=== PATIENT | female | born 1965 | race Caucasian/White ===

== ENCOUNTER 2022-03-31 09:43 | Inpatient (IN) | payer BC, SELFPAY ==
[2022-03-31] VITALS (13 sets, daily range): BP systolic 148–183; BP diastolic 81–108; PULSE 64–75; RESP 14–20; TEMP 36.6–37; O2SAT 91–100; BMI 36.5; BMI 38.5
--- NOTE | 2022-03-31 10:17 | CRLHL7_ITS ---
For Patients: As a result of the 21st Century Cures Act, medical imaging exams and procedure reports are released immediately into your electronic medical record. You may view this report before your referring provider. If you have questions, please contact your health care provider. Indication: Back pain Technique: Volumetric multidetector CT images of the chest, abdomen, and pelvis were obtained after the administration of intravenous contrast. 95 cc Isovue-300 low osmolar intravenous contrast Comparison: CT abdomen and pelvis with contrast September 28, 2018 FINDINGS: CHEST The thoracic inlet is unremarkable. The thyroid gland is within normal limits. The thoracic aorta is nonaneurysmal. There is no filling defect to suggest pulmonary embolus. There is no mediastinal, hilar, or axillary adenopathy. There is linear basilar atelectasis and parenchymal scarring within the bilateral lung bases. There is a trace right basilar effusion. There is no pneumothorax. Somewhat lytic and sclerotic changes of the anterior right 2nd rib are incidentally appreciated without evidence of additional lytic or blastic lesion. The thoracic vertebral body heights are grossly maintained with mild multi-level degenerative disc disease. Incidental note is made of mild paraspinous soft tissue swelling centered at the T7 and T8 levels. ABDOMEN AND PELVIS The liver is enlarged with mild up attic steatosis. There are extensive subcentimeter hypodensities too small to characterize which may represent cystic changes of the liver. The spleen is normal in attenuation and size. There are radiopaque calculi within the gallbladder lumen. There is no intrahepatic or common ductal dilatation. The stomach and duodenum are grossly unremarkable. The pancreas is normal in enhancement without significant atrophy. The adrenal glands are unremarkable without evidence of adenoma. The kidneys demonstrate cystic changes and mild prominence of the right renal pelvis with nonobstructive calculi in the collecting systems. There is no definite evidence of distal obstructive calculus. There is a moderate to severe proximal amount of intracolonic stool. There is minimal distal colonic diverticulosis. The appendix is unremarkable without significant inflammatory change. The abdominal aorta is nonaneurysmal with no significant atherosclerotic disease. The remaining solid pelvic viscera are otherwise grossly unremarkable. There is no pathologically enlarged epigastric, mesenteric, retroperitoneal, or pelvic sidewall lymph node. There is mild bulging of the ventral abdomen. There is no free air or free fluid. Degenerative changes of the sacroiliac joints and bilateral hips are appreciated. The lumbar vertebral body heights are grossly maintained with mild multi-level degenerative disc disease. There is moderate facet arthrosis. Impression: 1. Demonstration of mild paraspinous soft tissue thickening at the T7 and T8 levels without evidence of underlying endplate changes which could represent minimal paraspinous infectious or inflammatory phlegmon. Follow-up with contrast enhanced MRI of the thoracic spine for improved characterization of subtle marrow edema and enhancement. 2. Right greater than left basilar pleural effusions with adjacent compressive atelectasis and/or minimal developing infiltrates. 3. Somewhat mixed lytic and sclerotic changes of the anterior right rib without evidence of additional lytic or sclerotic changes of the thoracic osseous structures. This finding could represent a small partially calcified enchondroma. 4. Moderate hepatosplenomegaly. Subcentimeter cystic changes too small to characterize similar to previous exam. 5. Moderate stool within the colon. Otherwise, no definite acute intra-abdominal abnormalities are appreciated. Nephrolithiasis without evidence of definite distal obstructive uropathy. Please note that all CT scans at this facility use dose modulation, iterative reconstruction, and/or weight-based dosing when appropriate to reduce radiation dose to as low as reasonably achievable. Dictated by Adolfo Oneill MD @ 03/31/2022 12:53:00 PM (Electronically Signed)
[2022-03-31 10:30] LABS: Lactate* 0.7 mmol/L (0.5-1.9)
--- NOTE | 2022-03-31 10:30 | ED.GENADULT ---
HPI - General Adult General Time Seen by Provider: 10:30 Date Seen: 03/31/22 Chief complaint: Back Injury/Pain Stated complaint: severe backpain Time Seen by Provider: 03/31/22 09:43 Source: patient and family Mode of arrival: ambulatory Limitations: no limitations History of Present Illness HPI narrative: Patient is a very pleasant 56-year-old female who presents here with back discomfort. She describes her back discomfort for the last week to week and half. He has been battling a bladder infection is been placed on multiple courses of antibiotics for this. Most recently yesterday where was changed to ciprofloxacin. She is also taking some tramadol for the discomfort. She notices no pain that goes down into her buttocks. Air into her legs bilaterally. Coughing or taking a deep breath in and significantly exacerbates her discomfort. She has also been taking some ibuprofen with this. She has had some fevers and chills earlier in the week. But did not take her temperature, she notes no numbness tingling or weakness, there has been no diarrhea if anything she has been constipated she has had no dysuria frequency of urination noted. She has noted no change in her pain with eating, movement, and the pain is continuous. Related Data Home Medications Medication Instructions Recorded Confirmed albuterol sulfate 90 mcg/actuation INHALATION 03/19/22 03/30/22 aerosol inhaler anastrozole 1 mg tablet 1 mg PO tab 03/19/22 03/30/22 atorvastatin 40 mg tablet 40 mg PO QPM tab 03/19/22 03/30/22 benzonatate 100 mg capsule mg PO 03/19/22 03/30/22 bupropion HCl 150 mg 24 hr tablet, mg PO 03/19/22 03/30/22 extended release citalopram 40 mg tablet 40 mg PO tab 03/19/22 03/30/22 dextroamphetamine-amphetamine ER applicator PO 03/19/22 03/30/22 20 mg 24hr capsule,extend release dextroamphetamine-amphetamine ER PO 03/19/22 03/30/22 30 mg 24hr capsule,extend release levothyroxine 25 mcg tablet 25 mcg PO tab 03/19/22 03/30/22 losartan 50 mg tablet 50 mg PO QDAY tab 03/19/22 03/30/22 mirabegron 50 mg tablet,extended tab PO 03/19/22 03/30/22 release 24 hr (Myrbetriq) nitrofurantoin 100 mg PO ONCE cap 03/19/22 03/30/22 monohydrate/macrocrystals 100 mg capsule simvastatin 40 mg tablet 40 mg PO QPM tab 03/19/22 03/30/22 triamcinolone acetonide 0.5 % applic TOPICAL 03/19/22 03/30/22 topical cream Previous Rx's Medication Instructions Recorded ciprofloxacin HCl 250 mg tablet 250 mg PO BID #14 tab 03/30/22 tramadol 50 mg tablet 50 mg PO TID PRN #10 tab 03/30/22 Allergies Allergy/AdvReac Type Severity Reaction Status Date / Time No Known Drug Allergies Allergy Verified 03/30/22 12:11 Review of Systems Status of ROS: Reports: 10 or more systems reviewed and unremarkable except as noted in History and below PFSH PFS Social History Smoking Status: Never smoker Do you use any of these nicotine containing products: None Second hand tobacco smoke exposure: No Non-prescribed substance use: denies use service: No Exam Const: Vital Signs, click to edit/add: Vital Signs - 24 hr 03/31/22 09:55 03/31/22 11:37 03/31/22 12:00 Temperature 97.8 F Pulse Rate [Right Pulse Oximeter] 74 64 65 Respiratory Rate 18 14 Blood Pressure [Ri ght Upper Arm] 183/108 H 163/89 H 161/93 H Pulse Oximetry 97 100 99 03/31/22 12:30 03/31/22 13:00 03/31/22 14:30 Temperature Pulse Rate [Right Pulse Oximeter] 65 64 69 Respiratory Rate 17 Blood Pressure [Ri ght Upper Arm] 148/87 H 155/89 H 153/94 H Pulse Oximetry 96 99 99 03/31/22 15:00 03/31/22 16:00 Temperature Pulse Rate [Right Pulse Oximeter] 66 66 Respiratory Rate 14 15 Blood Pressure [Ri ght Upper Arm] 151/87 H 161/92 H Pulse Oximetry 99 100 Documenting provider has reviewed patient's vital signs: yes Common normals: oriented x3, no limitations, alert and well nourished General appearance: ill appearing Nutritional appearance: overweight Orientation/consciousness: Yes awake, Yes oriented to person, Yes oriented to place and Yes oriented to time HENMT: Common normals: normocephalic, head/scalp atraumatic, hearing grossly normal bilaterally, external ears normal, EAC's normal, TM's normal bilaterally, external nose normal, nasal mucous membranes and turbinates normal, moist oral mucous membranes, oropharynx normal, dentition normal and gingiva normal Head and scalp: normal to inspection, normocephalic and atraumatic Face and sinus: normal facial exam, sinuses nontender and face symmetric Nose: external nose normal and nasal mucous membranes and turbinates normal External ear: external ears normal External auditory canal: EAC's normal Tympanic membrane: TM's normal bilaterally Mouth: oral and palatal mucosa normal, lip normal, tongue normal and salivary glands and ducts normal Throat: posterior oropharynx normal, tonsils normal and uvula midline Eye: Common normals: PERRL, EOMs intact bilaterally, conjunctivae normal and no scleral icterus General eye: normal appearance of both eyes Visual acuity: acuity normal Alignment: alignment normal Periorbital: periorbital findings normal Eyelid: eyelids normal Conjunctiva: conjunctiva(e) normal Sclera: sclerae normal Cornea: corneas normal Pupil: PERRL EOM: EOM abnormal Neck & C-Spine: Common normals: full ROM, no lymphadenopathy, supple, no meningeal signs, no JVD, thyroid normal and no carotid bruits Thyroid: thyroid normal Lymph: Lymphatic: no lymphadenopathy noted and no lymphedema noted Chest: Common normals: inspection of chest normal and palpation of chest normal Chest: other Other: Scars bilaterally are notable or breast consistent with the previous lumpectomy and breast reduction Resp: Common normals: normal respiratory effort, no retractions, no use of accessory muscles, clear to auscultation bilaterally and percussion normal Effort & inspection: able to speak in complete sentences and symmetric chest movement Auscultation: clear to auscultation bilaterally Percussion: percussion normal Cardio: Common normals: no JVD, regular rate, regular rhythm, S1 normal heart sound, S2 normal heart sound, no gallops, no clicks, no murmurs, no rub and peripheral pulses 2+ throughout Rate: regular rate Rhythm: regular rhythm Heart sounds: S1 normal and S2 normal Peripheral pulses: pulses 2+ throughout GI: Common normals: Normal to inspection, nondistended, normoactive bowel sounds present Inspection: normal to inspection Other: Abdomen is distended, and obese, she is more right-sided than left-sided upper abdominal pain. On palpation noted in the deep on the right side. Bowel sounds are normal throughout all quadrants. There is no change in her skin. No hernias are appreciated. She has some percussion tenderness noted of her spine noted. And her lower thoracic region upper lumbar region. Point of care ultrasound was done showing mild hydronephrosis bilaterally of her kidneys. There is also shadowing gallstones within her gallbladder. : Bladder/kidney exam: CVA tenderness Back & Pelvis: Common normals: thoracic and lumbar spine normal to inspection General back: CVA tenderness Thoracic spine/upper back: ROM limited, pain with ROM and thoracic spinal tenderness Lumbar spine/lower back: paraspinal muscle tenderness Pelvis: buttocks normal Extremity: Common normals: normal to inspection, full ROM, normal capillary refill, no joint enlargement, no clubbing, cyanosis or edema, no calf tenderness and no pedal edema General: normal exam except as noted Neuro: Common normals: oriented x3, CN's II-XII intact bilaterally, moves all extremities, no focal motor deficits, no sensory deficits noted, deep tendon reflexes 2+ bilaterally and gait normal Sensorium/orientation: awake, alert, oriented to person, oriented to place and oriented to time Meningeal signs: no meningeal signs Skin: Common normals: no rashes or lesions noted, no wounds, skin turgor normal, no jaundice, no petechiae and no mottling General skin exam: no rashes or lesions noted and turgor normal Course Course Hospital Course: 3:35 p.m. Patient received numerous doses of Dilaudid for pain. This is helped her pain immensely. Use to have no fevers or chills. CT scan was suggestive of thoracic spine issue. With the soft tissue swelling around T7-T8. Recommendation was for a thoracic MRI. Thoracic MRI was done which showed some inflammation/infectious nature around T6 through T8. No specific fluid collection. I discussed with the patient and patient's family the findings. I would like to speak to Infectious Disease and/or neuro surgery at a tertiary care center. Vital Signs Vital signs: Initial Vital Signs Temperature 97.8 F 03/31/22 09:55 Temperature Source Temporal Artery Scan 03/31/22 09:55 Pulse Rate 74 03/31/22 09:55 Respiratory Rate 18 03/31/22 09:55 Blood Pressure 183/108 H 03/31/22 09:55 Blood Pressure Mean 133 03/31/22 09:55 Blood Pressure Position Sitting 03/31/22 09:55 Pulse Oximetry 97 03/31/22 09:55 Oxygen Delivery Method 03/31/22 09:55 Vital Signs Temperature 97.8 F 03/31/22 09:55 Pulse Rate 74 03/31/22 09:55 Respiratory Rate 18 03/31/22 09:55 Blood Pressure 183/108 H 03/31/22 09:55 Pulse Oximetry 97 03/31/22 09:55 Temperature 97.8 F 03/31/22 09:55 Pulse Rate 66 03/31/22 16:00 Respiratory Rate 15 03/31/22 16:00 Blood Pressure 161/92 H 03/31/22 16:00 Pulse Oximetry 100 03/31/22 16:00 Medical Decision Making MDM Narrative Medical decision making narrative: Patient is seen and assessed her vital signs show elevated systolic and diastolic blood pressure. This is more consistent with pain than anything. I am a little bit concerned as she appears ill looking here. That we need to do some laboratory work, blood cultures, IV, and a CT scan with IV contrast. To further delineate her abdominal and thoracic region. During the evaluation of this patient I considered multiple differential diagnosis including life-threatening differentials which are appendicitis, aortic aneurysm, mesenteric ischemia, bowel perforation, ectopic , volvulus and bowel obstruction, other differential diagnosis include but are not limited to inflammatory bowel disease, cholecystitis, pancreatitis, hepatitis, gastritis, GERD, diverticulitis, peptic ulcer disease, pyelonephritis/UTI, renal colic/stone, pelvic inflammatory disease, cervicitis, endometritis, intrauterine , dysfunctional uterine bleeding, ovarian cyst/torsion, spontaneous as well as other etiologies Discussed with them the findings and course with this. We will do CT of her chest abdomen and pelvis for further delineation. She does have a history of breast cancer in the back my mind also. IV fluids Zofran Dilaudid will be given also. 5:07 p.m. I discussed the case with from [facility] infectious disease. He agreed that in a perfect world a biopsy would be appropriate of this area before starting antibiotics but given the fact that every tertiary care system in [place] is unable to take med surge basins now, (I called [facility], [facility], [facility], [facility], [facility] and all were full.) He suggested ceftazidime 2 g every 12 hours along with some ice and 1 g every 12 hours. If worsening condition then consideration of transfer. But since were doing long-term antibiotics he does not think they need if she response to therapy for this. She will need to see infectious disease at [facility]. At some point. I will speak to the inpatient physician in [facility] and get her admitted for pain control and antibiotics for presumed thoracic osteomyelitis. Medical Records Medical records reviewed: Yes I reviewed the patient's medical records Lab Data Lab results reviewed: Yes I reviewed the patient's lab results Labs: Lab Results 03/31/22 03/31/22 03/31/22 Range/Units 10:20 10:20 10:20 WBC 8.67 (4.50-11.00) K/uL RBC 4.14 (4.00-5.20) m/uL Hgb 12.2 (12.0-16.0) gm/dL Hct 37.3 (33.0-51.0) % MCV 90 (80-100) fL MCH 30 (26-34) pg MCHC 33 (32-36) gm/dL RDW Coeff of Antonio 13.0 (11.5-15.5) % Plt Count 257 (140-440) K/uL Neut % (Auto) 84.0 H (42.0-72.0) % Lymph % (Auto) 7.8 L (20-44) % [place] % (Auto) 7.2 (0.0-11.0) % Eos % (Auto) 0.6 (0.0-7.0) % Baso % (Auto) 0.2 (0.0-3.0) % Neut # (Auto) 7.30 H (1.7-7.0) K/uL Lymph # (Auto) 0.70 L (0.90-2.90) K/uL [place] # (Auto) 0.60 (0.00-0.90) K/UL Eos # (Auto) 0.05 (0.00-0.50) K/uL Baso # (Auto) 0.02 (0.00-0.30) K/uL Abs Immat Gran (auto) 0.02 (0.00-0.30) K/uL Sodium 133 L Cancelled (135-149) mmol/L Potassium 3.6 Cancelled (3.6-5.1) mmol/L Chloride 100 Cancelled (96-114) mmol/L Carbon Dioxide 25 Cancelled (20-32) mmol/L BUN 12 Cancelled (7-30) mg/dL Creatinine 0.6 Cancelled (0.5-1.5) mg/dL Estimated Creat Clear 104.36 Cancelled Glucose 156 H Cancelled (60-115) mg/dL Lactate (0.5-1.9) mmol/L Calcium 8.9 Cancelled (8.4-10.6) mg/dL Total Bilirubin 0.9 (0.1-1.5) mg/dL Direct Bilirubin 0.4 (0.0-0.5) mg/dL AST 19 (12-35) U/L ALT 15 (4-35) U/L Alkaline Phosphatase 93 (40-150) U/L C-Reactive Protein 14.4 H (0.5-1.0) mg/dL Total Protein 6.5 (6.0-8.3) g/dL Albumin 3.8 (3.3-5.0) g/dL Lipase 25 (23-300) U/L Urine Color (Yellow) Urine Appearance (Clear) Urine pH (5.0-8.5) Ur Specific Valera (1.000-1.030) Urine Protein (Negative) Urine Glucose (UA) (Negative) Urine Ketones (Negative) Urine Blood (Negative) Urine Nitrite (Negative) Urine Bilirubin (Negative) Urine Urobilinogen (0.2-1.0) Ur Leukocyte Esterase (Negative) Urine RBC (0-2) Urine WBC (0-5) Ur Squamous Epith Cells (None-Few) Amorphous Sediment (None) Other Sediment (None) Urine Bacteria (None) Urine Mucus (None) 03/31/22 03/31/22 03/31/22 Range/Units 10:20 10:20 11:10 WBC (4.50-11.00) K/uL RBC (4.00-5.20) m/uL Hgb (12.0-16.0) gm/dL Hct (33.0-51.0) % MCV (80-100) fL MCH (26-34) pg MCHC (32-36) gm/dL RDW Coeff of Antonio (11.5-15.5) % Plt Count (140-440) K/uL Neut % (Auto) (42.0-72.0) % Lymph % (Auto) (20-44) % [place] % (Auto) (0.0-11.0) % Eos % (Auto) (0.0-7.0) % Baso % (Auto) (0.0-3.0) % Neut # (Auto) (1.7-7.0) K/uL Lymph # (Auto) (0.90-2.90) K/uL [place] # (Auto) (0.00-0.90) K/UL Eos # (Auto) (0.00-0.50) K/uL Baso # (Auto) (0.00-0.30) K/uL Abs Immat Gran (auto) (0.00-0.30) K/uL Sodium (135-149) mmol/L Potassium (3.6-5.1) mmol/L Chloride (96-114) mmol/L Carbon Dioxide (20-32) mmol/L BUN (7-30) mg/dL Creatinine (0.5-1.5) mg/dL Estimated Creat Clear Glucose (60-115) mg/dL Lactate 0.7 (0.5-1.9) mmol/L Calcium (8.4-10.6) mg/dL Total Bilirubin (0.1-1.5) mg/dL Direct Bilirubin (0.0-0.5) mg/dL AST (12-35) U/L ALT (4-35) U/L Alkaline Phosphatase (40-150) U/L C-Reactive Protein Cancelled (0.5-1.0) mg/dL Total Protein (6.0-8.3) g/dL Albumin (3.3-5.0) g/dL Lipase (23-300) U/L Urine Color Yellow (Yellow) Urine Appearance Clear (Clear) Urine pH 7.0 (5.0-8.5) Ur Specific Valera 1.015 (1.000-1.030) Urine Protein Negative (Negative) Urine Glucose (UA) Negative (Negative) Urine Ketones Negative (Negative) Urine Blood 1+ A (Negative) Urine Nitrite Negative (Negative) Urine Bilirubin Negative (Negative) Urine Urobilinogen 0.2 (0.2-1.0) Ur Leukocyte Esterase 1+ A (Negative) Urine RBC 0-2 (0-2) Urine WBC 2-5 (0-5) Ur Squamous Epith Cells Few (None-Few) Amorphous Sediment (None) Other Sediment (None) Urine Bacteria Few A (None) Urine Mucus (None) Imaging Data CT scan - abdomen: Attestation: I have reviewed the pertinent imaging results. Radiologist's impression: Patient: REMI WAHL Facility:?[facility] Patient ID:?[id number] Site Patient ID:?[id number]. Site :?[id number] Study:?MRI Spine Thoracic w/wo 15 ml Dotarem-03/31/2022 2:23:04 PM Ordering Physician:?Inez Marsh Final Report: Indication: 03/31/22 CT showed paraspinous thickening at T 7-8 HX BREAST CANCER Technique: Noncontrast sagittal T1, T2, STIR and axial GRE sequences are provided. Sagittal and axial T1 postcontrast images obtained after administration of 15 ml Dotarem IV contrast. Comparison: CT 03/31/22 Findings: Thoracic kyphotic curvature is maintained. Vertebral body heights are maintained. No fractures. No aggressive osseous lesion. There is a 6.6 centimeter abnormal region of right paraspinal thickening and enhancement along the T6-T8 vertebral bodies (series 8 image 6) and to a lesser extent along the left paraspinal soft tissues at the T7 and T8 level without osseous erosion. Mild enhancement of the left T6-7 and T7-8 neural foramen epidural fat. Multiple right hepatic cysts. No abnormal spinal cord signal. Multilevel mild discogenic degenerative changes. No significant spinal canal stenosis or neural foramen narrowing. Impression: 1. Soft tissue edema and enhancement along the right T6-T8 vertebral bodies and left T7-8 vertebral bodies. Mild enhancement of the left T6-7 and T7-8 neural foramen epidural fat. Differential considerations include infectious or inflammatory process. 2. Multilevel mild discogenic degenerative changes. No significant spinal canal stenosis or neural foramen narrowing. Dictated by Bret Al MD @ 03/31/2022 2:52:37 PM (Electronic Signature) Patient: REMI WAHL Facility:?[facility] Patient ID:?[id number] Site Patient ID:?[id number]. Site :?[id number] Study:?CT Chest/Abd/Pelvis 95CC ISOVUE 300-03/31/2022 11:53:35 AM Ordering Physician:Fatuma Marsh Final Report: Indication: Back pain Technique: Volumetric multidetector CT images of the chest, abdomen, and pelvis were obtained after the administration of intravenous contrast. 95 cc Isovue-300 low osmolar intravenous contrast Comparison: CT abdomen and pelvis with contrast September 28, 2018 FINDINGS: CHEST The thoracic inlet is unremarkable. The thyroid gland is within normal limits. The thoracic aorta is nonaneurysmal. There is no filling defect to suggest pulmonary embolus. There is no mediastinal, hilar, or axillary adenopathy. There is linear basilar atelectasis and parenchymal scarring within the bilateral lung bases. There is a trace right basilar effusion. There is no pneumothorax. Somewhat lytic and sclerotic changes of the anterior right 2nd rib are incidentally appreciated without evidence of additional lytic or blastic lesion. The thoracic vertebral body heights are grossly maintained with mild multi-level degenerative disc disease. Incidental note is made of mild paraspinous soft tissue swelling centered at the T7 and T8 levels. ABDOMEN AND PELVIS The liver is enlarged with mild up attic steatosis. There are extensive subcentimeter hypodensities too small to characterize which may represent cystic changes of the liver. The spleen is normal in attenuation and size. There are radiopaque calculi within the gallbladder lumen. There is no intrahepatic or common ductal dilatation. The stomach and duodenum are grossly unremarkable. The pancreas is normal in enhancement without significant atrophy. The adrenal glands are unremarkable without evidence of adenoma. The kidneys demonstrate cystic changes and mild prominence of the right renal pelvis with nonobstructive calculi in the collecting systems. There is no definite evidence of distal obstructive calculus. There is a moderate to severe proximal amount of intracolonic stool. There is minimal distal colonic diverticulosis. The appendix is unremarkable without significant inflammatory change. The abdominal aorta is nonaneurysmal with no significant atherosclerotic disease. The remaining solid pelvic viscera are otherwise grossly unremarkable. There is no pathologically enlarged epigastric, mesenteric, retroperitoneal, or pelvic sidewall lymph node. There is mild bulging of the ventral abdomen. There is no free air or free fluid. Degenerative changes of the sacroiliac joints and bilateral hips are appreciated. The lumbar vertebral body heights are grossly maintained with mild multi-level degenerative disc disease. There is moderate facet arthrosis. Impression: 1. Demonstration of mild paraspinous soft tissue thickening at the T7 and T8 levels without evidence of underlying endplate changes which could represent minimal paraspinous infectious or inflammatory phlegmon. Follow-up with contrast enhanced MRI of the thoracic spine for improved characterization of subtle marrow edema and enhancement. 2. Right greater than left basilar pleural effusions with adjacent compressive atelectasis and/or minimal developing infiltrates. 3. Somewhat mixed lytic and sclerotic changes of the anterior right rib without evidence of additional lytic or sclerotic changes of the thoracic osseous structures. This finding could represent a small partially calcified enchondroma. 4. Moderate hepatosplenomegaly. Subcentimeter cystic changes too small to characterize similar to previous exam. 5. Moderate stool within the colon. Otherwise, no definite acute intra-abdominal abnormalities are appreciated. Nephrolithiasis without evidence of definite distal obstructive uropathy. Please note that all CT scans at this facility use dose modulation, iterative reconstruction, and/or weight-based dosing when appropriate to reduce radiation dose to as low as reasonably achievable. Dictated by Adolfo Oneill MD @ 03/31/2022 12:53:00 PM (Electronic Signature) Discharge Plan Discharge Clinical Impression: Acute osteomyelitis of thoracic spine Patient Disposition: Admitted As Inpatient Activity Level: Activity as Tolerated, Light activity and Up with assist Discharge Diet: Regular
[2022-03-31 10:32] LABS: Basophils Absolute Auto 0.02 K/uL (0.00-0.30); Basophils Percent Auto 0.2 % (0.0-3.0); Eosinophils Absolute Auto 0.05 K/uL (0.00-0.50); Eosinophils Percent Auto 0.6 % (0.0-7.0); Hematocrit 37.3 % (33.0-51.0); Hemoglobin* 12.2 gm/dL (12.0-16.0); Immature Granulocytes Abs Auto 0.02 K/uL (0.00-0.30); Lymphocytes Percent Auto 7.8 % (20-44); Mean Corpuscular HGB Conc 33 gm/dL (32-36); Mean Corpuscular Hemoglobin 30 pg (26-34); Mean Corpuscular Volume 90 fL (80-100); Monocytes Percent Auto 7.2 % (0.0-11.0); Platelet Count* 257 K/uL (140-440); Red Blood Count 4.14 m/uL (4.00-5.20); White Blood Count* 8.67 K/uL (4.50-11.00)
[2022-03-31] MEDS: 0.9 % SODIUM CHLORIDE 1000 ml 1,000 ML IV (10:33)
[2022-03-31] MEDS: ONDANSETRON 2 MG/ML inj 4 MG IVP (10:36)
[2022-03-31] MEDS: HYDROmorphone 0.5 mg/0.5 ml inj IVP ×5 (10:38→17:21)
[2022-03-31 10:44] LABS: Slide Review Reflex No
[2022-03-31 10:51] LABS: Albumin* 3.8 g/dL (3.3-5.0)
[2022-03-31 10:54] LABS: Alkaline Phosphatase* 93 U/L (40-150); Aspartate Amino Transferase* 19 U/L (12-35); Bilirubin Direct* 0.4 mg/dL (0.0-0.5); Bilirubin Total* 0.9 mg/dL (0.1-1.5); Total Protein* 6.5 g/dL (6.0-8.3)
[2022-03-31 10:55] LABS: Alanine Aminotransferase* 15 U/L (4-35); Lipase* 25 U/L (23-300)
--- NOTE | 2022-03-31 10:57 | PC.NURSE ---
applied O2 at 2lpm for spo2 88-90% after dilaudid
[2022-03-31 11:18] LABS: Appearance Urine Clear (Clear); Bilirubin Urine Negative (Negative); Blood Urine 1+ (Negative); Color Urine Yellow (Yellow); Glucose Urine Negative (Negative); Ketones Urine Negative (Negative); Leukocyte Esterase Urine 1+ (Negative); Nitrite Urine Negative (Negative); Protein Urine Negative (Negative); Specific Gravity Urine 1.015 (1.000-1.030); Urobilinogen Urine 0.2 (0.2-1.0)
--- NOTE | 2022-03-31 11:26 | PC.NURSE ---
Pt in imaging
[2022-03-31 11:30] LABS: Bacteria Urine Few; RBC Urine 0-2 (0-2); Squamous Epithelial Cell Urine Few (None-Few)
[2022-03-31 11:33] LABS: C Reactive Protein* 14.4 mg/dL (0.5-1.0)
--- NOTE | 2022-03-31 11:36 | PC.NURSE ---
pt back from imaging, vss, bp improved
--- NOTE | 2022-03-31 12:59 | CRLHL7_ITS ---
For Patients: As a result of the Century Cures Act, medical imaging exams and procedure reports are released immediately into your electronic medical record. You may view this report before your referring provider. If you have questions, please contact your health care provider. Indication: 03/31/22 CT showed paraspinous thickening at T 7-8 HX BREAST CANCER Technique: Noncontrast sagittal T1, T2, STIR and axial GRE sequences are provided. Sagittal and axial T1 postcontrast images obtained after administration of 15 ml Dotarem IV contrast. Comparison: CT 03/31/22 Findings: Thoracic kyphotic curvature is maintained. Vertebral body heights are maintained. No fractures. No aggressive osseous lesion. There is a 6.6 centimeter abnormal region of right paraspinal thickening and enhancement along the T6-T8 vertebral bodies (series 8 image 6) and to a lesser extent along the left paraspinal soft tissues at the T7 and T8 level without osseous erosion. Mild enhancement of the left T6-7 and T7-8 neural foramen epidural fat. Multiple right hepatic cysts. No abnormal spinal cord signal. Multilevel mild discogenic degenerative changes. No significant spinal canal stenosis or neural foramen narrowing. Impression: 1. Soft tissue edema and enhancement along the right T6-T8 vertebral bodies and left T7-8 vertebral bodies. Mild enhancement of the left T6-7 and T7-8 neural foramen epidural fat. Differential considerations include infectious or inflammatory process. 2. Multilevel mild discogenic degenerative changes. No significant spinal canal stenosis or neural foramen narrowing. Dictated by Bret Al MD @ 03/31/2022 2:52:37 PM (Electronically Signed)
[2022-03-31] MEDS: HYDROmorphone 0.5 mg/0.5 ml inj 0.2 MG IVP ×3 (13:15→23:32)
--- NOTE | 2022-03-31 13:20 | ED.NURSE ---
Pt to MRI by wheelchair at 1320.
[2022-03-31 16:02] LABS: Chloride* 100 mmol/L (96-114)
[2022-03-31 16:03] LABS: Potassium* 3.6 mmol/L (3.6-5.1); Sodium* 133 mmol/L (135-149)
[2022-03-31 16:05] LABS: Creatinine* 0.6 mg/dL (0.5-1.5); Est. Creatinine Clearance* 104.36; Estimated Glomerular Filt Rate 104.63
[2022-03-31 16:06] LABS: Blood Urea Nitrogen* 12 mg/dL (7-30); Calcium* 8.9 mg/dL (8.4-10.6); Carbon Dioxide* 25 mmol/L (20-32); Glucose* 156 mg/dL (60-115)
--- NOTE | 2022-03-31 16:52 | PC.NURSE ---
ID doc speaking to Dr Wiley at this time
[2022-03-31] MEDS: CEFEPIME HCL 2 GM in 0.9 % SODIUM CHLORIDE Mini-bag 100 ML IVPB (17:23)
[2022-03-31 17:50] LABS: SARS PCR* Negative SARS-CoV-2 (Negative)
[2022-03-31] MEDS: KETOROLAC 30 MG/ML inj IVP (18:04)
--- NOTE | 2022-03-31 18:15 | PC.NURSE ---
report given to Nita on Med Surg, pt to room 255
--- NOTE | 2022-03-31 18:51 | P.IMHP_ITS ---
Hospitalist- H&P: HPI History of Present Illness Date Seen: 03/31/22 Chief complaint: severe backpain Narrative: Fran Campa is a 56 year old female who came in with worsening back pain. A few weeks ago on a Wednesday, she had bladder botox injections for over active bladder. Wednesday in the middle of the night, she woke up hot/cold shaking and had an emesis. She also had new back pain. By Wednesday, she was still having these symptoms, so she went to urgent care and was started on cephalexin for presumed UTI. She finished the 7 day course of that, but never felt better. She also developed urinary frequency and urgency. No dysuria. A few days ago she went to the urgent care again and was started on ciprofloxacin for a psudomonas UTI. She was also given Tramadol for pain, but that did not help. Today her pain is in the mid back and radiates to her LLQ. Review of Systems Const: Reports: change in weight (lost 10 lbs over the past 10 days), fatigue and night sweats Eyes: Denies: change in vision or blurry vision ENMT: Denies: throat pain, throat swelling, difficulty swallowing or swelling of lips/tongue Cardio: Reports: shortness of breath with exertion (with deep breaths it is painful in back); Denies: chest pain or palpitations Resp: Reports: shortness of breath (with deep breaths it is painful in back); Denies: cough or chest congestion GI: Reports: abdominal pain, nausea, vomiting (on day of onset) and bloating; Denies: difficulty swallowing, change in bowel habits or blood in stool : Reports: urinary frequency, urinary urgency and urinary incontinence (overactive bladder) Musculo: Reports: back pain Integ/Breast: Denies: rash Neuro: Denies: headache, numbness in extremities, weakness in extremities, lack of coordination or confusion Endo: Reports: fatigue Sawyer/Lymph: Reports: easy bruising (notes a history of easy bruising, nothing more than usual); Denies: enlarged lymph nodes Allergy/Immuno: Denies: throat swelling [facility] Medical History (Updated 03/31/22 @ 20:18 by Gudelia Gonzalez MD) Attention deficit disorder Atypical lobular hyperplasia (ALH) of right breast Depression Ductal carcinoma in situ (DCIS) of breast Hyperlipidemia Hypothyroidism Impaired fasting glucose Obesity KERRIE (obstructive sleep apnea) Pseudomonas urinary tract infection Surgical History (Updated 03/31/22 @ 19:17 by Gudelia Gonzalez MD) H/O bilateral breast reduction surgery H/O breast biopsy S/P breast lumpectomy Family History (Updated 03/31/22 @ 19:40 by Gudelia Gonzalez MD) Father Diabetes H/O heart surgery Social History (Updated 03/31/22 @ 19:42 by Gudelia Gonzalez MD) 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 [place] Smoking Status: Never smoker Do you use any of these nicotine containing products: None Second hand tobacco smoke exposure: No How often do you have a drink containing alcohol: 2-3 times a week Alcohol type: beer Alcohol type details: Wednesdays and Saturdays How many standard drinks containing alcohol do you have on a typical day: 5 or 6 How often do you have six or more drinks on one occasion: Monthly AUDIT-C Alcohol total score: 7 Non-prescribed substance use: denies use Caffeine: No Are you now , , , , never or living with a partner: Social isolation score (0-1 are the most socially isolated patients): 1 service: No Meds Home Medications and Allergies Home Medications Medication Instructions Recorded Confirmed Type anastrozole 1 mg tablet 1 mg PO HS tab 03/19/22 03/31/22 History atorvastatin 40 mg tablet 40 mg PO HS tab 03/19/22 03/31/22 History bupropion HCl 150 mg 24 hr tablet, 150 mg PO DAILY 03/19/22 03/31/22 History extended release citalopram 40 mg tablet 40 mg PO DAILY tab 03/19/22 03/31/22 History dextroamphetamine-amphetamine ER 20 mg PO DAILY 03/19/22 03/31/22 History 20 mg 24hr capsule,extend release levothyroxine 25 mcg tablet 25 mcg PO DAILY tab 03/19/22 03/31/22 History losartan 50 mg tablet 50 mg PO DAILY tab 03/19/22 03/31/22 History mirabegron 50 mg tablet,extended 50 mg PO HS 03/19/22 03/31/22 History release 24 hr (Myrbetriq) Allergies Allergy/AdvReac Type Severity Reaction Status Date / Time No Known Drug Allergies Allergy Verified 03/30/22 12:11 Exam Narrative: Exam Narrative: General: No acute distress. Awake alert oriented x3. HEENT: Normocephalic atraumatic, pupils equally round and reactive to light and accommodation. Oropharynx clear. Mucous membranes are moist. No cervical lymphadenopathy, thyromegaly or carotid bruits. No JVD. Cardiovascular: Regular rate and rhythm. No murmurs, gallops, or rubs. Chest: No increased work of breathing. Clear to auscultation bilaterally. No crackles or wheezes. Abdomen: Bowel sounds present. Soft, nondistended, tender in the left lower quadrant and left flank. No rebound tenderness or guarding. No hepatosplenomegaly or masses. Back: No deformity. Mildly tender in the low thoracic spine. Extremities: No edema, no cyanosis or clubbing. Skin: No jaundice, no pallor, no rashes. Neuro: There are no focal deficits. Gait is within normal limits. Cranial nerves 2-12 are intact. Extraocular movements are full. No nystagmus. No facial asymmetry. Tongue is midline. Peripheral vision and vision are grossly intact. Strength is 5/5 in all 4 extremities. Light touch sensation is intact in face body and extremities. Coordination is intact in upper and lower extremities. Const: Vital Signs, click to edit/add: Vital Signs - 24 hr 03/31/22 09:55 03/31/22 11:37 03/31/22 12:00 Temperature 97.8 F Pulse Rate [Right Pulse Oximeter] 74 64 65 Respiratory Rate 18 14 Blood Pressure [Ri ght Upper Arm] 183/108 H 163/89 H 161/93 H Pulse Oximetry 97 100 99 03/31/22 12:30 03/31/22 13:00 03/31/22 14:30 Temperature Pulse Rate [Right Pulse Oximeter] 65 64 69 Respiratory Rate 17 Blood Pressure [Ri ght Upper Arm] 148/87 H 155/89 H 153/94 H Pulse Oximetry 96 99 99 03/31/22 15:00 03/31/22 16:00 03/31/22 17:25 Temperature Pulse Rate [Right Pulse Oximeter] 66 66 70 Respiratory Rate 14 15 16 Blood Pressure [Ri ght Upper Arm] 151/87 H 161/92 H 176/96 H Pulse Oximetry 99 100 98 Hospitalist - H&P: Result Labs Labs: Short CBC 03/31/22 Range/Units 10:20 WBC 8.67 (4.50-11.00) K/uL Hgb 12.2 (12.0-16.0) gm/dL Hct 37.3 (33.0-51.0) % Plt Count 257 (140-440) K/uL BMP 03/31/22 03/31/22 10:20 10:20 Sodium 133 L Cancelled Potassium 3.6 Cancelled Chloride 100 Cancelled Carbon Dioxide 25 Cancelled BUN 12 Cancelled Creatinine 0.6 Cancelled Glucose 156 H Cancelled Calcium 8.9 Cancelled Liver Function 03/31/22 Range/Units 10:20 Total Bilirubin 0.9 (0.1-1.5) mg/dL Direct Bilirubin 0.4 (0.0-0.5) mg/dL AST 19 (12-35) U/L ALT 15 (4-35) U/L Alkaline Phosphatase 93 (40-150) U/L Albumin 3.8 (3.3-5.0) g/dL Urine 03/31/22 Range/Units 11:10 Urine Color Yellow (Yellow) Urine Appearance Clear (Clear) Urine pH 7.0 (5.0-8.5) Ur Specific Alba 1.015 (1.000-1.030) Urine Protein Negative (Negative) Urine Glucose (UA) Negative (Negative) Chest radiograph 2 views COMPARISON: 07/25/2018 FINDINGS: The sensitivity and specificity of the exam are moderately limited by the patient`s body habitus. Mediastinum: The mediastinum is normal in appearance. The heart silhouette is normal in size and morphology. Lung: Small lung volumes are present with moderate bibasilar discoid atelectasis seen. No sign of pleural effusion seen. No pneumothorax is identified. Bone and Soft tissue: Unremarkable for age. IMPRESSION: 1. Small lung volumes are present with moderate bibasilar discoid atelectasis seen. CT images of the chest, abdomen, and pelvis were obtained after the administration of intravenous contrast. 95 cc Isovue-300 low osmolar intravenous contrast Comparison: CT abdomen and pelvis with contrast September 28, 2018 FINDINGS: CHEST The thoracic inlet is unremarkable. The thyroid gland is within normal limits. The thoracic aorta is nonaneurysmal. There is no filling defect to suggest pulmonary embolus. There is no mediastinal, hilar, or axillary adenopathy. There is linear basilar atelectasis and parenchymal scarring within the bilateral lung bases. There is a trace right basilar effusion. There is no pneumothorax. Somewhat lytic and sclerotic changes of the anterior right 2nd rib are incidentally appreciated without evidence of additional lytic or blastic lesion. The thoracic vertebral body heights are grossly maintained with mild multi-level degenerative disc disease. Incidental note is made of mild paraspinous soft tissue swelling centered at the T7 and T8 levels. ABDOMEN AND PELVIS The liver is enlarged with mild up attic steatosis. There are extensive subcentimeter hypodensities too small to characterize which may represent cystic changes of the liver. The spleen is normal in attenuation and size. There are radiopaque calculi within the gallbladder lumen. There is no intrahepatic or common ductal dilatation. The stomach and duodenum are grossly unremarkable. The pancreas is normal in enhancement without significant atrophy. The adrenal glands are unremarkable without evidence of adenoma. The kidneys demonstrate cystic changes and mild prominence of the right renal pelvis with nonobstructive calculi in the collecting systems. There is no definite evidence of distal obstructive calculus. There is a moderate to severe proximal amount of intracolonic stool. There is minimal distal colonic diverticulosis. The appendix is unremarkable without significant inflammatory change. The abdominal aorta is nonaneurysmal with no significant atherosclerotic disease. The remaining solid pelvic viscera are otherwise grossly unremarkable. There is no pathologically enlarged epigastric, mesenteric, retroperitoneal, or pelvic sidewall lymph node. There is mild bulging of the ventral abdomen. There is no free air or free fluid. Degenerative changes of the sacroiliac joints and bilateral hips are appreciated. The lumbar vertebral body heights are grossly maintained with mild multi-level degenerative disc disease. There is moderate facet arthrosis. Impression: 1. Demonstration of mild paraspinous soft tissue thickening at the T7 and T8 levels without evidence of underlying endplate changes which could represent minimal paraspinous infectious or inflammatory phlegmon. Follow-up with contrast enhanced MRI of the thoracic spine for improved characterization of subtle marrow edema and enhancement. 2. Right greater than left basilar pleural effusions with adjacent compressive atelectasis and/or minimal developing infiltrates. 3. Somewhat mixed lytic and sclerotic changes of the anterior right rib without evidence of additional lytic or sclerotic changes of the thoracic osseous structures. This finding could represent a small partially calcified enchondroma. 4. Moderate hepatosplenomegaly. Subcentimeter cystic changes too small to characterize similar to previous exam. 5. Moderate stool within the colon. Otherwise, no definite acute intra-abdominal abnormalities are appreciated. Nephrolithiasis without evidence of definite distal obstructive uropathy. MRI Noncontrast sagittal T1, T2, STIR and axial GRE sequences are provided. Sagittal and axial T1 postcontrast images obtained after administration of 15 ml Dotarem IV contrast. Comparison: CT 03/31/22 Findings: Thoracic kyphotic curvature is maintained. Vertebral body heights are maintained. No fractures. No aggressive osseous lesion. There is a 6.6 centimeter abnormal region of right paraspinal thickening and enhancement along the T6-T8 vertebral bodies (series 8 image 6) and to a lesser extent along the left paraspinal soft tissues at the T7 and T8 level without osseous erosion. Mild enhancement of the left T6-7 and T7-8 neural foramen epidural fat. Multiple right hepatic cysts. No abnormal spinal cord signal. Multilevel mild discogenic degenerative changes. No significant spinal canal stenosis or neural foramen narrowing. Impression: 1. Soft tissue edema and enhancement along the right T6-T8 vertebral bodies and left T7-8 vertebral bodies. Mild enhancement of the left T6-7 and T7-8 neural foramen epidural fat. Differential considerations include infectious or inflammatory process. 2. Multilevel mild discogenic degenerative changes. No significant spinal canal stenosis or neural foramen narrowing. Assessment and Plan Assessment and plan (1) Acute osteomyelitis of thoracic spine: Status: Acute Assessment and Plan: I am not finding any concerning neurologic signs at this time. Will do q.4 hours neuro checks. Admit for IV antibiotics of cefepime and vancomycin. If any neurologic changes are found, consider repeating MRI and/or transfer to a facility with neuro surgery and Infectious Disease. Pain control with oral oxycodone. May need Dilaudid for breakthrough. (2) Pseudomonas urinary tract infection: Problem comment: Diagnosed as an outpatient Status: Acute Assessment and Plan: Continue treatment with antibiotics, this will be covered by cefepime. (3) Atelectasis of both lungs: Status: Acute Assessment and Plan: Up to chair for meals. Incentive spirometry.
[2022-03-31] MEDS: ATORVASTATIN CALCIUM 40 MG TABLET PO (22:07)
[2022-03-31] MEDS: OXYCODONE 5 MG TABLET PO (23:25)
[2022-04-01] MEDS: CEFEPIME HCL 2 GM in 0.9 % SODIUM CHLORIDE Mini-bag 100 ML IVPB ×3 (01:58→17:04)
[2022-04-01] MEDS: HYDROmorphone 0.5 mg/0.5 ml inj 0.2 MG IVP ×2 (02:50→06:45)
[2022-04-01] MEDS: SODIUM CHLORIDE 0.9 % (FLUSH) 10 ML SYRINGE IVF ×3 (02:52→06:49)
[2022-04-01 03:00] VITALS: BP 166/101; PULSE 75; RESP 22; TEMP 37.2; O2SAT 94
[2022-04-01] MEDS: OXYCODONE 5 MG TABLET PO ×6 (03:25→21:17)
[2022-04-01] MEDS: HYDROmorphone 0.5 mg/0.5 ml inj IVP (03:26)
[2022-04-01] MEDS: LEVOTHYROXINE 25 MCG TABLET PO (06:39)
--- NOTE | 2022-04-01 07:31 | PC.NURSE ---
[id number]: Patient pleasant and cooperative. Rates pain 5-9/10. Controlled with PRN Dilaudid and Oxycodone. Isael called and received one time 0.5mg Dilaudid order. SBA in room. Denies N/V.
[2022-04-01 08:22] VITALS: BP 162/87; PULSE 77; RESP 18; TEMP 36.4; O2SAT 94
[2022-04-01] MEDS: CITALOPRAM HYDROBROMIDE 20 MG TABLET 40 MG PO (09:28)
[2022-04-01] MEDS: LOSARTAN POTASSIUM 50 MG TABLET PO (09:28)
[2022-04-01] MEDS: buPROPion XL 150 MG TABLET PO (09:28)
[2022-04-01 11:15] VITALS: BP 164/95; PULSE 67; RESP 18; TEMP 36.8; O2SAT 94
--- NOTE | 2022-04-01 14:03 | PC.SOCIAL ---
Social work: Met with pt and in room regarding d/c plan. Pt plans to return home at discharge and is interested in director social service finding out if home IV antibiotics are covered by her insurance if needed. Called [facility] [phone] and spoke with Olivia. Olivia is aware there is not a firm plan for antibiotic and schedule. Olivia states if initial information and possible plan for antibiotics can be sent, they can look into coverage for home IV antibiotics. Faxed requested information with pt's permission to [facility] and awaiting call back with information on insurance coverage for medication, supplies and home care. 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
[2022-04-01] MEDS: MAGNESIUM HYDROXIDE 30 ML ORAL.SUSP PO (15:10)
[2022-04-01 15:34] VITALS: BP 171/85; PULSE 67; PULSE 70; RESP 18; TEMP 36.3; O2SAT 96
--- NOTE | 2022-04-01 15:53 | PM.IMPN1 ---
Progress Note: A&P Assessment and plan (1) Acute osteomyelitis of thoracic spine: Problem details: unfortunately unable to get cultures from the infection or to transfer for infectious disease consultation and management. Will attempt phone management and monitor for complications that may require emergency transfer. Continue vancomycin and cefepime. I explained to the patient and her that vertebral osteomyelitis is typically treated for at least 6 weeks. Will need up plan for IV antibiotics outpatient. When blood cultures are available consider PICC line. Status: Acute (2) Pseudomonas urinary tract infection: Problem details: Diagnosed as an outpatient. IV cefepime Status: Acute (3) Constipation: Problem details: constipation prior to onset of opioid therapy. Requiring fairly high doses of opioid therapy. Will need aggressive laxative treatment. Status: Acute (4) Back pain: Problem details: increased opioid therapy for what is still fairly severe mid back pain. With this patient has better pain control this afternoon Status: Acute Time Spent With Patient Total time spent: Total time spent today is 60 minutes, 40 minutes in coordination of care and discussing with patient and and other providers management of vertebral osteomyelitis and pain and outpatient plan Subjective Date Seen: 04/01/22 Interval history: 56-year-old female admitted to the hospital with fever and back pain. Patient 1st had symptoms of illness around March 19 when she was seen in clinic and diagnosed with a urinary tract infection. She was started on Keflex 500 t.i.d. for 7 days at that time. She did say after a few days she got a little better. She did have some back pain at that time and reports that that she did also have fever and also Vomiting. She was having urinary frequency but not dysuria. urine culture grew Pseudomonas aeruginosa. She was seen again in clinic on March 30 with worsening symptoms. Primarily she was having more back pain but she also said she was having fever. She was started on ciprofloxacin and urine was re-cultured showing again Pseudomonas with miller sensitive to tested antibiotics. She is taking the Cipro for 2 days now and reports feeling worse with more back pain. Pain is located in her mid back. He says it does somewhat wrap around to her left anterior chest and feels better if she applies pressure to her lower ribs under her breast. MRI Imaging yesterday in the emergency department showed that she had soft tissue edema and enhancement along the right T6-T8 vertebral bodies and left T7-T8 vertebral bodies. Mild enhancement of the left T6 and 7 and T7 and 8 neural foramen epidural fat. This appeared to be consistent with an infectious or inflammatory process. She was not felt to have any neurologic deficits associated with this. In the emergency department there were attempts to transfer her to a [facility] or [facility] for management of presumed vertebral osteomyelitis. There were no beds available and it was recommended that empiric treatment with begun. In this case vancomycin and cefepime. Overnight she has continued to have quite a bit of pain. The pain is located in her mid back. Imaging also showed constipation and patient does report that this has been a problem in the last couple days due to poor p.o. intake due to feeling ill. In addition to her urinary tract infection. Patient also had Botox injections into her bladder. These occurred a few days before the onset of her fever and back pain. This procedure was performed through her urethra I believe. Exam Narrative: Exam Narrative: Initially when I see her she is in moderate discomfort. She has increased pain when she moves from supine to sitting And rolling over. The pain is located in her mid back about the level of T7-T8 in the midline. If anything the pain is a little bit greater just to the left of the midline. Respirations are clear to auscultation. Cardiovascular: S1, S2, regular rate and rhythm. Abdomen: Bowel sounds active. Abdomen is soft with minimal left upper quadrant tenderness. No mass. Extremities notable for intact sensation and intact Full strength in hip flexion, knee flexion and extension, ankle dorsiflexion and plantar flexion and great toe dorsiflexion bilaterally. intact pedal pulses. Const: Vital Signs, click to edit/add: Vital Signs - 24 hr 03/31/22 16:00 03/31/22 17:25 03/31/22 18:30 Temperature 98.0 F Pulse Rate [Right Pulse Oximeter] 66 70 69 Respiratory Rate 15 16 18 Blood Pressure [Ri ght Arm] 173/94 H Blood Pressure [Ri ght Upper Arm] 161/92 H 176/96 H Pulse Oximetry 100 98 93 03/31/22 18:52 03/31/22 21:20 03/31/22 23:00 Temperature 98.0 F 98.6 F Pulse Rate [Right Pulse Oximeter] 69 75 Respiratory Rate 18 20 Blood Pressure [Ri ght Arm] 173/94 H 167/81 H Blood Pressure [Ri ght Upper Arm] Pulse Oximetry 91 91 95 04/01/22 03:00 04/01/22 08:22 04/01/22 11:15 Temperature 98.9 F 97.6 F 98.2 F Pulse Rate [Right Pulse Oximeter] 75 77 67 Respiratory Rate 22 18 18 Blood Pressure [Ri ght Arm] 166/101 H 162/87 H 164/95 H Blood Pressure [Ri ght Upper Arm] Pulse Oximetry 94 94 94 04/01/22 15:34 Temperature 97.3 F L Pulse Rate [Right Pulse Oximeter] 70 Respiratory Rate 18 Blood Pressure [Ri ght Arm] 171/85 H Blood Pressure [Ri ght Upper Arm] Pulse Oximetry 96 Documenting provider has reviewed patient's vital signs: yes Labs Labs: Laboratory Results - last 24 hr 03/31/22 03/31/22 10:20 16:23 Sodium 133 L Potassium 3.6 Chloride 100 Carbon Dioxide 25 BUN 12 Creatinine 0.6 Estimated Creat Clear 104.36 Glucose 156 H Calcium 8.9 SARS-CoV-2 (PCR) Negative SARS-CoV-2
--- NOTE | 2022-04-01 18:32 | PC.NURSE ---
End of shift. Pt pleasant and cooperative. SL is patent and she is getting Iv antibiotics. abd and back pain 4-06/29.? Controlled with PRN Oxycodone q 2-3 hours.? she is up ab tommie in the room she is eating drinking and voiding. she uses a CPAp at hs
[2022-04-01 19:00] VITALS: BP 145/96; PULSE 73; RESP 20; TEMP 37.1; O2SAT 94
[2022-04-01] MEDS: SENNOSIDES 1 TAB TABLET 2 TAB PO (21:17)
[2022-04-01] MEDS: ATORVASTATIN CALCIUM 40 MG TABLET PO (21:17)
[2022-04-01 23:00] VITALS: BP 151/87; PULSE 71; RESP 18; TEMP 36.7; O2SAT 93
[2022-04-02] VITALS (7 sets, daily range): BP systolic 151–176; BP diastolic 76–113; PULSE 60–98; RESP 16–18; TEMP 36.1–36.4; O2SAT 93–95
[2022-04-02] MEDS: OXYCODONE 5 MG TABLET PO ×7 (00:43→22:07)
[2022-04-02] MEDS: CEFEPIME HCL 2 GM in 0.9 % SODIUM CHLORIDE Mini-bag 100 ML IVPB ×3 (01:42→18:49)
[2022-04-02] MEDS: SODIUM CHLORIDE 0.9 % (FLUSH) 10 ML SYRINGE IVF ×2 (02:54→05:13)
--- NOTE | 2022-04-02 06:05 | PC.NURSE ---
[id number]: Patient pleasant and cooperative. Independent in room. IV in upper L. arm infiltrated and new IV started in upper R. arm by Donna from ED. Pain controlled with PRN Oxycodone. Appears to be more comfortable than yesterday. Intermittent ice applied to lower back. Patient verbalized concern for not having a BM for several days. Educated on effects of Oxycodone associated with constipation and encouraged to walk halls as tolerated and increase fluid intake. Patient did receive MOM earlier in the day and is passing gas. Patient currently on BID Senna. Bowel sounds hypoactive on LUQ and LLQ.
[2022-04-02] MEDS: LEVOTHYROXINE 25 MCG TABLET PO (06:42)
[2022-04-02 07:52] LABS: Chloride* 100 mmol/L (96-114); Sodium* 134 mmol/L (135-149)
[2022-04-02 07:53] LABS: Potassium* 3.9 mmol/L (3.6-5.1)
[2022-04-02 07:55] LABS: Creatinine* 0.6 mg/dL (0.5-1.5); Est. Creatinine Clearance* 104.36; Estimated Glomerular Filt Rate 104.63
[2022-04-02 07:56] LABS: Blood Urea Nitrogen* 12 mg/dL (7-30); Calcium* 8.5 mg/dL (8.4-10.6); Carbon Dioxide* 30 mmol/L (20-32); Glucose* 117 mg/dL (60-115)
[2022-04-02 07:59] LABS: C Reactive Protein* 8.2 mg/dL (0.5-1.0)
[2022-04-02] MEDS: buPROPion XL 150 MG TABLET PO (08:35)
[2022-04-02] MEDS: CITALOPRAM HYDROBROMIDE 20 MG TABLET 40 MG PO (08:35)
[2022-04-02] MEDS: polyethylene glycoL 3350 17 GM PACK PO (08:36)
[2022-04-02] MEDS: LOSARTAN POTASSIUM 50 MG TABLET PO (08:36)
[2022-04-02] MEDS: SENNOSIDES 1 TAB TABLET 2 TAB PO ×2 (08:37→22:06)
--- NOTE | 2022-04-02 10:27 | PM.IMPN1 ---
Progress Note: A&P Assessment and plan (1) Acute osteomyelitis of thoracic spine: Problem details: unfortunately unable to get cultures from the infection or to transfer for infectious disease consultation and management. Will attempt phone management and monitor for complications that may require emergency transfer. Continue vancomycin and cefepime. I explained to the patient and her that vertebral osteomyelitis is typically treated for at least 6 weeks. Will need up plan for IV antibiotics outpatient. When blood cultures are available consider PICC line. Status: Acute Assessment and Plan: Tomorrow will probably get PICC line and infectious disease consult. (2) Pseudomonas urinary tract infection: Problem details: Diagnosed as an outpatient. IV cefepime Status: Acute (3) Constipation: Problem details: constipation prior to onset of opioid therapy. Requiring fairly high doses of opioid therapy. Will need aggressive laxative treatment. Status: Acute (4) Back pain: Problem details: increased opioid therapy for what is still fairly severe mid back pain. Pain control improved Status: Acute (5) KERRIE (obstructive sleep apnea): Problem details: 07/04/2014 AHI-28, uses CPAP Status: Acute Assessment and Plan: No hypoxia overnight. Time Spent With Patient Total time spent: Total time spent is 40 minutes, 25 minutes in coordination of care and discussing with patient and other providers management of pain, osteomyelitis. Subjective Date Seen: 04/02/22 Interval history: 56-year-old female seen in followup of vertebral osteomyelitis. Patient reports that she has continued back pain but better managed now with increasing dose and frequency of pain medication. She is not aware of any fever. She is not aware of any lower extremity neurologic symptoms, numbness or weakness. No bowel or bladder problems except for her constipation. She has not yet had a bowel movement. Exam Narrative: Exam Narrative: She is alert and appears in no distress. She is moving from bed to standing with some pain but moving for much better than yesterday. Breathing is unlabored. Back is examined. Pain continues to be in her mid back. Inspection of the skin is unremarkable. Palpation shows tenderness in mid back. Strength testing today shows that she is able to do 2 leg squat, stand on each leg separately, rise up on her toes, stand on her heels. Bearing weight on the ball of her right foot alone is better than on her left foot alone. Otherwise no other asymmetry. She had a little bit more pain with testing her left lower extremity than her right Const: Vital Signs, click to edit/add: Vital Signs - 24 hr 04/01/22 11:15 04/01/22 15:34 04/01/22 19:00 Temperature 98.2 F 97.3 F L 98.7 F Pulse Rate [Right Pulse Oximeter] 67 70 73 Respiratory Rate 18 18 20 Blood Pressure [Ri ght Arm] 164/95 H 171/85 H 145/96 H Pulse Oximetry 94 96 94 04/01/22 23:00 04/02/22 03:00 Temperature 98.0 F 97.0 F L Pulse Rate [Right Pulse Oximeter] 71 66 Respiratory Rate 18 18 Blood Pressure [Ri ght Arm] 151/87 H 153/91 H Pulse Oximetry 93 93 Documenting provider has reviewed patient's vital signs: yes Labs Labs: Laboratory Results - last 24 hr 04/02/22 06:36 Sodium 134 L Potassium 3.9 Chloride 100 Carbon Dioxide 30 BUN 12 Creatinine 0.6 Estimated Creat Clear 104.36 Glucose 117 H Calcium 8.5 C-Reactive Protein 8.2 H
[2022-04-02] MEDS: MAGNESIUM CITRATE 300 ML SOLUTION PO (11:36)
[2022-04-02] MEDS: NAPROXEN 250 MG TABLET PO (18:22)
--- NOTE | 2022-04-02 19:34 | PC.NURSE ---
Shift note -: pt pleasant and cooperative. Indep in room and halls. c/o back pain, taking 10 oxy approximately q3h with relief. Pt stated she had a successful large BM. BP 170s/90s. HR 60s. Pt uses Cpap when she sleeps and applies it before she naps, O2 sats >88%. Pts , Joey, visited frequently throughout the day and is very supportive. ?
--- NOTE | 2022-04-02 19:54 | CRLHL7_ITS ---
For Patients: As a result of the Cures Act, medical imaging exams and procedure reports are released immediately into your electronic medical record. You may view this report before your referring provider. If you have questions, please contact your health care provider. INDICATION: PICC placement. COMPARISON: 03/30/2022 chest radiographs. FINDINGS/IMPRESSION: Semi upright portable AP chest radiograph. A left PICC has been added, positioned with its tip projected over the inferior aspect of the superior vena cava. Lungs show unchanged minimal bibasilar atelectasis or scarring. No pleural effusions. Stable mild elevation of the right diaphragm. Upper normal heart size, as before. Bilateral shoulder DJD changes. No acute osseous findings. Dictated by Mark Davidson MD @ 04/02/2022 10:27:09 PM Dictated by: Mark Davidson MD @ 04/02/2022 22:27:37 (Electronically Signed)
--- NOTE | 2022-04-02 19:54 | CRLHL7_ITS ---
For Patients: As a result of the Century Cures Act, medical imaging exams and procedure reports are released immediately into your electronic medical record. You may view this report before your referring provider. If you have questions, please contact your health care provider. Indication: Long-term antibiotic for bone infection. Evaluate PICC line. Technique: Ultrasound examination of the left upper extremity veins was performed to assist in left PICC line placement. A linear transducer is used. Comparison: CT of the chest, abdomen, and pelvis from 03/31/2022. Findings: Three images are submitted. The initial image is that of the left brachial vein showing it to be patent with a caliber of 7 millimeters. The next image shows placement of a PICC line within the left brachial vein. The final image is that of the left internal jugular vein which shows it to be widely patent with the PICC line located along the medial wall. Impression: Ultrasound guidance used to assist in left PICC line placement. Dictated by Henrik Sales MD @ 04/02/2022 10:42:28 PM (Electronically Signed)
[2022-04-02] MEDS: ATORVASTATIN CALCIUM 40 MG TABLET PO (22:08)
--- NOTE | 2022-04-02 23:09 | PC.NURSE ---
Pt pleasant and cooperative. Independant in ADLS. Pain controlled well with oxicodone and Naprosyn. Pt's IV infiltrated. Spoke with MD and PICC line placement was ordered. PICC was placed in L upper arm and is ready to use. Pt tolerated it well.
[2022-04-03] MEDS: CEFEPIME HCL 2 GM in 0.9 % SODIUM CHLORIDE Mini-bag 100 ML IVPB ×3 (01:04→17:49)
[2022-04-03] MEDS: OXYCODONE 5 MG TABLET PO ×6 (02:32→23:44)
[2022-04-03 03:00] VITALS: BP 163/81; PULSE 72; RESP 16; TEMP 36.1; O2SAT 95
--- NOTE | 2022-04-03 04:48 | PC.NURSE ---
Supervisor Grips: Pt rested well this night using home Cpap. Up IND walking halls. Pain controlled. No N/V. Afebrile.
[2022-04-03] MEDS: LEVOTHYROXINE 25 MCG TABLET PO (06:12)
[2022-04-03 07:09] LABS: Chloride* 102 mmol/L (96-114); Sodium* 136 mmol/L (135-149)
[2022-04-03 07:10] LABS: Potassium* 3.8 mmol/L (3.6-5.1)
[2022-04-03 07:12] LABS: Creatinine* 0.6 mg/dL (0.5-1.5); Est. Creatinine Clearance* 104.36; Estimated Glomerular Filt Rate 105 ml/min
[2022-04-03 07:13] LABS: Blood Urea Nitrogen* 11 mg/dL (7-30); Calcium* 8.6 mg/dL (8.4-10.6); Carbon Dioxide* 31 mmol/L (20-32); Glucose* 105 mg/dL (60-115)
[2022-04-03 07:16] LABS: C Reactive Protein* 6.3 mg/dL (0.5-1.0)
[2022-04-03] MEDS: NAPROXEN 250 MG TABLET PO ×2 (08:11→17:48)
[2022-04-03 08:27] VITALS: BP 163/82; PULSE 72; RESP 16; TEMP 36.6; O2SAT 95
[2022-04-03] MEDS: LOSARTAN POTASSIUM 50 MG TABLET PO (09:11)
[2022-04-03] MEDS: buPROPion XL 150 MG TABLET PO (09:11)
[2022-04-03] MEDS: CITALOPRAM HYDROBROMIDE 20 MG TABLET 40 MG PO (09:12)
[2022-04-03 09:16] LABS: Basophils Absolute Auto 0.03 K/uL (0.00-0.30); Basophils Percent Auto 0.6 % (0.0-3.0); Eosinophils Absolute Auto 0.12 K/uL (0.00-0.50); Eosinophils Percent Auto 2.4 % (0.0-7.0); Hematocrit 33.7 % (33.0-51.0); Hemoglobin* 10.7 gm/dL (12.0-16.0); Immature Granulocytes Abs Auto 0.01 K/uL (0.00-0.30); Lymphocytes Percent Auto 19.9 % (20-44); Mean Corpuscular HGB Conc 32 gm/dL (32-36); Mean Corpuscular Hemoglobin 29 pg (26-34); Mean Corpuscular Volume 92 fL (80-100); Monocytes Percent Auto 11.9 % (0.0-11.0); Neutrophils Absolute Auto 3.23 K/uL (1.7-7.0); Platelet Count* 261 K/uL (140-440); RDW Coefficient of Variation % 13.2 % (11.5-15.5); Red Blood Count 3.67 m/uL (4.00-5.20); White Blood Count* 4.97 K/uL (4.50-11.00)
[2022-04-03 11:02] VITALS: BP 148/90; PULSE 64; RESP 16; TEMP 36.5; O2SAT 95
--- NOTE | 2022-04-03 11:47 | PM.DS1 ---
DS: Providers Provider Date of admission: 03/31/22 18:20 Primary care physician: Ariadna Villafana PA-C Admitting Clinician: Gudelia Gonzalez MD Attending Physician on discharge: Gudelia Gonzalez MD DS: Diagnosis Discharge Diagnosis (1) Acute osteomyelitis of thoracic spine: Status: Acute Problem details: Patient admitted with back pain and fever. MRI showed inflammation around T6-8 vertebral bodies without apparent abscess. Unable to obtain biopsy or culture at the time of admission. Initiated empiric treatment with cefepime and vancomycin. Clinically improved today. Blood cultures after 3 days are negative. I spoke with orthopedic Infectious Disease specialist at [facility] who recommends the following treatment: 6 weeks of IV antibiotics with vancomycin or daptomycin and cefepime. Following the 6 weeks of IV antibiotics which will end on May 13 they recommend 6 weeks of oral antibiotics with doxycycline and Cipro if she can tolerate it. Our current plan is daptomycin plus cefepime as follows: Daptomycin at 6 milligrams/kg adjusted body weight/500 mg IV daily through May 13. Cefepime 2 g IV q.12 hours through May 13 Alternative plan for daptomycin would be vancomycin IV q.12 hours to obtain a trough level of 10-15 for 6 weeks. She will need weekly blood tests with CBC, creatinine, ALT, CRP and total CK. If she is on vancomycin she will need weekly vancomycin trough levels. She will need monitoring for toxicity from her antibiotics. Specific concern is dyspnea from daptomycin could be an eosinophilic pneumonitis. Vancomycin can cause renal toxicity. CBC and CRP may be helpful to to determine response to therapy. Outpatient clinic follow-up to assess her tolerance of antibiotics and her recovery from vertebral osteomyelitis. Currently no plan for outpatient Infectious Disease appointments. If she is having complications related to her vertebral osteomyelitis or complications related to her antibiotics they would be happy to consult. They recommend against reimaging unless her clinical course becomes complicated. The infectious disease specialist noted that there is a guideline for management of vertebral osteomyelitis authored by 1 of her colleagues at [facility] which may be helpful. (2) Pseudomonas urinary tract infection: Status: Acute Problem details: Diagnosed as an outpatient. IV cefepime for possibility that Pseudomonas is causing vertebral osteomyelitis DS: Summary Hospital Course Hospital Course: 56-year-old female admitted to the hospital with fever and back pain.? Patient 1st had symptoms of illness around March 19 when she was seen in clinic and diagnosed with a urinary tract infection.? She was started on Keflex 500 t.i.d. for 7 days at that time.? She did say after a few days she got a little better.? She did have some back pain at that time and reports that that she did also have fever and also ? Vomiting.? She was having urinary frequency but not dysuria.? urine culture grew Pseudomonas aeruginosa.? She was seen again in clinic on March 30 with worsening symptoms.? Primarily she was having more back pain but she also said she was having fever.? She was started on ciprofloxacin and urine was re-cultured showing again Pseudomonas with miller sensitive to tested antibiotics.? She is taking the Cipro for 2 days now and reports feeling worse with more back pain.? Pain is located in her mid back.? He says it does somewhat wrap around to her left anterior chest and feels better if she applies pressure to her lower ribs under her breast. ? MRI Imaging yesterday in the emergency department showed that she had? soft tissue edema and enhancement along the right T6-T8 vertebral bodies and left T7-T8 vertebral bodies.? Mild enhancement of the left T6 and 7 and T7 and 8 neural foramen epidural fat.? This appeared to be consistent with an infectious or inflammatory process.? She was not felt to have any neurologic deficits associated with this.? In the emergency department there were attempts to transfer her to a [facility] or [facility] for management of presumed vertebral osteomyelitis.? There were no beds available and it was recommended that empiric treatment with begun.? In this case vancomycin and cefepime. ? During her hospital stay her pain improved very much. Still using occasional oxycodone. Naproxen was added to her pain management. ? Imaging also showed constipation and patient does report that this has been a problem in the last couple days due to poor p.o. intake? due to feeling ill. She has had a bowel movement with aggressive laxative treatment ? In addition to her urinary tract infection.? Patient also had Botox injections into her bladder.? These occurred a few days before the onset of her fever and back pain.? This procedure was performed through her urethra I believe. Consultation with [facility] Orthopedic Infectious Disease specialist led to the plan outlined above under vertebral osteomyelitis diagnosis. Time Spent with Patient Time attestation: Total time spent providing and/or coordinating discharge services: Exam Const: Vital Signs, click to edit/add: Vital Signs - 24 hr 04/02/22 15:00 04/02/22 19:00 04/02/22 23:16 Temperature 97.4 F L 97.1 F L 97.5 F L Pulse Rate [Right Pulse Oximeter] 60 71 72 Respiratory Rate 18 18 16 Blood Pressure [Ri ght Arm] 175/97 H 151/85 H 151/76 H Pulse Oximetry 94 94 94 04/02/22 23:48 04/03/22 03:00 04/03/22 08:27 Temperature 97 F L 97.9 F Pulse Rate [Right Pulse Oximeter] 72 72 72 Respiratory Rate 16 16 16 Blood Pressure [Ri ght Arm] 163/81 H 163/82 H Pulse Oximetry 95 95 04/03/22 11:02 Temperature 97.7 F Pulse Rate [Right Pulse Oximeter] 64 Respiratory Rate 16 Blood Pressure [Ri ght Arm] 148/90 H Pulse Oximetry 95 DS: Data Data Completed and Pending Labs on day of discharge: Labs from last 24 hours 04/03/22 04/03/22 05:54 05:54 WBC 4.97 RBC 3.67 L Hgb 10.7 L Hct 33.7 MCV 92 MCH 29 MCHC 32 RDW Coeff of Antonio 13.2 Plt Count 261 Neut % (Auto) 65.0 Lymph % (Auto) 19.9 L [place] % (Auto) 11.9 H Eos % (Auto) 2.4 Baso % (Auto) 0.6 Neut # (Auto) 3.23 Lymph # (Auto) 1.00 [place] # (Auto) 0.60 Eos # (Auto) 0.12 Baso # (Auto) 0.03 Abs Immat Gran (auto) 0.01 Sodium 136 Potassium 3.8 Chloride 102 Carbon Dioxide 31 BUN 11 Creatinine 0.6 Estimated Creat Clear 104.36 Estimated GFR 105 Glucose 105 Calcium 8.6 C-Reactive Protein 6.3 H Preliminary micro results at discharge 03/31/22 10:36 Blood Culture - Preliminary Blood No growth. 03/31/22 10:20 Blood Culture - Preliminary Blood No growth. Discharge Plan Discharge Disposition: Home, Self-Care Date of Admission: 03/31/22 18:20 Attending Provider on Discharge: Deion Vazquez Consulting Providers: Gerber Foss ; Deion Vazquez Primary Care Provider: Ariadna Villafana Condition: Improved Anticipated Discharge Date/Time: 04/03/22 18:00 Discharge Medications: Continued Myrbetriq 50 mg tablet extended release 24 hr 50 mg PO HS losartan 50 mg tablet 50 mg PO DAILY Label Comments: take 1 tablet by mouth daily atorvastatin 40 mg tablet 40 mg PO HS Label Comments: TAKE 1 TABLET BY MOUTH AT BEDTIME bupropion HCl 150 mg tablet extended release 24 hr 150 mg PO DAILY Label Comments: TAKE ONE TABLET BY MOUTH DAILY citalopram 40 mg tablet 40 mg PO DAILY Label Comments: TAKE 1 TABLET BY MOUTH DAILY anastrozole 1 mg tablet 1 mg PO HS Label Comments: TAKE 1 TABLET BY MOUTH DAILY levothyroxine 25 mcg tablet 25 mcg PO DAILY Label Comments: TAKE ONE TABLET BY MOUTH DAILY No Action multivitamin Tablet 1 tab PO QDAY ibuprofen 200 mg tablet PO .Q6h Prn cholecalciferol (vitamin D3) 125 mcg (5,000 unit) tablet 10,000 unit PO DAILY Label Comments: takes during winter months dextroamphetamine-amphetamine 20 mg capsule,extended release 24hr 20 mg PO DAILY Qty: 30 0RF Discharge Orders: Discharge Order (Routine); Ordered 04/04/22 Ordered By: Gerber Foss Patient Education: Naproxen (By mouth), Oxycodone, Rapid Release (By mouth), Cefepime (By injection), Daptomycin (By injection), Senna (By mouth), Osteomyelitis (GEN), Back Pain (GEN) Activity Restrictions/Additional Instructions: You will be getting to IV antibiotics per day for 6 weeks: Cefepime 2 g IV every 12 hours through May 13 Daptomycin 500 mg IV daily through May 13. He will need weekly blood tests, CBC, creatinine, ALT, CRP, CK. You will need weekly clinic visits to monitor your progress, symptoms and side effects from your antibiotics. After 6 weeks of IV antibiotics it is recommended that you take oral antibiotics, Cipro and doxycycline for 6 more weeks. Activity Level: Activity as Tolerated, Light activity and Up with assist Discharge Diet: Regular Follow Up Appointments: Lab, CBC [Other] - 04/07/22 10:00 am Ariadna Villafana PA-C [Primary Care Provider] - 04/08/22 Gaviota Muse MD [Staff Physician] - 04/08/22 9:00 am (PCP out of office ) Forms: MyHealth Info Instructions
[2022-04-03 12:11] LABS: Creatine Kinase* 24 U/L (41-117)
[2022-04-03] MEDS: DAPTOmycin 50 MG/ML inj 500 MG IVP (12:17)
--- NOTE | 2022-04-03 14:02 | PM.IMPN1 ---
Progress Note: A&P Assessment and plan (1) Acute osteomyelitis of thoracic spine: Problem details: Patient admitted with back pain and fever. MRI showed inflammation around T6-8 vertebral bodies without apparent abscess. Unable to obtain biopsy or culture at the time of admission. Initiated empiric treatment with cefepime and vancomycin. Clinically improved today. Blood cultures after 3 days are negative. I spoke with orthopedic Infectious Disease specialist at [facility] who recommends the following treatment: 6 weeks of IV antibiotics with vancomycin or daptomycin and cefepime. Following the 6 weeks of IV antibiotics which will end on May 13 they recommend 6 weeks of oral antibiotics with doxycycline and Cipro if she can tolerate it. Our current plan is daptomycin plus cefepime as follows: Daptomycin at 6 milligrams/kg adjusted body weight/500 mg IV daily through May 13. Cefepime 2 g IV q.12 hours through May 13 Alternative plan for daptomycin would be vancomycin IV q.12 hours to obtain a trough level of 10-15 for 6 weeks. She will need weekly blood tests with CBC, creatinine, ALT, CRP and total CK. If she is on vancomycin she will need weekly vancomycin trough levels. She will need monitoring for toxicity from her antibiotics. Specific concern is dyspnea from daptomycin could be an eosinophilic pneumonitis. Vancomycin can cause renal toxicity. CBC and CRP may be helpful to to determine response to therapy. Outpatient clinic follow-up to assess her tolerance of antibiotics and her recovery from vertebral osteomyelitis. Currently no plan for outpatient Infectious Disease appointments. If she is having complications related to her vertebral osteomyelitis or complications related to her antibiotics they would be happy to consult. They recommend against reimaging unless her clinical course becomes complicated. The infectious disease specialist noted that there is a guideline for management of vertebral osteomyelitis authored by 1 of her colleagues at [facility] which may be helpful. Status: Acute (2) Pseudomonas urinary tract infection: Problem details: Diagnosed as an outpatient. IV cefepime Status: Acute Plan She will be discharged to home as soon as outpatient IV antibiotics can be arranged. Time Spent With Patient Total time spent: Total time spent today is 50 minutes, 30 minutes in coordination of care and discussing with patient and other providers ongoing management of vertebral osteomyelitis Subjective Date Seen: 04/03/22 Interval history: 56-year-old female seen in followup of vertebral osteomyelitis. Patient reports feeling much better today No bowel or bladder problems except for her constipation. She did have a bowel movement Exam Narrative: Exam Narrative: She is alert appears no distress she is ambulating in the hallway and appears much more comfortable. She is also much more alert today and needing less opioid pain medicines. Const: Vital Signs, click to edit/add: Vital Signs - 24 hr 04/02/22 15:00 04/02/22 19:00 04/02/22 23:16 Temperature 97.4 F L 97.1 F L 97.5 F L Pulse Rate [Right Pulse Oximeter] 60 71 72 Respiratory Rate 18 18 16 Blood Pressure [Ri ght Arm] 175/97 H 151/85 H 151/76 H Pulse Oximetry 94 94 94 04/02/22 23:48 04/03/22 03:00 04/03/22 08:27 Temperature 97 F L 97.9 F Pulse Rate [Right Pulse Oximeter] 72 72 72 Respiratory Rate 16 16 16 Blood Pressure [Ri ght Arm] 163/81 H 163/82 H Pulse Oximetry 95 95 04/03/22 11:02 Temperature 97.7 F Pulse Rate [Right Pulse Oximeter] 64 Respiratory Rate 16 Blood Pressure [Ri ght Arm] 148/90 H Pulse Oximetry 95 Documenting provider has reviewed patient's vital signs: yes Labs Labs: Laboratory Results - last 24 hr 04/03/22 04/03/22 05:54 05:54 WBC 4.97 RBC 3.67 L Hgb 10.7 L Hct 33.7 MCV 92 MCH 29 MCHC 32 RDW Coeff of [place] 13.2 Plt Count 261 Neut % (Auto) 65.0 Lymph % (Auto) 19.9 L [place] % (Auto) 11.9 H Eos % (Auto) 2.4 Baso % (Auto) 0.6 Neut # (Auto) 3.23 Lymph # (Auto) 1.00 [place] # (Auto) 0.60 Eos # (Auto) 0.12 Baso # (Auto) 0.03 Abs Immat Gran (auto) 0.01 Sodium 136 Potassium 3.8 Chloride 102 Carbon Dioxide 31 BUN 11 Creatinine 0.6 Estimated Creat Clear 104.36 Estimated GFR 105 Glucose 105 Calcium 8.6 Total Creatine Kinase 24 L C-Reactive Protein 6.3 H
--- NOTE | 2022-04-03 14:05 | P.DS_ITS ---
DS: Providers Provider Date Seen: 04/03/22 Date of admission: 03/31/22 18:20 Primary care physician: Ariadna Villafana PA-C Admitting Clinician: Gudelia Gonzalez MD Attending Physician on discharge: Gudelia Gonzalez MD Date of Discharge: 04/03/22 DS: Diagnosis Discharge Diagnosis (1) Acute osteomyelitis of thoracic spine: Status: Acute Problem details: Patient admitted with back pain and fever. MRI showed inflammation around T6-8 vertebral bodies without apparent abscess. Unable to obtain biopsy or culture at the time of admission. Initiated empiric treatment with cefepime and vancomycin. Clinically improved today. Blood cultures after 3 days are negative. I spoke with orthopedic Infectious Disease specialist at [facility] who recommends the following treatment: 6 weeks of IV antibiotics with vancomycin or daptomycin and cefepime. Following the 6 weeks of IV antibiotics which will end on May 13 they recommend 6 weeks of oral antibiotics with doxycycline and Cipro if she can tolerate it. Our current plan is daptomycin plus cefepime as follows: Daptomycin at 6 milligrams/kg adjusted body weight/500 mg IV daily through May 13. Cefepime 2 g IV q.12 hours through May 13 Alternative plan for daptomycin would be vancomycin IV q.12 hours to obtain a trough level of 10-15 for 6 weeks. She will need weekly blood tests with CBC, creatinine, ALT, CRP and total CK. If she is on vancomycin she will need weekly vancomycin trough levels. She will need monitoring for toxicity from her antibiotics. Specific concern is dyspnea from daptomycin could be an eosinophilic pneumonitis. Vancomycin can cause renal toxicity. CBC and CRP may be helpful to to determine response to therapy. Outpatient clinic follow-up to assess her tolerance of antibiotics and her recovery from vertebral osteomyelitis. Currently no plan for outpatient Infectious Disease appointments. If she is having complications related to her vertebral osteomyelitis or complications related to her antibiotics they would be happy to consult. They recommend against reimaging unless her clinical course becomes complicated. The infectious disease specialist noted that there is a guideline for management of vertebral osteomyelitis authored by 1 of her colleagues at [facility] which may be helpful. (2) Pseudomonas urinary tract infection: Status: Acute Problem details: Diagnosed as an outpatient. IV cefepime for possibility that Pseudomonas is causing vertebral osteomyelitis DS: Summary Hospital Course Hospital Course: 56-year-old female admitted to the hospital with fever and back pain.? Patient 1st had symptoms of illness around March 19 when she was seen in clinic and diagnosed with a urinary tract infection.? She was started on Keflex 500 t.i.d. for 7 days at that time.? She did say after a few days she got a little better.? She did have some back pain at that time and reports that that she did also have fever and also ? Vomiting.? She was having urinary frequency but not dysuria.? urine culture grew Pseudomonas aeruginosa.? She was seen again in clinic on March 30 with worsening symptoms.? Primarily she was having more back pain but she also said she was having fever.? She was started on ciprofloxacin and urine was re-cultured showing again Pseudomonas with miller sensitive to tested antibiotics.? She is taking the Cipro for 2 days now and reports feeling worse with more back pain.? Pain is located in her mid back.? He says it does somewhat wrap around to her left anterior chest and feels better if she applies pressure to her lower ribs under her breast. ? MRI Imaging yesterday in the emergency department showed that she had? soft tissue edema and enhancement along the right T6-T8 vertebral bodies and left T7- T8 vertebral bodies.? Mild enhancement of the left T6 and 7 and T7 and 8 neural foramen epidural fat.? This appeared to be consistent with an infectious or inflammatory process.? She was not felt to have any neurologic deficits associated with this.? In the emergency department there were attempts to transfer her to a [facility] or [facility] for management of presumed vertebral osteomyelitis.? There were no beds available and it was r ecommended that empiric treatment with begun.? In this case vancomycin and cefepime. ? During her hospital stay her pain improved very much. Still using occasional oxycodone. Naproxen was added to her pain management. ? Imaging also showed constipation and patient does report that this has been a problem in the last couple days due to poor p.o. intake? due to feeling ill. She has had a bowel movement with aggressive laxative treatment ? In addition to her urinary tract infection.? Patient also had Botox injections into her bladder.? These occurred a few days before the onset of her fever and back pain.? This procedure was performed through her urethra I believe. Consultation with [facility] Orthopedic Infectious Disease specialist led to the plan outlined above under vertebral osteomyelitis diagnosis. Status at Discharge Functional status at discharge: independent ambulation Overall status at discharge: patient is back to baseline Time Spent with Patient Time attestation: Total time spent providing and/or coordinating discharge services: 50 minutes Time spent: Greater than 30 minutes Exam Narrative: Exam Narrative: She is alert and appears in no distress. Ambulating in the hallway. Appears comfortable. Const: Vital Signs, click to edit/add: Vital Signs - 24 hr 04/02/22 15:00 04/02/22 19:00 04/02/22 23:16 Temperature 97.4 F L 97.1 F L 97.5 F L Pulse Rate [Right Pulse Oximeter] 60 71 72 Respiratory Rate 18 18 16 Blood Pressure [Ri ght Arm] 175/97 H 151/85 H 151/76 H Pulse Oximetry 94 94 94 04/02/22 23:48 04/03/22 03:00 04/03/22 08:27 Temperature 97 F L 97.9 F Pulse Rate [Right Pulse Oximeter] 72 72 72 Respiratory Rate 16 16 16 Blood Pressure [Ri ght Arm] 163/81 H 163/82 H Pulse Oximetry 95 95 04/03/22 11:02 Temperature 97.7 F Pulse Rate [Right Pulse Oximeter] 64 Respiratory Rate 16 Blood Pressure [Ri ght Arm] 148/90 H Pulse Oximetry 95 Documenting provider has reviewed patient's vital signs: yes DS: Data Data Completed and Pending Labs on day of discharge: Labs from last 24 hours 04/03/22 04/03/22 05:54 05:54 WBC 4.97 RBC 3.67 L Hgb 10.7 L Hct 33.7 MCV 92 MCH 29 MCHC 32 RDW Coeff of Antonio 13.2 Plt Count 261 Neut % (Auto) 65.0 Lymph % (Auto) 19.9 L [place] % (Auto) 11.9 H Eos % (Auto) 2.4 Baso % (Auto) 0.6 Neut # (Auto) 3.23 Lymph # (Auto) 1.00 [place] # (Auto) 0.60 Eos # (Auto) 0.12 Baso # (Auto) 0.03 Abs Immat Gran (auto) 0.01 Sodium 136 Potassium 3.8 Chloride 102 Carbon Dioxide 31 BUN 11 Creatinine 0.6 Estimated Creat Clear 104.36 Estimated GFR 105 Glucose 105 Calcium 8.6 Total Creatine Kinase 24 L C-Reactive Protein 6.3 H Preliminary micro results at discharge 03/31/22 10:36 Blood Culture - Preliminary Blood No growth. 03/31/22 10:20 Blood Culture - Preliminary Blood No growth. Discharge Plan Discharge Disposition: Home, Self-Care Date of Admission: 03/31/22 18:20 Attending Provider on Discharge: Deion Vazquez Consulting Providers: Gerber Foss ; Deion Vazquez Primary Care Provider: Aridana Villafana Condition: Improved Anticipated Discharge Date/Time: 04/03/22 18:00 Discharge Medications: Continued Myrbetriq 50 mg tablet extended release 24 hr 50 mg PO HS losartan 50 mg tablet 50 mg PO DAILY Label Comments: take 1 tablet by mouth daily atorvastatin 40 mg tablet 40 mg PO HS Label Comments: TAKE 1 TABLET BY MOUTH AT BEDTIME bupropion HCl 150 mg tablet extended release 24 hr 150 mg PO DAILY Label Comments: TAKE ONE TABLET BY MOUTH DAILY citalopram 40 mg tablet 40 mg PO DAILY Label Comments: TAKE 1 TABLET BY MOUTH DAILY anastrozole 1 mg tablet 1 mg PO HS Label Comments: TAKE 1 TABLET BY MOUTH DAILY levothyroxine 25 mcg tablet 25 mcg PO DAILY Label Comments: TAKE ONE TABLET BY MOUTH DAILY No Action multivitamin Tablet 1 tab PO QDAY ibuprofen 200 mg tablet PO .Q6h Prn cholecalciferol (vitamin D3) 125 mcg (5,000 unit) tablet 10,000 unit PO DAILY Label Comments: takes during winter months dextroamphetamine-amphetamine 20 mg capsule,extended release 24hr 20 mg PO DAILY Qty: 30 0RF Discharge Orders: Discharge Order (Routine); Ordered 04/04/22 Ordered By: Gerber Foss Patient Education: Naproxen (By mouth), Oxycodone, Rapid Release (By mouth), Cefepime (By injection), Daptomycin (By injection), Senna (By mouth), Osteomyelitis (GEN), Back Pain (GEN) Activity Restrictions/Additional Instructions: You will be getting to IV antibiotics per day for 6 weeks: Cefepime 2 g IV every 12 hours through May 13 Daptomycin 500 mg IV daily through May 13. He will need weekly blood tests, CBC, creatinine, ALT, CRP, CK. You will need weekly clinic visits to monitor your progress, symptoms and side effects from your antibiotics. After 6 weeks of IV antibiotics it is recommended that you take oral antibiotics, Cipro and doxycycline for 6 more weeks. Activity Level: Activity as Tolerated, Light activity and Up with assist Discharge Diet: Regular Follow Up Appointments: Lab, CBC [Other] - 04/07/22 10:00 am Ariadna Villafana PA-C [Primary Care Provider] - 04/08/22 Gaviota Muse MD [Staff Physician] - 04/08/22 9:00 am (PCP out of office ) Forms: [employer] Info Instructions
--- NOTE | 2022-04-03 14:20 | PC.NURSE ---
Shift Summary: Patient pleasant and cooperative. Up independently, walking in halls throughout shift. Vitals stable and WNL. PICC intact and patent. C/o back pain rating 4/10, managed with rest and PRN medication. Denies SOB or chest pain. Tolerating regular diet.
--- NOTE | 2022-04-03 15:11 | PC.SOCIAL ---
Discharge planning: Per MD order for home IV abx, attempted to contact [facility] for follow up. Was informed by [facility] they would not be able to provide medication and supplies until Wednesday. Called [facility] [phone] and spoke with Daniela who states they will work on this order and hope to be able to have it arranged today or tomorrow. Faxed requested information to [facility] (fax [phone]) and awaiting call back with plan. MD order is for IV antibiotic supplies and medication and RN for teaching. No home care is needed to be arranged as pt will be going into clinic once a week.
[2022-04-03 15:17] LABS: Slide Review Reflex No
[2022-04-03 15:19] VITALS: BP 163/77; PULSE 68; RESP 16; RESP 18; TEMP 36.6; O2SAT 95
--- NOTE | 2022-04-03 16:32 | PC.SOCIAL ---
Discharge plan: Received call back from [facility], Daniela ([phone]). She is working on setting up home IV abx to be delivered tomorrow (04/04/22) and teaching visit to coordinate with one of the dosing times. She will call back to nursing when this is arranged to confirm the plan prior to pt being discharged. If needed, RN can call her for an update at [phone] today and tomorrow. This is her direct number. Main number for [facility] is [phone], but Daniela states calling her directly will be better than calling the main number. Met with pt and regarding this plan. They are pleased with the possibility of home IV abx being arranged for tomorrow. They are aware this will likely be private pay as pt has not yet met her medical insurance deductible. will not be home all the time and they have a few friends who have offered to assist as needed. They look forward to discharge home when they IV abx plan is finalized.
[2022-04-03] MEDS: SODIUM CHLORIDE 0.9 % (FLUSH) 10 ML SYRINGE IVF (18:30)
[2022-04-03 19:00] VITALS: BP 149/86; PULSE 75; RESP 18; TEMP 36.3; O2SAT 94
--- NOTE | 2022-04-03 19:48 | PC.NURSE ---
pt has been pleasant. picc line patent , was flushed after use. she is eating, drinking and voiding. abd and back pain 4-03/29 she got po pain meds PRN. she is up waling. will monitor.
[2022-04-03] MEDS: SENNOSIDES 1 TAB TABLET 2 TAB PO (20:41)
[2022-04-03] MEDS: ATORVASTATIN CALCIUM 40 MG TABLET PO (20:41)
--- NOTE | 2022-04-03 22:43 | PC.NURSE ---
[id number] Pt pleasant and cooperative, rating pain 4-5/10, prn oxy 5mg administered x1 this shift. Up walking halls frequently, sitting in recliner and stretching in room, pt appears comfortable and in no distress. denies chest pain or headache, acknowledged some SOB but states this is baseline for her.
[2022-04-03 23:00] VITALS: BP 150/87; PULSE 67; RESP 12; RESP 14; TEMP 36.9; O2SAT 97
[2022-04-04] MEDS: CEFEPIME HCL 2 GM in 0.9 % SODIUM CHLORIDE Mini-bag 100 ML IVPB ×2 (01:56→09:06)
[2022-04-04] MEDS: SODIUM CHLORIDE 0.9 % (FLUSH) 10 ML SYRINGE IVF ×3 (01:57→10:21)
[2022-04-04] MEDS: 0.9 % SODIUM CHLORIDE 250 ml IV (01:58)
[2022-04-04] MEDS: OXYCODONE 5 MG TABLET PO ×2 (02:07→09:03)
[2022-04-04 03:00] VITALS: BP 162/89; PULSE 96; RESP 20; TEMP 36.8; O2SAT 96
--- NOTE | 2022-04-04 05:57 | PC.NURSE ---
Shift [id number] Pt observed walking the anguiano beginning of shift. Alert and oriented x3, PICC in left upper arm patent, clean, dry and intact. No BM this shift, pt states they tried but had barely anything come out. Vitals stable except for HTN 150-162/87-89. Lung sounds clear in upper waller, diminished in bilateral bases. When nurse asked pt about use of IS, pt was unsure of what it was and its benefit. Educated on use and importance of IS d/t atelectasis. Educated on shallow breathing with pain and to take deep breaths to reopen the alveoli. Pain located in upper abdominal region and mid back, rating 4/10. Pt states that PRN oxycodone 5mg not effective, but was able to fall asleep after 0300 with second dose of oxycodone. Pt previously had been watching TV in bed and stated they felt wide awake, but that they are normally a late night person. Per pt request, left to sleep without interruption and hold levothyroxine until pt wakes up in the morning.
[2022-04-04 08:00] VITALS: BP 185/96; PULSE 59; RESP 18; TEMP 36.2; O2SAT 97
--- NOTE | 2022-04-04 08:32 | P.CCN_ITS ---
Subjective Subjective Time Seen by Provider: 08:32 Date Seen: 04/04/22 Principal diagnosis: Osteomyelitis Interval history: 56-year-old female seen in followup of vertebral osteomyelitis. Patient reports feeling much better today No bowel or bladder problems except for her constipation. She did have a bowel movement Patient is ready for discharge as soon is home antibiotics are arranged. She is currently on her inpatient regiment of medications which have not been interrupted as we wait. She has had no new symptoms. Objective Objective Data Details: EXAM GENERAL: Patient appears comfortable and well. EYES: No scleral icterus. LYMPH: No supraclavicular or cervical lymphadenopathy. SKIN: Visible skin seen during exam normal or with benign process only. EXT: No dependent lower extremity pedal edema. HEART: Regular rate and rhythm with no murmurs, rubs, or gallops. LUNGS: Clear to auscultation bilaterally with no crackles or wheezes. ABD: Soft, non tender, non distended. PSYCH: Good eye contact, speech is not pressured. Assessment and Plan Assessment and plan (1) Acute osteomyelitis of thoracic spine: Problem comment: Patient admitted with back pain and fever. MRI showed inflammation around T6-8 vertebral bodies without apparent abscess. Unable to obtain biopsy or culture at the time of admission. Initiated empiric treatment with cefepime and vancomycin. Clinically improved today. Blood cultures after 3 days are negative. I spoke with orthopedic Infectious Disease specialist at [facility] who recommends the following treatment: 6 weeks of IV antibiotics with vancomycin or daptomycin and cefepime. Following the 6 weeks of IV antibiotics which will end on May 13 they recommend 6 weeks of oral antibiotics with doxycycline and Cipro if she can tolerate it. Our current plan is daptomycin plus cefepime as follows: Daptomycin at 6 milligrams/kg adjusted body weight/500 mg IV daily through May 13. Cefepime 2 g IV q.12 hours through May 13 Alternative plan for daptomycin would be vancomycin IV q.12 hours to obtain a trough level of 10-15 for 6 weeks. She will need weekly blood tests with CBC, creatinine, ALT, CRP and total CK. If she is on vancomycin she will need weekly vancomycin trough levels. She will need monitoring for toxicity from her antibiotics. Specific concern is dyspnea from daptomycin could be an eosinophilic pneumonitis. Vancomycin can cause renal toxicity. CBC and CRP may be helpful to to determine response to therapy. Outpatient clinic follow-up to assess her tolerance of antibiotics and her recovery from vertebral osteomyelitis. Currently no plan for outpatient Infectious Disease appointments. If she is having complications related to her vertebral osteomyelitis or complications related to her antibiotics they would be happy to consult. They recommend against reimaging unless her clinical course becomes complicated. The infectious disease specialist noted that there is a guideline for management of vertebral osteomyelitis authored by 1 of her colleagues at [facility] which may be helpful. Status: Acute Assessment and Plan: Waiting home infusion arrangements for later today with possible discharge home. (2) Pseudomonas urinary tract infection: Problem comment: Diagnosed as an outpatient. IV cefepime for possibility that Pseudomonas is causing vertebral osteomyelitis Status: Acute Assessment and Plan: As above
--- NOTE | 2022-04-04 08:39 | PM.IMPN1 ---
Progress Note: A&P Assessment and plan (1) Acute osteomyelitis of thoracic spine: Problem details: Patient admitted with back pain and fever. MRI showed inflammation around T6-8 vertebral bodies without apparent abscess. Unable to obtain biopsy or culture at the time of admission. Initiated empiric treatment with cefepime and vancomycin. Clinically improved today. Blood cultures after 3 days are negative. I spoke with orthopedic Infectious Disease specialist at [facility] who recommends the following treatment: 6 weeks of IV antibiotics with vancomycin or daptomycin and cefepime. Following the 6 weeks of IV antibiotics which will end on May 13 they recommend 6 weeks of oral antibiotics with doxycycline and Cipro if she can tolerate it. Our current plan is daptomycin plus cefepime as follows: Daptomycin at 6 milligrams/kg adjusted body weight/500 mg IV daily through May 13. Cefepime 2 g IV q.12 hours through May 13 Alternative plan for daptomycin would be vancomycin IV q.12 hours to obtain a trough level of 10-15 for 6 weeks. She will need weekly blood tests with CBC, creatinine, ALT, CRP and total CK. If she is on vancomycin she will need weekly vancomycin trough levels. She will need monitoring for toxicity from her antibiotics. Specific concern is dyspnea from daptomycin could be an eosinophilic pneumonitis. Vancomycin can cause renal toxicity. CBC and CRP may be helpful to to determine response to therapy. Outpatient clinic follow-up to assess her tolerance of antibiotics and her recovery from vertebral osteomyelitis. Currently no plan for outpatient Infectious Disease appointments. If she is having complications related to her vertebral osteomyelitis or complications related to her antibiotics they would be happy to consult. They recommend against reimaging unless her clinical course becomes complicated. The infectious disease specialist noted that there is a guideline for management of vertebral osteomyelitis authored by 1 of her colleagues at [facility] which may be helpful. Status: Acute (2) Pseudomonas urinary tract infection: Problem details: Diagnosed as an outpatient. IV cefepime for possibility that Pseudomonas is causing vertebral osteomyelitis Status: Acute Subjective Time Seen by Provider: 08:39 Date Seen: 04/04/22 Interval history: 56-year-old female seen in followup of vertebral osteomyelitis. Patient reports feeling much better today No bowel or bladder problems except for her constipation. She did have a bowel movement Patient is ready for discharge as soon is home antibiotics are arranged. She is currently on her inpatient regiment of medications which have not been interrupted as we wait. She has had no new symptoms. Exam Const: Vital Signs, click to edit/add: Vital Signs - 24 hr 04/03/22 11:02 04/03/22 15:19 04/03/22 19:00 Temperature 97.7 F 97.8 F 97.4 F L Pulse Rate [Right Pulse Oximeter] 64 68 75 Respiratory Rate 16 18 18 Blood Pressure [Ri ght Arm] 148/90 H 163/77 H 149/86 H Pulse Oximetry 95 95 94 04/03/22 23:00 04/04/22 03:00 Temperature 98.5 F 98.3 F Pulse Rate [Right Pulse Oximeter] 67 96 Respiratory Rate 14 20 Blood Pressure [Ri ght Arm] 150/87 H 162/89 H Pulse Oximetry 97 96 Labs Labs: Laboratory Results - last 24 hr 04/03/22 04/03/22 05:54 05:54 WBC 4.97 RBC 3.67 L Hgb 10.7 L Hct 33.7 MCV 92 MCH 29 MCHC 32 RDW Coeff of [place] 13.2 Plt Count 261 Neut % (Auto) 65.0 Lymph % (Auto) 19.9 L [place] % (Auto) 11.9 H Eos % (Auto) 2.4 Baso % (Auto) 0.6 Neut # (Auto) 3.23 Lymph # (Auto) 1.00 [place] # (Auto) 0.60 Eos # (Auto) 0.12 Baso # (Auto) 0.03 Abs Immat Gran (auto) 0.01 Total Creatine Kinase 24 L
[2022-04-04 08:42] LABS: Chloride* 102 mmol/L (96-114); Sodium* 136 mmol/L (135-149)
[2022-04-04 08:43] LABS: Potassium* 3.9 mmol/L (3.6-5.1)
[2022-04-04 08:45] LABS: Creatinine* 0.6 mg/dL (0.5-1.5); Est. Creatinine Clearance* 104.36; Estimated Glomerular Filt Rate 105 ml/min
[2022-04-04 08:46] LABS: Blood Urea Nitrogen* 12 mg/dL (7-30); Calcium* 8.7 mg/dL (8.4-10.6); Carbon Dioxide* 33 mmol/L (20-32); Glucose* 112 mg/dL (60-115)
[2022-04-04 08:49] LABS: C Reactive Protein* 4.9 mg/dL (0.5-1.0)
[2022-04-04] MEDS: buPROPion XL 150 MG TABLET PO (09:02)
[2022-04-04] MEDS: CITALOPRAM HYDROBROMIDE 20 MG TABLET 40 MG PO (09:02)
[2022-04-04] MEDS: SENNOSIDES 1 TAB TABLET 2 TAB PO (09:03)
[2022-04-04] MEDS: LEVOTHYROXINE 25 MCG TABLET PO (09:04)
[2022-04-04] MEDS: NAPROXEN 250 MG TABLET PO (09:04)
[2022-04-04] MEDS: LOSARTAN POTASSIUM 50 MG TABLET PO (09:04)
[2022-04-04] MEDS: polyethylene glycoL 3350 17 GM PACK PO (09:04)
[2022-04-04] MEDS: DAPTOmycin 50 MG/ML inj 500 MG IVP (10:20)
--- NOTE | 2022-04-04 12:24 | PC.NURSE ---
Pt slept in, lab drawn per protocol via LUE PICC line when she awoke. Pt took her scheduled meds w/o difficulty, oxycodone 5 mg prn for back discomfort. IV Cefipime given over 30 minutes. IV Daptomycin given slow IVP over 2 minutes. Pt will have home health to instruct her on IV ATB therapy. Rx for ATB provided. Pt and spouse Joey verbalized understanding of d/c diagnosis, home meds, new prescriptions, pain management plan, sx to report urgently and f/up appt with lab monitoring. Discharged via w/c to own home w/ pt belongings @11:35 am and her Joey as transportation.
== END 2022-04-04 11:35 | disposition home or self-care (01) | DRG 344 ==
LOC: ED 17:13 → MEDSURG 18:24
PROVIDERS: Family Medicine; Admitting Provider Family Medicine; Emergency Provider Family Medicine; PCP Physician Assistant Medical; Visit Provider Family Medicine
DX: M46.24 Osteomyelitis of vertebra, thoracic region (principal); N39.0 Urinary tract infection, site not specified; B96.5 Pseudomonas (aeruginosa) (mallei) (pseudomallei) as the cause of diseases classified elsewhere; E66.9 Obesity, unspecified; G47.33 Obstructive sleep apnea (adult) (pediatric); J98.11 Atelectasis; K59.00 Constipation, unspecified; M54.9 Dorsalgia, unspecified; E78.5 Hyperlipidemia, unspecified; F32.A Depression, unspecified; E03.9 Hypothyroidism, unspecified; F98.8 Other specified behavioral and emotional disorders with onset usually occurring in childhood and adolescence
CPT/HCPCS: 36415; 36573; 71260; 72157; 74177; 80048; 80076; 81001; 82550; 83605; 83690; 85025; 86140; 87040; 87635; 94761; 99284; 99285; A9270; A9575; C1751; J0692; J0878; J1170; J1885; J2405; J3370; J7030; J7050; J7120; Q9967

== ENCOUNTER 2022-04-07 10:58 | Outpatient (CLI) | payer BC, SELFPAY ==
[2022-04-07 13:43] LABS: Creatine Kinase* 59 U/L (41-117)
[2022-04-07 13:44] LABS: Alanine Aminotransferase* 21 U/L (4-35)
[2022-04-07 13:46] LABS: C Reactive Protein* 1.6 mg/dL (0.5-1.0)
[2022-04-08 09:19] LABS: Creatinine* 0.6 mg/dL (0.5-1.5); Estimated Glomerular Filt Rate 105 ml/min
== END 2022-04-07 10:59 | disposition home or self-care (01) ==
PROVIDERS: PCP Physician Assistant Medical; Visit Provider Family Medicine
DX: B96.5 Pseudomonas (aeruginosa) (mallei) (pseudomallei) as the cause of diseases classified elsewhere; N39.0 Urinary tract infection, site not specified; Z51.81 Encounter for therapeutic drug level monitoring
CPT/HCPCS: 82550; 82565; 84460; 86140; 87086

== ENCOUNTER 2022-04-15 10:30 | Outpatient (RCR) | payer BC, SELFPAY ==
[2022-04-15 11:04] LABS: Basophils Absolute Auto 0.01 K/uL (0.00-0.30); Basophils Percent Auto 0.2 % (0.0-3.0); Eosinophils Absolute Auto 0.16 K/uL (0.00-0.50); Eosinophils Percent Auto 3.5 % (0.0-7.0); Hemoglobin* 12.4 gm/dL (12.0-16.0); Immature Granulocytes Abs Auto 0.01 K/uL (0.00-0.30); Lymphocytes Percent Auto 17.9 % (20-44); Mean Corpuscular HGB Conc 33 gm/dL (32-36); Mean Corpuscular Hemoglobin 29 pg (26-34); Mean Corpuscular Volume 89 fL (80-100); Monocytes Percent Auto 11.6 % (0.0-11.0); Neutrophils Absolute Auto 3.05 K/uL (1.7-7.0); Neutrophils Percent Auto 66.6 % (42.0-72.0); Platelet Count* 229 K/uL (140-440); RDW Coefficient of Variation % 13.3 % (11.5-15.5); Red Blood Count 4.26 m/uL (4.00-5.20); White Blood Count* 4.58 K/uL (4.50-11.00)
[2022-04-15 11:16] LABS: Creatine Kinase* 60 U/L (41-117); Creatinine* 0.8 mg/dL (0.5-1.5); Estimated Glomerular Filt Rate 86 ml/min
[2022-04-15 11:17] LABS: Alanine Aminotransferase* 26 U/L (4-35)
[2022-04-15 11:20] LABS: C Reactive Protein* 0.7 mg/dL (0.5-1.0)
[2022-04-15 11:25] LABS: Slide Review Reflex No
== END 2022-04-19 23:59 | disposition home or self-care (01) ==
LOC: CCIC 10:30
PROVIDERS: PCP Physician Assistant Medical; Visit Provider Emergency Medicine
DX: M46.24 Osteomyelitis of vertebra, thoracic region (principal); Z45.2 Encounter for adjustment and management of vascular access device
CPT/HCPCS: 36415; 82550; 82565; 84460; 85025; 86140; A4221

== ENCOUNTER 2022-04-16 14:43 | Outpatient (CLI) | payer BC, SELFPAY ==
[2022-04-16 21:26] LABS: Chloride* 103 mmol/L (96-114)
[2022-04-16 21:27] LABS: Potassium* 4.2 mmol/L (3.6-5.1); Sodium* 136 mmol/L (135-149)
[2022-04-16 21:29] LABS: Carbon Dioxide* 25 mmol/L (20-32); Cholesterol* 188 mg/dL (90-199); Creatinine* 0.8 mg/dL (0.5-1.5); Estimated Glomerular Filt Rate 86 ml/min
[2022-04-16 21:30] LABS: Alanine Aminotransferase* 25 U/L (4-35); Alkaline Phosphatase* 86 U/L (40-150); Aspartate Amino Transferase* 26 U/L (12-35); Bilirubin Total* 0.4 mg/dL (0.1-1.5); Blood Urea Nitrogen* 26 mg/dL (7-30); Calcium* 9.3 mg/dL (8.4-10.6); Glucose* 113 mg/dL (60-115); Total Protein* 6.5 g/dL (6.0-8.3); Triglycerides* 173 mg/dL (40-149)
[2022-04-16 21:31] LABS: HDL Cholesterol* 49 mg/dL (>=50); LDL Cholesterol Calculated 104 mg/dL (<100)
== END 2022-04-16 14:44 | disposition home or self-care (01) ==
LOC: LKVREF 14:45
PROVIDERS: PCP Physician Assistant Medical; Visit Provider Physician Assistant Medical
DX: E78.5 Hyperlipidemia, unspecified (principal); M86.10 Other acute osteomyelitis, unspecified site; B96.5 Pseudomonas (aeruginosa) (mallei) (pseudomallei) as the cause of diseases classified elsewhere; N39.0 Urinary tract infection, site not specified
CPT/HCPCS: 80053; 80061; 87086

== ENCOUNTER 2022-04-17 11:07 | Outpatient (CLI) | payer BC, SELFPAY ==
--- NOTE | 2022-04-17 11:00 | CRLHL7_ITS ---
For Patients: As a result of the Cures Act, medical imaging exams and procedure reports are released immediately into your electronic medical record. You may view this report before your referring provider. If you have questions, please contact your health care provider. Indication: Osteomyelitis of thoracic vertebral body Technique: Contrast CT PE Comparison: CT chest abdomen and pelvis 03/31/2022 Findings: Lytic sclerotic changes anterior right 2nd rib unchanged in appearance Ectasia of the ascending thoracic aorta measuring 4 cm. No pulmonary emboli seen. The heart size is normal small hiatal hernia. No pericardial effusion. The lungs appear clear. No effusion mild atelectasis. Fairly similar appearance of paraspinal soft tissue thickening from T6 to approximately T8. No definite bony destructive change. Similar appearance of right anterior 2nd rib/lucent lesion Multiple small subcentimeter hypodensities in the liver too small to characterize Small hiatal hernia. Impression: 1. No pulmonary emboli. No acute pulmonary findings. 2. Fairly similar appearance of paraspinal soft tissue thickening phlegmonous change from T6 to T8. No bony destructive change is seen. Degenerative change of the thoracic spine. No acute fracture. Findings may reflect an infectious or inflammatory process. Please note that all CT scans at this facility use dose modulation, iterative reconstruction, and/or weight-based dosing when appropriate to reduce radiation dose to as low as reasonably achievable. Dictated by Mame Hensley MD @ 04/17/2022 12:51:06 PM (Electronically Signed)
== END 2022-04-17 11:08 | disposition home or self-care (01) ==
PROVIDERS: PCP Physician Assistant Medical; Visit Provider Physician Assistant Medical
DX: M46.24 Osteomyelitis of vertebra, thoracic region (principal)
CPT/HCPCS: 71260; Q9967

== ENCOUNTER 2022-05-04 14:06 | Outpatient (CLI) | payer BC, SELFPAY ==
[2022-05-06 10:54] LABS: CRP, High Sensitivity 13.9 mg/L (<=3.0)
== END 2022-05-04 14:07 | disposition home or self-care (01) ==
LOC: LKVREF 14:06
PROVIDERS: PCP Physician Assistant Medical; Visit Provider Physician Assistant Medical
DX: M46.24 Osteomyelitis of vertebra, thoracic region (principal)
CPT/HCPCS: 86141

== ENCOUNTER 2022-05-08 11:56 | Outpatient (CLI) | payer BC, SELFPAY ==
--- NOTE | 2022-05-08 12:00 | CRLHL7_ITS ---
For Patients: As a result of the Century Cures Act, medical imaging exams and procedure reports are released immediately into your electronic medical record. You may view this report before your referring provider. If you have questions, please contact your health care provider. INDICATION: Infection. Osteomyelitis. Comparison 03/31/2022. Technique: Sagittal T1, T2, and STIR sequences. Axial T2/gradient sequences. FINDINGS: Stable mild kyphosis of the midthoracic spine. Otherwise, normal vertebral body facet alignment. No fractures. No vertebral body loss of height. Compared to the previous exam, again noted is abnormal paravertebral soft tissue prominence and edema and enhancement from the level of T6 through T8 (best appreciated on series 5, image 2; series 9, image 2). On the current exam, there has been progressive abnormal signal intensity and enhancement particular extending into the ventral disc space at T7-8 (series 5, image 4; series 9, image 5). Similarly, progressive abnormal marrow edema and enhancement in the left paravertebral soft tissues at T7-8 author extending into the left lateral disc space and a left neural foramen. (series 9, image 13). Findings again concerning for changes of discitis and osteomyelitis. Extension of infection/inflammation into the left neural foramen at T7-8. Otherwise, no signal abnormality within the T6-7 disc space. No discitis or osteomyelitis at the remaining levels of the thoracic spine. Normal cord signal. No intradural mass or lesion. Thoracic spondylosis with multilevel disc degeneration. T1-2: Disk generation posted disc bulge. No spinal canal or neural foraminal narrowing. T2-3: Disc generation and posterior disc bulge. Partial effacement of ventral thecal sac. No narrowing of spinal canal. Mild narrowing of the right neural foramen. No narrowing of the left neural foramen. T4-5: Disc generation posted disc bulge. No narrowing of spinal canal. No neural foraminal narrowing. T6-7: Disc degeneration. Mild posterior disc bulge. No narrowing of spinal canal. No neural foraminal narrowing. T7-8: Suspected changes discitis and osteomyelitis as described above. Posterior disc bulging and effacement of the ventral thecal sac. Mild narrowing of spinal canal. Mild to moderate narrowing of bilateral foramina. T8-9 T9-10: Disk degeneration. No spinal canal neural foraminal narrowing. T10-11: Disc generation posted disc bulge. Mild narrowing of spinal canal. No neural foraminal narrowing. No spinal canal or neural foraminal narrowing at the remaining levels. IMPRESSION: 1. Normal alignment. No fractures. 2. Normal cord signal. 3. Compared to previous exam, again noted is abnormal paravertebral soft tissue prominence and edema/inflammation with enhancement from the level of T6 through T8. Interval progressive abnormal signal intensity extending into the T7-8 ventral disc space and T7-8 neuroforamen. Overall, findings concerning for progression of discitis and osteomyelitis. 4. No discitis or osteomyelitis at the remaining levels. 5. Otherwise, stable thoracic spondylosis. 6. At T2-3, mild narrowing of the right neuroforamen. 7. At T7-8, posterior disc bulge. Mild narrowing of spinal canal. Mild to moderate narrowing of the bilateral foramina. 8. At T10-11, mild narrowing of the spinal canal Dictated by Tyrone Hall MD @ 05/08/2022 3:27:47 PM (Electronically Signed)
== END 2022-05-08 11:57 | disposition home or self-care (01) ==
LOC: MRI 11:57
PROVIDERS: PCP Physician Assistant Medical; Visit Provider Physician Assistant Medical
DX: M46.24 Osteomyelitis of vertebra, thoracic region (principal); M51.34 Other intervertebral disc degeneration, thoracic region; M51.24 Other intervertebral disc displacement, thoracic region
CPT/HCPCS: 72157; A9575

== ENCOUNTER 2022-05-14 10:11 | Outpatient (CLI) | payer BC, SELFPAY | END 2022-05-14 10:12 | disposition home or self-care (01) | PROVIDERS: PCP Physician Assistant Medical; Visit Provider Family Medicine | DX: M46.24 Osteomyelitis of vertebra, thoracic region (principal) | CPT/HCPCS: 80053; 86140 ==

== ENCOUNTER 2022-05-14 14:30 | Outpatient (RCR) | payer BC, SELFPAY ==
[2022-04-22 11:43] LABS: Hematocrit 37.1 % (33.0-51.0); Hemoglobin* 12.1 gm/dL (12.0-16.0); Mean Corpuscular Hemoglobin 29 pg (26-34); Mean Corpuscular Volume 88 fL (80-100); Red Blood Count 4.22 m/uL (4.00-5.20); White Blood Count* 7.68 K/uL (4.50-11.00)
[2022-04-22 11:44] LABS: Basophils Absolute Auto 0.04 K/uL (0.00-0.30); Basophils Percent Auto 0.5 % (0.0-3.0); Eosinophils Absolute Auto 0.42 K/uL (0.00-0.50); Eosinophils Percent Auto 5.5 % (0.0-7.0); Immature Granulocytes Abs Auto 0.02 K/uL (0.00-0.30); Lymphocytes Percent Auto 9.2 % (20-44); Mean Corpuscular HGB Conc 33 gm/dL (32-36); Monocytes Percent Auto 10.3 % (0.0-11.0); Neutrophils Percent Auto 74.2 % (42.0-72.0); Platelet Count* 192 K/uL (140-440); RDW Coefficient of Variation % 13.3 % (11.5-15.5)
[2022-04-22 11:47] LABS: Slide Review Reflex No
[2022-04-22 12:01] LABS: Chloride* 105 mmol/L (96-114); Sodium* 137 mmol/L (135-149)
[2022-04-22 12:03] LABS: Creatinine* 0.7 mg/dL (0.5-1.5); Estimated Glomerular Filt Rate 101 ml/min
[2022-04-22 12:04] LABS: Alanine Aminotransferase* 20 U/L (4-35); Blood Urea Nitrogen* 18 mg/dL (7-30); Calcium* 9.3 mg/dL (8.4-10.6); Carbon Dioxide* 26 mmol/L (20-32); Creatine Kinase* 63 U/L (41-117); Glucose* 103 mg/dL (60-115)
[2022-04-22 12:07] LABS: C Reactive Protein* 2.3 mg/dL (0.5-1.0)
[2022-04-22] MEDS: SODIUM CHLORIDE 0.9 % (FLUSH) 10 ML SYRINGE IVF (16:13)
[2022-04-29] MEDS: SODIUM CHLORIDE 0.9 % (FLUSH) 10 ML SYRINGE IVF (16:44)
[2022-05-07] MEDS: SODIUM CHLORIDE 0.9 % (FLUSH) 10 ML SYRINGE IVF (12:46)
[2022-05-07 14:11] LABS: Basophils Percent Auto 0.6 % (0.0-3.0); Eosinophils Percent Auto 5.6 % (0.0-7.0); Hematocrit 37.3 % (33.0-51.0); Hemoglobin* 12.2 gm/dL (12.0-16.0); Immature Granulocytes Abs Auto 0.02 K/uL (0.00-0.30); Lymphocytes Percent Auto 15.9 % (20-44); Mean Corpuscular HGB Conc 33 gm/dL (32-36); Mean Corpuscular Hemoglobin 29 pg (26-34); Mean Corpuscular Volume 88 fL (80-100); Monocytes Percent Auto 14.6 % (0.0-11.0); Neutrophils Percent Auto 62.9 % (42.0-72.0); Platelet Count* 242 K/uL (140-440); Red Blood Count 4.23 m/uL (4.00-5.20)
[2022-05-07 14:25] LABS: Slide Review Reflex No
[2022-05-07 14:30] LABS: White Blood Count* 4.78 K/uL (4.50-11.00)
[2022-05-07 14:31] LABS: Chloride* 104 mmol/L (96-114)
[2022-05-07 14:32] LABS: Albumin* 3.9 g/dL (3.3-5.0); Sodium* 137 mmol/L (135-149)
[2022-05-07 14:33] LABS: Potassium* 4.5 mmol/L (3.6-5.1)
[2022-05-07 14:35] LABS: Bilirubin Total* 0.3 mg/dL (0.1-1.5); Creatinine* 0.7 mg/dL (0.5-1.5); Estimated Glomerular Filt Rate 101 ml/min
[2022-05-07 14:36] LABS: Alanine Aminotransferase* 27 U/L (4-35); Alkaline Phosphatase* 90 U/L (40-150); Aspartate Amino Transferase* 27 U/L (12-35); Blood Urea Nitrogen* 20 mg/dL (7-30); Calcium* 9.6 mg/dL (8.4-10.6); Carbon Dioxide* 24 mmol/L (20-32); Creatine Kinase* 33 U/L (41-117); Glucose* 96 mg/dL (60-115); Total Protein* 6.5 g/dL (6.0-8.3)
[2022-05-07 14:38] LABS: C Reactive Protein* 0.6 mg/dL (0.5-1.0)
--- NOTE | 2022-05-14 15:47 | ONC.NURNOTE ---
Pt tolerated PICC line removal without difficulty. Pt observed for 30 min after removal. Pt instructed to keep occlusive dressing in place for 24 hours. Pt verbalized understanding of plan of care.
== END 2022-10-19 23:59 | disposition home or self-care (01) ==
LOC: CCIC 14:30
PROVIDERS: PCP Physician Assistant Medical; Visit Provider Clinical Nurse Specialist
DX: C50.911 Malignant neoplasm of unspecified site of right female breast (principal); Z17.0 Estrogen receptor positive status [ER+]; Z79.811 Long term (current) use of aromatase inhibitors
CPT/HCPCS: 36415; 36589; 36592; 80048; 80053; 81003; 81015; 82550; 82565; 84460; 85025; 86140; 99212; 99214; A4221

== ENCOUNTER 2022-05-20 16:38 | Outpatient (CLI) | payer BC, SELFPAY ==
[2022-05-20 22:18] LABS: Alanine Aminotransferase* 35 U/L (4-35); Aspartate Amino Transferase* 32 U/L (12-35); Blood Urea Nitrogen* 25 mg/dL (7-30); C Reactive Protein* 3.1 mg/dL (0.5-1.0); Chloride* 103 mmol/L (96-114); Creatinine* 0.9 mg/dL (0.5-1.5); Estimated Glomerular Filt Rate 75 ml/min; Potassium* 4.4 mmol/L (3.6-5.1); Total Protein* 6.9 g/dL (6.0-8.3)
[2022-05-20 23:11] LABS: Albumin* 4.3 g/dL (3.3-5.0); Alkaline Phosphatase* 107 U/L (40-150); Bilirubin Total* 0.5 mg/dL (0.1-1.5); Calcium* 9.5 mg/dL (8.4-10.6); Carbon Dioxide* 21 mmol/L (20-32); Glucose* 91 mg/dL (60-115); Sodium* 137 mmol/L (135-149)
[2022-05-21 18:11] LABS: Lipase* 408 U/L (23-300)
== END 2022-05-20 16:39 | disposition home or self-care (01) ==
LOC: LKVREF 16:39
PROVIDERS: PCP Physician Assistant Medical; Visit Provider Physician Assistant Medical
DX: M46.24 Osteomyelitis of vertebra, thoracic region (principal)
CPT/HCPCS: 80053; 83690; 86140

== ENCOUNTER 2022-05-29 16:52 | Outpatient (CLI) | payer BC, SELFPAY ==
--- OUTSIDE RECORDS SUMMARY | 2022-05-29 14:06 | XMS_ITS | Encounter Summary ---
:1965 Author Organization [facility] Address [address] [place] [address] Care Team Providers Name Role Phone Unavailable Primary Care Provider Unavailable Encounter Details Date Type Department Care Team Description 05/08/2022 Community [facility] Camilla Villafana omyelitis Of AND CLINICS Prachi Rosenthal Vertebra Thoracic [address] [place] [address] [address] [facility] ([facility]) ([place] [address] W Dx) [phone] [place] [address] Social History Tobacco Use Types Packs/Day Years Used Date Smoking Tobacco: Never Assessed Sex Assigned at Date Recorded Not on file documented as of this encounter Plan of Treatment Not on filedocumented as of this encounter Visit Diagnoses Diagnosis Osteomyelitis Of Vertebra Thoracic Regio n (HCC) - Primary documented in this encounter
--- OUTSIDE RECORDS SUMMARY | 2022-05-29 14:06 | XMS_ITS | Encounter Summary ---
:1965 Author Organization [facility] Address [address] [place] [address] Care Team Providers Name Role Phone Unavailable Primary Care Provider Unavailable Encounter Details Date Type Department Care Team Description 09/06/2020 Documentation Department of Radiation Sandy Sethi, Oncology in [place], [place]., M.S. [place] [address] [facility] [address] [place] [phone] (Wo rk) Social History Tobacco Use Types Packs/Day Years Used Date Smoking Tobacco: Never Assessed Sex Assigned at Date Recorded Not on file documented as of this encounter Miscellaneous Notes Radiation Completion Notes - Sandy Sethi P.A.-C., M.S. - 09/06/2020 11:59 PM CST DIAGNOSIS: 1. Cancer Breast Ductal In Situ Right Attending Physician: Jani Melgoza M.D. ([phone]) Treatment Intent: Curative Concomitant Therapy: Hormonal Therapy Single Plan Treatment Course: 1x RT Breast Plan ID Fractions Dose / Fraction (cGy) Dose Treated (cGy) Dose Planned (cGy) First Treatment Last Treatment Elapsed Days F1_RT Breast [phone] 09/02/2020 09/06/2020 4 Course Summary 09/02/2020 09/06/2020 4 Radiation Modality: Photons CLINICAL SUMMARY Mrs. Fran Campa completed radiation treatment as planned without interruptions. The course of treatment was tolerated well and with anticipated side effects. The patient experienced toxicities of grade 1 fatigue and radiation dermatitis during radiation treatment. TREATMENT RESPONSE: Response to treatment will be determined by post-treatment imaging and/or physical examinations. RECOMMENDED FOLLOW UP: Primary Medical Oncologist. She will have ongoing follow- up with Lissette Allen CNP. Signed by: Sandy Sethi P.A.-C., M.S., 09/23/2020 4:28 PM GLUE MOUNTER OPERATOR [facility] [address] [place] [address] MOUNTER OPERATOR documented in this encounter Plan of Treatment Not on filedocumented as of this encounter Visit Diagnoses Diagnosis Cancer Breast Ductal In Situ Right - [facility] documented in this encounter
--- OUTSIDE RECORDS SUMMARY | 2022-05-29 14:06 | XMS_ITS | Encounter Summary ---
:1965 Author Organization [facility] Address [address] [place] [address] Care Team Providers Name Role Phone Unavailable Primary Care Provider Unavailable Reason for Referral Outpatient (Routine) - Authorized Specialty Diagnoses / Procedures Referred By Contact Refer red To Contact Infectious Diseases Diagnoses Osteomyelitis Of Vertebra Thoracic Region ([facility]) Ariadna Villafana P.A. [facility] [address] [place] [address] Referral ID Status Reason Start Date Expiration Date Visits V isits Requested Authorized [id number] Authorized 05/01/2022 05/01/2023 1 1 Encounter Details Date Type Department Care Team Description 05/01/2022 [facility] Broderick, Camilla omyelitis Of AND CLINICS Prachi Rosenthal Vertebra Thoracic [address] [facility] [address] [facility] ([facility]) ([place] [address] W Dx) [phone] [place] [address] Social History Tobacco Use Types Packs/Day Years Used Date Smoking Tobacco: Never Assessed Sex Assigned at Date Recorded Not on file documented as of this encounter Plan of Treatment Scheduled Referrals Name Type Priority Associated Diagnoses [facility] Referral Outpatient Referral Routine Osteomyelitis Of Expected: Vertebra Thoracic 05/01/2022 Region ([facility]) (Approximate), Expires: 08/01/2023 documented as of this encounter Visit Diagnoses Diagnosis Osteomyelitis Of Vertebra Thoracic Regio n ([facility]) - Primary documented in this encounter
--- OUTSIDE RECORDS SUMMARY | 2022-05-29 14:06 | XMS_ITS | Encounter Summary ---
:1965 Author Organization [facility] Address [address] [place] [address] Care Team Providers Name Role Phone Unavailable Primary Care Provider Unavailable Encounter Details Date Type Department Care Team Description 09/06/2020 Hospital Encounter Department of Radiation Lisa Melgoza, Oncology in [facility] [address] [facility] [address] [place] [phone] Social History Tobacco Use Types Packs/Day Years Used Date Smoking Tobacco: Never Assessed Sex Assigned at Date Recorded Not on file documented as of this encounter Medications at Time of Discharge Medication Sig Dispensed Refills Start Date End Date amphetamine-dextroamphetami Take 30 mg by mouth. 0 ne (ADDERALL XR) 30 mg 24 hr capsule anastrozole (ARIMIDEX) 1 mg Take 1 mg by mouth 0 2020 tablet daily. buPROPion XL (WELLBUTRIN Take 150 mg by 0 XL) 150 mg 24 hr tablet mouth. citalopram (CeleXA) 40 mg Take 40 mg by mouth. 0 tablet levothyroxine (SYNTHROID, Take 25 mcg by 0 LEVOTHROID) 25 mcg tablet mouth. multivitamin tablet Take 1 tablet by 0 mouth. simvastatin (ZOCOR) 40 mg Take 40 mg by mouth. 0 tablet documented as of this encounter Plan of Treatment Not on filedocumented as of this encounter Visit Diagnoses Not on filedocumented in this encounter
--- OUTSIDE RECORDS SUMMARY | 2022-05-29 14:06 | XMS_ITS | Encounter Summary ---
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 [place] [facility] Procedures DX Thoracic Spine 2 Views [address] [place] [address] Referral ID Status Reason Start Date Expiration Date Visits V isits Requested Authorized [id number] Authorized 05/12/2022 05/12/2023 1 1 Encounter Details Date Type Department Care Team Description 05/12/2022 Orders Only Section of Infectious Kevin Ken Infec tion Of Diseases in [facility] [place] Intervertebral Disc [place] [address] [facility] Pyogenic Multiple Sites [address] [place], [place] In Spine ([facility]) ([place] [address] Dx) [phone] Social History Tobacco Use Types Packs/Day Years Used Date Smoking Tobacco: Never Assessed Sex Assigned at Date Recorded Not on file documented as of this encounter Plan of Treatment Scheduled Orders Name Type Priority Associated Diagnoses Order S chedule CBC with Lab Routine Infection Of 1 Occurrences Differential, Blood Intervertebral Disc s tarting Pyogenic Multiple 05/12/2022 until Sites In Spine ([facility]) 023 Creatinine with Lab Routine Infection Of 1 Occurrence s Estimated GFR Intervertebral Disc startin g Pyogenic Multiple 05/12/2022 until Sites In Spine ([facility]) 023 Sedimentation Rate Lab Routine Infection Of 1 Occurre nces Intervertebral Disc starting Pyogenic Multiple 05/12/2022 until Sites In Spine ([facility]) 023 CRP (C-Reactive Lab Routine Infection Of 1 Occurrence s Protein) Intervertebral Disc starting Pyogenic Multiple 05/12/2022 until Sites In Spine ([facility]) 023 DX Thoracic Spine 2 Imaging RAD - Routine Infection Of Expecte d: Views (most inpatients Intervertebral Disc 04/21 and all Pyogenic Multiple (Approxima te), outpatients) Sites In Spine ([facility]) Expires : 08/12/2023 DX Lumbar Spine 4+ Imaging RAD - Routine Infection Of 1 Occurr ences Views (most inpatients Intervertebral Disc star ting and all Pyogenic Multiple 05/12/2022 until outpatients) Sites In Spine ([facility]) 023 Scheduled Referrals Name Type Priority Associated Diagnoses Order S [facility] Orthopedic Surgery Outpatient Referral Routine Infection Of Ex pected: - Spine non Intervertebral Disc 05/12/20 22 surgical consult Pyogenic Multiple (Appro ximate), (clinic) Sites In Spine ([facility]) Expires : 08/12/2023 documented as of this encounter Visit Diagnoses Diagnosis Infection Of Intervertebral Disc Pyogeni c Multiple Sites In Spine ([facility]) - Primary documented in this encounter
--- OUTSIDE RECORDS SUMMARY | 2022-05-29 14:06 | XMS_ITS | Clinical Summary ---
:1965 Author Organization [facility] Address [address] [place] [address] Care Team Providers Name Role Phone Unavailable Primary Care Provider Unavailable Source Comments Patient records contain information from all sites at [facility]. For routine questions regarding patient records, call [phone] during business hours, M-F 8:00 AM - 5:00 PM Central Time. Record requests for emergency care only can be directed to [phone] at any time.[facility] Allergies Active Allergy Reactions Severity Noted Date Comments Pollen Extracts Itching Low 08/01/2020 Medications Medication Sig Dispensed Refills Start Date End Date Status buPROPion XL (WELLBUTRIN Take 150 mg by 0 Active XL) 150 mg 24 hr tablet mouth. citalopram (CeleXA) 40 Take 40 mg by 0 Active mg tablet mouth. amphetamine-dextroamphet Take 30 mg by 0 Active amine (ADDERALL XR) 30 mouth. mg 24 hr capsule levothyroxine Take 25 mcg by 0 A ctive (SYNTHROID, LEVOTHROID) mouth. 25 mcg tablet multivitamin tablet Take 1 tablet by 0 Active mouth. simvastatin (ZOCOR) 40 Take 40 mg by 0 Active mg tablet mouth. anastrozole (ARIMIDEX) 1 Take 1 mg by 0 2020 Active mg tablet mouth daily. Active Problems Problem Noted Date Cancer Breast Ductal In Situ Right 07/30/2020 Cancer Staging: Pathologic stage from 05/29/2020: Stage 0 (pTis (DCIS), pN0(sn), cM0, G3, ER+, [place]: Not Assessed, HER2: Not Assessed) - Unsigned Encounters Date Type Specialty Care Team Description 05/12/2022 Orders Only Infectious Kevin Ken Infection Of Diseases [place] Intervertebral Disc Pyogenic Multip le Sites In Spine (HCC) (Primary Dx) 05/11/2022 Clinical Infectious Provider, review records Communication Diseases Unknown 05/08/2022 Community Orders Mamie Villafana is Of Prachi Rosenthal Vertebra Thorac ic Region (HCC) (P rimary Dx) 05/04/2022 Clinical Spine Prescheduling, Pre-schedulin g Communication Provider Questionnaire 05/01/2022 Community Orders Mamie Villafana is Of Prachi Rosenthal Vertebra Thorac ic Region (HCC) (P rimary Dx) from Last 3 Months Social History Tobacco Use Types Packs/Day Years Used Date Smoking Tobacco: Never Assessed Sex Assigned at Date Recorded Not on file Last Filed Vital Signs Vital Sign Reading Time Taken Comments Blood Pressure 154/82 08/27/2020 8:27 AM [employer] Pulse 85 08/27/2020 8:27 AM [employer] Temperature 35.9 ??C (96.7 ??F) 09/04/2020 4:05 PM [employer] Respiratory Rate - - Oxygen Saturation - - Inhaled Oxygen Concentration - - Weight 119 kg (262 lb 9.1 oz) 09/04/2020 4:05 PM [employer] Height 169 cm (5' 6.54) 08/01/2020 12:55 PM [employer] Body Mass Index 41.7 08/01/2020 12:55 PM [employer] Plan of Treatment Health Maintenance Due Date Last Done Comments CT Colonography 1965 Cologuard 1965 Colonoscopy 1965 Colorectal Cancer Screening 1965 FIT 1965 Fasting Glucose for Diabetes 1965 Screening HIV Screening 1965 Hepatitis B Vaccines (1 of 3 - 1965 3-dose series) Hepatitis C Screening 1965 Lipid (Cholesterol) Screening 1965 Thyroid Stimulating Hormone (TSH) 1965 test for thyroid function Pneumococcal vaccine (0-64 years) 1970 (1 - PCV) Zoster Vaccines (1 of 2) 1983 Mammogram 07/09/2021 07/09/2020, 07/09/2020, 05/28/2020, Additional history exists Depression Screening (Annual 09/20/2021 PHQ-2) COVID-19 Vaccine (4 - Booster for 11/18/2021 08/26/2021, , Moderna series) 10/22/2020 Influenza Vaccine (#1) 2022 06/26/2021, 07/05/2020, 06/20/2019, Additional history exists Cervical Cancer Screening 05/08/2023 05/08/2020 DTaP,Tdap,and Td Vaccines (2 - Td 12/27/2031 12/26/2021 or Tdap) Procedures Procedure Name Priority Date/Time Associated Diagnosis Comme nts OUTSIDE MR NEURO Routine 03/31/2022 1:35 PM Resul ts for this CDT procedure are i n the results section. OUTSIDE CT BODY Routine 03/31/2022 11:25 AM Resul ts for this CDT procedure are i n the results section. from Last 3 Months Results MR THORACIC SPINE WO/W CON-Outside MR Neuro (03/31/2022 1:35 PM CDT) Specimen (Source) Anatomical Collection Method Collection Time Re ceived Time Location / / Volume Laterality 03/31/2022 1:34 PM CDT Narrative IIMS - 03/31/2022 4:39 PM CDT This order has been created and auto-finalized to support the import of outside images. If available, original i nterpretation can be found on the Media Tab in Chart Review, in Document V iewer, or as an image in QREADS. If a re-interpretation or overread is re quired please follow defined workflow. ?? Provider Not In System IMG MRI PROCEDURES Performing Organization Address [facility] Code Phon e Number IIMS IIMS NA CT chest abdomen pelv w con-Outside CT Body (03/31/2022 11:25 AM CDT) Specimen (Source) Anatomical Location Collection Method / Collectio n Time Received Time / Laterality Volume Narrative IIMS - 03/31/2022 4:40 PM CDT This order has been created and auto-finalized to support the import of outside images. If available, original i nterpretation can be found on the Media Tab in Chart Review, in Document V iewer, or as an image in QREADS. If a re-interpretation or overread is re quired please follow defined workflow. ?? Provider Not In System IMG CT PROCEDURES Performing Organization Address [facility] Code Phon e Number IIMS IIMS NA from Last 3 Months Insurance Payer Benefit Plan Subscriber ID Effective Dates Phone Address Type / Group [employer] [facility] [id number] 2019-Bravo [phone] [address] [address] [facility] [address] [place] [address] Guarantor Name Account Type Relation to Date of Phone Billing Address Patient YungHodan sotozackary Helm Personal/Famil Self 1965 [phone] (Home) [place] [address]
--- OUTSIDE RECORDS SUMMARY | 2022-05-29 14:06 | XMS_ITS ---
:1965 Author Organization [facility] Address [address] [place] [address] Care Team Providers Name Role Phone Unavailable Primary Care Provider Unavailable Active Problems Problem Noted Date Cancer Breast Ductal In Situ Right 07/30/2020 Cancer Staging: Pathologic stage from 05/29/2020: Stage 0 (pTis (DCIS), pN0(sn), cM0, G3, ER+, [place]: Not Assessed, HER2: Not Assessed) - Unsigned Current Oncology Plans No current plan information found. Past Plans No past plan information found. Radiation Treatments Plan Last Treated Elapsed Days Fractions Prescribed Prescribed Total On Treated Fraction Dose Dose F1_RT Breast 09/06/2020 4 5 of 5 520 cGy 2,600 cGy Reference Point Last Treated On Elapsed Days Session Dose Total Dos e [id number] 09/06/2020 4 520 cGy 2,600 cGy
--- OUTSIDE RECORDS SUMMARY | 2022-05-29 14:06 | XMS_ITS | Clinical Summary ---
:1965 Author Organization [facility] [place] [address] Care Team Providers Name Role Phone Ariadna Villafana PA-C Primary Care Provider Allergies No known active allergies Medications Medication Sig Dispensed Refills Start Date End Date Status oxyCODONE-acetaminop Take 1-2 tablets by 30 tablet 0 0 Active hen, 5-325 mg, mouth every 4 hours (PERCOCET) 5-325 mg if needed for Pain per Max acetaminophen tabletIndications: dose: 4000mg in 24 Status post hrs. bilateral breast reduction sennosides-docusate, Take 1-2 tablets by 40 tablet 0 0 Active 8.6-50 mg, (SENOKOT mouth 2 times daily. S) 8.6-50 mg tabletIndications: Status post bilateral breast reduction dextroamphetamine-am Take 30 mg by mouth 0 Active phetamine (ADDERALL every morning XR) 30 mg Extended-Release capsule citalopram (CELEXA) Take 40 mg by mouth 0 Active 40 mg tablet once daily. levothyroxine Take 25 mcg by mouth 0 Active (SYNTHROID) 25 mcg before breakfast. tablet buPROPion Take 150 mg by mouth 0 Active (WELLBUTRIN XL) 150 every morning. mg Extended-Release tablet simvastatin (ZOCOR) Take 40 mg by mouth 0 Active 40 mg tablet at bedtime. multivitamin (MVI) Take 1 tablet by 0 Active tablet mouth once daily. Active Problems Problem Noted Date KERRIE 07/04/2014 AHI-28 07/13/2014 Social History Tobacco Use Types Packs/Day Years Used Date Never Smoker Smokeless Tobacco: Never Used Snuff Alcohol Use Standard Drinks/Week Comments Not Currently 0 (1 standard drink = 0.6 oz pure alcoho l) Sex Assigned at Date Recorded Not on file Obstetrics History Last Filed Vital Signs Vital Sign Reading Time Taken Comments Blood Pressure 141/87 07/18/2020 5:00 PM CDT Pulse 62 07/18/2020 5:00 PM CDT Temperature 36.2 ??C (97.2 ??F) 07/18/2020 5:00 PM CDT Respiratory Rate 16 07/18/2020 5:00 PM CDT Oxygen Saturation 96% 07/18/2020 5:00 PM CDT Inhaled Oxygen Concentration - - Weight 120 kg (264 lb 8.8 oz) 07/18/2020 6:38 AM CDT Height 172.7 cm (5' 8) 07/18/2020 6:38 AM CDT Body Mass Index 40.22 07/18/2020 6:38 AM CDT Plan of Treatment Health Maintenance Due Date Last Done Comments COVID-19 vaccine series (#1) 02/07/1965 Tdap 1975 Depression screening for age 12+ 1976 BMI (ht and wt on same day) for age 1108/10/1982 18+ Hepatitis C screening for age 18-79 1982 Tetanus booster 1984 Colonoscopy through age 75 2009 Lipids for age 45-75 2009 Mammogram for age 45-75 2009 12/08/2006, 12/02/2005 Zoster (shingles) series for age 50+ 2014 (1 of 2) Influenza for age 50-64 05/21/2022 Pap test for age 21-65 05/08/2023 05/08/2020, 05/08/2020, 08/06/2015 Results Not on filefrom Last 3 Months Insurance Payer Benefit Plan / Subscriber ID Effective Dates Phone Addre ss Type Group BLUE CROSS BLUE CROSS OF [id number] 2019-Shanda [address] [place] [phone] Guarantor Name Account Type Relation to Date of Phone Billing Address Patient REMI WAHL Alicja Personal/Famil Self 1965 [phone] [address]DEP[address] y 0 (Home) [place] [address] Advance Directives Latest Code Status on File Code Status Date Activated Date Inactivated Comments Full Code 07/18/2020 6:01 AM 07/18/2020 10:14 PM Code Status Discussion: Not Discussed Care Teams Department Of Natural [employer] Officer Relationship Specialty Start Date End Date Ariadna Villafana PA-C PCP - General Emergency Medicine 05/28/20 [address] [place] [address]
--- OUTSIDE RECORDS SUMMARY | 2022-05-29 14:06 | XMS_ITS | Encounter Summary ---
:1965 Author Organization [facility] Address [address] [place] [address] Care Team Providers Name Role Phone Unavailable Primary Care Provider Unavailable Encounter Details Date Type Department Care Team Description 05/06/2021 Orders Only RST PCP [facility] Ariadna Fair M.D. [address] [place], [place] [phone] (Wo rk) Social History Tobacco Use Types Packs/Day Years Used Date Smoking Tobacco: Never Assessed Sex Assigned at Date Recorded Not on file documented as of this encounter Plan of Treatment Not on filedocumented as of this encounter Visit Diagnoses Not on filedocumented in this encounter
--- OUTSIDE RECORDS SUMMARY | 2022-05-29 14:06 | XMS_ITS | Encounter Summary ---
:1965 Author Organization [facility] Address [address] [place] [address] Care Team Providers Name Role Phone Unavailable Primary Care Provider Unavailable Reason for Referral Outpatient (Routine) - Closed Specialty Diagnoses / Procedures Referred By Contact Refer red To Contact Sandy Sethi P.A.-C ., M.S. [facility] [address] [place] [phone] Referral ID Status Reason Start Date Expiration Date Visits Requ ested Visits Authorized [id number] Closed 09/04/2020 09/04/2021 1 1 Scheduling Instructions AARON Delgado patient TECH Reason for Visit Outpatient (Routine) - Closed Specialty Diagnoses / Procedures Referred By Contact Refer red To Contact Sandy Sethi P.A.-C ., M.S. [facility] [address] [place] [phone] Referral ID Status Reason Start Date Expiration Date Visits Requ ested Visits Authorized [id number] Closed 09/04/2020 09/04/2021 1 1 Encounter Details Date Type Department Care Team Description 10/07/2020 Hospital Encounter Department of Radiation Lisa Melgoza, Oncology in [facility] [address] [place] [address] [address] [place] [address] [phone] Social History Tobacco Use Types Packs/Day Years [...] Type Priority Associated Diagnoses Order S chedule NonF2F phone Outpatient Referral Routine Once for 1 visit Occurrences sta rting 10/07/2020 unti l 10/07/2020 documented as of this encounter Visit Diagnoses Not on filedocumented in this encounter
--- OUTSIDE RECORDS SUMMARY | 2022-05-29 14:07 | XMS_ITS | Encounter Summary ---
:1965 Author Organization [facility] Address [address] [place] [address] Care Team Providers Name Role Phone Unavailable Primary Care Provider Unavailable Reason for Visit Radiation Therapy (Routine) - Closed Specialty Diagnoses / Procedures Referred By Contact Refer red To Contact Radiation Oncology Diagnoses Cancer Breast Ductal In Situ Right Jani Melgoza [facility] Rao Nfrt Procedures Prior Auth Rad Tx VT RADTN TX DEL >=1 MEV [facility] [address] [place] [address] [address] [place] [phone] Referral ID Status Reason Start Date Expiration Date Visits Requ ested Visits Authorized [id number] Closed 08/26/2020 08/01/2021 15 15 Encounter Details Date Type Department Care Team Description 09/03/2020 Hospital Encounter Department of Radiation Lisa Melgoza, Oncology in [facility] [address] [phone] Social History Tobacco Use Types Packs/Day Years [...]
--- OUTSIDE RECORDS SUMMARY | 2022-05-29 14:07 | XMS_ITS | Encounter Summary ---
:1965 Author Care Team Providers Name Role Phone Aridana Villafana Pac Referring Provider [phone] Reason for Visit None recorded. Assessment and Plan 1. Overactive bladder chronic improved ? urinalysis, dipstick Discussion Note SP Botox 100 units for OAB/urge inconti nence. 1) Follow-up office appointment 1 month 2) [place] intermittent self cathing r egimen if needed; urged to call if any urinary tract infection symptoms, if has difficulty emptying to call as well 3) Call for symptoms of infection or per sistent bleeding 4) Complete antibiotic prophylaxis regim en Patient educational handouts: No information available. Plan of Care Reminders Provider Appointments None recorded. ? ? Lab Urinalysis, Dipstick 03/13/2022 [facility] Referral None recorded. ? ? Procedures None recorded. ? ? Surgeries None recorded. ? ? Imaging None recorded. ? ? Medications Name Start Date ? ? anastrozole 1 mg tablet ? TAKE 1 TABLET BY MOUTH DAILY atorvastatin 40 mg tablet ? TAKE 1 TABLET BY MOUTH AT BEDTIME bupropion HCl XL 150 mg 24 hr tablet, extended release ? TAKE ONE TABLET BY MOUTH DAILY cefepime ? 2000mg 2/day ciprofloxacin 250 mg tablet ? TAKE ONE TABLET BY MOUTH TWICE DAILY citalopram 40 mg tablet ? TAKE 1 TABLET BY MOUTH DAILY daptomycin 500 mg intravenous solution ? 500mg 1/day dextroamphetamine-amphetamine ER 20 mg 24hr capsule,ex tend release ? TAKE 1 CAPSULE BY MOUTH DAILY levothyroxine 25 mcg tablet ? TAKE ONE TABLET BY MOUTH DAILY losartan 50 mg tablet ? take 1 tablet by mouth daily multivitamin ? 1 per day Myrbetriq 50 mg tablet,extended release ? TAKE 1 TABLET BY MOUTH DAILY naproxen sodium 220 mg tablet ? TAKE 1 TABLET BY MOUTH TWICE DAILY as needed for pain oxycodone 5 mg tablet ? TAKE 1 TABLET BY MOUTH EVERY 4 HOURS NEEDED FOR PA IN senna 8.6 mg tablet ? take 4 tablets by mouth twice daily as needed for con stipation tramadol 50 mg tablet ? TAKE 1 TABLET BY MOUTH 3 TIMES A DAY NEEDED FOR PA IN Vitamin D ? take [address]140 U per day Medications Administered None recorded. Vitals None recorded. Results Lab Results Date Name Specimen Result Interpretation Description Value Range Status Address ? 03/13/2022 Urinalysis, UR ? Color-status yellow yellow F inal [place] [facility]: [address] [address], [place] ? ? UR ? Clarity-stat clear clear Final Min [facility]: [address] [address], [place] ? ? UR ? Glucose-stat negative negative Final [facility] mg/dL mg/dL [facility]: [address] [place] [address], [place] ? ? UR ? Bilirubin-ur negative negative Final [facility] [address] [place] [address] ? ? UR ? Ketones-stat negative negative Final [facility] mg/dL mg/dL [facility]: [address] [place] [address] ? ? UR ? SG-status 1.020 1.00-1.03 Final Min [facility]: [address] [address], [place] ? ? UR ? pH-status 6.5 5.00-8.00 Final Min [facility]: [address] [address], [place] ? ? UR ? Protein-stat negative negative Final [facility] mg/dL mg/dL [facility]: [address] [place] [address] ? ? UR ? Urobilinogen 0.2 0.2 Final Min [place] -status E.U./dL E.U./dL Urology - E.U./dL E.U./dL [facility]: [address] [address], [place] ? ? UR ? Nitrites-sta negative negative Final [place] [facility]: [address] [address], [place] ? ? UR ABNORMAL Blood-urine trace-int negative Hermila l [place] [facility]: [address] [place] [address], [place] ? ? UR ABNORMAL Leuko-status trace negative Final [facility] [address] [place] [address], [place] ? ? UR ? Specimen voided ? Final [place] [facility]: [address] [address], [place] ? ? UR ? Performed by negra Gonzalez ? Final [facility]: [address] [facility] 200, [place] ? ? UR ? Total Urine 15 /mL ? Final [place] [facility] Volume (mL) [facility]: [address] [facility] 200, [place] Allergies Code Code System Name Reaction Severity Onset NKDA ? ? ? Problems Name Status Onset Date Source ? Hypothyroidism Active 05/16/2021 ? Hyperlipidemia Active 05/16/2021 ? Depressive Disorder Active 05/16/2021 ? Obstructive Sleep Apnea Syndrome Active 05/16/2021 ? Attention Deficit Hyperactivity Disorder, Predominantly Active 05/16/2021 ? Inattentive Type Procedures Date Name Performed by ? 11/18/2020 Oncology Colorectal Scr Information not available Notes: Stool DNA test (FIT-DNA test / Cologuard) Vaccine List Vaccine Type COVID-19 (SARS-COV-2) vaccine, unspecifi ed 11/19/2020 11/21/2020 08/26/2021 08/26/2021 08/26/2021 COVID-19, mRNA, LNP-S, PF, 100 mcg/0.5 m L dose (Moderna) 10/22/2020 11/21/2020 08/26/2021 influenza, injectable, quadrivalent 06/13/2015 07/01/2017 06/30/2018 06/20/2019 06/26/2021 influenza, injectable, quadrivalent, pre servative free 06/21/2014 influenza, live, intranasal, quadrivalen t 06/22/2013 influenza, recombinant, quadrIvalent,inj ectable, preservative free 07/05/2020 influenza, seasonal, injectable 06/20/2012 influenza, unspecified formulation 06/20/2021 06/20/2021 06/26/2021 06/27/2021 07/21/2021 novel [id number], all formulation s 10/28/2009 Social History Tobacco Smoking Status Never Smoker Has tobacco cessation counseling been provided? N Are you currently employed? Y Could you be ? N Preferred Language Uzbek How much tobacco do you chew? none What was the date of your most recent tobacco 04/16/2022 screening? Ethnicity Not / Do you or have you ever used e-cigarettes or Never used elec tronic cigarettes vape? Do you use any illicit or recreational drugs? N What is your relationship status? What is your level of alcohol consumption? Occasional Do you or have you ever used smokeless tobacco? Never used s mokeless tobacco Are you sexually active? Y Do you or have you ever used any other forms of N tobacco or nicotine? What is your level of caffeine consumption? Occasional Recreational Drug Use N Functional Status Unknown. Past Encounters 03/13/2022 Overactive Bladder Lisa Reardon MD: [facility], [address], [place] [address], Ph. History of Present Illness None recorded. Review of Systems None recorded. Physical Exam None recorded.
--- OUTSIDE RECORDS SUMMARY | 2022-05-29 14:07 | XMS_ITS | Encounter Summary ---
:1965 Author Organization [facility] Address [address] [place] [address] Care Team Providers Name Role Phone Unavailable Primary Care Provider Unavailable Reason for Referral Radiation Therapy (Routine) - Closed Specialty Diagnoses / Procedures Referred By Contact Refer red To Contact Radiation Oncology Diagnoses Cancer Breast Ductal In Situ Right Jani Melgoza [facility] Nfrt Procedures Prior Auth Rad Tx SC RADTN TX DEL >=1 MEV [facility] [place] [facility] [address] [place] [phone] Referral ID Status Reason Start Date Expiration Date Visits Requ ested Visits Authorized [id number] Closed 08/26/2020 08/01/2021 15 15 ORT RAMP ATTENDANT Radiation Therapy (Routine) - Closed Specialty Diagnoses / Procedures Referred By Contact Refer red To Contact Diagnoses Cancer Breast Ductal In Situ Right Jani Melgoza M.D. [facility] Procedures Initial Rad Onc Treatment Planning CT Simulation [address] [place] [address] Referral ID Status Reason Start Date Expiration Date Visits Requ ested Visits Authorized [id number] Closed 08/01/2020 08/01/2021 1 1 ORT RAMP ATTENDANT Reason for Visit Appointment Request (Routine) - Closed Specialty Diagnoses / Procedures Referred By Contact Refer red To Contact Radiation Oncology Diagnoses Breast Cancer (Primary) NOS Pato, Katsiaryna, M.D. [address] [place] [address] Referral ID Status Reason Start Date Expiration Date Visits Requ ested Visits Authorized [id number] Closed 07/24/2020 07/24/2021 1 1 Encounter Details Date Type Department Care Team Description 08/01/2020 Hospital Encounter Department of Jani Melgoza Breast Ductal Radiation Oncology [place] In [place]u Right in [place], [facility] [address] (Primary Dx) [place], [place] [address] [facility] [address] [place], [place] [phone] (Work) [phone] Social History Tobacco Use Types Packs/Day Years Used Date Smoking Tobacco: Never Assessed Sex Assigned at Date Recorded Not on file documented as of this encounter Last Filed Vital Signs Vital Sign Reading Time Taken Comments Blood Pressure 147/81 08/01/2020 12:55 PM AIRPORT RAMP ATTENDANT Pulse 74 08/01/2020 12:55 PM AIRPORT RAMP ATTENDANT Temperature 36.2 ??C (97.1 ??F) 08/01/2020 12:55 PM AIRPORT RAMP ATTENDANT Respiratory Rate - - Oxygen Saturation - - Inhaled Oxygen Concentration - - Weight 118 kg (259 lb 7.7 oz) 08/01/2020 12:55 PM AIRPORT RAMP ATTENDANT Height 169 cm (5' 6.54) 08/01/2020 12:55 PM AIRPORT RAMP ATTENDANT Body Mass Index 41.21 08/01/2020 12:55 PM AIRPORT RAMP ATTENDANT documented in this encounter Medications at Time of Discharge Medication Sig Dispensed Refills Start Date End Date amphetamine-dextroamphetami Take 30 mg by mouth. 0 ne (ADDERALL XR) 30 mg 24 hr capsule buPROPion XL (WELLBUTRIN Take 150 mg by 0 XL) 150 mg 24 hr tablet mouth. citalopram (CeleXA) 40 mg Take 40 mg by mouth. 0 tablet levothyroxine (SYNTHROID, Take 25 mcg by 0 LEVOTHROID) 25 mcg tablet mouth. multivitamin tablet Take 1 tablet by 0 mouth. simvastatin (ZOCOR) 40 mg Take 40 mg by mouth. 0 tablet documented as of this encounter Consult Notes Jani Melgoza M.D. - 08/01/2020 1:00 PM CST SUBJECTIVE REQUESTING PROVIDER Anders Whyte M.D. REASON FOR CONSULT 1. Cancer Breast Ductal In Situ Right HISTORY OF PRESENT ILLNESS Mrs. Fran Campa is a 54 y.o. female with right-sided DCIS. I am asked by Dr. Whyte to evaluate the patient for radiotherapy. Her oncologic history is as follows: 1. May 08, 2020: The patient presented [facility] with a chief complaint of pain in the right breast for 1 month. Physical examination of the breast did not demonstrate any masses. There is a scar on the right lateral superior breast. No palpable supraclavicular or axillary lymphadenopathy. 2. May 22, 2020: Bilateral diagnostic mammogram demonstrated a cluster of mildly pleomorphic calcifications located within the right breast, located in the retroareolar plane, slightly inferolateral, 6 cm from the nipple. Greater than 10 calcifications were present. Benign-appearing punctate calcifications were present deep within the right breast adjacent to the biopsy clips. There were areas of suspected fat necrosis within the upper outer quadrant of the right breast. No architectural distortion or suspicious mass. Negative left breast mammogram. Targeted right breast ultrasound at the 9 to10 o'clock position, upper outer quadrant, 15 cm from the nipple was performed. There was dense fibroglandular tissue at the 10 o'clock position, 10 cm from the nipple, which did not convincingly represent a solid mass. BI-RADS 4. 3. May 29, 2020: Stereotactic guided core biopsy of the right breast at the 10 o'clock position, 15 cm from the nipple was performed. Pathology demonstrated atypical lobular hyperplasia. Negative for invasive malignancy. Biopsy of the right breast at the 11 o'clock position, 6 cm from the nipple was performed. Pathology demonstrated ductal carcinoma in situ, comedo and solid subtypes, nuclear grade 3. Calcifications were associated with DCIS and present in surrounding benign tissue. Necrosis was associated with DCIS. Negative for invasive tumor. Estrogen receptor positive (91-100%). 4. May 31, 2020: MRI of the bilateral breasts demonstrated moderate size hematoma in the central lateral right breast measuring 3.5 x 1.5 cm. Within the hematoma there was a focus of susceptibility artifact related to a biopsy marker clip. There was minimal non mass enhancement surrounding the medial aspect of the hematoma, in the central breast. There were scattered nonspecific foci of enhancement throughout the breast. Scattered nonspecific foci of enhancement throughout the left breast. No suspicious mass or enhancement. No axillary or internal mammary lymphadenopathy. BI-RADS 6. 5. July 09, 2020: Right breast wire localized lumpectomy and right sentinel lymph node biopsy wasperformed by Dr. Anders Whyte. Pathology demonstrated a biopsy cavity with no residual ductal carcinoma in situ in no invasive malignancy. There was atypical ductal hyperplasia and atypical lobular hyperplasia. Margins were uninvolved by DCIS greater than 10 mm. Five right sentinel lymph nodes were benign (0/5). Estrogen receptor positive (91-100%). pTis(DCIS) pN0 6. July 18, 2020: Bilateral breast reduction was performed by Dr. Bailey Santo. Pathology of the right breast reduction demonstrated breast tissue with focal atypical lobular hyperplasia. No in situ or invasive carcinoma identified. Pathology of the left breast reduction demonstrated breast tissue with focus of atypical ductal hyperplasia. No invasive carcinoma identified. INTERVAL HISTORY The patient reports that she has some discomfort in both breasts after her recent breast reduction surgery. She is not taking any analgesics. She rates the pain at 3/10 in severity. She describes the discomfort in her right lateral breast that brought things to attention as strain or ache that was persistent. She denies a history of prior radiation therapy, connective tissue disorders, or inflammatory bowel disease. Her ECOG performance status is 0. REVIEW OF SYSTEMS Review of systems was negative except as documented above. PATIENT REPORTED SYMPTOM SCREEN FATIGUE (Scale: 0 = no fatigue; 10 = worst fatigue you can imagine): 4 PAIN (Scale: 0 = no pain; 10 = worst pain you can imagine): 3 OVERALL QUALITY OF LIFE (Scale: 0 = as bad as can be; 10 = as good as can be): 7 PAST MEDICAL HISTORY 1. Obstructive sleep apnea, on CPAP 2. Attention deficit disorder 3. Depression 4. Hypothyroidism 5. Obesity 6. Hyperlipidemia 7. Impaired fasting glucose 8. Ductal carcinoma in situ of the right breast 9. Atypical lobular hyperplasia PAST SURGICAL HISTORY 1. Right breast excisional biopsy, benign, 2013 2. Right breast lumpectomy and right sentinel lymph node biopsy, July 09, 2020 3. Bilateral breast reduction, July 18, 2020 SOCIAL HISTORY She lives in [place], [place]. She is to her , Joey. 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 She has 2 adult children, a son age 25 and a daughter age 23. She is a never smoker. FAMILY HISTORY No family history of breast cancer or ovarian cancer. OBJECTIVE BP 147/81 (BP Location: Left arm, Patient Position: Sitting, Cuff Size: Large) Pulse 74 Temp 36.2 ??C (Temporal) Ht 169 cm Wt 118 kg BMI 41.21 kg/m?? PHYSICAL EXAM General: Patient is awake, alert, and oriented to person, place, and time. No apparent distress. Sheis here today with her , Joey. Exam was chaperoned by SHERMAN Schneider. ENT: Pupils equal, round, and reactive to light. Sclera anicteric. Oral cavity inspection reveals moist mucous membranes and no visible lesions. Neck: Supple. Lymph: No palpable cervical, supraclavicular, infraclavicular, or axillary adenopathy. Spine: There is no tenderness to palpation of the spine. Lungs: Clear to auscultation bilaterally. Heart: Regular rate and rhythm. Normal S1 and S2. No murmurs. Extremities: No clubbing, cyanosis, or edema. Neurologic: CN II-XII tested and intact. Strength is normal and symmetric in both upper and lower extremities. Sensation is intact to light touch. Gait is normal. Breasts: Examined in the sitting position. The right breast has an everted nipple with multiple well-healing surgical incisions from her recent reduction surgery. The left breast also has an everted nipple with multiple well-healing surgical incisions from her recent reduction surgery. I did not palpate her breasts because of her recent surgery. There are no signs of infection. DIAGNOSTICS I reviewed the patient's mammography from May 22, 2020 and May 29, 2020, the MRI of her breasts from May 31, 2020, and the pathology reports from her biopsy on May 29, 2020 and hersurgery on July 09, 2020. ASSESSMENT / PLAN 1. Stage 0 (pTis (DCIS), pN0(sn), cM0, G3, ER+, SC: Not Assessed, HER2: Not Assessed) right ductal carcinoma in situ, status post lumpectomy and sentinel lymph node biopsy on July 09, 2020 followed by bilateral breast reduction on July 18, 2020 I had a detailed discussion with the patient and her spouse regarding the risks, benefits, and alternatives of radiotherapy in this setting. I reviewed the NCCN guidelines in formulating my recommendations. I went over these with the patient. We discussed standard hypofractionated whole breast radiotherapy to a dose of 4005 cGy in 15 fractions to the lumpectomy cavity. We also discussed accelerated partial breast irradiation to the lumpectomy cavity alone to a dose of 2600 cGy in 5 fractions (as perthe FAST-Forward trial, Lawt et al., Lancet 2020). We will decide between whole breast and partial breast radiation at the time of her CT simulation. It is unclear to me if I can visualize her lumpectomy cavity distinctly after her breast reduction surgery. If I am able to, then partial breast irradiation will be our likely approach. I discussed the logistics as well as the acute and chronic side effects of treatment in detail. The acute side effects are common and include breast erythema, swelling, discomfort, and possible peelingof the skin, and fatigue. Long-term side effects could include pulmonary scarring (typically of no cl inical significance), skin changes and texture changes of the breast, possible breast asymmetry, increased risk of rib fracture with significant trauma, lymphedema (12.2% risk), and a very small risk of secondary malignancy (less than 0.2%). After this discussion, I provided the patient with a written summary of my recommendations. Her questions were answered to her verbalized satisfaction. The patient verbally stated that she would like to proceed with treatment. She is meeting with Lissette Allen CNP, later today to discuss endocrine therapy. She still healing from her surgeries. She has a visit with Dr. Santo on August 13, 2020. We willwait for Dr. Santo's release for her to begin radiotherapy. Patient and her spouse verbalized satisfaction with this plan. My thanks to Gal Abdullahi, and Manjula. Debbie for the opportunity to participatein this patient's care. EDUCATION Ready to learn, no apparent learning barriers were identified; learning preferences include listening. Explained diagnosis and treatment plan; patient expressed understanding of the content. I have spent 60 minutes with this patient today with 55 minutes spent in counseling the patient. Signed by: Jani Melgoza M.D. 08/01/2020 3:02 PM [facility] Radiation Oncology [facility] [address] [place] [id number] ORT RAMP ATTENDANT documented in this encounter Miscellaneous Notes Addendum Note - Karlie Nowak - 08/01/2020 1:00 PM AIRPORT RAMP ATTENDANT Encounter addended by: Karlie Nowak on: 08/02/2020 7:38 AM Actions taken: Letter saved ORT RAMP ATTENDANT documented in this encounter Plan of Treatment Scheduled Orders Name Type Priority Associated Diagnoses Order S chedule Prior Auth Rad Tx Radiation Oncology Routine Cancer Breast Armin dez Ordered: 08/01/2020 In Situ Right documented as of this encounter Results Initial Rad Onc Treatment Planning CT Simulation (08/27/2020 9:00 AM AIRPORT RAMP ATTENDANT) Specimen (Source) Anatomical Location Collection Method / Collectio n Time Received Time / Laterality Volume Narrative ROBERTS JENIFER - 08/27/2020 9:00 AM AIRPORT RAMP ATTENDANT Kimberlee Serrano, RTT ? 08/27/2020 ??9:55 AM Initial Rad Onc Treatment Planning CT Si mulation Date/Time: 08/27/2020 9:55 AM Performed by: Jani Melgoza M.D. Authorized by: Jani Melgoza M.D. Jani Melgoza M.D. RADIATION ONCOLOGY ORDERABLE S Performing Organization Address City/State/ZIP Code Phon e Number [facility] na documented in this encounter Visit Diagnoses Diagnosis Cancer Breast Ductal In Situ Right - [facility] Cancer Breast Ductal In Situ Right documented in this encounter
--- OUTSIDE RECORDS SUMMARY | 2022-05-29 14:07 | XMS_ITS | Encounter Summary ---
:1965 Author Organization [facility] Address [address] [place] [address] Care Team Providers Name Role Phone Unavailable Primary Care Provider Unavailable Reason for Referral Outpatient (Routine) - Closed Specialty Diagnoses / Procedures Referred By Contact Refer red To Contact Radiation Oncology Jani Melgoza M .D. [facility] Region [address] [place] [address] Referral ID Status Reason Start Date Expiration Date Visits Requ ested Visits Authorized [id number] Closed 08/22/2020 08/22/2021 1 1 O DIRECTOR Encounter Details Date Type Department Care Team Description 08/22/2020 Orders Only Department of Radiation Jani Melgoza , Oncology in [facility] [address] [facility] [address] [place] [phone] (Wo rk) Social History Tobacco Use Types Packs/Day Years Used Date Smoking Tobacco: Never Assessed Sex Assigned at Date Recorded Not on file documented as of this encounter Plan of Treatment Scheduled Referrals Name Type Priority Associated Diagnoses Order S yayo Radiation Oncology Outpatient Referral Routine Ex pected: office visit 08/22/2020 (clinic) (Approximate), Expires: 08/22/2021 documented as of this encounter Visit Diagnoses Not on filedocumented in this encounter
--- OUTSIDE RECORDS SUMMARY | 2022-05-29 14:07 | XMS_ITS | Encounter Summary ---
:1965 Author Organization [facility] Address [address] [place] [address] Care Team Providers Name Role Phone Unavailable Primary Care Provider Unavailable Reason for Visit Radiation Therapy (Routine) - Closed Specialty Diagnoses / Procedures Referred By Contact Refer red To Contact Radiation Oncology Diagnoses Cancer Breast Ductal In Situ Right Jani Melgoza [facility] Procedures Prior Auth Rad Tx PA RADTN TX DEL >=1 MEV [facility] [place] [address] [place] [address] [address] [place] [phone] Referral ID Status Reason Start Date Expiration Date Visits Requ ested Visits Authorized [id number] Closed 08/26/2020 08/01/2021 15 15 Encounter Details Date Type Department Care Team Description 09/05/2020 Hospital Encounter Department of Radiation Lisa Melgoza, Oncology in [facility] [place] [address] [phone] Social History Tobacco Use Types Packs/Day Years [...]
--- OUTSIDE RECORDS SUMMARY | 2022-05-29 14:07 | XMS_ITS | Encounter Summary ---
:1965 Author Organization [facility] Address [address] [place] [address] Care Team Providers Name Role Phone Unavailable Primary Care Provider Unavailable Encounter Details Date Type Department Care Team Description 08/31/2020 Hospital Encounter Department of Sandy Sethi [facility], M.S . Screening For Other in [address] Viral Diseases [place], [place] (COVID-19) [address] [place] [address] [place], [place] [phone] (Work) [phone] Social History Tobacco Use Types Packs/Day Years [...] Not on filedocumented as of this encounter Procedures Procedure Name Priority Date/Time Associated Diagnosis Comme nts SARS CORONAVIRUS-2 Routine 08/31/2020 10:02 AM Encounter For R esults for this RNA, V NYLON OPERATOR Screening For Other procedur e are in Viral Diseases the results (COVID-19) section. documented in this encounter Results SARS Coronavirus-2 RNA, V Asymptomatic (08/31/2020 10:02 AM NYLON OPERATOR) [facility] Method Time Signature SARS-CoV-2 Swab, 08/31/2020 [facility] Specimen Nasopharynx 9:36 PM NYLON OPERATOR Source SARS CoV-2 Undetected Undetected 08/31/2020 [facility] RNA, TMA 9:36 PM NYLON OPERATOR Comment: SARS-CoV-2 RNA absent. This result does not rule out COVID-19 in the patient, as the sensitivity of the test depends o n the timing of the specimen collection and the quality of the specim en. Result should be correlated with patient's history and clinical presentat ion. ----ADDITIONAL INFORMATION---- This test is performed using the Aptima SARS-CoV-2 assay ([employer] which has received Emergency Use Authori zation (EUA) by the U.S. Food and Drug Administration. Fact sheets for this Emergency Use Autho rization (EUA) assay can be found at the following links: For Healthcare Providers: https://www.fd a.gov/media/807331/download For Patients: https://www.fda.gov/media/ 318304/download Specimen Anatomical Collection Method Collection Time Receive d Time (Source) Location / / Volume Laterality Varies 08/31/2020 10:02 08/31/2020 4:57 (Nasopharynx) AM NYLON OPERATOR PM NYLON OPERATOR Sandy Sethi P.A.-C., M.S. LAB MICROBIOLOGY - GENERAL O RDERABLES Performing Organization Address City/State/ZIP Code Phon e Number [facility]- [address] [place] [phone] [place] [address] [address] documented in this encounter Visit Diagnoses Diagnosis Encounter For Screening For Other Viral Diseases (COVID-19) documented in this encounter Additional Health Concerns Infection Onset Date Last Indicated Resolved Time COVID19 Pending 08/31/2020 08/31/2020 08/31/2020 9:37 PM NYLON OPERATOR documented as of this encounter
--- OUTSIDE RECORDS SUMMARY | 2022-05-29 14:07 | XMS_ITS | Encounter Summary ---
:1965 [facility] Address [address] [place] [address] Care Team Providers Name Role Phone Unavailable Primary Care Provider Unavailable Reason for Referral Outpatient (Routine) - Closed Specialty Diagnoses / Procedures Referred By Contact Refer red To Contact Radiation Oncology Jani Melgoza M .D. [address] [address] Referral ID Status Reason Start Date Expiration Date Visits Requ ested Visits Authorized [id number] Closed 08/22/2020 08/22/2021 1 1 IRONER Reason for Visit Outpatient (Routine) - Closed Specialty Diagnoses / Procedures Referred By Contact Refer red To Contact Radiation Oncology Jani Melgoza M .D. [address] [address] Referral ID Status Reason Start Date Expiration Date Visits Requ ested Visits Authorized [id number] Closed 08/22/2020 08/22/2021 1 1 Encounter Details Date Type Department Care Team Description 08/27/2020 Hospital Encounter Department of Jani Melgoza Breast Ductal Radiation Oncology [place] In Situ Right in [address] (Primary Dx) [place], [place] [address] [facility] [address] [place], [place] [phone] (Work) [phone] Social History Tobacco Use Types Packs/Day Years Used Date Smoking Tobacco: Never Assessed Sex Assigned at Date Recorded Not on file documented as of this encounter Last Filed Vital Signs Vital Sign Reading Time Taken Comments Blood Pressure 154/82 08/27/2020 8:27 AM [facility] Pulse 85 08/27/2020 8:27 AM [facility] Temperature 36.1 ??C (97 ??F) 08/27/2020 8:27 AM [facility] Respiratory Rate - - Oxygen Saturation - - Inhaled Oxygen Concentration - - Weight 117 kg (258 lb 2.5 oz) 08/27/2020 8:27 AM [facility] Height - - Body Mass Index 41 08/01/2020 12:55 PM [facility] documented in this encounter Medications at Time [...] 0 tablet documented as of this encounter Progress Notes Jani Melgoza M.D. - 08/27/2020 8:30 AM CST SUBJECTIVE REASON FOR VISIT 1. Cancer Breast Ductal In Situ Right HISTORY OF PRESENT ILLNESS Mrs. Fran Campa is a 55 y.o. female with right-sided DCIS. I saw her in consultation on August 01, 2020. She returns today for a CT simulation. Her oncologic history is as follows: 1. May 08, 2020: The patient presented to [facility] with a chief complaint of pain in the right breast for 1 month. Physical examination of the breast did not demonstrate any masses. There was a scar on the right lateral superior [...] identified. INTERVAL HISTORY The patient reports that her breast discomfort is largely resolving. She does have some shoulder pain. She also has mild fatigue. She is engaged in physical therapy. Her ECOG performance status is 0. REVIEW [...] = as good as can be): 7 OBJECTIVE BP 154/82 (BP Location: Left arm, Patient Position: Sitting, Cuff Size: Large) Pulse 85 Temp 36.1 ??C (Temporal) Wt 117 kg BMI 41.00 kg/m?? PHYSICAL EXAM General: Patient is awake, alert, and oriented to person, place, and time. No apparent distress. Breasts: Examined in the supine position at the CT simulation with the lighter captain of the therapists, Rosangeal Rios. The right breast has an everted nipple with multiple well-healed surgical incisions from her recent reduction surgery. There are no palpable masses or overlying skin changes. Her right arm range of motion is still limited. ASSESSMENT / PLAN 1. Stage 0 (pTis (DCIS), pN0(sn), cM0, G3, ER+, DC: Not Assessed, HER2: Not Assessed) right ductal carcinoma in situ, status post lumpectomy and sentinel lymph node biopsy on July 09, 2020 followed by bilateral breast reduction on July 18, 2020 2. Decreased right shoulder range of motion secondary to #1 I again had a detailed discussion with the patient regarding the risks, benefits, and alternatives of radiotherapy in this setting. I reviewed the NCCN guidelines in formulating my recommendations. We will decide between whole breast and partial breast radiation at the time of her treatment planning. It is unclear to me if I can visualize her lumpectomy cavity distinctly after her breast reduction surgery. If I am able to, then partial breast irradiation will be our likely approach. We reviewed the logistics as well as the acute effects of treatment in detail. She still has limitedrange of motion in her right shoulder. She is working with physical therapy. After this discussion, the patient verbally stated that she would like to proceed with treatment andsigned the consent form. She will undergo CT simulation today. We will endeavor to begin treatment on Wednesday, September 02, 2020. She will have COVID testing prior to initiation of treatment. The patient verbalized satisfaction with this plan. I have spent 15 minutes with this patient today all of which was spent in counseling the patient. Signed by: Jani Melgoza M.D. 08/27/2020 10:18 AM [facility] [address] [place] [address] IRONER documented in this encounter Miscellaneous Notes Addendum Note - Karlie Nowak - 08/27/2020 8:30 AM [facility] IR[facility]ER Encounter addended by: Karlie Nowak on: 08/27/2020 12:02 PM Actions taken: Letter saved IRONER Addendum Note - Jani Melgoza M.D. - 08/27/2020 8:30 AM [facility] Encounter addended by: Jani Melgoza M.D. on: 08/29/2020 1:18 PM Actions taken: Flowsheet accepted IRONER documented in this encounter Plan of Treatment Scheduled Referrals Name Type Priority Associated Order Schedule Diagnoses Radiation Oncology Outpatient Referral Routine On ce for 1 office visit Occurrences sta rting (clinic) 08/27/2020 unti l 08/27/2020 documented as of this encounter Visit Diagnoses Diagnosis Cancer Breast Ductal In Situ Right - Nicky monico documented in this encounter
--- OUTSIDE RECORDS SUMMARY | 2022-05-29 14:07 | XMS_ITS ---
:1965 Author Care Team Providers Name Role Phone MOIZ CONN PAC Referring Provider [phone] Allergies Code Code System Name Reaction Severity Status Onset NKDA ? Medications Name Status Start Date Stop Date ? ? albuterol sulfate HFA 90 mcg/actuation aerosol inhaler Completed ? 04/16/2022 INHALE 2 PUFFS EVERY 4 HOURS NEEDED WHILE AWAKE FOR THE NEXT 3 DAYS, THEN NEEDED (DO NOT EXCEED 12 PUFFS IN 24 HOURS) amoxicillin 500 mg capsule Completed ? 05/19 TAKE ONE CAPSULE BY MOUTH THREE TIMES DAILY UNTIL GONE amoxicillin 875 mg-potassium clavulanate 125 mg tablet Completed ? 04/16/2022 TAKE ONE TABLET BY MOUTH TWICE DAILY FOR 10 DAYS anastrozole Completed ? 05/19/2021 take 1 mg per day anastrozole 1 mg tablet Active ? Not avai lable TAKE 1 TABLET BY MOUTH DAILY atorvastatin 40 mg tablet Active ? Not av ailable TAKE 1 TABLET BY MOUTH AT BEDTIME benzonatate 100 mg capsule Completed ? 04/16 TAKE ONE CAPSULE BY MOUTH 3 TIMES DAILY NEEDED Botox 100 unit injection Completed ? 022 Take 100 units by injection route. bupropion HCl 150 mg tablet,12 hr sustained-release(khadijah oking deterrent) Completed ? 08/12/2021 Take 1 tablet every day by oral route. bupropion HCl XL 150 mg 24 hr tablet, extended release Active ? Not available TAKE ONE TABLET BY MOUTH DAILY cefepime Active ? Not available 2000mg 2/day cephalexin 500 mg capsule Completed ? 2021 TAKE 1 CAPSULE BY MOUTH THREE TIMES DAILY FOR 7 DAYS ciprofloxacin 250 mg tablet Active ? Not available TAKE ONE TABLET BY MOUTH TWICE DAILY citalopram 40 mg tablet Active ? Not avai lable TAKE 1 TABLET BY MOUTH DAILY codeine 10 mg-guaifenesin 100 mg/5 mL oral liquid Completed ? 04/16/2022 TAKE 5-10MLS BY MOUTH AT BEDTIME, CAN R EPEAT IN 6 HOURS IF NEEDED. DO NOT DRIVE FOR UP TO 6 HOURS AFTER TAKING THIS MEDICATION daptomycin 500 mg intravenous solution Active ? Not available 500mg 1/day dextroamphetamine-amphetamine ER 20 mg 24hr Active ? Not available capsule,extend release dextroamphetamine-amphetamine ER 30 mg 24hr capsule,extend relea se Completed ? 12/04/2021 TAKE ONE CAPSULE BY MOUTH DAILY hydrocodone 5 mg-acetaminophen 325 mg tablet Completed ? 05/19/2021 take 1-2 tablets by mouth every 6 hours as needed ibuprofen 200 mg tablet Completed ? 12/05/19 22 Take 2 tablets every 6 hours by oral route as needed. levothyroxine Completed ? 05/19/2021 take 25 mcg per day levothyroxine 25 mcg tablet Active ? Not available TAKE ONE TABLET BY MOUTH DAILY losartan 50 mg tablet Active ? Not availa ble take 1 tablet by mouth daily multivitamin Active ? Not available 1 per day Myrbetriq 50 mg tablet,extended release Active ? Not available TAKE 1 TABLET BY MOUTH DAILY naproxen sodium 220 mg tablet Active ? No t available TAKE 1 TABLET BY MOUTH TWICE DAILY as needed for pain nitrofurantoin monohydrate/macrocrystals 100 mg capsule Complete d ? 04/16/2022 TAKE 1 CAPSULE BY MOUTH EVERY 12 HOURS FOR 3 DAYS STARTING 2 DAYS PRIOR TO BOTOX oxybutynin chloride ER 10 mg tablet,extended release 24 hr Compl eted ? 08/12/2021 TAKE 1 TABLET BY MOUTH DAILY oxycodone 5 mg tablet Active ? Not availa ble TAKE 1 TABLET BY MOUTH EVERY 4 HOURS NEEDED FOR PAIN oxycodone-acetaminophen 5 mg-325 mg tablet Completed ? 05/19/2021 senna 8.6 mg tablet Active ? Not availabl e take 4 tablets by mouth twice daily as needed for constipation simvastatin 40 mg tablet Completed ? 022 TAKE ONE TABLET BY MOUTH AT BEDTIME sulfamethoxazole 800 mg-trimethoprim 160 mg tablet Completed ? 12/04/2021 take 1 tablet by mouth every 12 hours for 3 days. tramadol 50 mg tablet Active ? Not availa ble TAKE 1 TABLET BY MOUTH 3 TIMES A DAY NEEDED FOR PAIN triamcinolone acetonide 0.5 % topical cream Completed ? 08/12/2021 apply topically To the left arm 2 times daily Vitamin D Active ? Not available take 84203 U per day Problems Name Status Onset Date Source ? Hypothyroidism Active 05/16/2021 ? Hyperlipidemia Active 05/16/2021 ? Depressive Disorder Active 05/16/2021 ? Obstructive Sleep Apnea Syndrome Active 05/16/2021 ? Attention Deficit Hyperactivity Disorder, Predominantly Active 05/16/2021 ? Inattentive Type Procedures Date Name Performed by ? 11/18/2020 Oncology Colorectal Scr Information not available Notes: Stool DNA test (FIT-DNA test / Cologuard) Results Lab Results Date Name Specimen Result Interpretation Description Value Range Status Address ? 04/16/2022 Urinalysis, UR ? Color yellow yellow Final [place] [facility]: [address] ? ? UR ? Appearance clear clear Final [place] [facility]: [address] ? ? UR ? Glucose negative negative Final [place] [facility] mg/dL mg/dL [facility]: [address] ? ? UR ? Bilirubin negative negative Final [place] [facility]: [address] ? ? UR ? Ketones negative negative Final [place] [facility] mg/dL mg/dL [facility]: [address] ? ? UR ? [place] 1.020 1.010-1.0 Final [place] [facility]: [address] ? ? UR ? pH -[facility] 7.0 5.0-8.0 Final [place] [facility]: [address] ? ? UR ? Protein negative negative Final [place] [facility] mg/dL mg/dL [facility]: [address] ? ? UR ? Urobilinogen 0.2 normal Final [place] [facility]: [address] ? ? UR ? Nitrites negative negative Final [place] [facility]: [address] [place] [address], [place] ? ? UR ABNORMAL Blood trace negative Final [place] [facility]: [address] ? ? UR ? Leukocytes negative negative Final [place] [facility]: [address] [address], [place] ? ? UR ? Performed by bandar Vogt ? Final [place] [facility]: [address] [address], [place] ? ? UR ? Total Urine 50 /mL ? Final [place] Volume (mL) [facility]: [address] [address], [place] 04/16/2022 Urinalysis, ? U-WBC 0 - 2 [hpf] 0 - 2 Fin al [place] Microscopic [hpf] [facility]: [address] [address], [place] ? ? ? U-RBC 0 - 2 [hpf] 0 - 2 Final [place] [hpf] [facility]: [address] [address], [place] ? ? ABNORMAL Bacteria small [hpf] negative Final [place] [hpf] [facility]: [address] [address], [place] ? ? ? Squamous Epi negative negative, Final [place] /lpf small Urology - /lpf [facility]: [address] [address], [place] 03/13/2022 Urinalysis, UR ? Color-status yellow yellow F inal [place] Dip[facility]: [address] [place] [address], [place] ? ? UR ? Clarity-stat clear clear Final Min [facility]: [address] [place] [address], [place] ? ? UR ? Glucose-stat negative negative Final [place] mg/dL mg/dL [facility]: [address] ? ? UR ? Bilirubin-ur negative negative Final [place] ine [facility]: [address] [place] [address], [place] ? ? UR ? Ketones-stat negative negative Final [place] mg/dL mg/dL [facility]: [address] ? ? UR ? SG-status 1.020 1.00-1.03 Final Min [facility]: [address] [address], [place] ? ? UR ? pH-status 6.5 5.00-8.00 Final Min [facility]: [address] [place] [address], [place] ? ? UR ? Protein-stat negative negative Final [place] us mg/dL mg/dL [facility]: [address] [facility] [address], [place] ? ? UR ? Urobilinogen 0.2 E.U./dL 0.2 Final [place] -status E.U./dL E.U./dL [facility]rology - E.U./dL [facility]: [address] [facility] [address], [place] ? ? UR ? Nitrites-sta negative negative Final [facility]: [address] [address], [place] ? ? UR ABNORMAL Blood-urine trace-intact negative F inal [place] [facility]: [address] [address], [place] ? ? UR ABNORMAL Leuko-status trace negative Final [place] [facility]: [address] [place] [address], [place] ? ? UR ? Specimen voided ? Final [place] [facility]: [address] [place] [address], [place] ? ? UR ? Performed by negra Gonzalez ? Final [place] [facility]: [address] [address], [place] ? ? UR ? Total Urine 15 /mL ? Final [place] Volume (mL) [facility]: [address] [place] [address], [place] 12/04/2021 Urinalysis, UR ? Color-status yellow yellow F inal [place] Dipstick [facility]: [address] [place] [address], [place] ? ? UR ? Clarity-stat clear clear Final Min [facility]: [address] [place] [address], [place] ? ? UR ? Glucose-stat negative negative Final [place] mg/dL mg/dL [facility]: [address] [place] [address], [place] ? ? UR ? Bilirubin-ur negative negative Final [facility]: [address] [address], [place] ? ? UR ? Ketones-stat negative negative Final [facility] mg/dL mg/dL [facility]: [address] [address], [place] ? ? UR ? SG-status 1.015 1.00-1.03 Final Min [facility]: [address] [address], [place] ? ? UR ? pH-status 6.0 5.00-8.00 Final Min [facility]: [address] [address], [place] ? ? UR ? Protein-stat negative negative Final [place] us mg/dL mg/dL [facility]: [address] [place] [address], [place] ? ? UR ? Urobilinogen 0.2 E.U./dL 0.2 Final [place] -status E.U./dL E.U./dL Urology - E.U./dL [facility]: [address] [place] [address], [place] ? ? UR ? Nitrites-sta negative negative Final [facility]: [address] [address], [place] ? ? UR ABNORMAL Blood-urine trace-intact negative F inal [place] [facility]: [address] [address], [place] ? ? UR ABNORMAL Leuko-status small negative Final [place] [facility]: [address] [address], [place] ? ? UR ? Specimen voided ? Final [place] [facility]: [address] [address], [place] ? ? UR ? Performed by negra Gonzalez ? Final [place] [facility]: [address] [place] [address], [place] ? ? UR ? Total Urine 30 /mL ? Final [facility] [place] Volume (mL) [facility]: [address] 10/30/2021 Urinalysis, UR ? Color-status yellow yellow F inal [place] Dipstick [facility]: [address] [place] [address], [place] ? ? UR ? Clarity-stat clear clear Final Min [facility]: [address] [place] [address], [place] ? ? UR ? Glucose-stat negative negative Final [place] us mg/dL mg/dL [facility]: [address] [place] [address], [place] ? ? UR ? Bilirubin-ur negative negative Final [facility]: [address] [address], [place] ? ? UR ? Ketones-stat negative negative Final [place] us mg/dL mg/dL [facility]: [address] [address], [place] ? ? UR ? SG-status 1.020 1.00-1.03 Final Min [facility]: [address] [place] [address], [place] ? ? UR ? pH-status 7.0 5.00-8.00 Final [facility]: [address] [address], [place] ? ? UR ? Protein-stat negative negative Final [place] us mg/dL mg/dL [facility]: [address] [place] [address], [place] ? ? UR ? Urobilinogen 0.2 E.U./dL 0.2 Final [place] -status E.U./dL E.U./dL [facility]rology - E.U./[facility]: [address] [place] [address], [place] ? ? UR ? Nitrites-sta negative negative Final [facility]: [address] [address], [place] ? ? UR ABNORMAL Blood-urine trace-intact negative F inal [place] [facility]: [address] [address], [place] ? ? UR ? Leuko-status negative negative Final [place] [facility]: [address] [address], [place] ? ? UR ? Specimen voided ? Final [place] [facility]: [address] [place] [address], [place] ? ? UR ? Performed by negra Gonzalez ? Final [place] [facility]: [address] ? ? UR ? Total Urine 30 /mL ? Final [place] Volume (mL) [facility]: [address] 09/25/2021 Urinalysis, UR ? Color-status yellow yellow F inal [place] Dipstick [facility]: [address] [place] [address], [place] ? ? UR ? Clarity-stat clear clear [facility] [address] [address], [place] ? ? UR ? Glucose-stat negative negative Final [place] us mg/dL mg/dL [facility]: [address] ? ? UR ? Bilirubin-ur negative negative Final [place] ine [facility]: [address] [place] [address], [place] ? ? UR ? Ketones-stat negative negative Final [place] us mg/dL mg/dL [facility]: [address] ? ? UR ? SG-status 1.025 1.00-1.03 Final Min [facility]: [address] [place] [address], [place] ? ? UR ? pH-status 7.0 5.00-8.00 Final [place] [facility]: [address] [place] [address], [place] ? ? UR ? Protein-stat negative negative Final [facility] mg/dL mg/dL [facility]: [address] [address], [place] ? ? UR ? Urobilinogen 0.2 E.U./dL 0.2 Final [place] -status E.U./dL E.U./dL [facility] - E.U./[facility]: [address] [address], [place] ? ? UR ? Nitrites-sta negative negative Final [facility]: [address] [address], [place] ? ? UR ABNORMAL Blood-urine trace-intact negative F inal [place] [facility]: [address] [address], [place] ? ? UR ABNORMAL Leuko-status trace negative Final [place] [facility]: [address] ? ? UR ? Specimen catheterized ? Final [place] [facility]: [address] ? ? UR ? Performed by negra Gonzalez ? Final [place] [facility]: [address] ? ? UR ? Total Urine 30 /mL ? Final [place] Volume (mL) [facility]: [address] 05/19/2021 Urinalysis, UR ? Color yellow yellow Final [place] [facility] [facility]: [address] ? ? UR ? Appearance clear clear Final [place] [facility]: [address] ? ? UR ? Glucose negative negative Final [place] [facility] mg/dL mg/dL [facility]: [address] ? ? UR ? Bilirubin negative negative Final [place] [facility]: [address] ? ? UR ? Ketones negative negative Final [place] [facility] mg/dL mg/dL [facility] [address] ? ? UR ? [place] 1.020 1.010-1.0 Final [place] [facility]: [address] [place] [address], [place] ? ? UR ? pH -[facility] 6.5 5.0-8.0 Final [place] [facility]: [address] [facility] [address], [place] ? ? UR ? Protein negative negative Final [place] [facility] mg/dL mg/dL [facility] [address] [facility] [address], [place] ? ? UR ? Urobilinogen 0.2 normal Final [place] [facility]: [address] [facility] [address], [place] ? ? UR ? Nitrites negative negative Final [place] [facility]: [address] [facility] [address], [place] ? ? UR ? Blood negative negative Final [place] [facility]: [address] [facility] [address], [place] ? ? UR ? Leukocytes negative negative Final [place] [facility]: [address] [facility] [address], [place] ? ? UR ? Performed by negra Rusos ? Final [place] [facility]: [address] [facility] [address], [place] ? ? UR ? Total Urine 60 /mL ? Final [place] Volume (mL) [facility]: [address] [facility] [address], [place] Past Encounters 04/16/2022 Overactive Bladder ANGELA Gutierrez: [address] [facility], [facility] [address], [place] [address], Ph. 03/13/2022 Overactive Bladder Lisa Reardon MD: [address], [address] [address], Ph. 12/04/2021 Overactive Bladder Lisa Reardon MD: [address] [facility], [facility] [address], [place] [address], Ph. 10/30/2021 Urinary Incontinence; Urge Incontinence of Urine; Nocturia Lisa Reardon MD: [address], [place] [address], Ph. 09/25/2021 Urinary Incontinence; Urge Incontinence of Urine; Nocturia Lisa Reardon MD: [address], [place] [address], Ph. 08/12/2021 Urinary Incontinence; Midline Cystocele Miley Johnson, PA: [address] [facility], [address], [place] [address], Ph. 07/01/2021 Urinary Incontinence Miley Johnson PA: [address] [facility], [address], [place] [address], Ph. 05/19/2021 Urinary Incontinence Miley Johnson PA: [address] [place] [address], [address], [place] [address], Ph. Social History Tobacco Smoking Status Never Smoker Vaccine List Vaccine Type COVID-19 (SARS-COV-2) vaccine, [...] formulation 06/20/2021 06/20/2021 06/26/2021 06/27/2021 07/21/2021 novel [id number], all formulation s 10/28/2009 Plan of Care Reminders Provider Appointments None recorded. ? ? Lab None recorded. ? ? Referral None recorded. ? ? Procedures None recorded. ? ? Surgeries None recorded. ? ? Imaging None recorded. ? ? Vitals 04/16/2022 03:30PM ESTABLISHED 30 Height Weight BMI 5 ft 8 in 236 lbs 35.9 kg/m2 12/04/2021 08:30AM ESTABLISHED 15 Height Weight BMI 5 ft 8 in 250 lbs 38 kg/m2 10/30/2021 11:30AM BOTOX 30 Height 5 ft 8 in 09/25/2021 09:30AM ESTABLISHED 15 Height Weight BMI 5 ft 8 in 241 lbs 36.6 kg/m2 08/12/2021 02:30PM ESTABLISHED 30 Height Weight BMI 5 ft 8 in 241 lbs 36.6 kg/m2 07/01/2021 01:30PM ESTABLISHED 30 Height Weight BMI 5 ft 8 in 245 lbs 37.3 kg/m2 05/19/2021 01:00PM NEW PATIENT 30 Height Weight BMI 5 ft 8 in 250 lbs 38 kg/m2
--- OUTSIDE RECORDS SUMMARY | 2022-05-29 14:07 | XMS_ITS | Encounter Summary ---
:1965 Author Organization [facility] Address [address] [place] [address] Care Team Providers Name Role Phone Unavailable Primary Care Provider Unavailable Reason for Visit Radiation Therapy (Routine) - Closed Specialty Diagnoses / Procedures Referred By Contact Refer red To Contact Radiation Oncology Diagnoses Cancer Breast Ductal In Situ Right Jani Melgoza McHs Rao Nfrt Procedures Prior Auth Rad Tx [place] RADTN TX DEL >=1 MEV [facility] [place] [address] [place] [address] [address] [place] [phone] Referral ID Status Reason Start Date Expiration Date Visits Requ ested Visits Authorized [id number] Closed 08/26/2020 08/01/2021 15 15 Encounter Details Date Type Department Care Team Description 09/04/2020 Hospital Encounter Department of Radiation Lisa Melgoza, Oncology in [facility] [place] [address] [phone] Social History Tobacco Use Types Packs/Day Years [...]
--- OUTSIDE RECORDS SUMMARY | 2022-05-29 14:07 | XMS_ITS | Encounter Summary ---
:1965 Author Organization [facility] Address [address] [place] [address] Care Team Providers Name Role Phone Unavailable Primary Care Provider Unavailable Reason for Visit Radiation Therapy (Routine) - Closed Specialty Diagnoses / Procedures Referred By Contact Refer red To Contact Radiation Oncology Diagnoses Cancer Breast Ductal In Situ Right Jani Melgoza McHs Rao Nfrt Procedures Prior Auth Rad Tx [place] RADTN TX DEL >=[address] [facility] [place] [address] [place] [address] [address] [place] [phone] Referral ID Status Reason Start Date Expiration Date Visits Requ ested Visits Authorized [id number] Closed 08/26/2020 08/01/2021 15 15 Encounter Details Date Type Department Care Team Description 09/02/2020 Hospital Encounter Department of Radiation Lisa Melgoza, Oncology in [facility] [place] [address] [phone] Social History Tobacco Use Types Packs/Day Years [...]
--- OUTSIDE RECORDS SUMMARY | 2022-05-29 14:07 | XMS_ITS | Encounter Summary ---
:1965 Author Organization [facility] Address [address] [place] [address] Care Team Providers Name Role Phone Unavailable Primary Care Provider Unavailable Reason for Referral Outpatient (Routine) - Closed Specialty Diagnoses / Procedures Referred By Contact Refer red To Contact Sandy Sethi P.A.-C ., M.S. [facility] Region [address] [place] [phone] Referral ID Status Reason Start Date Expiration Date Visits Requ ested Visits Authorized [id number] Closed 09/04/2020 09/04/2021 1 1 Scheduling Instructions AARON Delgado patient S SALES ASSOCIATE Radiation Therapy (Routine) - Canceled Specialty Diagnoses / Procedures Referred By Contact Refer red To Contact Diagnoses Cancer Breast Ductal In Situ Right Jani Melgoza M.D. [facility] Procedures Management Visit [address] [place] [phone] Referral ID Status Reason Start Date Expiration Date Visits V isits Requested Authorized [id number] Canceled 08/01/2020 08/01/2021 1 1 S SALES ASSOCIATE Reason for Visit Radiation Therapy (Routine) - Canceled Specialty Diagnoses / Procedures Referred By Contact Refer red To Contact Diagnoses Cancer Breast Ductal In Situ Right Jani Melgoza M.D. [facility] Procedures Management Visit [address] [place] [phone] Referral ID Status Reason Start Date Expiration Date Visits V isits Requested Authorized [id number] Canceled 08/01/2020 08/01/2021 1 1 Encounter Details Date Type Department Care Team Description 09/04/2020 Hospital Encounter Department of Jani Melgoza Breast Ductal Radiation Oncology [place] In Situ Right in [place], [address] [place] [address] [address] [facility] [address] [place], [place] [phone] (Work) [phone] Social History Tobacco Use Types Packs/Day Years Used Date Smoking Tobacco: Never Assessed Sex Assigned at Date Recorded Not on file documented as of this encounter Last Filed Vital Signs Vital Sign Reading Time Taken Comments Blood Pressure - - Pulse - - Temperature 35.9 ??C (96.7 ??F) 09/04/2020 4:05 PM PARTS SALES ASSOCIATE Respiratory Rate - - Oxygen Saturation - - Inhaled Oxygen Concentration - - Weight 119 kg (262 lb 9.1 oz) 09/04/2020 4:05 PM PARTS SALES ASSOCIATE Height - - Body Mass Index 41.7 08/01/2020 12:55 PM PARTS SALES ASSOCIATE documented in this encounter Medications at Time [...] documented as of this encounter Progress Notes Sandy Sethi P.A.-C., M.S. - 09/04/2020 4:15 PM CST SUBJECTIVE REASON FOR VISIT Evaluation for side effects while receiving radiation treatment for 1. Cancer Breast Ductal In Situ Right SUPERVISED BY: Jani Melgoza M.D. ([id number]) HISTORY OF PRESENT ILLNESS Mrs. 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 Treatment Course: 1x RT Breast Plan ID Fractions Dose / Fraction (cGy) Dose Treated (cGy) Dose Planned (cGy) First Treatment Last Treatment Elapsed Days F1_RT Breast 3 / 520 1560 2600 09/02/2020 09/04/2020 2 Course Summary 09/02/2020 09/04/2020 2 Her oncologic history is as follows: 1. [...] atypical ductal hyperplasia. No invasive carcinoma identified. 7. September 02, 2020 anticipated through September 06, 2020: Radiation therapy to the right whole breast to a dose of 2600 cGy in 5 fractions. The patient was seen and examined today with Dr. Melgoza. The patient reports doing well overall. She reports fatigue rated 5/10 in severity. She reports redness and itching of the skin of the right breast. She is applying Vanicream lotion She experienced mild nausea on Wednesday that she relates to not having eaten and nerves due to the first treatment. She istaking anastrozole without any noticeable side effects. She denies any other questions or concerns today. PATIENT REPORTED SYMPTOM SCREEN FATIGUE (Scale: 0 = no fatigue; 10 = worst fatigue you can imagine): 5 PAIN (Scale: 0 = no pain; 10 = worst pain you can imagine): 3 OVERALL QUALITY OF LIFE (Scale: 0 = as bad as can be; 10 = as good as can be): 6 OBJECTIVE Temp (!) 35.9 ??C (Temporal) Wt 119 kg BMI 41.70 kg/m?? PHYSICAL EXAM General: Alert and oriented in no apparent distress. Skin: Mild erythema of the skin of the right breast, primarily in the lower outer quadrant. ASSESSMENT / PLAN 1. Stage 0 (pTis (DCIS), pN0(sn), cM0, G3, ER+, [place]: Not Assessed, HER2: Not Assessed) right ductal carcinoma in situ, status post lumpectomy and sentinel lymph node biopsy on July 09, 2020 followed by bilateral breast reduction on July 18, 2020 2. Decreased right shoulder range of motion secondary to #1 3. Radiation therapy initiated on September 02, 2020; anticipated completion on September 06, 2020 The patient is tolerating radiation treatment well overall. She has grade 1 fatigue and radiation dermatitis as side effects from treatment. She was recommended to continue applying Vanicream lotion tothe skin of the right breast. She was educated on the use of uxzu-ivn-jktthie hydrocortisone cream or Benadryl cream if needed for itching. We discussed the use of Aquaphor if she would develop peelingof the skin. She was provided with a sample of QueasEase today that she could trial if she has recurrent nausea. She has an appointment with Lissette Allen CNP on Wednesday. I will call the patient for a phone call follow-up visit in one month. She will contact us sooner with questions or concerns. She verbally expressed her understanding of the plan. Signed by: Sandy Sethi P.A.-C., M.S. 09/04/2020 4:22 PM PARTS SALES ASSOCIATE S SALES ASSOCIATE Associated attestation - Jani Melgoza M.D. - 09/04/2020 5:49 PM PARTS SALES ASSOCIATE I saw and evaluated the patient and participated in the lynch portions of the service. I reviewed the documentation of Sandy Sethi P.A.-C. and agree with the findings and plan. The patient appears well onexam. She finishes on Wednesday. She has a follow-up with Kim Allen CNP next week. Sandy Sethi P.A.-C will contact her in 1 month to check on her progress. We will not schedule any other follow-up in Radiation Oncology Clinic, but the patient knows that if she develops dermatitis after treatment is finished she should contact us for further care instructions. She and her , Joey, verbalized satisfaction with this plan. She will continue with treatment as planned. Signed by: Jani Melgoza M.D. 09/04/20 5:49 PM PARTS SALES ASSOCIATE [facility] [place] documented in this encounter Miscellaneous Notes Addendum Note - Karlie Nowak - 09/04/2020 4:15 PM PARTS SALES ASSOCIATE Encounter addended by: Karlie Nowak on: 09/05/2020 8:35 AM Actions taken: Letter saved S SALES ASSOCIATE documented in this encounter Plan of Treatment Scheduled Orders Name Type Priority Associated Diagnoses Order S chedule Management Visit Radiation Oncology Routine Cancer Breast Duct al Once for [address] Occurrences [address] arting 09/04/2020 unti l 09/04/2020 Scheduled Referrals Name Type Priority Associated Diagnoses Order S chedule NonF2F phone Outpatient Referral Routine Expected : visit 10/05/2020 (Approximate), Expires: 2022 documented as of this encounter Visit Diagnoses Diagnosis Cancer Breast Ductal In Situ Right documented in this encounter
--- OUTSIDE RECORDS SUMMARY | 2022-05-29 14:07 | XMS_ITS | Encounter Summary ---
:1965 Author Organization [facility] Address [address] [place] [address] Care Team Providers Name Role Phone Unavailable Primary Care Provider Unavailable Reason for Referral Radiation Therapy (Routine) - Closed Specialty Diagnoses / Procedures Referred By Contact Refer red To Contact Diagnoses Cancer Breast Ductal In Situ Right Jani Melgoza M.D. [facility] Region Procedures Initial Rad Onc Treatment Planning CT Simulation [address] [place] [address] Referral ID Status Reason Start Date Expiration Date Visits Requ ested Visits Authorized [id number] Closed 08/01/2020 08/01/2021 1 1 INUOUS LOFT OPERATOR Reason for Visit Radiation Therapy (Routine) - Closed Specialty Diagnoses / Procedures Referred By Contact Refer red To Contact Diagnoses Cancer Breast Ductal In Situ Right Jan[facility] M.D. [facility] Region Procedures Initial Rad Onc Treatment Planning CT Simulation [address] [place] [address] Referral ID Status Reason Start Date Expiration Date Visits Requ ested Visits Authorized [id number] Closed 08/01/2020 08/01/2021 1 1 Encounter Details Date Type Department Care Team Description 08/27/2020 Hospital Encounter Department of Jani Melgoza Breast Ductal Radiation Oncology [place]u Right in [place], [address] [place], [place] [address] [facility] [address] [place], [place] [phone] (Work) [phone] Social History Tobacco Use Types Packs/Day Years [...] 0 tablet documented as of this encounter Procedure Notes Kimberlee Serrano, RTT - 08/27/2020 9:00 AM CSTAssociated Order(s): Initial Rad Onc Treatment Planning CT Simulation Pre-Procedure Diagnose(s): Cancer Breast Ductal In Situ Right Post-Procedure Diagnose(s): Cancer Breast Ductal In Situ Right Initial Rad Onc Treatment Planning CT Simulation Date/Time: 08/27/2020 9:55 AM Performed by: Jani Melgoza M.D. Authorized by: Jani Melgoza M.D. Simulation was performed under physician supervision based on physician order in preparation for radiation therapy. Physician was immediately available to provide assistance and direction throughout the procedure. Written consent for treatment was completed or confirmed. The patient was appropriately identified and placed in the treatment position using the necessary immobilization to ensure a reproducible treatment position. Reference sampson were placed to facilitate marking of isocenter. Area scanned:Chest Contrast used for the simulation procedure: None Patient position: Head first supine and arms up Custom immobilization: Vac-finn and Breast board Motion management: None Bolus: No CT guidance: Following positioning of the patient, a series of slices was obtained to be utilized intreatment planning. CT images were transferred to the Shareablee treatment planning system, after a reference isocenter was determined and marked. Segmentation and treatment planning will take place priorto treatment delivery. Patient set up and imaging was appropriate and completed without incident. INUOUS LOFT OPERATOR documented in this encounter Plan of Treatment Not on filedocumented as of this encounter Procedures Procedure Name Priority Date/Time Associated Comments Diagnosis INITIAL RAD ONC Routine 08/27/2020 9:00 AM Cancer Breast Resul ts for this TREATMENT PLANNING CONTINUOUS LOFT OPERATOR Ductal In Situ procedu re are in CT SIMULATION Right the results section. documented in this encounter Results Initial Rad Onc Treatment Planning CT Simulation (08/27/2020 9:00 AM CONTINUOUS LOFT OPERATOR) Specimen (Source) Anatomical Location Collection Method / Collectio n Time Received Time / Laterality Volume Narrative ARMANDO BURGESS - 08/27/2020 9:00 AM CONTINUOUS LOFT OPERATOR Kimberlee Serrano, RTT ? 08/27/2020 ??9:55 AM Initial Rad Onc Treatment Planning CT Si mulation Date/Time: 08/27/2020 9:55 AM Performed by: Jani Melgoza M.D. Authorized by: Jani Melgoza M.D. Jani Melgoza M.D. RADIATION ONCOLOGY ORDERABLE S Performing Organization Address City/State/ZIP Code Phon e Number [facility] na documented in this encounter Visit Diagnoses Diagnosis Cancer Breast Ductal In Situ Right documented in this encounter
--- OUTSIDE RECORDS SUMMARY | 2022-05-29 14:07 | XMS_ITS | Encounter Summary ---
:1965 Author Care Team Providers Name Role Phone Ariadna Villafana Pac Referring Provider [phone] Reason for Visit None recorded. Assessment and Plan 1. Overactive bladder est ? urinalysis, dipstick ? patient navigator referral Discussion Note Overactive bladder (OAB), s/p intravesi rylee Botox (100 units) with Dr. Reardon on 03/19/22. -Patient reports improvement in symptoms by 85%. Happy with botox. -1 urinary tract infections (UTIs) since Botox. Also with bone marrow infection- currently with PICC line receiving abx. -She is emptying her bladder well. PVR t arjun of 20cc. -Previously has triedoxybutynin, and PFP T. -Continue myrbetriq. -Continue navigation. -Return for repeat injection in ~5 month s with abx prophylaxis prior. To let us know when she needs. Patient educational handouts: No information available. Plan of Care Reminders Provider Appointments None recorded. ? ? Lab Urinalysis, Dipstick 04/16/2022 [facility] Referral Patient Navigator Referral 04/16/2022 ? Procedures None recorded. ? ? Surgeries [...] FOR PA IN Vitamin D ? take 47842 U per day Medications Administered None recorded. Vitals Height Weight BMI 5 ft 8 in 236 lbs 35.9 kg/m2 Results Lab Results Date Name Specimen Result Interpretation Description Value Range Status Address ? 04/16/2022 Urinalysis, UR ? Color yellow yellow Final [place] Dipstick -[facility]: [address] [place] [address] ? ? UR ? Appearance clear clear Final [place] [facility]: [address] [place] [address] ? ? UR ? Glucose negative negative Final [place] [facility] mg/dL mg/dL [facility]: [address] ? ? UR ? Bilirubin negative negative Final [place] [facility]: [address] ? ? UR ? Ketones negative negative Final [place] [facility] mg/dL mg/dL [facility]: [address] [place] [address] ? ? UR ? Sp. [place] 1.020 1.010-1.0 Final [place] [facility]: [address] ? ? UR ? pH -[facility] 7.0 5.0-8.0 Final [place] [facility]: [address] ? ? UR ? Protein negative negative Final [place] [facility] mg/dL mg/dL [facility]: [address] ? ? UR ? Urobilinogen 0.2 normal Final [place] -[facility]: [address] [address], [place] ? ? UR ? Nitrites negative negative Final [place] [facility]: [address] [address], [place] ? ? UR ABNORMAL Blood trace negative Final [place] nursing -[facility]: [address] [facility] [address], [place] ? ? UR ? Leukocytes negative negative Final [place] [facility]: [address], [place] ? ? UR ? Performed by bandar Vogt ? Final [place] [facility]: [address] [facility] [address], [place] ? ? UR ? Total Urine 50 /mL ? Final [place] Volume (mL) [facility]: [address] [address], [place] Allergies Code Code System Name Reaction Severity [...] formulation 06/20/2021 06/20/2021 06/26/2021 06/27/2021 07/21/2021 novel [id number], all formulation s 10/28/2009 Social History Tobacco Smoking Status Never Smoker Has tobacco cessation counseling been provided? N Are you currently employed? Y Could you be ? N Preferred Language Japanese How much tobacco do you chew? none [...] Use N Functional Status Unknown. Past Encounters 04/16/2022 Overactive Bladder ANGELA Gutierrez: [address] [facility], [address], [place] [address], Ph. History of Present Illness Note: <div>04/16/22:</div><div>Patient here for follow-up after recent intravesical Botox (100 units) with Dr. Reardon, on 03/19/22. Prior botox gave her about 5 months of benefit. Happy with current treatment plan. Reports that symptoms have improved by 85%. She reports UTIs since the Botox, also had bone marrow infection in which she was hospitalized on 03/31/22 for. Discharged with PICCline, which is in place until 05/13/22, then PO abx for another 6 weeks. Feels she is emptying her bladder well. She wakes up 1-2 times a night. She voids 5-6 times a day. She uses 0 pads per day, no leakage. Continues taking myrbetriq 50 mg. </div><div>
</div><div>(JULIO-6):5,(IIQ-7):0, Continence Function Questionnaire:4</div>Review of Systems: ROS as noted in the HPI Review of Systems ? Comprehensive General Adult ROS Reported By: Patient Cardiovascular: Cardiovascular: no chest bharti n, no palpitations Respiratory: Respiratory: no cough, short ness of breath Gastrointestinal: Gastrointestinal: no abdomin al pain, no nausea, no vomiting, no constipation, no GERD; no fr equent diarrhea Genitourinary: Genitourinary: no difficulty urinating, urinary loss of control; no dysuria, no change in urinar y stream, no hematuria, Physical Exam ? Notes: <div>MULTI-SYSTEM PHYSICAL E XAMINATION:</div><div>Constitutional: Well-nourished. No physical deformities. Normally developed. Good grooming.</div><div>Respirat ory: No labored breathing, no use of accessory muscles.</div><div>Skin: No paleness, no jaundice, no cyanosis. No lesion, no ulcer, no rash.</div><div>Ne urologic/Psychiatric: Oriented to time, oriented to place, oriented to person . No depression, no anxiety, no agitation.</div><div>Musculo skeletal: {{Normal gait* Uses walker Seated in wheelchair}} . Normal statio n of head and neck.</div>
[2022-05-29 21:58] LABS: Alanine Aminotransferase* 27 U/L (4-35); Albumin* 3.9 g/dL (3.3-5.0); Alkaline Phosphatase* 101 U/L (40-150); Aspartate Amino Transferase* 27 U/L (12-35); Bilirubin Total* 0.4 mg/dL (0.1-1.5); Blood Urea Nitrogen* 15 mg/dL (7-30); C Reactive Protein* 1.5 mg/dL (0.5-1.0); Carbon Dioxide* 25 mmol/L (20-32); Chloride* 104 mmol/L (96-114); Creatine Kinase* 128 U/L (41-117); Creatinine* 0.8 mg/dL (0.5-1.5); Estimated Glomerular Filt Rate 86 ml/min; Glucose* 99 mg/dL (60-115); Lipase* 231 U/L (23-300); Potassium* 4.5 mmol/L (3.6-5.1); Sodium* 138 mmol/L (135-149); Total Protein* 6.2 g/dL (6.0-8.3)
== END 2022-05-29 16:53 | disposition home or self-care (01) ==
PROVIDERS: PCP Physician Assistant Medical; Visit Provider Physician Assistant Medical
DX: M46.24 Osteomyelitis of vertebra, thoracic region (principal); M54.9 Dorsalgia, unspecified
CPT/HCPCS: 80053; 82550; 83690; 86140

== ENCOUNTER 2022-06-18 16:22 | Outpatient (CLI) | payer BC, SELFPAY ==
--- OUTSIDE RECORDS SUMMARY | 2022-06-18 09:16 | XMS_ITS ---
:1965 Author Organization [facility] Address [address] [place] [address] Care Team Providers Name Role Phone Unavailable Primary Care Provider Unavailable Active Problems Problem Noted Date Cancer Breast Ductal In Situ Right 07/30/2020 Cancer Staging: Pathologic stage from 05/29/2020: Stage 0 (pTis (DCIS), pN0(sn), cM0, G3, ER+, [place]: Not Assessed, HER2: Not Assessed) - Unsigned Current Oncology Plans No current plan information found. Past Plans No past plan information found. Radiation Treatments Plan Last Treated Elapsed Days Fractions Prescribed Prescribed Total On Treated Fraction Dose Dose F1_RT Breast 09/06/2020 4 5 of 5 520 cGy 2,600 cGy Reference Point Last Treated On Elapsed Days Session Dose Total Dos e [id number] 09/06/2020 4 520 cGy 2,600 cGy
--- OUTSIDE RECORDS SUMMARY | 2022-06-18 09:16 | XMS_ITS | Encounter Summary ---
:1965 Author Organization [facility] Address [address] [place] [address] Care Team Providers Name Role Phone Unavailable Primary Care Provider Unavailable Reason for Referral Outpatient (Routine) - Authorized Specialty Diagnoses / Procedures Referred By Contact Refer red To Contact Infectious Diseases Diagnoses Osteomyelitis Of Vertebra Thoracic Region ([facility]) Ariadna Villafana P.A. [facility] [address] [place] [address] Referral ID Status Reason Start Date Expiration Date Visits V isits Requested Authorized [id number] Authorized 05/01/2022 05/01/2023 1 1 Encounter Details Date Type Department Care Team Description 05/01/2022 Community [facility] Broderick, Camilla omyelitis Of AND CLINICS Prachi Rosenthal Vertebra Thoracic [address] [facility] [address] [facility] ([facility]) ([place] [address] W Dx) [phone] [place] [address] Social History Tobacco Use Types Packs/Day Years Used Date Smoking Tobacco: Never Assessed Sex Assigned at Date Recorded Not on file documented as of this encounter Plan of Treatment Scheduled Referrals Name Type Priority Associated Diagnoses [facility] Referral Outpatient Referral Routine Osteomyelitis Of Expected: Vertebra Thoracic 05/01/2022 Region ([facility]) (Approximate), Expires: 08/01/2023 documented as of this encounter Visit Diagnoses Diagnosis Osteomyelitis Of Vertebra Thoracic Regio n ([facility]) - Primary documented in this encounter
--- OUTSIDE RECORDS SUMMARY | 2022-06-18 09:16 | XMS_ITS | Encounter Summary ---
:1965 Author Organization [facility] Address [address] [place] [address] Care Team Providers Name Role Phone Unavailable Primary Care Provider Unavailable Reason for Visit Radiation Therapy (Routine) - Closed Specialty Diagnoses / Procedures Referred By Contact Refer red To Contact Radiation Oncology Diagnoses Cancer Breast Ductal In Situ Right Jani Melgoza McHs Rao Nfrt Procedures Prior Auth Rad Tx [place] RADTN TX DEL >=1 MEV [facility] [place] [address] [place] [address] [address] [place] [phone] Referral ID Status Reason Start Date Expiration Date Visits Requ ested Visits Authorized [id number] Closed 08/26/2020 08/01/2021 15 15 Encounter Details Date Type Department Care Team Description 09/04/2020 Hospital Encounter Department of Radiation Lisa Melgoza, Oncology in [facility] [place] [address] [phone] Social History Tobacco Use Types Packs/Day Years [...]
--- OUTSIDE RECORDS SUMMARY | 2022-06-18 09:16 | XMS_ITS | Encounter Summary ---
:1965 Author Organization [facility] Address [address] [place] [address] Care Team Providers Name Role Phone Unavailable Primary Care Provider Unavailable Encounter Details Date Type Department Care Team Description 09/06/2020 Documentation Department of Radiation Sandy Sethi, Oncology in [place], [place]., M.S. [place] [address] [facility] [address] [place] [phone] [phone] (Wo rk) Social History Tobacco Use Types Packs/Day Years Used Date Smoking Tobacco: Never Assessed Sex Assigned at Date Recorded Not on file documented as of this encounter Miscellaneous Notes Radiation Completion Notes - Sandy Sethi P.A.-C., M.S. - 09/06/2020 11:59 PM CST DIAGNOSIS: 1. Cancer Breast Ductal In Situ Right Attending Physician: Jani Melgoza M.D. ([id number]) Treatment Intent: Curative Concomitant Therapy: Hormonal Therapy [...] Sandy Sethi P.A.-C., M.S., 09/23/2020 4:28 PM ASSEMBLER FITTER [facility] [address] [place] [address] MBLER FITTER documented in this encounter Plan of Treatment Not on filedocumented as of this encounter Visit Diagnoses Diagnosis Cancer Breast Ductal In Situ Right - [facility] documented in this encounter
--- OUTSIDE RECORDS SUMMARY | 2022-06-18 09:16 | XMS_ITS | Encounter Summary ---
:1965 Author Organization [facility] Address [address] [place] [address] Care Team Providers Name Role Phone Unavailable Primary Care Provider Unavailable Reason for Visit Radiation Therapy (Routine) - Closed Specialty Diagnoses / Procedures Referred By Contact Refer red To Contact Radiation Oncology Diagnoses Cancer Breast Ductal In Situ Right Jani Melgoza McHs Rao Nfrt Procedures Prior Auth Rad Tx IN RADTN TX DEL >=1 MEV [facility] [place] [address] [place] [address] [address] [place] [phone] Referral ID Status Reason Start Date Expiration Date Visits Requ ested Visits Authorized [id number] Closed 08/26/2020 08/01/2021 15 15 Encounter Details Date Type Department Care Team Description 09/05/2020 Hospital Encounter Department of Radiation Lisa Melgoza, Oncology in [facility] [place] [address] [phone] Social History Tobacco Use Types Packs/Day Years [...]
--- OUTSIDE RECORDS SUMMARY | 2022-06-18 09:16 | XMS_ITS | Encounter Summary ---
:1965 Author Organization [facility] Address [address] [place] [address] Care Team Providers Name Role Phone Unavailable Primary Care Provider Unavailable Encounter Details Date Type Department Care Team Description 05/08/2022 Community [facility] Camilla Villafana omyelitis Of AND CLINICS Prachi Rosenthal Vertebra Thoracic [address] [place] [address] [address] [facility] ([facility]) ([place] [address] W Dx) [phone] [place] [address] Social History Tobacco Use Types Packs/Day Years Used Date Smoking Tobacco: Never Assessed Sex Assigned at Date Recorded Not on file documented as of this encounter Plan of Treatment Not on filedocumented as of this encounter Visit Diagnoses Diagnosis Osteomyelitis Of Vertebra Thoracic Regio n (HCC) - Primary documented in this encounter
--- OUTSIDE RECORDS SUMMARY | 2022-06-18 09:16 | XMS_ITS | Encounter Summary ---
:1965 Author Organization [facility] Address [address] [place] [address] Care Team Providers Name Role Phone Unavailable Primary Care Provider Unavailable Encounter Details Date Type Department Care Team Description 09/06/2020 Hospital Encounter Department of Radiation Lisa Melgoza, Oncology in [facility] [address] [facility] [address] [place] [phone] [phone] Social History Tobacco Use Types Packs/Day Years [...]
--- OUTSIDE RECORDS SUMMARY | 2022-06-18 09:16 | XMS_ITS | Encounter Summary ---
:1965 Author Organization [facility] Address [address] [place] [address] Care Team Providers Name Role Phone Unavailable Primary Care Provider Unavailable Reason for Visit Reason Comments review records Encounter Details Date Type Department Care Team Description 05/11/2022 Clinical Communication Section of Providerdanelle records Infectious Diseases Unknown in [place], [place] [address] [place] [address] Social History Tobacco Use Types Packs/Day Years Used Date Smoking Tobacco: Never Assessed Sex Assigned at Date Recorded Not on file documented as of this encounter Miscellaneous Notes Telephone Encounter - Bhavana Woodall - 05/12/2022 10:08 AM CDT Never mind about reviewing this chart, Dr Ken has reviewed and approving pt and reaching out to spine. I can't figure out how to send this to our inbox. Please just send back to us. Thanks Telephone Encounter - Bhavana Woodall - 05/12/2022 9:20 AM CDT Fran Campa [id number] 1965 Who filled out form: Patient Who requested evaluation: Other provider Reason evaluation was requested: I was hospitalized on March 31 and diagnosed with Osteomyelitis. I was discharged on April 04 and started IV antibiotics (Cefepime and Daptomycin) two times a day at home. I have had blood drawn weekly followed by an appointment with my primary care person, shai Jimenes at the [facility]. The lab reports were showing that my numbers were not improving as they had hoped. Because of that, I had another MRI on May 08 and the images showed that the infection/inflammation is worse. Ariadna recommended that I see an infectious disease doctor to see how my care plan can be modified to knock out this infection. I am supposed to be finished withmy IV antibiotics on May 13 and have the PICC line removed. In my last conversation with Ariadna she indicated that the PICC line would probably stay in place while we determine the next course of antibiotics. My care plan said that I would be starting six weeks of oral antibiotics when finished withthe IV. It was recommended that I see someone this week. Goals: 1) Cure the Osteomyelitis 2) Figure out if there is anything else wrong with the 3) Get rid of IV antibiotics 4) Symptoms/Concerns: 1) Honestly, I do not have any more of the intense pain that I was having because of the Osteomyelitis and I hope to never have that pain again! My main concern is that it will come back or get worse.I was taking Oxycotin in the hospital and for about 3-4 days after but then I switched to Alleve. I haven't been taking anything for pain in over two weeks. 2) I'm concerned that this is not clearing up with all of the antibiotics I've been taking. 3) 4) 5) MOST IMPORTANT: Symptom/Concern #1: Honestly, I do not have any more of the intense pain that I was having because of the Osteomyelitis and I hope to never have that pain again! My main concern is that it will come back or get worse. I was taking Oxycotin in the hospital and for about 3-4 days after but then I switched to Alleve. I haven't been taking anything for pain in over two weeks. 1) Honestly, I do not have any more of the intense pain that I was having because of the Osteomyelitis and I hope to never have that pain again! My main concern is that it will come back or get worse. I was taking Oxycotin in the hospital and for about 3-4 days after but then I switched to Alleve. I haven't been taking anything for pain in over two weeks. Duration: Less than 6 months Previous Eval: Yes Outcome: I was placed on IV antibiotics for a projected six-week course of treatment. A very recentMRI along with my blood work, do not show improvement. 2) I'm concerned that this is not clearing up with all of the antibiotics I've been taking. Duration: Less than 6 months Previous Eval: Yes Outcome: I have been doing weekly blood tests and had a second MRI on 05/08 - the first one was on 03/31. 3) Duration: Previous Eval: Outcome: 4) Duration: Previous Eval: Outcome: 5) Duration: Previous Eval: Outcome: Antibiotics? Yes Penicillin Allergy? No Number of medications currently taking? 8 Requested specialists: Infectious Disease doctor Bothered by the following problems in last 2 weeks: (Scale: Not at all, Several Days, More than half the days, Nearly every day) Feeling nervous, anxious, or on edge: Several days Not being able to stop or control worrying : Not at all Little interest or pleasure in doing things : Not at all Feeling down, depressed, or hopeless: Several days OVERALL HEALTH: (Scale: Excellent, Very good, Good, Fair, Poor) Good RADIOLOGY QUESTIONS: Iodine contrast reaction? No Gadolinium contrast reaction? No Dialysis? No Urine or no urine output past 48 hours? No Implanted medical devices or pumps? No Implanted device? Organ transplant? No Bone marrow/stem cell transplant? No HIV/AIDS? No Diabetic? No TB? No Bone/joint infection referral? Yes REFERRED FOR URINARY TRACT INFECTION: I don't know Genitournary system surgery? Types and dates: Passed air in urine? Urinary system stones? Diagnosis date/describe treatment: Urinary catheter? Blood in urine? Constipation? Cystoscopy? Where and when: CT scan/ultrasound? Where and when: SEX ASSIGNED AT : FEMALE: Current menstrual cycles? When did they stop: Sexual intercourse pain? Systemic hormone replacement therapy? Estrogen/estradiol use? How long: Chronic pelvis pain? MALE: Prostate cancer? Treatment: Prostate enlargement/BPH? Treatment: Prostate infection/prostatitis? Treatment: REFERRED FOR UNEXPLAINED FEVERS: No First occurence? How often? Progressed since onset? Maximum temperature recorded? How temperature was taken: Treatments attempted? Specialists evaluated? SCHEDULING QUESTIONS: I AM AVAILABLE ANYTIME Dates to avoid scheduling: PHONE: [phone] AGREE? I have read the Medical Emergency directions as noted above., I have read the Infectious Diseases Consultation Model of Care as noted above and agree to the process outlined. documented in this encounter Plan of Treatment Not on filedocumented as of this encounter Visit Diagnoses Not on filedocumented in this encounter
--- OUTSIDE RECORDS SUMMARY | 2022-06-18 09:16 | XMS_ITS | Encounter Summary ---
:1965 Author Organization [facility] Address [address] [place] [address] Care Team Providers Name Role Phone Unavailable Primary Care Provider Unavailable Reason for Visit Radiation Therapy (Routine) - Closed Specialty Diagnoses / Procedures Referred By Contact Refer red To Contact Radiation Oncology Diagnoses Cancer Breast Ductal In Situ Right Jani Melgoza McHs Rao Nfrt Procedures Prior Auth Rad Tx SD RADTN TX DEL >=1 MEV [facility] [place] [address] [place] [address] [address] [place] [phone] Referral ID Status Reason Start Date Expiration Date Visits Requ ested Visits Authorized [id number] Closed 08/26/2020 08/01/2021 15 15 Encounter Details Date Type Department Care Team Description 09/02/2020 Hospital Encounter Department of Radiation Lisa Melgoza, Oncology in [facility] [place] [address] [phone] Social History Tobacco Use Types Packs/Day Years [...]
--- OUTSIDE RECORDS SUMMARY | 2022-06-18 09:16 | XMS_ITS | Encounter Summary ---
:1965 Author Organization [facility] Address [address] [place] [address] Care Team Providers Name Role Phone Unavailable Primary Care Provider Unavailable Reason for Visit Radiation Therapy (Routine) - Closed Specialty Diagnoses / Procedures Referred By Contact Refer red To Contact Radiation Oncology Diagnoses Cancer Breast Ductal In Situ Right Jani Melgoza McHs Rao Nfrt Procedures Prior Auth Rad Tx NE RADTN TX DEL >=1 MEV [facility] [place] [address] [place] [address] [address] [place] [phone] Referral ID Status Reason Start Date Expiration Date Visits Requ ested Visits Authorized [id number] Closed 08/26/2020 08/01/2021 15 15 Encounter Details Date Type Department Care Team Description 09/03/2020 Hospital Encounter Department of Radiation Lisa Melgoza, Oncology in [facility] [place] [address] [phone] Social History Tobacco Use Types Packs/Day Years [...]
--- OUTSIDE RECORDS SUMMARY | 2022-06-18 09:16 | XMS_ITS | Encounter Summary ---
:1965 Author Organization [facility] Address [address] [place] [address] Care Team Providers Name Role Phone Unavailable Primary Care Provider Unavailable Encounter Details Date Type Department Care Team Description 05/06/2021 Orders Only RST PCP [facility] Ariadna Fair M.D. [address] [place], [place] [phone] (Wo rk) Social History Tobacco Use Types Packs/Day Years Used Date Smoking Tobacco: Never Assessed Sex Assigned at Date Recorded Not on file documented as of this encounter Plan of Treatment Not on filedocumented as of this encounter Visit Diagnoses Not on filedocumented in this encounter
--- OUTSIDE RECORDS SUMMARY | 2022-06-18 09:16 | XMS_ITS | Clinical Summary ---
:1965 Author Organization [facility] [place] [address] Care Team Providers Name Role Phone Ariadna [...] Type Group BLUE CROSS BL[employer] CROSS OF [id number] 2019-Shanda [address] [place] [phone] Guarantor Name Account Type Relation to Date of Phone Billing Address Patient REMI WAHL Alicja Personal/Famil Self 1965 [phone] [address] (Home) [place] [address] Advance Directives Latest Code Status on File Code Status Date Activated Date Inactivated Comments Full Code 07/18/2020 6:01 AM 07/18/2020 10:14 PM Code Status Discussion: Not Discussed Care Teams Clocksmith Relationship Specialty Start Date End Date Ariadna Villafana PA-C PCP - General Emergency Medicine 05/28/20 [address] [place] [address]
--- OUTSIDE RECORDS SUMMARY | 2022-06-18 09:16 | XMS_ITS | Encounter Summary ---
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 ([facility]) Kevin Ken [place] [facility] [place] [address] [place] [address] Referral ID Status Reason Start Date Expiration Date Visits V isits Requested Authorized [id number] Authorized 05/12/2022 05/12/2023 1 1 Scheduling Instructions Ortho internal referral panel order, yeimy ging before Consult visit Outpatient (Routine) - Authorized Specialty Diagnoses / Procedures Referred By Contact Refer red To Contact Diagnoses 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 [place] [facility] Procedures DX Thoracic Spine 2 Views [address] [place] [address] Referral ID Status Reason Start Date Expiration Date Visits V isits Requested Authorized [id number] Authorized 05/12/2022 05/12/2023 1 1 Encounter Details Date Type Department Care Team Description 05/12/2022 Orders Only Section of Infectious Kevin Ken Infec tion Of Diseases in [facility] [place] Intervertebral Disc [place] [address] [facility] Pyogenic Multiple Sites [address] [place], [place] In Spine ([facility]) ([place] [address] Dx) [address] [phone] Social History Tobacco Use Types Packs/Day Years Used Date Smoking Tobacco: Never Assessed Sex Assigned at Date Recorded Not on file documented as of this encounter Plan of Treatment Scheduled Orders Name Type Priority Associated Diagnoses Order S chedule CBC with Lab Routine Infection Of 1 Occurrences Differential, Blood Intervertebral Disc s tarting Pyogenic Multiple 05/12/2022 until Sites In Spine ([facility]) 023 Creatinine with Lab Routine Infection Of 1 Occurrence s Estimated GFR Intervertebral Disc startin g Pyogenic Multiple 05/12/2022 until Sites In Spine ([facility]) 023 Sedimentation Rate Lab Routine Infection Of 1 Occurre nces Intervertebral Disc starting Pyogenic Multiple 05/12/2022 until Sites In Spine ([facility]) 023 CRP (C-Reactive Lab Routine Infection Of 1 Occurrence s Protein) Intervertebral Disc starting Pyogenic Multiple 05/12/2022 until Sites In Spine ([facility]) 023 DX Thoracic Spine 2 Imaging RAD - Routine Infection Of Expecte d: Views (most inpatients Intervertebral Disc 04/21 and all Pyogenic Multiple (Approxima te), outpatients) Sites In Spine ([facility]) Expires : 08/12/2023 DX Lumbar Spine 4+ Imaging RAD - Routine Infection Of 1 Occurr ences Views (most inpatients Intervertebral Disc star ting and all Pyogenic Multiple 05/12/2022 until outpatients) Sites In Spine ([facility]) 023 Scheduled Referrals Name Type Priority Associated Diagnoses Order [facility] Orthopedic Surgery Outpatient Referral Routine Infection Of Ex pected: - Spine non Intervertebral Disc 05/12/20 22 surgical consult Pyogenic Multiple (Appro ximate), (clinic) Sites In Spine ([facility]) Expires : 08/12/2023 documented as of this encounter Visit Diagnoses Diagnosis Infection Of Intervertebral Disc Pyogeni c Multiple Sites In Spine ([facility]) - Primary documented in this encounter
--- OUTSIDE RECORDS SUMMARY | 2022-06-18 09:16 | XMS_ITS | Encounter Summary ---
:1965 Author Organization [facility] Address [address] [place] [address] Care Team Providers Name Role Phone Unavailable Primary Care Provider Unavailable Reason for Referral Outpatient (Routine) - Closed Specialty Diagnoses / Procedures Referred By Contact Refer red To Contact Sandy Sethi P.A.-C ., M.S. 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 [facility] Procedures Management Visit [address] [place] [phone] Referral ID Status Reason Start Date Expiration Date Visits V isits Requested Authorized [id number] Canceled 08/01/2020 08/01/2021 1 1 REPRESENTATIVE Reason for Visit Radiation Therapy (Routine) - Canceled Specialty Diagnoses / Procedures Referred By Contact Refer red To Contact Diagnoses Cancer Breast Ductal In Situ Right Jani Melgoza M.D. [facility] Procedures Management Visit [address] [place] [phone] Referral ID Status Reason Start Date Expiration Date Visits V isits Requested Authorized [id number] Canceled 08/01/2020 08/01/2021 1 1 Encounter Details Date Type Department Care Team Description 09/04/2020 Hospital Encounter Department of Jani Melgoza Breast Ductal Radiation Oncology [place] In Situ Right in [place], [address] [place] [address] [address] [facility] [address] [place], [place] [phone] (Work) [phone] Social History Tobacco Use Types Packs/Day Years Used Date Smoking Tobacco: Never Assessed Sex Assigned at Date Recorded Not on file documented as of this encounter Last Filed Vital Signs Vital Sign Reading Time Taken Comments Blood Pressure - - Pulse - - Temperature 35.9 ??C (96.7 ??F) 09/04/2020 4:05 PM MILL REPRESENTATIVE Respiratory Rate - - Oxygen Saturation - - Inhaled Oxygen Concentration - - Weight 119 kg (262 lb 9.1 oz) 09/04/2020 4:05 PM MILL REPRESENTATIVE Height - - Body Mass Index 41.7 08/01/2020 12:55 PM MILL REPRESENTATIVE documented in this encounter Medications at Time [...] Situ Right SUPERVISED BY: Jani Melgoza M.D. ([id number]) HISTORY OF PRESENT ILLNESS Mrs. Fran Campa [...] 0 (pTis (DCIS), pN0(sn), cM0, G3, ER+, DE: Not Assessed, HER2: Not Assessed) right ductal [...] She was educated on the use of rlai-ycw-eosnfyh hydrocortisone cream or Benadryl cream if needed [...] Sandy Sethi P.A.-C., M.S. 09/04/2020 4:22 PM MILL REPRESENTATIVE REPRESENTATIVE Associated attestation - Jani Melgoza M.D. - 09/04/2020 5:49 PM MILL REPRESENTATIVE I saw and evaluated the patient and [...] by: Jani Melgoza M.D. 09/04/20 5:49 PM MILL REPRESENTATIVE [facility] [place] documented in this encounter Miscellaneous Notes Addendum Note - Karlie Nowak - 09/04/2020 4:15 PM MILL REPRESENTATIVE Encounter addended by: Karlie Nowak on: 09/05/2020 8:35 AM Actions taken: Letter saved REPRESENTATIVE documented in this encounter Plan of Treatment [...]
--- OUTSIDE RECORDS SUMMARY | 2022-06-18 09:16 | XMS_ITS | Encounter Summary ---
:1965 Author Organization [facility] Address [address] [place] [address] Care Team Providers Name Role Phone Unavailable Primary Care Provider Unavailable Reason for Referral Outpatient (Routine) - Closed Specialty Diagnoses / Procedures Referred By Contact Refer red To Contact Sandy Sethi P.A.-C ., M.S. 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 [facility] Region [address] [place] [phone] Referral ID Status Reason Start Date Expiration Date Visits Requ ested Visits Authorized [id number] Closed 09/04/2020 09/04/2021 1 1 Encounter Details Date Type Department Care Team Description 10/07/2020 Hospital Encounter Department of Radiation Lisa Melgoza, Oncology in [facility] [address] [place] [address] [address] [place] [phone] [phone] Social History Tobacco Use Types Packs/Day Years [...]
--- OUTSIDE RECORDS SUMMARY | 2022-06-18 09:16 | XMS_ITS | Encounter Summary ---
:1965 Author Organization [facility] Address [address] [place] [address] Care Team Providers Name Role Phone Unavailable Primary Care Provider Unavailable Reason for Visit Reason Comments Pre-scheduling Questionnaire Encounter Details Date Type Department Care Team Description 05/04/2022 Clinical Department of Prescheduling, Pre-scheduli ng Communication Spine in Provider Questionnaire [place], [place] [address] [place] [address] Social History Tobacco Use Types Packs/Day Years Used Date Smoking Tobacco: Never Assessed Sex Assigned at Date Recorded Not on file documented as of this encounter Miscellaneous Notes Telephone Encounter - Rafael Delaney - 05/04/2022 12:55 PM CDT [facility] Question Set documented in this encounter Plan of Treatment Not on filedocumented as of this encounter Visit Diagnoses Not on filedocumented in this encounter
--- OUTSIDE RECORDS SUMMARY | 2022-06-18 09:17 | XMS_ITS | Encounter Summary ---
:1965 Author Organization [facility] Address [address] [place] [address] Care Team Providers Name Role Phone Unavailable Primary Care Provider Unavailable Reason for Referral Outpatient (Routine) - Closed Specialty Diagnoses / Procedures Referred By Contact Refer red To Contact Radiation Oncology Jani Melgoza M .D. [address] [address] Referral ID Status Reason Start Date Expiration Date Visits Requ ested Visits Authorized [id number] Closed 08/22/2020 08/22/2021 1 1 WINDER Reason for Visit Outpatient (Routine) - Closed Specialty Diagnoses / Procedures Referred By Contact Refer red To Contact Radiation Oncology Jani Melgoza M .D. [address] [address] Referral ID Status Reason Start Date Expiration Date Visits Requ ested Visits Authorized [id number] Closed 08/22/2020 08/22/2021 1 1 Encounter Details Date Type Department Care Team Description 08/27/2020 Hospital Encounter Department of Jani Melgoza Breast Ductal Radiation Oncology [place] [facility] In Situ Right in [address] (Primary Dx) [place], [place] [address] [facility] [address] [place], [place] [phone] (Work) [phone] Social History Tobacco Use Types Packs/Day Years Used Date Smoking Tobacco: Never Assessed Sex Assigned at Date Recorded Not on file documented as of this encounter Last Filed Vital Signs Vital Sign Reading Time Taken Comments Blood Pressure 154/82 08/27/2020 8:27 AM CONE WINDER Pulse 85 08/27/2020 8:27 AM CONE WINDER Temperature 36.1 ??C (97 ??F) 08/27/2020 8:27 AM CONE WINDER Respiratory Rate - - Oxygen Saturation - - Inhaled Oxygen Concentration - - Weight 117 kg (258 lb 2.5 oz) 08/27/2020 8:27 AM CONE WINDER Height - - Body Mass Index 41 08/01/2020 12:55 PM CONE WINDER documented in this encounter Medications at Time [...] position at the CT simulation with the medical staff services manager of the therapists, Rosangela Rios. The right breast has an everted nipple with multiple well-healed surgical incisions from her recent reduction surgery. There are no palpable masses or overlying skin changes. Her right arm range of motion is still limited. ASSESSMENT / PLAN 1. Stage 0 (pTis (DCIS), pN0(sn), cM0, G3, ER+, [place]: Not Assessed, HER2: Not Assessed) right ductal [...] by: Jani Melgoza M.D. 08/27/2020 10:18 AM CONE WINDER Radiation Oncology [facility] [address] [place] [address] WINDER documented in this encounter Miscellaneous Notes Addendum Note - Karlie Nowak - 08/27/2020 8:30 AM CONE WINDER Encounter addended by: Karlie Nowak on: 08/27/2020 12:02 PM Actions taken: Letter saved WINDER Addendum Note - Jani Melgoza M.D. - 08/27/2020 8:30 AM CONE WINDER Encounter addended by: Jani Melgoza M.D. on: 08/29/2020 1:18 PM Actions taken: Flowsheet accepted WINDER documented in this encounter Plan of Treatment Scheduled Referrals Name Type Priority Associated Order Schedule Diagnoses Radiation Oncology Outpatient Referral Routine On ce for 1 office visit Occurrences sta rting (clinic) 08/27/2020 unti l 08/27/2020 documented as of this encounter Visit Diagnoses Diagnosis Cancer Breast Ductal In Situ Right - Nicky monico documented in this encounter
--- OUTSIDE RECORDS SUMMARY | 2022-06-18 09:17 | XMS_ITS | Encounter Summary ---
:1965 Author Organization [facility] Address [address] [place] [address] Care Team Providers Name Role Phone Unavailable Primary Care Provider Unavailable Reason for Referral Outpatient (Routine) - Closed Specialty Diagnoses / Procedures Referred By Contact Refer red To Contact Radiation Oncology Jani Melgoza M .D. [facility] Region [address] [place] [address] Referral ID Status Reason Start Date Expiration Date Visits Requ ested Visits Authorized [id number] Closed 08/22/2020 08/22/2021 1 1 [facility] Encounter Details Date Type Department Care Team Description 08/22/2020 Orders Only Department of Radiation Jani Melgoza , Oncology in [facility] [address] [facility] [address] [place] [phone] (Wo rk) Social History Tobacco Use Types [...]
--- OUTSIDE RECORDS SUMMARY | 2022-06-18 09:17 | XMS_ITS | Encounter Summary ---
:1965 Author Organization [facility] Address [address] [place] [address] Care Team Providers Name Role Phone Unavailable Primary Care Provider Unavailable Encounter Details Date Type Department Care Team Description 08/31/2020 Hospital Encounter Department of [place] [facility], [facility] . Screening For Other in [address] Viral Diseases [place], [place] (COVID-19) [address] [place] [address] [place], [place] [phone] (Work) [phone] Social History Tobacco Use Types Packs/Day Years [...] For R esults for this RNA, V CONSTRUCTION COST ESTIMATOR Screening For Other procedur e are in Viral Diseases the results (COVID-19) section. documented in this encounter Results SARS Coronavirus-2 RNA, V Asymptomatic (08/31/2020 10:02 AM CONSTRUCTION COST ESTIMATOR) [facility] Method Time Signature SARS-CoV-2 Swab, 08/31/2020 [facility] Specimen Nasopharynx 9:36 PM CONSTRUCTION COST ESTIMATOR Source SARS CoV-2 Undetected Undetected 08/31/2020 MKTO RNA, TMA 9:36 PM CONSTRUCTION COST ESTIMATOR Comment: SARS-CoV-2 RNA absent. This result does not rule out COVID-19 in the patient, as the sensitivity of the test depends o n the timing of the specimen collection and the quality of the specim en. Result should be correlated with patient's history and clinical presentat ion. ----ADDITIONAL INFORMATION---- This test is performed using the Aptima SARS-CoV-2 assay ([employer] which has received Emergency Use Authori zation (EUA) by the U.S. Food and Drug Administration. Fact sheets for this Emergency Use Autho rization (EUA) assay can be found at the following links: For Healthcare Providers: https://www.fd a.gov/media/536635/download For Patients: https://www.fda.gov/media/ 514343/download Specimen Anatomical Collection Method Collection Time Receive d Time (Source) Location / / Volume Laterality Varies 08/31/2020 10:02 08/31/2020 4:57 (Nasopharynx) AM CONSTRUCTION COST ESTIMATOR PM CONSTRUCTION COST ESTIMATOR [place] Sethi P.A.-C., M.S. LAB MICROBIOLOGY - GENERAL O RDERABLES Performing Organization Address City/State/ZIP Code Phon e Number [facility]- [address] [place] [address] [place] [address] [address] documented in this encounter Visit Diagnoses Diagnosis Encounter For Screening For Other Viral Diseases (COVID-19) documented in this encounter Additional Health Concerns Infection Onset Date Last Indicated Resolved Time COVID19 Pending 08/31/2020 08/31/2020 08/31/2020 9:37 PM CONSTRUCTION COST ESTIMATOR documented as of this encounter
--- OUTSIDE RECORDS SUMMARY | 2022-06-18 09:17 | XMS_ITS | Encounter Summary ---
:[address] [facility] Address [address] [place] [address] Care Team Providers Name Role Phone Unavailable Primary Care Provider Unavailable Reason for Referral Radiation Therapy (Routine) - Closed Specialty Diagnoses / Procedures Referred By Contact Refer red To Contact Radiation Oncology Diagnoses Cancer Breast Ductal In Situ Right Jani Melgoza [facility] Nfrt Procedures Prior Auth Rad Tx [place] RADTN [place] DEL >=[address] [facility] [place] [facility] [address] [place] [phone] Referral ID Status Reason Start Date Expiration Date Visits Requ ested Visits Authorized [id number] Closed 08/26/2020 08/01/2021 15 15 SCOPE OPERATOR Radiation Therapy (Routine) - Closed Specialty Diagnoses / Procedures Referred By Contact Refer red To Contact Diagnoses Cancer Breast Ductal In Situ Right Jani Melgoza M.D. [facility] Procedures Initial Rad Onc Treatment Planning CT Simulation [address] [place] [address] Referral ID Status Reason Start Date Expiration Date Visits Requ ested Visits Authorized [id number] Closed 08/01/2020 08/01/2021 1 1 SCOPE OPERATOR Reason for Visit Appointment Request (Routine) - Closed Specialty Diagnoses / Procedures Referred By Contact Refer red To Contact Radiation Oncology Diagnoses Breast Cancer (Primary) NOS Pato, Katsiaryna, M.D. [address] [place] [address] Referral ID Status Reason Start Date Expiration Date Visits Requ ested Visits Authorized [id number] Closed 07/24/2020 07/24/2021 1 1 Encounter Details Date Type Department Care Team Description 08/01/2020 Hospital Encounter Department of Jani Melgoza Breast Ductal Radiation Oncology [place] In Situ Right in [place], [facility] [address] (Primary Dx) [place], [place] [address] [facility] [address] [place], [place] [phone] (Work) [phone] Social History Tobacco Use Types Packs/Day Years Used Date Smoking Tobacco: Never Assessed Sex Assigned at Date Recorded Not on file documented as of this encounter Last Filed Vital Signs Vital Sign Reading Time Taken Comments Blood Pressure 147/81 08/01/2020 12:55 PM TELESCOPE OPERATOR Pulse 74 08/01/2020 12:55 PM TELESCOPE OPERATOR Temperature 36.2 ??C (97.1 ??F) 08/01/2020 12:55 PM TELESCOPE OPERATOR Respiratory Rate - - Oxygen Saturation - - Inhaled Oxygen Concentration - - Weight 118 kg (259 lb 7.7 oz) 08/01/2020 12:55 PM TELESCOPE OPERATOR Height 169 cm (5' 6.54) 08/01/2020 12:55 PM TELESCOPE OPERATOR Body Mass Index 41.21 08/01/2020 12:55 PM TELESCOPE OPERATOR documented in this encounter Medications at Time [...] 18, 2020 SOCIAL HISTORY She lives in [place], [place]. She is to her , Joey. 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 She has 2 adult children, a son [...] 0 (pTis (DCIS), pN0(sn), cM0, G3, ER+, [place]: Not Assessed, HER2: Not Assessed) right ductal [...] by: Jani Melgoza M.D. 08/01/2020 3:02 PM [facility] Radiation Oncology [facility] Radiation Therapy Center [address] [place] [address] SCOPE OPERATOR documented in this encounter Miscellaneous Notes Addendum Note - Karlie Nowak - 08/01/2020 1:00 PM TELESCOPE OPERATOR Encounter addended by: Karlie Nowak on: 08/02/2020 7:38 AM Actions taken: Letter saved SCOPE OPERATOR documented in this encounter Plan of Treatment Scheduled Orders Name Type Priority Associated Diagnoses Order S chedule Prior Auth Rad Tx Radiation Oncology Routine Cancer Breast Armin dez Ordered: 08/01/2020 In Situ Right documented as of this encounter Results Initial Rad Onc Treatment Planning CT Simulation (08/27/2020 9:00 AM TELESCOPE OPERATOR) Specimen (Source) Anatomical Location Collection Method / Collectio n Time Received Time / Laterality Volume Narrative ROBERTS JENIFER - 08/27/2020 9:00 AM TELESCOPE OPERATOR Kimberlee Serrano, RTT ? 08/27/2020 ??9:55 AM Initial Rad Onc Treatment Planning CT Si mulation Date/Time: 08/27/2020 9:55 AM Performed by: Jani Melgoza M.D. Authorized by: Jani Melgoza M.D. Jani Melgoza M.D. RADIATION ONCOLOGY ORDERABLE S Performing Organization Address City/State/ZIP Code Phon e Number [facility] na documented in this encounter Visit Diagnoses Diagnosis Cancer Breast Ductal In Situ Right - [facility] Cancer Breast Ductal In Situ Right documented in this encounter
--- OUTSIDE RECORDS SUMMARY | 2022-06-18 09:17 | XMS_ITS | Encounter Summary ---
:1965 Author Organization [facility] Address [address] [place] [address] Care Team Providers Name Role Phone Unavailable Primary Care Provider Unavailable Reason for Referral Radiation Therapy (Routine) - Closed Specialty Diagnoses / Procedures Referred By Contact Refer red To Contact Diagnoses Cancer Breast Ductal In Situ Right Jani Melgoza M.D. [facility] Region Procedures Initial Rad Onc Treatment Planning CT Simulation [address] [place] [address] Referral ID Status Reason Start Date Expiration Date Visits Requ ested Visits Authorized [id number] Closed 08/01/2020 08/01/2021 1 1 UM METALIZING SUPERVISOR Reason for Visit Radiation Therapy (Routine) - Closed Specialty Diagnoses / Procedures Referred By Contact Refer red To Contact Diagnoses Cancer Breast Ductal In Situ Right Jani Melgoza M.D. [facility] Region Procedures Initial Rad Onc Treatment Planning CT Simulation [address] [place] [address] Referral ID Status Reason Start Date Expiration Date Visits Requ ested Visits Authorized [id number] Closed 08/01/2020 08/01/2021 1 1 Encounter Details Date Type Department Care Team Description 08/27/2020 Hospital Encounter Department of Jani Melgoza Breast Ductal Radiation Oncology [place] In Situ Right in [place], [address] [place], [place] [address] [facility] [address] [place], [place] [phone] (Work) [phone] Social History Tobacco Use Types Packs/Day Years [...] planning. CT images were transferred to the [employer] treatment planning system, after a reference isocenter was determined and marked. Segmentation and treatment planning will take place priorto treatment delivery. Patient set up and imaging was appropriate and completed without incident. UM METALIZING SUPERVISOR documented in this encounter Plan of Treatment Not on filedocumented as of this encounter Procedures Procedure Name Priority Date/Time Associated Comments Diagnosis INITIAL RAD ONC Routine 08/27/2020 9:00 AM Cancer Breast Resul ts for this TREATMENT PLANNING VACUUM METALIZING SUPERVISOR Ductal In Situ procedu re are in CT SIMULATION Right the results section. documented in this encounter Results Initial Rad Onc Treatment Planning CT Simulation (08/27/2020 9:00 AM VACUUM METALIZING SUPERVISOR) Specimen (Source) Anatomical Location Collection Method / Collectio n Time Received Time / Laterality Volume Narrative ARMANDO BURGESS - 08/27/2020 9:00 AM VACUUM METALIZING SUPERVISOR Kimberlee Serrano, RTT ? 08/27/2020 ??9:55 AM Initial Rad Onc Treatment Planning CT Si mulation Date/Time: 08/27/2020 9:55 AM Performed by: Jani Melgoza M.D. Authorized by: Jani Melgoza M.D. Jani Melgoza M.D. RADIATION ONCOLOGY ORDERABLE S Performing Organization Address City/State/ZIP Code Phon e Number [facility] na documented in this encounter Visit Diagnoses Diagnosis Cancer Breast Ductal In Situ Right documented in this encounter
--- OUTSIDE RECORDS SUMMARY | 2022-06-18 09:17 | XMS_ITS ---
:1965 Author Care Team Providers Name Role Phone MOIZ CONN PAC Referring Provider [phone] Allergies Code Code System Name Reaction Severity [...] Vitamin D Active ? Not available take 21104 U per day Problems Name Status Onset [...] -[facility]: [address] ? ? UR ? Appearance clear clear Final [place] -[facility]: [address] ? ? UR ? Glucose negative negative Final [place] -[facility] mg/dL mg/dL [facility]: [address] ? ? UR ? Bilirubin negative negative Final [place] -[facility]: [address] ? ? UR ? Ketones negative negative Final [place] -[facility] mg/dL mg/dL [facility]: [address] ? ? UR ? Sp. [place] 1.020 1.010-1.0 Final [place] -[facility] 25 [facility]: [address] ? ? UR ? pH -[facility] 7.0 5.0-8.0 Final [place] [facility]: [address] ? ? UR ? Protein negative negative Final [place] -[facility] mg/dL mg/dL [facility]: [address] ? ? UR ? Urobilinogen 0.2 normal Final [place] -[facility]: [address] ? ? UR ? Nitrites negative negative Final [place] -[facility]: [address] [address], [place] ? ? 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 ? UR ? Leukocytes negative negative Final [place] -[facility]: [address] [address], [place] ? ? UR ? Performed by bandar Vogt ? Final M [place] [facility]: [address] [address], [place] ? ? UR ? Total Urine 50 /mL ? Final [place] Volume (mL) [facility]: [address] [address], [place] 04/16/2022 Urinalysis, ? U-WBC 0 - 2 [hpf] 0 - 2 Fin al [place] Microscopic [hpf] [facility]: [address] [address], [place] ? ? ? U-RBC 0 - 2 [hpf] 0 - 2 Final [place] [hpf] [facility]: [address] [address], [place] ? ? ABNORMAL Bacteria small [hpf] negative Final [place] [hpf] [facility]: [address] [address], [place] ? ? ? Squamous Epi negative negative, Final [place] /lpf small Urology - /lpf [facility]: [address] [address], [place] 03/13/2022 Urinalysis, UR ? Color-status yellow yellow F inal [place] Dipstick [facility]: [address] [address], [place] ? ? UR ? Clarity-stat clear clear Final Min [facility]: [address] [address], [place] ? ? UR ? Glucose-stat negative negative Final [place] us mg/dL mg/dL [facility]: [address] ? ? UR ? Bilirubin-ur negative negative Final [place] ine [facility]: [address] [address], [place] ? ? UR ? Ketones-stat negative negative Final [place] us mg/dL mg/dL [facility]: [address] ? ? UR ? SG-status 1.020 1.00-1.03 Final Min [facility]: [address] [address], [place] ? ? UR ? pH-status 6.5 5.00-8.00 Final Min [facility]: [address] [address], [place] ? ? UR ? Protein-stat negative negative Final [place] us mg/dL mg/dL [facility]: 60[address] [facility] 200, [place] ? ? UR ? Urobilinogen 0.2 E.U./dL 0.2 Final [place] -status E.U./dL E.U./dL Urology - E.U./dL [facility]: [address] [facility] 200, [place] ? ? UR ? Nitrites-sta negative negative Final [facility]: [address] [address], [place] ? ? UR ABNORMAL Blood-urine trace-intact negative F inal [place] [facility]: [address] [address], [place] ? ? UR ABNORMAL Leuko-status trace negative Final [place] [facility]: [address] [address], [place] ? ? UR ? Specimen voided ? Final [place] [facility]: [address] [address], [place] ? ? UR ? Performed by negra Gonzalez ? Final [place] [facility]: [address] [address], [place] ? ? UR ? Total Urine 15 /mL ? Final [place] Volume (mL) [facility]: [address] [address], [place] 12/04/2021 Urinalysis, UR ? Color-status yellow yellow F inal [place] Dipstick [facility]: [address] [address], [place] ? ? UR ? Clarity-stat clear clear Final Min [facility]: [address] [address], [place] ? ? UR ? Glucose-stat negative negative Final [place] us mg/dL mg/dL [facility]: [address] [address], [place] ? ? UR ? Bilirubin-ur negative negative Final [facility]: [address] [address], [place] ? ? UR ? Ketones-stat negative negative Final [facility] mg/dL mg/dL [facility]: [address] [address], [place] ? ? UR ? SG-status 1.015 1.00-1.03 Final Min [facility]: [address] [address], [place] ? ? UR ? pH-status 6.0 5.00-8.00 Final Min [facility]: [address] [address], [place] ? ? UR ? Protein-stat negative negative Final [place] us mg/dL mg/dL [facility]: [address] [address], [place] ? ? UR ? Urobilinogen 0.2 E.U./dL 0.2 Final [place] -status E.U./dL E.U./dL [facility]rology - E.U./dL [facility]: [address] [address], [place] ? ? UR ? Nitrites-sta negative negative Final [facility]: [address] [address], [place] ? ? UR ABNORMAL Blood-urine trace-intact negative F inal [place] [facility]: [address] [address], [place] ? ? UR ABNORMAL Leuko-status small negative Final [place] [facility]: [address] [address], [place] ? ? UR ? Specimen voided ? Final [place] [facility]: [address] [address], [place] ? ? UR ? Performed by negra Gonzalez ? Final [place] [facility]: [address] [address], [place] ? ? UR ? Total Urine 30 /mL ? [facility]: [address] 10/30/2021 Urinalysis, UR ? Color-status yellow yellow F inal [place] Dipstick [facility]: [address] [address], [place] ? ? UR ? Clarity-stat clear clear Final Min [facility]: [address] [address], [place] ? ? UR ? Glucose-stat negative negative Final [place] us mg/dL mg/dL [facility]: [address] [address], [place] ? ? UR ? Bilirubin-ur negative negative Final [facility]: [address] [address], [place] ? ? UR ? Ketones-stat negative negative Final [place] us mg/dL mg/dL [facility]: [address] [address], [place] ? ? UR ? SG-status 1.020 1.00-1.03 Final Min [facility]: [address] [address], [place] ? ? UR ? pH-status 7.0 5.00-8.00 Final [facility]: [address] [address], [place] ? ? UR ? Protein-stat negative negative Final [place] us mg/dL mg/dL [facility]: [address] [address], [place] ? ? UR ? Urobilinogen 0.2 E.U./dL 0.2 Final [place] -status E.U./dL E.U./dL [facility]rology - E.U./dL [facility]: [address] [address], [place] ? ? UR ? Nitrites-sta negative negative Final [facility]: [address] [address], [place] ? ? UR ABNORMAL Blood-urine trace-intact negative F inal [place] [facility]: [address] [address], [place] ? ? UR ? Leuko-status negative negative Final [place] [facility]: [address] [address], [place] ? ? UR ? Specimen voided ? Final [place] Type [facility]: [address] [address], [place] ? ? UR ? Performed by negra Gonzalez ? Final [place] [facility]: [address] ? ? UR ? Total Urine 30 /mL ? Final [place] Volume (mL) [facility]: [address] 09/25/2021 Urinalysis, UR ? Color-status yellow yellow F inal [place] Dipstick [facility]: [address] [address], [place] ? ? UR ? Clarity-stat clear clear [facility]: [address] [address], [place] ? ? UR ? Glucose-stat negative negative Final [place] us mg/dL mg/dL [facility]: [address] ? ? UR ? Bilirubin-ur negative negative Final [place] ine [facility]: [address] [address], [place] ? ? UR ? Ketones-stat negative negative Final [place] us mg/dL mg/dL [facility]: [address] ? ? UR ? SG-status 1.025 1.00-1.03 Final Min [facility]: [address] [address], [place] ? ? UR ? pH-status 7.0 5.00-8.00 Final [place] [facility]: [address] [address], [place] ? ? UR ? Protein-stat negative negative Final [facility] mg/dL mg/dL [facility]: [address] [address], [place] ? ? UR ? Urobilinogen 0.2 E.U./dL 0.2 Final [place] -status E.U./dL E.U./dL [facility]rology - E.U./dL [facility]: [address] [address], [place] ? ? UR ? Nitrites-sta negative negative Final [facility]: [address] [address], [place] ? ? UR ABNORMAL Blood-urine trace-intact negative F inal [place] [facility]: [address] [address], [place] ? ? UR ABNORMAL Leuko-status trace negative Final [place] [facility]: [address] ? ? UR ? Specimen catheterized ? Final [place] [facility]: [address] ? ? UR ? Performed by negra Gonzalez ? Final [place] [facility]: [address] ? ? UR ? Total Urine 30 /mL ? Final [place] Volume (mL) [facility]: [address] 05/19/2021 Urinalysis, UR ? Color yellow yellow Final [place] Dipstick -[facility]: [address] ? ? UR ? Appearance clear clear Final [place] -[facility]: [address] ? ? UR ? Glucose negative negative Final [place] -[facility] mg/dL mg/dL [facility]: [address] ? ? UR ? Bilirubin negative negative Final [place] [facility]: [address] ? ? UR ? Ketones negative negative Final [place] [facility] mg/dL mg/dL [facility]: [address] ? ? UR ? Sp. [place] 1.020 1.010-1.0 Final [place] -[facility] 25 [facility]: [address] [address], [place] ? ? UR ? pH -[facility] 6.5 5.0-8.0 Final [place] [facility]: [address] [facility] 200, [place] ? ? UR ? Protein negative negative Final [place] [facility] mg/dL mg/dL [facility]: [address] [facility] 200, [place] ? ? UR ? Urobilinogen 0.2 normal Final [place] -[facility]: [address] [facility] 200, [place] ? ? UR ? Nitrites negative negative Final [place] [facility]: [address] [facility] 200, [place] ? ? UR ? Blood negative negative Final [place] -[facility]: [address] [facility] 200, [place] ? ? UR ? Leukocytes negative negative Final [place] -[facility]: [address] [facility] 200, [place] ? ? UR ? Performed by negra Russo ? Final [place] [facility]: [address] [facility] 200, [place] ? ? UR ? Total Urine 60 /mL ? Final [place] Volume (mL) [facility]: [address] [facility] 200, [place] Past Encounters 04/16/2022 Overactive Bladder ANGELA Gutierrez: [address] [facility], [facility] [address], [place] [address], Ph. 03/13/2022 Overactive Bladder Lisa Reardon MD: [address], [address], [place] [address], Ph. 12/04/2021 Overactive Bladder Lisa Reardon MD: [address] [facility] [place], [facility] [address], [place] [address], Ph. 10/30/2021 Urinary Incontinence; Urge Incontinence of Urine; Nocturia Lisa Reardon MD: [address] , [address], [place] [address], Ph. 09/25/2021 Urinary Incontinence; Urge Incontinence of Urine; Nocturia Lisa Reardon MD: [address], [place] [address], Ph. 08/12/2021 Urinary Incontinence; Midline Cystocele Miley Johnson, PA: [address] [facility], [address], [place] [address], Ph. 07/01/2021 Urinary Incontinence Miley Johnson PA: [address] [facility], [address], [place] [address], Ph. 05/19/2021 Urinary Incontinence Miley Johnson PA: [address] [place] [address], [address], [place] [address], Ph. Social History Tobacco Smoking Status Never [...] formulation 06/20/2021 06/20/2021 06/26/2021 06/27/2021 07/21/2021 novel [id number], all formulation s 10/28/2009 Plan of Care [...]
--- OUTSIDE RECORDS SUMMARY | 2022-06-18 09:17 | XMS_ITS | Encounter Summary ---
:1965 Author Care Team Providers Name Role Phone Ariadna Villafana Pac Referring Provider [phone] Reason for Visit None recorded. Assessment and [...] ? ? Lab Urinalysis, Dipstick 04/16/2022 [facility] Referral Patient Navigator Referral 04/16/2022 ? [...] FOR PA IN Vitamin D ? take 07630 U per day Medications Administered None recorded. Vitals Height Weight BMI 5 ft 8 in 236 lbs 35.9 kg/m2 Results Lab Results Date Name Specimen Result Interpretation Description Value Range Status Address ? 04/16/2022 Urinalysis, UR ? Color yellow yellow Final [place] Dipstick -[facility]: [address] [place] [address] ? ? UR ? Appearance clear clear Final [place] [facility]: [address] [place] [address] ? ? UR ? Glucose negative negative Final [place] [facility] mg/dL mg/dL [facility]: [address] ? ? UR ? Bilirubin negative negative Final [place] [facility] [address] ? ? UR ? Ketones negative negative Final [place] [facility] mg/dL mg/dL [facility]: [address] [place] [address] ? ? UR ? Sp. [place] 1.020 1.010-1.0 Final [place] [facility]: [address] ? ? UR ? pH -[facility] 7.0 5.0-8.0 Final [place] [facility]: [address] ? ? UR ? Protein negative negative Final [place] [facility] mg/dL mg/dL [facility]: [address] ? ? UR ? Urobilinogen 0.2 normal Final [place] [facility]: [address] [address], [place] ? ? UR ? Nitrites negative negative Final [place] [facility]: [address] [address], [place] ? ? 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 ? UR ? Leukocytes negative negative Final [place] [facility]: [address], [place] ? ? UR ? Performed by bandar Vogt ? Final [place] [facility]: [address] [facility] [place] [address], [place] ? ? UR ? Total Urine 50 /mL ? Final [place] Volume (mL) [facility]: [address], [place] Allergies Code Code System Name Reaction Severity [...] formulation 06/20/2021 06/20/2021 06/26/2021 06/27/2021 07/21/2021 novel [id number], all formulation s 10/28/2009 Social History Tobacco Smoking Status Never Smoker Has tobacco cessation counseling been provided? N Are you currently employed? Y Could you be ? N Preferred Language Peruvian How much tobacco do you chew? none [...] Encounters 04/16/2022 Overactive Bladder ANGELA Gutierrez: [address] [facility], [address], [place] [address], Ph. History of Present Illness Note: <div>04/16/22:</div><div>Patient [...]
[2022-06-18 13:48] LABS: Albumin* 4.2 g/dL (3.3-5.0)
[2022-06-18 13:50] LABS: Total Protein* 6.3 g/dL (6.0-8.3)
[2022-06-18 13:51] LABS: Alanine Aminotransferase* 25 U/L (4-35); Alkaline Phosphatase* 86 U/L (40-150); Aspartate Amino Transferase* 28 U/L (12-35); Bilirubin Direct* 0.2 mg/dL (0.0-0.5); Bilirubin Total* 0.3 mg/dL (0.1-1.5); Creatine Kinase* 130 U/L (41-117)
[2022-06-18 13:54] LABS: C Reactive Protein* 1.2 mg/dL (0.5-1.0)
== END 2022-06-18 16:23 | disposition home or self-care (01) ==
PROVIDERS: PCP Physician Assistant Medical; Visit Provider Physician Assistant Medical
DX: M46.24 Osteomyelitis of vertebra, thoracic region (principal)
CPT/HCPCS: 80076; 82550; 86140

== ENCOUNTER 2022-06-25 07:06 | Outpatient (CLI) | payer BC, SELFPAY ==
--- OUTSIDE RECORDS SUMMARY | 2022-06-25 07:08 | XMS_ITS | Clinical Summary ---
:1965 Author Organization [facility] Address [address] [place] [address] Care Team Providers Name Role Phone Unavailable Primary Care Provider Unavailable Source Comments Patient records contain information from all sites at [facility]. For routine questions regarding patient records, call [phone] during business hours, M-F 8:00 AM - 5:00 PM Central Time. Record requests for emergency care only can be directed to [phone] at any time.[facility] Allergies Active Allergy Reactions Severity Noted Date [...] 0 (pTis (DCIS), pN0(sn), cM0, G3, ER+, [place]: Not Assessed, HER2: Not Assessed) - Unsigned [...] Comments Blood Pressure 154/82 08/27/2020 8:27 AM ANGIOGRAPHY TECHNOLOGIST Pulse 85 08/27/2020 8:27 AM ANGIOGRAPHY TECHNOLOGIST Temperature 35.9 ??C (96.7 ??F) 09/04/2020 4:05 PM ANGIOGRAPHY TECHNOLOGIST Respiratory Rate - - Oxygen Saturation - - Inhaled Oxygen Concentration - - Weight 119 kg (262 lb 9.1 oz) 09/04/2020 4:05 PM ANGIOGRAPHY TECHNOLOGIST Height 169 cm (5' 6.54) 08/01/2020 12:55 PM ANGIOGRAPHY TECHNOLOGIST Body Mass Index 41.7 08/01/2020 12:55 PM ANGIOGRAPHY TECHNOLOGIST Plan of Treatment Upcoming Encounters Date Type Specialty Care Team Description 06/29/2022 Virtual Visit Infectious Diseases Sa pat Villafana P.A. [address] [place], [place] [address] (Wo rk) Health Maintenance Due Date Last Done Comments [...] PHQ-2) COVID-19 Vaccine (4 - Booster for 10/21/2021 08/26/2021, , Moderna series) 10/22/2020 Influenza Vaccine [...] V iewer, or as an image in [employer]. If a re-interpretation or overread is re quired please follow defined workflow. ?? Provider Not In System IMG MRI PROCEDURES Performing Organization Address City/State/ZIP Code Phon e Number IIMS IIMS NA [...] System IMG CT PROCEDURES Performing Organization Address City/State/ZIP Code Phon e Number IIMS IIMS NA from Last 3 Months Insurance Payer Benefit Plan Subscriber ID Effective Dates Phone Address Type / Group [facility] [id number] 2019-Prese [phone] [address] [address] [facility] [address] [place] [address] Guarantor Name Account Type Relation to Date of Phone Billing Address Patient Fran Campa Personal/Famil Self 1965 [phone] [address] (Home) [place] [address]
--- OUTSIDE RECORDS SUMMARY | 2022-06-25 07:08 | XMS_ITS ---
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 Past Plans No past plan information found. Radiation Treatments Plan Last Treated Elapsed Days Fractions Prescribed Prescribed Total On Treated Fraction Dose Dose F1_RT Breast 09/06/2020 4 5 of 5 520 cGy 2,600 cGy Reference Point Last Treated On Elapsed Days Session Dose Total Dos e [id number] 09/06/2020 4 520 cGy 2,600 cGy
--- OUTSIDE RECORDS SUMMARY | 2022-06-25 07:08 | XMS_ITS | Clinical Summary ---
:1965 Author Organization [facility] [place] [address] Care Team Providers Name Role Phone Ariadna [...] Type Group BLUE CROSS BL[employer] OF [id number] 2019-Shanda [address] [place] [phone] Guarantor Name Account Type Relation to Date of Phone Billing Address Patient REMI WAHL Alicja Personal/Famil Self 1965 [phone] [address] (Home) [place] [address] Advance Directives Latest Code Status on File Code Status Date Activated Date Inactivated Comments Full Code 07/18/2020 6:01 AM 07/18/2020 10:14 PM Code Status Discussion: Not Discussed Care Teams Software Project Lead Relationship Specialty Start Date End Date Ariadna Villafana PA-C PCP - General Emergency Medicine 05/28/20 [address] [place] [address]
--- OUTSIDE RECORDS SUMMARY | 2022-06-25 07:09 | XMS_ITS | Encounter Summary ---
:1965 Author Organization [facility] Address [address] [place] [address] Care Team Providers Name Role Phone Unavailable Primary Care Provider Unavailable Reason for Visit Radiation Therapy (Routine) - Closed Specialty Diagnoses / Procedures Referred By Contact Refer red To Contact Radiation Oncology Diagnoses Cancer Breast Ductal In Situ Right Jani Melgoza McHs Rao Nfrt Procedures Prior Auth Rad Tx TX RADTN TX DEL >=1 MEV [facility] [place] [address] [place] [address] [address] [place] [phone] Referral ID Status Reason Start Date Expiration Date Visits Requ ested Visits Authorized [id number] Closed 08/26/2020 08/01/2021 15 15 Encounter Details Date Type Department Care Team Description 09/03/2020 Hospital Encounter Department of Radiation Lisa Melgoza, Oncology in [facility] [place] [address] [address] [id number] [phone] Social History Tobacco Use Types Packs/Day Years [...] as of this encounter Plan of Treatment Upcoming Encounters Date Type Specialty Care Team Description 06/29/2022 Virtual Visit Infectious Diseases Sa pat Villafana, P.A. [address] [place], [place] [address] (Wo rk) documented as of this encounter Visit Diagnoses Not on filedocumented in this encounter
--- OUTSIDE RECORDS SUMMARY | 2022-06-25 07:09 | XMS_ITS | Encounter Summary ---
:1965 Author Organization [facility] Address [address] [place] [address] Care Team Providers Name Role Phone Unavailable Primary Care Provider Unavailable Reason for Referral Outpatient (Routine) - Authorized Specialty Diagnoses / Procedures Referred By Contact Refer red To Contact Infectious Diseases Diagnoses Osteomyelitis Of Vertebra Thoracic Region ([facility]) Ariadna Villafana P.A. [facility] [address] [place] [address] Referral ID Status Reason Start Date Expiration Date Visits V isits Requested Authorized [id number] Authorized 05/01/2022 05/01/2023 1 1 Encounter Details Date Type Department Care Team Description 05/01/2022 Community [facility] Camilla Villafana omyelitis Of AND CLINICS Prachi Rosenthal Vertebra Thoracic [address] [facility] [address] [facility] ([facility]) ([place] [address] [place], [place] Dx) [phone] Social History Tobacco Use Types Packs/Day Years Used Date Smoking Tobacco: Never Assessed Sex Assigned at Date Recorded Not on file documented as of this encounter Plan of Treatment Upcoming Encounters Date Type Specialty Care Team Description 06/29/2022 Virtual Visit Infectious Diseases Sa pat Villafana P.A. [address] [place], [place] [address] (Wo rk) Scheduled Referrals Name Type Priority Associated Diagnoses Order S chedule Orthopedics Referral Outpatient Referral Routine Osteomyelitis Of Expected: Vertebra Thoracic 05/01/2022 Region ([facility]) (Approximate), Expires: 08/01/2023 documented as of this encounter Visit Diagnoses Diagnosis Osteomyelitis Of Vertebra Thoracic Regio n ([facility]) - Primary documented in this encounter
--- OUTSIDE RECORDS SUMMARY | 2022-06-25 07:09 | XMS_ITS | Encounter Summary ---
:1965 Author Organization [facility] Address [address] [place] [address] Care Team Providers Name Role Phone Unavailable Primary Care Provider Unavailable Encounter Details Date Type Department Care Team Description 09/06/2020 Hospital Encounter Department of Radiation Lisa Melgoza, Oncology in [facility] [address] [facility] [address] [place] [address] [phone] Social History Tobacco Use Types Packs/Day Years [...] Infectious Diseases Sa pat Villafana, P.A. [address] [place], [place] [address] (Wo rk) documented as of this encounter Visit Diagnoses Not on filedocumented in this encounter
--- OUTSIDE RECORDS SUMMARY | 2022-06-25 07:09 | XMS_ITS | Encounter Summary ---
:1965 Author Organization [facility] Address [address] [place] [address] Care Team Providers Name Role Phone Unavailable Primary Care Provider Unavailable Reason for Visit Radiation Therapy (Routine) - Closed Specialty Diagnoses / Procedures Referred By Contact Refer red To Contact Radiation Oncology Diagnoses Cancer Breast Ductal In Situ Right Jani Melgoza McHs Rao Nfrt Procedures Prior Auth Rad Tx [place] RADTN TX DEL >=1 MEV [facility] [place] [address] [place] [address] [address] [place] [phone] Referral ID Status Reason Start Date Expiration Date Visits Requ ested Visits Authorized [id number] Closed 08/26/2020 08/01/2021 15 15 Encounter Details Date Type Department Care Team Description 09/02/2020 Hospital Encounter Department of Radiation Lisa Melgoza, Oncology in [facility] [place] [address] [phone] Social History Tobacco Use Types Packs/Day Years [...] Infectious Diseases Sa pat Villafana, P.A. [address] [place], [place] [phone] (Wo rk) documented as of this encounter Visit Diagnoses Not on filedocumented in this encounter
--- OUTSIDE RECORDS SUMMARY | 2022-06-25 07:09 | XMS_ITS | Encounter Summary ---
:1965 Author Organization [facility] Address [address] [place] [address] Care Team Providers Name Role Phone Unavailable Primary Care Provider Unavailable Reason for Referral Outpatient (Routine) - Closed Specialty Diagnoses / Procedures Referred By Contact Refer red To Contact Radiation Oncology Jani Melgoza M .D. [address] [address] Referral ID Status Reason Start Date Expiration Date Visits Requ ested Visits Authorized [id number] Closed 08/22/2020 08/22/2021 1 1 M INSTALLATION TECHNICIAN Reason for Visit Outpatient (Routine) - Closed Specialty Diagnoses / Procedures Referred By Contact Refer red To Contact Radiation Oncology Jani Melgoza M .D. [address] [address] Referral ID Status Reason Start Date Expiration Date Visits Requ ested Visits Authorized [id number] Closed 08/22/2020 08/22/2021 1 1 Encounter Details Date Type Department Care Team Description 08/27/2020 Hospital Encounter Department of Jani Melgoza Breast Ductal Radiation Oncology [place] In Situ Right in [address] (Primary Dx) [place], [place] [address] [facility] [address] [place], [place] [phone] (Work) [phone] Social History Tobacco Use Types Packs/Day Years Used Date Smoking Tobacco: Never Assessed Sex Assigned at Date Recorded Not on file documented as of this encounter Last Filed Vital Signs Vital Sign Reading Time Taken Comments Blood Pressure 154/82 08/27/2020 8:27 AM ALARM INSTALLATION TECHNICIAN Pulse 85 08/27/2020 8:27 AM ALARM INSTALLATION TECHNICIAN Temperature 36.1 ??C (97 ??F) 08/27/2020 8:27 AM ALARM INSTALLATION TECHNICIAN Respiratory Rate - - Oxygen Saturation - - Inhaled Oxygen Concentration - - Weight 117 kg (258 lb 2.5 oz) 08/27/2020 8:27 AM ALARM INSTALLATION TECHNICIAN Height - - Body Mass Index 41 08/01/2020 12:55 PM ALARM INSTALLATION TECHNICIAN documented in this encounter Medications at Time [...] position at the CT simulation with the deputy district customs director of the therapists, Rosangela Rios. The right [...] by: Jani Melgoza M.D. 08/27/2020 10:18 AM ALARM INSTALLATION TECHNICIAN Radiation Oncology [facility] [address] [place] [id number] M INSTALLATION TECHNICIAN documented in this encounter Miscellaneous Notes Addendum Note - Karlie Nowak - 08/27/2020 8:30 AM ALARM INSTALLATION TECHNICIAN Encounter addended by: Karlie Nowak on: 08/27/2020 12:02 PM Actions taken: Letter saved M INSTALLATION TECHNICIAN Addendum Note - Jani Melgoza M.D. - 08/27/2020 8:30 AM ALARM INSTALLATION TECHNICIAN Encounter addended by: Jani Melgoza M.D. on: 08/29/2020 1:18 PM Actions taken: Flowsheet accepted M INSTALLATION TECHNICIAN documented in this encounter Plan of Treatment Upcoming Encounters Date Type Specialty Care Team Description 06/29/2022 Virtual Visit Infectious Diseases Sa pat Villafana, P.ADarrius [address] [place], [place] [phone] (Wo rk) Scheduled Referrals Name Type Priority Associated Order Schedule Diagnoses Radiation Oncology Outpatient Referral Routine On ce for 1 office visit Occurrences sta rting (clinic) 08/27/2020 unti l 08/27/2020 documented as of this encounter Visit Diagnoses Diagnosis Cancer Breast Ductal In Situ Right - Nicky monico documented in this encounter
--- OUTSIDE RECORDS SUMMARY | 2022-06-25 07:09 | XMS_ITS | Encounter Summary ---
:1965 Author Organization [facility] Address [address] [place] [address] Care Team Providers Name Role Phone Unavailable Primary Care Provider Unavailable Reason for Visit Reason Comments Pre-scheduling Questionnaire Encounter Details Date Type Department Care Team Description 05/04/2022 Clinical Department of Prescheduling, Pre-scheduli ng Communication Spine in Provider Questionnaire [place], [place] [address] [place] [address] Social History Tobacco Use Types Packs/Day Years [...] Infectious Diseases Sa pat Villafana, P.A. [address] [place], [place] [address] (Wo rk) documented as of this encounter Visit Diagnoses Not on filedocumented in this encounter
--- OUTSIDE RECORDS SUMMARY | 2022-06-25 07:09 | XMS_ITS | Encounter Summary ---
:1965 Author Organization [facility] Address [address] [place] [address] Care Team Providers Name Role Phone Unavailable Primary Care Provider Unavailable Reason for Visit Reason Comments review records Encounter Details Date Type Department Care Team Description 05/11/2022 Clinical Communication Section of Providerdanelle records Infectious Diseases Unknown in [place], [place] [address] [place] [address] Social History Tobacco Use Types Packs/Day Years [...] - 05/12/2022 9:20 AM CDT Fran Campa [id number] 1965 Who filled out form: Patient Who requested evaluation: Other provider Reason evaluation was requested: I was hospitalized on March 31 and diagnosed with Osteomyelitis. I was discharged on April 04 and started IV antibiotics (Cefepime and Daptomycin) two times a day at home. I have had blood drawn weekly followed by an appointment with my primary care person, shai Jimenes at the [facility]. The lab reports were showing that [...] AVAILABLE ANYTIME Dates to avoid scheduling: PHONE: [phone] AGREE? I have read the Medical Emergency directions as noted above., I have read the Infectious Diseases Consultation Model of Care as noted above and agree to the process outlined. documented in this encounter Plan of Treatment Upcoming Encounters Date Type Specialty Care Team Description 06/29/2022 Virtual Visit Infectious Diseases Sa pat Villafana P.ADarrius [address] [place] [phone] (Wo rk) documented as of this encounter Visit Diagnoses Not on filedocumented in this encounter
--- OUTSIDE RECORDS SUMMARY | 2022-06-25 07:09 | XMS_ITS | Encounter Summary ---
:1965 Author Organization [facility] Address [address] [place] [address] Care Team Providers Name Role Phone Unavailable Primary Care Provider Unavailable Reason for Visit Radiation Therapy (Routine) - Closed Specialty Diagnoses / Procedures Referred By Contact Refer red To Contact Radiation Oncology Diagnoses Cancer Breast Ductal In Situ Right Jani Melgoza McHs Rao Nfrt Procedures Prior Auth Rad Tx CT RADTN TX DEL >=1 MEV [facility] [place] [address] [place] [address] [address] [place] [phone] Referral ID Status Reason Start Date Expiration Date Visits Requ ested Visits Authorized [id number] Closed 08/26/2020 08/01/2021 15 15 Encounter Details Date Type Department Care Team Description 09/04/2020 Hospital Encounter Department of Radiation Lisa Melgoza, Oncology in [facility] [place] [address] [phone] Social History Tobacco Use Types Packs/Day Years [...] Infectious Diseases Sa pat Villafana, P.A. [address] [place], [place] [address] (Wo rk) documented as of this encounter Visit Diagnoses Not on filedocumented in this encounter
--- OUTSIDE RECORDS SUMMARY | 2022-06-25 07:09 | XMS_ITS | Encounter Summary ---
:1965 Author Organization [facility] Address [address] [place] [address] Care Team Providers Name Role Phone Unavailable Primary Care Provider Unavailable Encounter Details Date Type Department Care Team Description 05/06/2021 Orders Only RST PCP [facility] Ariadna Fair M.D. [address] [place], [place] [phone] (Wo violet) Social History Tobacco Use Types Packs/Day Years Used Date Smoking Tobacco: Never Assessed Sex Assigned at Date Recorded Not on file documented as of this encounter Plan of Treatment Upcoming Encounters Date Type Specialty Care Team Description 06/29/2022 Virtual Visit Infectious Diseases Sa pat Villafana, P.A. [address] [place], [place] [phone] (Wo rk) documented as of this encounter Visit Diagnoses Not on filedocumented in this encounter
--- OUTSIDE RECORDS SUMMARY | 2022-06-25 07:09 | XMS_ITS | Encounter Summary ---
:1965 Author Organization [facility] Address [address] [place] [address] Care Team Providers Name Role Phone Unavailable Primary Care Provider Unavailable Reason for Referral Radiation Therapy (Routine) - Closed Specialty Diagnoses / Procedures Referred By Contact Refer red To Contact Diagnoses Cancer Breast Ductal In Situ Right Jani Melgoza M.D. [facility] Region Procedures Initial Rad Onc Treatment Planning CT Simulation [address] [place] [address] Referral ID Status Reason Start Date Expiration Date Visits Requ ested Visits Authorized [id number] Closed 08/01/2020 08/01/2021 1 1 TERIA ATTENDANT Reason for Visit Radiation Therapy (Routine) - Closed Specialty Diagnoses / Procedures Referred By Contact Refer red To Contact Diagnoses Cancer Breast Ductal In Situ Right Jan[facility] Melgo[facility] M.D. [facility] Region Procedures Initial Rad Onc Treatment Planning CT Simulation [address] [place] [address] Referral ID Status Reason Start Date Expiration Date Visits Requ ested Visits Authorized [id number] Closed 08/01/2020 08/01/2021 1 1 Encounter Details Date Type Department Care Team Description 08/27/2020 Hospital Encounter Department of Jani Melgoza Breast Ductal Radiation Oncology [place] In Situ Right in [place], [address] [place], [place] [address] [facility] [address] [place], [place] [phone] (Work) [phone] Social History Tobacco Use Types Packs/Day Years [...] planning. CT images were transferred to the [employer] treatment planning system, after a reference isocenter was determined and marked. Segmentation and treatment planning will take place priorto treatment delivery. Patient set up and imaging was appropriate and completed without incident. TERIA ATTENDANT documented in this encounter Plan of Treatment Upcoming Encounters Date Type Specialty Care Team Description 06/29/2022 Virtual Visit Infectious Diseases Sa pat Villafana, PDarriusA. [address] [place] [phone] (Wo rk) documented as of this encounter Procedures Procedure Name Priority Date/Time Associated Comments Diagnosis INITIAL RAD ONC Routine 08/27/2020 9:00 AM Cancer Breast Resul ts for this TREATMENT PLANNING GASATERIA ATTENDANT Ductal In Situ procedu re are in CT SIMULATION Right the results section. documented in this encounter Results Initial Rad Onc Treatment Planning CT Simulation (08/27/2020 9:00 AM GASATERIA ATTENDANT) Specimen (Source) Anatomical Location Collection Method / Collectio n Time Received Time / Laterality Volume Narrative ARMANDO BURGESS - 08/27/2020 9:00 AM GASATERIA ATTENDANT Kimberlee Serrano, RTT ? 08/27/2020 ??9:55 AM Initial Rad Onc Treatment Planning CT Si mulation Date/Time: 08/27/2020 9:55 AM Performed by: Jani Melgoza M.D. Authorized by: Jani Melgoza M.D. Jani Melgoza M.D. RADIATION ONCOLOGY ORDERABLE S Performing Organization Address City/State/ZIP Code Phon e Number [facility] na documented in this encounter Visit Diagnoses Diagnosis Cancer Breast Ductal In Situ Right documented in this encounter
--- OUTSIDE RECORDS SUMMARY | 2022-06-25 07:09 | XMS_ITS ---
:1965 Author Care Team Providers Name Role Phone MOIZ CONN PAC Referring Provider [phone] Allergies Code Code System Name Reaction Severity [...] bupropion HCl 150 mg tablet,12 hr sustained-release(khadijah couching deterrent) Completed ? 08/12/2021 Take 1 tablet [...] Vitamin D Active ? Not available take 69227 U per day Problems Name Status Onset [...] -[facility]: [address] ? ? UR ? Appearance clear clear Final [place] -[facility]: [address] ? ? UR ? Glucose negative negative Final [place] -[facility] mg/dL mg/dL [facility]: [address] ? ? UR ? Bilirubin negative negative Final [place] -[facility]: [address] ? ? UR ? Ketones negative negative Final [place] -[facility] mg/dL mg/dL [facility] [address] ? ? UR ? Sp. [place] 1.020 1.010-1.0 Final [place] -[facility] 25 [facility]: [address] ? ? UR ? pH -[facility] 7.0 5.0-8.0 Final [place] [facility]: [address] ? ? UR ? Protein negative negative Final [place] -[facility] mg/dL mg/dL [facility]: [address] ? ? UR ? Urobilinogen 0.2 normal Final [place] -[facility]: [address] ? ? UR ? Nitrites negative negative Final [place] -[facility]: [address] [place] [address], [place] ? ? 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 ? UR ? Leukocytes negative negative Final [place] -[facility]: [address] [place] [address], [place] ? ? UR ? Performed by bandar Vogt ? Final [place] [facility]: [address] [address], [place] ? ? UR ? Total Urine 50 /mL ? Final [place] Volume (mL) [facility]: [address] [place] [address], [place] 04/16/2022 Urinalysis, ? U-WBC 0 - 2 [hpf] 0 - 2 Fin al [place] Microscopic [hpf] [facility]: [address] [place] [address], [place] ? ? ? U-RBC 0 - 2 [hpf] 0 - 2 Final [place] [hpf] [facility]: [address] [address], [place] ? ? ABNORMAL Bacteria small [hpf] negative Final [place] [hpf] [facility]: [address] [address], [place] ? ? ? Squamous Epi negative negative, Final [place] /lpf small Urology - /lpf [facility]: [address] [place] [address], [place] 03/13/2022 Urinalysis, UR ? Color-status yellow yellow F inal [place] Dipstick [facility]: [address] [place] [address], [place] ? ? UR ? Clarity-stat clear clear Final [facility]: [address] [place] [address], [place] ? ? UR ? Glucose-stat negative negative Final [place] us mg/dL mg/dL [facility]: [address] ? ? UR ? Bilirubin-ur negative negative Final [place] ine [facility]: [address] [place] [address], [place] ? ? UR ? Ketones-stat negative negative Final [place] us mg/dL mg/dL [facility]: [address] ? ? UR ? SG-status 1.020 1.00-1.[address] [facility]: [address] [place] [address], [place] ? ? UR ? pH-status 6.5 5.00-8.[address] [facility]: [address] [place] [address], [place] ? ? UR ? Protein-stat negative negative Final [place] mg/dL mg/dL [facility]: 6025 [facility] 200, [place] ? ? UR ? Urobilinogen 0.2 E.U./dL 0.2 Final [place] -status E.U./dL E.U./dL Urology - E.U./dL [facility]: 6025 [facility] 200, [place] ? ? UR ? Nitrites-sta negative negative Final [facility]: [address] [place] [address], [place] ? ? UR ABNORMAL Blood-urine trace-intact negative F inal [place] [facility]: [address] [place] [address], [place] ? ? UR ABNORMAL Leuko-status trace negative Final [place] [facility]: [address] [place] [address], [place] ? ? UR ? Specimen voided ? Final [place] [facility]: [address] [place] [address], [place] ? ? UR ? Performed by negra Gonzalez ? Final [place] [facility]: [address] [place] [address], [place] ? ? UR ? Total Urine 15 /mL ? Final [place] Volume (mL) [facility]: [address] [place] [address], [place] 12/04/2021 Urinalysis, UR ? Color-status yellow yellow F inal [place] Dipstick [facility]: [address] [place] [address], [place] ? ? UR ? Clarity-stat clear clear Final [facility]: [address] [place] [address], [place] ? ? UR ? Glucose-stat negative negative Final [place] mg/dL mg/dL [facility]: [address] [place] [address], [place] ? ? UR ? Bilirubin-ur negative negative Final [facility]: [address] [place] [address], [place] ? ? UR ? Ketones-stat negative negative Final [facility] mg/dL mg/dL [facility]: [address] [place] [address], [place] ? ? UR ? SG-status 1.015 1.00-1.[address] [facility]: [address] [place] [address], [place] ? ? UR ? pH-status 6.0 5.00-8.[address] [facility]: [address] [place] [address], [place] ? ? UR ? Protein-stat negative negative Final [place] mg/dL mg/dL [facility]: [address] [place] [address], [place] ? ? UR ? Urobilinogen 0.2 E.U./dL 0.2 Final [place] -status E.U./dL E.U./dL Urology - E.U./dL [facility]: [address] [place] [address], [place] ? ? UR ? Nitrites-sta negative negative Final [facility]: [address] [place] [address], [place] ? ? UR ABNORMAL Blood-urine trace-intact negative F inal [place] [facility]: [address] [place] [address], [place] ? ? UR ABNORMAL Leuko-status small negative Final [place] [facility]: [address] [place] [address], [place] ? ? UR ? Specimen voided ? Final [place] [facility]: [address] [place] [address], [place] ? ? UR ? Performed by negra Gonzalez ? Final [place] [facility] [address] [place] [address], [place] ? ? UR ? Total Urine 30 /mL ? [facility]: [address] 10/30/2021 Urinalysis, UR ? Color-status yellow yellow F inal [place] Dipstick [facility]: [address] [place] [address], [place] ? ? UR ? Clarity-stat clear clear Final [facility]: [address] [place] [address], [place] ? ? UR ? Glucose-stat negative negative Final [place] us mg/dL mg/dL [facility]: [address] [place] [address], [place] ? ? UR ? Bilirubin-ur negative negative Final [facility]: [address] [place] [address], [place] ? ? UR ? Ketones-stat negative negative Final [place] us mg/dL mg/dL [facility]: [address] [place] [address], [place] ? ? UR ? SG-status 1.020 1.00-1.[address] [facility]: [address] [place] [address], [place] ? ? UR ? pH-status 7.0 5.00-8.00 Final [facility]: [address] [place] [address], [place] ? ? UR ? Protein-stat negative negative Final [place] us mg/dL mg/dL [facility]: [address] [place] [address], [place] ? ? UR ? Urobilinogen 0.2 E.U./dL 0.2 Final [place] -status E.U./dL E.U./dL Urology - E.U./dL [facility]: [address] [place] [address], [place] ? ? UR ? Nitrites-sta negative negative Final [facility]: [address] [place] [address], [place] ? ? UR ABNORMAL Blood-urine trace-intact negative F inal [place] [facility]: [address] [place] [address], [place] ? ? UR ? Leuko-status negative negative Final [place] [facility]: [address] [place] [address], [place] ? ? UR ? Specimen voided ? Final [place] Type [facility]: [address] [place] [address], [place] ? ? UR ? Performed by negra Gonzalez ? Final [place] [facility]: [address] ? ? UR ? Total Urine 30 /mL ? Final [place] Volume (mL) [facility]: [address] 09/25/2021 Urinalysis, UR ? Color-status yellow yellow F inal [place] Dipstick [facility]: [address] [place] [address], [place] ? ? UR ? Clarity-stat clear clear [facility] [address] [place] [address], [place] ? ? UR ? Glucose-stat negative negative Final [place] us mg/dL mg/dL [facility]: [address] ? ? UR ? Bilirubin-ur negative negative Final [place] ine [facility]: [address] [place] [address], [place] ? ? UR ? Ketones-stat negative negative Final [place] us mg/dL mg/dL [facility]: [address] ? ? UR ? SG-status 1.025 1.00-1.[address] [facility]: [address] [place] [address], [place] ? ? UR ? pH-status 7.0 5.00-8.00 Final [place] [facility]: [address] [place] [address], [place] ? ? UR ? Protein-stat negative negative Final [facility] mg/dL mg/dL [facility]: [address] [place] [address], [place] ? ? UR ? Urobilinogen 0.2 E.U./dL 0.2 Final [place] -status E.U./dL E.U./dL Urology - E.U./dL [facility]: [address] [place] [address], [place] ? ? UR ? Nitrites-sta negative negative Final [facility]: [address] [place] [address], [place] ? ? UR ABNORMAL Blood-urine trace-intact negative F inal [place] [facility]: [address] [place] [address], [place] ? ? UR ABNORMAL Leuko-status trace negative Final [place] [facility]: [address] ? ? UR ? Specimen catheterized ? Final [place] [facility]: [address] ? ? UR ? Performed by negra Gonzalez ? Final [place] [facility]: [address] ? ? UR ? Total Urine 30 /mL ? Final [place] Volume (mL) [facility]: [address] 05/19/2021 Urinalysis, UR ? Color yellow yellow Final [place] -[facility] [address] ? ? UR ? Appearance clear clear Final [place] -[facility]: [address] ? ? UR ? Glucose negative negative Final [place] -[facility] mg/dL mg/dL [facility]: [address] ? ? UR ? Bilirubin negative negative Final [place] [facility]: [address] ? ? UR ? Ketones negative negative Final [place] -[facility] mg/dL mg/dL [facility]: [address] ? ? UR ? Sp. [place] 1.020 1.010-1.0 Final [place] -[facility] 25 [facility]: [address] [place] [address], [place] ? ? UR ? pH -[facility] 6.5 5.0-8.0 Final [place] [facility]: 6025 [facility] 200, [place] ? ? UR ? Protein negative negative Final [place] -[facility] mg/dL mg/dL [facility]: 6025 [facility] 200, [place] ? ? UR ? Urobilinogen 0.2 normal Final [place] -[facility]: 60[address] [facility] 200, [place] ? ? UR ? Nitrites negative negative Final [place] -[facility]: 60[address] [facility] 200, [place] ? ? UR ? Blood negative negative Final [place] -[facility]: 60[address] [facility] 200, [place] ? ? UR ? Leukocytes negative negative Final [place] -[facility]: 60[address] [facility] 200, [place] ? ? UR ? Performed by negra Russo ? Final [place] [facility]: 60[address] [facility] 200, [place] ? ? UR ? Total Urine 60 /mL ? Final [place] Volume (mL) [facility]: 60[address] [facility] 200, [place] Past Encounters 04/16/2022 Overactive Bladder ANGELA Gutierrez: [address] [facility], [facility] [address] [address], Ph. 03/13/2022 Overactive Bladder Lisa Reardon MD: [address], [address] [address], Ph. 12/04/2021 Overactive Bladder Lisa Reardon MD: [address] [facility], [facility] [address] [address], Ph. 10/30/2021 Urinary Incontinence; Urge Incontinence of Urine; Nocturia Lisa Reardon MD: [address], [place] [address], Ph. 09/25/2021 Urinary Incontinence; Urge Incontinence of Urine; Nocturia Lisa Reardon MD: [address], [place] [address], Ph. 08/12/2021 Urinary Incontinence; Midline Cystocele Miley Johnson, PA: [address] [facility], [address], [place] [address], Ph. 07/01/2021 Urinary Incontinence Miley Johnson PA: [address] [facility], [address], [place] [address], Ph. 05/19/2021 Urinary Incontinence Miley Johnson PA: [address] [place] [address], [address], [place] [address], Ph. Social History Tobacco Smoking Status Never [...] formulation 06/20/2021 06/20/2021 06/26/2021 06/27/2021 07/21/2021 novel [id number], all formulation s 10/28/2009 Plan of Care [...]
--- OUTSIDE RECORDS SUMMARY | 2022-06-25 07:09 | XMS_ITS | Encounter Summary ---
:1965 Author Organization [facility] Address [address] [place] [address] Care Team Providers Name Role Phone Unavailable Primary Care Provider Unavailable Reason for Referral Outpatient (Routine) - Closed Specialty Diagnoses / Procedures Referred By Contact Refer red To Contact Sandy Sethi P.A.-C ., M.S. 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 [facility] Region [address] [place] [phone] Referral ID Status Reason Start Date Expiration Date Visits Requ ested Visits Authorized [id number] Closed 09/04/2020 09/04/2021 1 1 Encounter Details Date Type Department Care Team Description 10/07/2020 Hospital Encounter Department of Radiation Lisa Melgoza, Oncology in [place] [facility] [place] [address] [place] [address] 1821 [place] [address] [phone] Social History Tobacco Use Types Packs/Day Years [...] Visit Infectious Diseases Sa pat Villafana, P.A. [address] [place] [phone] (Wo rk) Scheduled Referrals Name Type Priority Associated Diagnoses Order S chedule NonF2F phone Outpatient Referral Routine Once for 1 visit Occurrences sta rting 10/07/2020 unti l 10/07/2020 documented as of this encounter Visit Diagnoses Not on filedocumented in this encounter
--- OUTSIDE RECORDS SUMMARY | 2022-06-25 07:09 | XMS_ITS | Encounter Summary ---
:1965 Author Organization [facility] Address [address] [place] [address] Care Team Providers Name Role Phone Unavailable Primary Care Provider Unavailable Encounter Details Date Type Department Care Team Description 08/31/2020 Hospital Encounter Department of Sandy Sethi [facility] P.A.-C., M.S . Screening For Other in [place], [facility] 1st [facility] Viral Diseases [place], [place] (COVID-19) [address] [place] [address] [place], [place] [phone] (Work) [phone] Social History Tobacco Use Types Packs/Day Years [...] Infectious Diseases Sa pat Villafana, P.ADarrius [address] [place], [place] [address] (Wo rk) documented as of this encounter Procedures Procedure Name Priority Date/Time Associated Diagnosis Comme nts SARS CORONAVIRUS-2 Routine 08/31/2020 10:02 AM Encounter For R esults for this RNA, V [employer] Screening For Other procedur e are in Viral Diseases the results (COVID-19) section. documented in this encounter Results SARS Coronavirus-2 RNA, V Asymptomatic (08/31/2020 10:02 AM [employer]) [facility] Method Time Signature SARS-CoV-2 Swab, 08/31/2020 MK[facility] Specimen Nasopharynx 9:36 PM [employer] Source SARS CoV-2 Undetected Undetected 08/31/2020 MKTO RNA, TMA 9:36 PM [employer] Comment: SARS-CoV-2 RNA absent. This result does not rule out COVID-19 in the patient, as the sensitivity of the test depends o n the timing of the specimen collection and the quality of the specim en. Result should be correlated with patient's history and clinical presentat ion. ----ADDITIONAL INFORMATION---- This test is performed using the Aptima SARS-CoV-2 assay ([employer] which has received Emergency Use Authori zation (EUA) by the U.S. Food and Drug Administration. Fact sheets for this Emergency Use Autho rization (EUA) assay can be found at the following links: For Healthcare Providers: https://www.fd a.gov/media/078569/download For Patients: https://www.fda.gov/media/ 296916/download Specimen Anatomical Collection Method Collection Time Receive d Time (Source) Location / / Volume Laterality Varies 08/31/2020 10:02 08/31/2020 4:57 (Nasopharynx) AM [employer] PM [employer] Sandy Sethi P.A.-C., M.S. LAB MICROBIOLOGY - GENERAL O RDERABLES Performing Organization Address City/State/ZIP Code Phon e Number [facility]- [address] [place] [id number] [place] [address] [address] documented in this encounter Visit Diagnoses Diagnosis Encounter For Screening For Other Viral Diseases (COVID-19) documented in this encounter Additional Health Concerns Infection Onset Date Last Indicated Resolved Time COVID19 Pending 08/31/2020 08/31/2020 08/31/2020 9:37 PM [employer] documented as of this encounter
--- OUTSIDE RECORDS SUMMARY | 2022-06-25 07:09 | XMS_ITS | Encounter Summary ---
:1965 Author Organization [facility] Address [address] [place] [address] Care Team Providers Name Role Phone Unavailable Primary Care Provider Unavailable Reason for Visit Radiation Therapy (Routine) - Closed Specialty Diagnoses / Procedures Referred By Contact Refer red To Contact Radiation Oncology Diagnoses Cancer Breast Ductal In Situ Right Jani Melgoza Mc[facility] Rao Nfrt Procedures Prior Auth Rad Tx VA RADTN TX DEL >=1 MEV [facility] [place] [address] [place] [address] [address] [place] [phone] Referral ID Status Reason Start Date Expiration Date Visits Requ ested Visits Authorized [id number] Closed 08/26/2020 08/01/2021 15 15 Encounter Details Date Type Department Care Team Description 09/05/2020 Hospital Encounter Department of Radiation Lisa Melgoza, Oncology in [facility] [place] [address] [phone] Social History Tobacco Use Types Packs/Day Years [...] Infectious Diseases Sa pat Villafana, P.A. [address] [place], [place] [address] (Wo rk) documented as of this encounter Visit Diagnoses Not on filedocumented in this encounter
--- OUTSIDE RECORDS SUMMARY | 2022-06-25 07:09 | XMS_ITS | Encounter Summary ---
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) Kevin Ken M.D. 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) Kevin Ken M.D. [place] [facility] Procedures DX Thoracic Spine 2 Views [address] [place] [address] Referral ID Status Reason Start Date Expiration Date Visits V isits Requested Authorized [id number] Authorized 05/12/2022 05/12/2023 1 1 Encounter Details Date Type Department Care Team Description 05/12/2022 Orders Only Section of Infectious Kevin [facility] Inter[facility]bral Disc [place] [address] [facility] Pyogenic Multiple Sites [address] [place], [place] In Spine ([facility]) ([place] [address] Dx) [phone] Social History Tobacco Use Types Packs/Day Years Used Date Smoking Tobacco: Never Assessed Sex Assigned at Date Recorded Not on file documented as of this encounter Plan of Treatment Upcoming Encounters Date Type Specialty Care Team Description 06/29/2022 Virtual Visit Infectious Diseases Sa pat Villafana, P.A. [address] [place] [phone] (Wo rk) Scheduled Orders Name Type Priority Associated Diagnoses Order S chedule CBC with Lab Routine Infection Of 1 Occurrences Differential, Blood Intervertebral Disc s tarting Pyogenic Multiple 05/12/2022 until Sites In Spine ([facility]) 023 Creatinine with Lab Routine Infection Of 1 Occurrence s Estimated GFR Intervertebral Disc startin g Pyogenic Multiple 05/12/2022 until Sites In Spine ([facility]) 023 Sedimentation Rate Lab Routine Infection Of 1 Occurre nces Intervertebral Disc starting Pyogenic Multiple 05/12/2022 until Sites In Spine ([facility]) 023 CRP (C-Reactive Lab Routine Infection Of 1 Occurrence s Protein) Intervertebral Disc starting Pyogenic Multiple 05/12/2022 until Sites In Spine ([facility]) 023 DX Thoracic Spine 2 Imaging RAD - Routine Infection Of Expecte d: Views (most inpatients Intervertebral Disc 04/21 and all Pyogenic Multiple (Approxima te), outpatients) Sites In Spine ([facility]) Expires : 08/12/2023 DX Lumbar Spine 4+ Imaging RAD - Routine Infection Of 1 Occurr ences Views (most inpatients Intervertebral Disc star ting and all Pyogenic Multiple 05/12/2022 until outpatients) Sites In Spine ([facility]) 023 Scheduled Referrals Name Type Priority Associated Diagnoses Order [facility] Orthopedic Surgery Outpatient Referral Routine Infection Of Ex pected: - Spine non Intervertebral Disc 05/12/20 22 surgical consult Pyogenic Multiple (Appro ximate), (clinic) Sites In Spine ([facility]) Expires : 08/12/2023 documented as of this encounter Visit Diagnoses Diagnosis Infection Of Intervertebral Disc Pyogeni c Multiple Sites In Spine ([facility]) - Primary documented in this encounter
--- OUTSIDE RECORDS SUMMARY | 2022-06-25 07:09 | XMS_ITS | Encounter Summary ---
:1965 Author Organization [facility] Address [address] [place] [address] Care Team Providers Name Role Phone Unavailable Primary Care Provider Unavailable Reason for Referral Outpatient (Routine) - Closed Specialty Diagnoses / Procedures Referred By Contact Refer red To Contact Sandy Sethi P.A.-C ., M.S. 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 [facility] Procedures Management Visit [address] [place] [phone] Referral ID Status Reason Start Date Expiration Date Visits V isits Requested Authorized [id number] Canceled 08/01/2020 08/01/2021 1 1 PUMPER Reason for Visit Radiation Therapy (Routine) - Canceled Specialty Diagnoses / Procedures Referred By Contact Refer red To Contact Diagnoses Cancer Breast Ductal In Situ Right Jani Melgoza M.D. [facility] Procedures Management Visit [address] [place] [phone] Referral ID Status Reason Start Date Expiration Date Visits V isits Requested Authorized [id number] Canceled 08/01/2020 08/01/2021 1 1 Encounter Details Date Type Department Care Team Description 09/04/2020 Hospital Encounter Department of Jani Melgoza Breast Ductal Radiation Oncology [place] In Situ Right in [place], [address] [place] [address] [facility] [address] [place], [place] [phone] (Work) [phone] Social History Tobacco Use Types Packs/Day Years Used Date Smoking Tobacco: Never Assessed Sex Assigned at Date Recorded Not on file documented as of this encounter Last Filed Vital Signs Vital Sign Reading Time Taken Comments Blood Pressure - - Pulse - - Temperature 35.9 ??C (96.7 ??F) 09/04/2020 4:05 PM HAM PUMPER Respiratory Rate - - Oxygen Saturation - - Inhaled Oxygen Concentration - - Weight 119 kg (262 lb 9.1 oz) 09/04/2020 4:05 PM HAM PUMPER Height - - Body Mass Index 41.7 08/01/2020 12:55 PM HAM PUMPER documented in this encounter Medications at Time [...] Situ Right SUPERVISED BY: Jani Melgoza M.D. ([id number]) HISTORY OF PRESENT ILLNESS Mrs. Fran Campa [...] ER+, [place]: Not Assessed, HER2: Not Assessed) right ductal [...] She was educated on the use of ltgw-gch-ihrraiw hydrocortisone cream or Benadryl cream if needed [...] Sandy Sethi P.A.-C., M.S. 09/04/2020 4:22 PM HAM PUMPER PUMPER Associated attestation - Jani Melgoza M.D. - 09/04/2020 5:49 PM HAM PUMPER I saw and evaluated the patient and [...] by: Jani Melgoza M.D. 09/04/20 5:49 PM HAM PUMPER [facility] [place] documented in this encounter Miscellaneous Notes Addendum Note - Karlie Nowak - 09/04/2020 4:15 PM HAM PUMPER Encounter addended by: Karlie Nowak on: 09/05/2020 8:35 AM Actions taken: Letter saved PUMPER documented in this encounter Plan of Treatment Upcoming Encounters Date Type Specialty Care Team Description 06/29/2022 Virtual Visit Infectious Diseases Sa pat Villafana, P.A. [address] [place] [phone] (Wo rk) Scheduled Orders Name Type [...]
--- OUTSIDE RECORDS SUMMARY | 2022-06-25 07:09 | XMS_ITS | Encounter Summary ---
:1965 Author Organization [facility] Address [address] [place] [address] Care Team Providers Name Role Phone Unavailable Primary Care Provider Unavailable Reason for Referral Radiation Therapy (Routine) - Closed Specialty Diagnoses / Procedures Referred By Contact Refer red To Contact Radiation Oncology Diagnoses Cancer Breast Ductal In Situ Right Jani Melgoza [facility] Nfrt Procedures Prior Auth Rad Tx GA RADTN TX DEL >=1 MEV [facility] [place] [facility] [address] [place] [phone] Referral ID Status Reason Start Date Expiration Date Visits Requ ested Visits Authorized [id number] Closed 08/26/2020 08/01/2021 15 15 OR PRODUCT DEVELOPMENT ENGINEER Radiation Therapy (Routine) - Closed Specialty Diagnoses / Procedures Referred By Contact Refer red To Contact Diagnoses Cancer Breast Ductal In Situ Right Jani Melgoza M.D. [facility] Procedures Initial Rad Onc Treatment Planning CT Simulation [address] [place] [address] Referral ID Status Reason Start Date Expiration Date Visits Requ ested Visits Authorized [id number] Closed 08/01/2020 08/01/2021 1 1 OR PRODUCT DEVELOPMENT ENGINEER Reason for Visit Appointment Request (Routine) - Closed Specialty Diagnoses / Procedures Referred By Contact Refer red To Contact Radiation Oncology Diagnoses Breast Cancer (Primary) NOS Pato, Katsiaryna, M.D. [address] [place] [address] Referral ID Status Reason Start Date Expiration Date Visits Requ ested Visits Authorized [id number] Closed 07/24/2020 07/24/2021 1 1 Encounter Details Date Type Department Care Team Description 08/01/2020 Hospital Encounter Department of Jani Melgoza Breast Ductal Radiation Oncology [place] In Situ Right in [place], [facility] [address] (Primary Dx) [place], [place] [address] [facility] [address] [place], [place] [phone] (Work) [phone] Social History Tobacco Use Types Packs/Day Years Used Date Smoking Tobacco: Never Assessed Sex Assigned at Date Recorded Not on file documented as of this encounter Last Filed Vital Signs Vital Sign Reading Time Taken Comments Blood Pressure 147/81 08/01/2020 12:55 PM SENIOR PRODUCT DEVELOPMENT ENGINEER Pulse 74 08/01/2020 12:55 PM SENIOR PRODUCT DEVELOPMENT ENGINEER Temperature 36.2 ??C (97.1 ??F) 08/01/2020 12:55 PM SENIOR PRODUCT DEVELOPMENT ENGINEER Respiratory Rate - - Oxygen Saturation - - Inhaled Oxygen Concentration - - Weight 118 kg (259 lb 7.7 oz) 08/01/2020 12:55 PM SENIOR PRODUCT DEVELOPMENT ENGINEER Height 169 cm (5' 6.54) 08/01/2020 12:55 PM SENIOR PRODUCT DEVELOPMENT ENGINEER Body Mass Index 41.21 08/01/2020 12:55 PM SENIOR PRODUCT DEVELOPMENT ENGINEER documented in this encounter Medications at Time [...] 18, 2020 SOCIAL HISTORY She lives in [place], [place]. She is to her , Joey. 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 She has 2 adult children, a son [...] 0 (pTis (DCIS), pN0(sn), cM0, G3, ER+, [place]: Not Assessed, HER2: Not Assessed) right ductal [...] by: Jani Melgoza M.D. 08/01/2020 3:02 PM [facility] Radiation Oncology [facility] [address] [place] [phone] OR PRODUCT DEVELOPMENT ENGINEER documented in this encounter Miscellaneous Notes Addendum Note - Karlie Nowak - 08/01/2020 1:00 PM SENIOR PRODUCT DEVELOPMENT ENGINEER Encounter addended by: Karlie Nowak on: 08/02/2020 7:38 AM Actions taken: Letter saved OR PRODUCT DEVELOPMENT ENGINEER documented in this encounter Plan of Treatment Upcoming Encounters Date Type Specialty Care Team Description 06/29/2022 Virtual Visit Infectious Diseases Sa pat Villafana, P.A. [address] [place], [place] [address] (Wo rk) Scheduled Orders Name Type Priority Associated Diagnoses Order S chedule Prior Auth Rad Tx Radiation Oncology Routine Cancer Breast Armin dez Ordered: 08/01/2020 In Situ Right documented as of this encounter Results Initial Rad Onc Treatment Planning CT Simulation (08/27/2020 9:00 AM SENIOR PRODUCT DEVELOPMENT ENGINEER) Specimen (Source) Anatomical Location Collection Method / Collectio n Time Received Time / Laterality Volume Narrative ARMANDO BURGESS - 08/27/2020 9:00 AM SENIOR PRODUCT DEVELOPMENT ENGINEER Kimberlee Serrano, RTT ? 08/27/2020 ??9:55 AM Initial Rad Onc Treatment Planning CT Si mulation Date/Time: 08/27/2020 9:55 AM Performed by: Jani Melgoza M.D. Authorized by: Jani Melgoza M.D. Jani Melgoza M.D. RADIATION ONCOLOGY ORDERABLE S Performing Organization Address City/State/ZIP Code Phon e Number [facility] na documented in this encounter Visit Diagnoses Diagnosis Cancer Breast Ductal In Situ Right - [facility] Cancer Breast Ductal In Situ Right documented in this encounter
--- OUTSIDE RECORDS SUMMARY | 2022-06-25 07:09 | XMS_ITS | Encounter Summary ---
:[address] [facility] Address [address] [place] [address] Care Team Providers Name Role Phone Unavailable Primary Care Provider Unavailable Reason for Referral Outpatient (Routine) - Closed Specialty Diagnoses / Procedures Referred By Contact Refer red To Contact Radiation Oncology Jani Melgoza M .D. [facility] Region [address] [place] [address] Referral ID Status Reason Start Date Expiration Date Visits Requ ested Visits Authorized [id number] Closed 08/22/2020 08/22/2021 1 1 HAND Encounter Details Date Type Department Care Team Description 08/22/2020 Orders Only Department of Radiation Jani Melgoza , Oncology in [facility] [address] [facility] [address] [place] [phone] (Fartun lazo) Social History Tobacco Use Types Packs/Day Years Used Date Smoking Tobacco: Never Assessed Sex Assigned at Date Recorded Not on file documented as of this encounter Plan of Treatment Upcoming Encounters Date Type Specialty Care Team Description 06/29/2022 Virtual Visit Infectious Diseases Sa pat Villafana, PMarilyn [address] [place], [place] [address] (Wo rk) Scheduled Referrals Name Type Priority Associated Diagnoses Order S chedule Radiation Oncology Outpatient Referral Routine Ex pected: office visit 08/22/2020 (clinic) (Approximate), Expires: 08/22/2021 documented as of this encounter Visit Diagnoses Not on filedocumented in this encounter
--- OUTSIDE RECORDS SUMMARY | 2022-06-25 07:09 | XMS_ITS | Encounter Summary ---
:1965 Author Organization [facility] Address [address] [place] [address] Care Team Providers Name Role Phone Unavailable Primary Care Provider Unavailable Encounter Details Date Type Department Care Team Description 05/08/2022 [facility] Camilla Villafana omyelitis Of AND CLINICS Prachi Rosenthal Vertebra Thoracic [address] [place] [address]) ([place] [address] [place], [place] Dx) [phone] Social History Tobacco Use Types Packs/Day Years Used Date Smoking Tobacco: Never Assessed Sex Assigned at Date Recorded Not on file documented as of this encounter Plan of Treatment Upcoming Encounters Date Type Specialty Care Team Description 06/29/2022 Virtual Visit Infectious Diseases Sa pat Villafana P.A. [address] [place], [place] [phone] (Wo rk) documented as of this encounter Visit Diagnoses Diagnosis Osteomyelitis Of Vertebra Thoracic Regio n ([facility]) - Primary documented in this encounter
--- OUTSIDE RECORDS SUMMARY | 2022-06-25 07:09 | XMS_ITS | Encounter Summary ---
:1965 Author Care Team Providers Name Role Phone Ariadna Villafana Pac Referring Provider [phone] Reason for Visit None recorded. Assessment and [...] recorded. ? ? Lab Urinalysis, Dipstick 04/16/2022 [facility] Referral Patient Navigator Referral 04/16/2022 ? [...] FOR PA IN Vitamin D ? take 33891 U per day Medications Administered None recorded. Vitals Height Weight BMI 5 ft 8 in 236 lbs 35.9 kg/m2 Results Lab Results Date Name Specimen Result Interpretation Description Value Range Status Address ? 04/16/2022 Urinalysis, UR ? Color yellow yellow Final [place] Dipstick -[facility]: [address] [place] [address] ? ? UR ? Appearance clear clear Final [place] [facility]: [address] [place] [address] ? ? UR ? Glucose negative negative Final [place] [facility] mg/dL mg/dL [facility]: [address] ? ? UR ? Bilirubin negative negative Final [place] [facility]: [address] ? ? UR ? Ketones negative negative Final [place] [facility] mg/dL mg/dL [facility]: [address] [place] [address] ? ? UR ? Sp. [place] 1.020 1.010-1.0 Final [place] [facility] 25 [facility]: [address] ? ? UR ? pH -[facility] 7.0 5.0-8.0 Final [place] [facility]: [address] ? ? UR ? Protein negative negative Final [place] [facility] mg/dL mg/dL [facility]: [address] ? ? UR ? Urobilinogen 0.2 normal Final [place] -[facility]: [address] [place] [address], [place] ? ? UR ? Nitrites negative negative Final [place] -[facility]: [address] [place] [address], [place] ? ? UR ABNORMAL Blood trace negative Final [place] chlorinator operator -[facility]: [address] [facility] [place] [address], [place] ? ? UR ? Leukocytes negative negative Final [place] [facility]: [address] [place] [address], [place] ? ? UR ? Performed by bandar Vogt ? Final [place] [facility]: [address] [facility] 200, [place] ? ? UR ? Total Urine 50 /mL ? Final [place] Volume (mL) [facility]: [address] [place] [address], [place] Allergies Code Code System Name Reaction Severity [...] formulation 06/20/2021 06/20/2021 06/26/2021 06/27/2021 07/21/2021 novel [id number], all formulation s 10/28/2009 Social History Tobacco Smoking Status Never Smoker Has tobacco cessation counseling been provided? N Are you currently employed? Y Could you be ? N Preferred Language South African How much tobacco do you chew? none What was the date of your most recent tobacco 04/16/2022 screening? Do you or have you ever used e-cigarettes or Never used elec tronic cigarettes vape? Ethnicity Not / Do you use any illicit or recreational [...] Encounters 04/16/2022 Overactive Bladder ANGELA Gutierrez: [address] [facility], [address], [place] [address], Ph. History of Present Illness Note: <div>04/16/22:</div><div>Patient [...]
--- OUTSIDE RECORDS SUMMARY | 2022-06-25 07:09 | XMS_ITS | Encounter Summary ---
:1965 Author Organization [facility] Address [address] [place] [address] Care Team Providers Name Role Phone Unavailable Primary Care Provider Unavailable Encounter Details Date Type Department Care Team Description 09/06/2020 Documentation Department of Radiation Sandy Sethi, Oncology in [place], PDamon., M.S. [place] [address] [facility] [address] [place] [phone] [phone] (Wo rk) Social History Tobacco Use Types Packs/Day Years Used Date Smoking Tobacco: Never Assessed Sex Assigned at Date Recorded Not on file documented as of this encounter Miscellaneous Notes Radiation Completion Notes - Sandy Sethi P.A.-C., M.S. - 09/06/2020 11:59 PM CST DIAGNOSIS: 1. Cancer Breast Ductal In Situ Right Attending Physician: Jani Melgoza M.D. ([phone]) Treatment Intent: Curative Concomitant Therapy: Hormonal Therapy [...] Sandy Sethi P.A.-C., M.S., 09/23/2020 4:28 PM OPTHALMIC TECH [facility] [address] [place] [address] ALMIC TECH documented in this encounter Plan of Treatment Upcoming Encounters Date Type Specialty Care Team Description 06/29/2022 Virtual Visit Infectious Diseases Sa pat Villafana P.A. [address] [place], [place] [address] (Wo rk) documented as of this encounter Visit Diagnoses Diagnosis Cancer Breast Ductal In Situ Right - [facility] documented in this encounter
--- NOTE | 2022-06-25 07:15 | CRLHL7_ITS ---
For Patients: As a result of the Century Cures Act, medical imaging exams and procedure reports are released immediately into your electronic medical record. You may view this report before your referring provider. If you have questions, please contact your health care provider. Indication: Osteomyelitis follow-up Technique: Noncontrast sagittal T1, T2, STIR and axial T2 sequences are provided. Comparison: MRI 05/08/2022 Findings: Thoracic alignment is within normal limits. Vertebral body heights are maintained. No fractures. There is increased abnormal T1 hypointense and T2/STIR hyperintense signal in the T7 and T8 vertebral bodies with worsening of T7 inferior endplate erosion and T8 superior endplate erosions. Worsening fluid signal in the collapsed T7 disc. Worsening prevertebral edema not extending 7.6 cm from the T5-6 level to the T9-T10 level on the right side and T5-6 through T8-9 level on the left side. Multilevel thoracic spondylosis. Small central protrusion at T4-5, disc bulge at T6-7, disc bulge at T7-8 that contacts the ventral cord surface resulting mild spinal canal narrowing, and disc bulge at T10-T11. No high-grade spinal canal stenosis. Multilevel facet arthrosis. Moderate right neural foramen narrowing at T7-8, T8-9, T9-10. Moderate left neural foramen narrowing at T7-8 T8-9 T9-10 and T10-11. No abnormal intramedullary spinal cord signal. Impression: 1. Worsening inflammatory changes in the T7 and T8 vertebral bodies, new endplate erosions in the T7 inferior endplate and T8 superior endplate, and worsening fluid signal in the T7 disc. Findings concerning for worsening discitis osteomyelitis. 2. Slight worsening of paravertebral edema/phlegmon at the T5-T10 levels. No definite drainable fluid collection or abscess is identified on this noncontrast study. 3. Stable thoracic spondylosis. 4. No abnormal spinal cord signal. Dictated by Bret Al MD @ 06/26/2022 8:46:05 AM (Electronically Signed)
== END 2022-06-25 07:07 | disposition home or self-care (01) ==
LOC: MRI 07:07
PROVIDERS: PCP Physician Assistant Medical; Visit Provider Physician Assistant Medical
DX: M46.24 Osteomyelitis of vertebra, thoracic region (principal); M47.814 Spondylosis without myelopathy or radiculopathy, thoracic region; M54.9 Dorsalgia, unspecified
CPT/HCPCS: 72146

== ENCOUNTER 2022-06-26 18:08 | Outpatient (CLI) | payer BC, SELFPAY ==
--- OUTSIDE RECORDS SUMMARY | 2022-06-26 09:07 | XMS_ITS | Encounter Summary ---
:1965 Author Organization [facility] Address [address] [place] [address] Care Team Providers Name Role Phone Unavailable Primary Care Provider Unavailable Reason for Visit Radiation Therapy (Routine) - Closed Specialty Diagnoses / Procedures Referred By Contact Refer red To Contact Radiation Oncology Diagnoses Cancer Breast Ductal In Situ Right Jani Melgoza [facility] Nfrt Procedures Prior Auth Rad Tx NM RADTN TX DEL >=1 MEV [facility] [place] [address] [place] [address] [address] [place] [phone] Referral ID Status Reason Start Date Expiration Date Visits Requ ested Visits Authorized [id number] Closed 08/26/2020 08/01/2021 15 15 Encounter Details Date Type Department Care Team Description 09/04/2020 Hospital Encounter Department of Radiation Lisa Melgoza, Oncology in [facility] [place] [address] [phone] Social History Tobacco Use Types Packs/Day Years [...] Description 06/29/2022 Virtual Visit Infectious Diseases Sa apt Villafana, P.A. [address] [place] [phone] (Wo rk) documented as of this encounter Visit Diagnoses Not on filedocumented in this encounter
--- OUTSIDE RECORDS SUMMARY | 2022-06-26 09:07 | XMS_ITS | Encounter Summary ---
:1965 Author Organization [facility] Address [address] [place] [address] Care Team Providers Name Role Phone Unavailable Primary Care Provider Unavailable Encounter Details Date Type Department Care Team Description 05/06/2021 Orders Only RST PCP TH Ariadna Fair M.D. [address] [place], [place] [phone] (Wo rk) Social History Tobacco Use Types Packs/Day Years Used Date Smoking Tobacco: Never Assessed Sex Assigned at Date Recorded Not on file documented as of this encounter Plan of Treatment Upcoming Encounters Date Type Specialty Care Team Description 06/29/2022 Virtual Visit Infectious Diseases Sa pat Villafana, P.A. [address] [place], [place] [address] (Wo rk) documented as of this encounter Visit Diagnoses Not on filedocumented in this encounter
--- OUTSIDE RECORDS SUMMARY | 2022-06-26 09:07 | XMS_ITS | Encounter Summary ---
:1965 Author Organization [facility] Address [address] [place] [address] Care Team Providers Name Role Phone Unavailable Primary Care Provider Unavailable Encounter Details Date Type Department Care Team Description 05/08/[address] [facility] Camilla Villafana omyelitis Of AND CLINICS Prachi Rosenthal Vertebra Thoracic [address] [place] [address] [address] [facility] ([facility]) ([place] [address] W Dx) [phone] [place], [place] [phone] Social History Tobacco Use Types Packs/Day Years Used Date Smoking Tobacco: Never Assessed Sex Assigned at Date Recorded Not on file documented as of this encounter Plan of Treatment Upcoming Encounters Date Type Specialty Care Team Description 06/29/2022 Virtual Visit Infectious Diseases Sa pat iVllafana P.A. [address] [place], [place] [address] (Wo rk) documented as of this encounter Visit Diagnoses Diagnosis Osteomyelitis Of Vertebra Thoracic Regio n ([facility]) - Primary documented in this encounter
--- OUTSIDE RECORDS SUMMARY | 2022-06-26 09:07 | XMS_ITS | Clinical Summary ---
:1965 Author Organization [facility] Address [address] [place] [address] Care Team Providers Name Role Phone Unavailable Primary Care Provider Unavailable Source Comments Patient records contain information from all sites at [facility]. For routine questions regarding patient records, call [phone] during business hours, M-F 8:00 AM - 5:00 PM Central Time. Record requests for emergency care only can be directed to [phone] at any time.[facility] Allergies Active Allergy Reactions Severity Noted Date [...] 0 (pTis (DCIS), pN0(sn), cM0, G3, ER+, [place]: Not Assessed, HER2: Not Assessed) - Unsigned [...] Comments Blood Pressure 154/82 08/27/2020 8:27 AM ALGORITHM DESIGN ENGINEER Pulse 85 08/27/2020 8:27 AM ALGORITHM DESIGN ENGINEER Temperature 35.9 ??C (96.7 ??F) 09/04/2020 4:05 PM ALGORITHM DESIGN ENGINEER Respiratory Rate - - Oxygen Saturation - - Inhaled Oxygen Concentration - - Weight 119 kg (262 lb 9.1 oz) 09/04/2020 4:05 PM ALGORITHM DESIGN ENGINEER Height 169 cm (5' 6.54) 08/01/2020 12:55 PM ALGORITHM DESIGN ENGINEER Body Mass Index 41.7 08/01/2020 12:55 PM ALGORITHM DESIGN ENGINEER Plan of Treatment Upcoming Encounters Date Type Specialty Care Team Description 06/29/2022 Virtual Visit Infectious Diseases Sa pat Villafana P.A. [address] [place], [place] [address] (Wo rk) Health Maintenance Due Date Last [...] V iewer, or as an image in [employer]. If a re-interpretation or overread is re [...] Effective Dates Phone Address Type / Group [facility] [id number] [address] [phone] [address] [address] [facility] [address] [place] [address] Guarantor Name Account Type Relation to Date of Phone Billing Address Patient Fran Campa Personal/Famil Self 1965 [phone] [address] (Home) [place] [address]
--- OUTSIDE RECORDS SUMMARY | 2022-06-26 09:07 | XMS_ITS | Encounter Summary ---
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 [place] [facility] Procedures DX Thoracic Spine 2 Views [address] [place] [address] Referral ID Status Reason Start Date Expiration Date Visits V isits Requested Authorized [id number] Authorized 05/12/2022 05/12/2023 1 1 Encounter Details Date Type Department Care Team Description 05/12/2022 Orders Only Section of Infectious Kevin Ken [facility] [place] [address] [facility] Pyogenic Multiple Sites [address] [place], [place] In Spine ([facility]) ([place] [address] Dx) [id number] Social History Tobacco Use Types Packs/Day Years Used Date Smoking Tobacco: Never Assessed Sex Assigned at Date Recorded Not on file documented as of this encounter Plan of Treatment Upcoming Encounters Date Type Specialty Care Team Description 06/29/2022 Virtual Visit Infectious Diseases Sa pat Villafana, P.A. [address] [place], [place] [address] (Wo rk) Scheduled Orders Name Type Priority Associated Diagnoses Order S chedule CBC with Lab Routine Infection Of 1 Occurrences Differential, Blood Intervertebral Disc s tarting Pyogenic Multiple 05/12/2022 until Sites In Spine ([facility]) 023 Creatinine with Lab Routine Infection Of 1 Occurrence s Estimated GFR Intervertebral Disc startin g Pyogenic Multiple 05/12/2022 until Sites In Spine ([facility]) 023 Sedimentation Rate Lab Routine Infection Of 1 Occurre nces Intervertebral Disc starting Pyogenic Multiple 05/12/2022 until Sites In Spine ([facility]) 023 CRP (C-Reactive Lab Routine Infection Of 1 Occurrence s Protein) Intervertebral Disc starting Pyogenic Multiple 05/12/2022 until Sites In Spine ([facility]) 023 DX Thoracic Spine 2 Imaging RAD - Routine Infection Of Expecte d: Views (most inpatients Intervertebral Disc 08/2 11/2021 and all Pyogenic Multiple (Approxima te), outpatients) Sites In Spine ([facility]) Expires : 08/12/2023 DX Lumbar Spine 4+ Imaging RAD - Routine Infection Of 1 Occurr ences Views (most inpatients Intervertebral Disc star ting and all Pyogenic Multiple 05/12/2022 until outpatients) Sites In Spine ([facility]) 023 Scheduled Referrals Name Type Priority Associated Diagnoses Order S [facility] Orthopedic Surgery Outpatient Referral Routine Infection Of Ex pected: - Spine non Intervertebral Disc 05/12/20 22 surgical consult Pyogenic Multiple (Appro ximate), (clinic) Sites In Spine ([facility]) Expires : 08/12/2023 documented as of this encounter Visit Diagnoses Diagnosis Infection Of Intervertebral Disc Pyogeni c Multiple Sites In Spine ([facility]) - Primary documented in this encounter
--- OUTSIDE RECORDS SUMMARY | 2022-06-26 09:07 | XMS_ITS | Encounter Summary ---
:1965 Author Organization [facility] Address [address] [place] [address] Care Team Providers Name Role Phone Unavailable Primary Care Provider Unavailable Reason for Referral Outpatient (Routine) - Closed Specialty Diagnoses / Procedures Referred By Contact Refer red To Contact Sandy Sethi P.A.-C ., M.S. 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 [facility] Procedures Management Visit [address] [place] [phone] Referral ID Status Reason Start Date Expiration Date Visits V isits Requested Authorized [id number] Canceled 08/01/2020 08/01/2021 1 1 HT SOFTWARE TEST ENGINEER Reason for Visit Radiation Therapy (Routine) - Canceled Specialty Diagnoses / Procedures Referred By Contact Refer red To Contact Diagnoses Cancer Breast Ductal In Situ Right Jani Melgoza M.D. [facility] Procedures Management Visit [address] [place] [phone] Referral ID Status Reason Start Date Expiration Date Visits V isits Requested Authorized [id number] Canceled 08/01/2020 08/01/2021 1 1 Encounter Details Date Type Department Care Team Description 09/04/2020 Hospital Encounter Department of Jani Melgoza Breast Ductal Radiation Oncology [place] In Situ Right in [place], [address] [place] [address] 1821 [facility] [address] [place], [place] [phone] (Work) [phone] Social History Tobacco Use Types Packs/Day Years Used Date Smoking Tobacco: Never Assessed Sex Assigned at Date Recorded Not on file documented as of this encounter Last Filed Vital Signs Vital Sign Reading Time Taken Comments Blood Pressure - - Pulse - - Temperature 35.9 ??C (96.7 ??F) 09/04/2020 4:05 PM FLIGHT SOFTWARE TEST ENGINEER Respiratory Rate - - Oxygen Saturation - - Inhaled Oxygen Concentration - - Weight 119 kg (262 lb 9.1 oz) 09/04/2020 4:05 PM FLIGHT SOFTWARE TEST ENGINEER Height - - Body Mass Index 41.7 08/01/2020 12:55 PM FLIGHT SOFTWARE TEST ENGINEER documented in this encounter Medications at [...] Situ Right SUPERVISED BY: Jani Melgoza M.D. ([id number]) HISTORY OF PRESENT ILLNESS Mrs. Fran Campa [...] 0 (pTis (DCIS), pN0(sn), cM0, G3, ER+, [place]: Not Assessed, HER2: Not Assessed) right ductal [...] She was educated on the use of [id number] hydrocortisone cream or Benadryl cream if needed [...] Sandy Sethi P.A.-C., M.S. 09/04/2020 4:22 PM FLIGHT SOFTWARE TEST ENGINEER HT SOFTWARE TEST ENGINEER Associated attestation - Jani Melgoza M.D. - 09/04/2020 5:49 PM FLIGHT SOFTWARE TEST ENGINEER I saw and evaluated the patient and [...] by: Jani Melgoza M.D. 09/04/20 5:49 PM FLIGHT SOFTWARE TEST ENGINEER [facility] [place] documented in this encounter Miscellaneous Notes Addendum Note - Karlie Nowak - 09/04/2020 4:15 PM FLIGHT SOFTWARE TEST ENGINEER Encounter addended by: Karlie Nowak on: 09/05/2020 8:35 AM Actions taken: Letter saved HT SOFTWARE TEST ENGINEER documented in this encounter Plan of Treatment Upcoming Encounters Date Type Specialty Care Team Description 06/29/2022 Virtual Visit Infectious Diseases Sa Broderick lacy, P.A. [address] [place] [phone] (Wo rk) Scheduled Orders Name [...]
--- OUTSIDE RECORDS SUMMARY | 2022-06-26 09:07 | XMS_ITS | Encounter Summary ---
:[address] [facility] Address [address] [place] [address] Care Team Providers Name Role Phone Unavailable Primary Care Provider Unavailable Reason for Visit Radiation Therapy (Routine) - Closed Specialty Diagnoses / Procedures Referred By Contact Refer red To Contact Radiation Oncology Diagnoses Cancer Breast Ductal In Situ Right Jani Melgoza McHs Rao Nfrt Procedures Prior Auth Rad Tx GA RADTN TX DEL >=1 MEV [facility] [place] [address] [place] [address] [address] [place] [phone] Referral ID Status Reason Start Date Expiration Date Visits Requ ested Visits Authorized [id number] Closed 08/26/2020 08/01/2021 15 15 Encounter Details Date Type Department Care Team Description 09/03/2020 Hospital Encounter Department of Radiation Lisa Melgoza, Oncology in [facility] [place] [address] [phone] Social History Tobacco Use Types Packs/Day Years [...] Infectious Diseases Sa pat Villafana, P.A. [address] [place] [phone] (Wo rk) documented as of this encounter Visit Diagnoses Not on filedocumented in this encounter
--- OUTSIDE RECORDS SUMMARY | 2022-06-26 09:07 | XMS_ITS | Encounter Summary ---
:1965 Author Organization [facility] Address [address] [place] [address] Care Team Providers Name Role Phone Unavailable Primary Care Provider Unavailable Reason for Visit Radiation Therapy (Routine) - Closed Specialty Diagnoses / Procedures Referred By Contact Refer red To Contact Radiation Oncology Diagnoses Cancer Breast Ductal In Situ Right Jani Melgoza McHs Rao Nfrt Procedures Prior Auth Rad Tx [place] RADTN TX DEL >=1 MEV [facility] [place] [address] [place] [address] [address] [place] [phone] Referral ID Status Reason Start Date Expiration Date Visits Requ ested Visits Authorized [id number] Closed 08/26/2020 08/01/2021 15 15 Encounter Details Date Type Department Care Team Description 09/05/2020 Hospital Encounter Department of Radiation Lisa Melgoza, Oncology in [facility] [place] [address] [phone] Social History Tobacco Use Types Packs/Day Years [...] Infectious Diseases Sa pat Villafana, P.A. [address] [place] [phone] (Wo rk) documented as of this encounter Visit Diagnoses Not on filedocumented in this encounter
--- OUTSIDE RECORDS SUMMARY | 2022-06-26 09:07 | XMS_ITS ---
:[address] [facility] Address [address] [place] [address] Care Team Providers Name Role Phone Unavailable [...] Elapsed Days Session Dose Total Dos e [id number] 09/06/2020 4 520 cGy 2,600 cGy
--- OUTSIDE RECORDS SUMMARY | 2022-06-26 09:07 | XMS_ITS | Encounter Summary ---
:1965 Author Organization [facility] Address [address] [place] [address] Care Team Providers Name Role Phone Unavailable Primary Care Provider Unavailable Reason for Visit Reason Comments Pre-scheduling Questionnaire Encounter Details Date Type Department Care Team Description 05/04/2022 Clinical Department of Prescheduling, Pre-scheduli ng Communication Spine in Provider Questionnaire [place], [place] [address] [place] [address] Social History Tobacco Use Types Packs/Day Years [...] Diseases Sa pat Villafana, P.A. [address] [place], [place] [address] (Wo rk) documented as of this encounter Visit Diagnoses Not on filedocumented in this encounter
--- OUTSIDE RECORDS SUMMARY | 2022-06-26 09:07 | XMS_ITS | Encounter Summary ---
:1965 Author Organization [facility] Address [address] [place] [address] Care Team Providers Name Role Phone Unavailable Primary Care Provider Unavailable Reason for Referral Outpatient (Routine) - Closed Specialty Diagnoses / Procedures Referred By Contact Refer red To Contact Sandy Sethi P.A.-C ., M.S. 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 [facility] Region [address] [place] [phone] Referral ID Status Reason Start Date Expiration Date Visits Requ ested Visits Authorized [id number] Closed 09/04/2020 09/04/2021 1 1 Encounter Details Date Type Department Care Team Description 10/07/2020 Hospital Encounter Department of Radiation Lisa Melgoza, Oncology in [place] [facility] [place] [address] [place] [address] 1821 [place] [address] [phone] Social History Tobacco Use Types Packs/Day Years [...] Infectious Diseases Sa pat Villafana, P.A. [address] [place] [address] (Wo rk) Scheduled Referrals Name Type Priority Associated Diagnoses Order S chedule NonF2F phone Outpatient Referral Routine Once for 1 visit Occurrences sta rting 10/07/2020 unti l 10/07/2020 documented as of this encounter Visit Diagnoses Not on filedocumented in this encounter
--- OUTSIDE RECORDS SUMMARY | 2022-06-26 09:07 | XMS_ITS | Encounter Summary ---
:1965 Author Organization [facility] Address [address] [place] [address] Care Team Providers Name Role Phone Unavailable Primary Care Provider Unavailable Reason for Visit Radiation Therapy (Routine) - Closed Specialty Diagnoses / Procedures Referred By Contact Refer red To Contact Radiation Oncology Diagnoses Cancer Breast Ductal In Situ Right Jani Melgoza McHs Rao Nfrt Procedures Prior Auth Rad Tx [place] RADTN TX DEL >=1 MEV [facility] [place] [address] [place] [address] [address] [place] [phone] Referral ID Status Reason Start Date Expiration Date Visits Requ ested Visits Authorized [id number] Closed 08/26/2020 08/01/2021 15 15 Encounter Details Date Type Department Care Team Description 09/02/2020 Hospital Encounter Department of Radiation Lisa Melgoza, Oncology in [facility] [place] [address] [phone] Social History Tobacco Use Types Packs/Day Years [...] Infectious Diseases Sa pat Villafana, P.A. [address] [place] [address] (Wo rk) documented as of this encounter Visit Diagnoses Not on filedocumented in this encounter
--- OUTSIDE RECORDS SUMMARY | 2022-06-26 09:07 | XMS_ITS | Encounter Summary ---
:1965 Author Organization [facility] Address [address] [place] [address] Care Team Providers Name Role Phone Unavailable Primary Care Provider Unavailable Reason for Referral Outpatient (Routine) - Closed Specialty Diagnoses / Procedures Referred By Contact Refer red To Contact Radiation Oncology Jani Melgoza M .D. [address] [address] Referral ID Status Reason Start Date Expiration Date Visits Requ ested Visits Authorized [id number] Closed 08/22/2020 08/22/2021 1 1 AIGN ADVISOR Reason for Visit Outpatient (Routine) - Closed Specialty Diagnoses / Procedures Referred By Contact Refer red To Contact Radiation Oncology Jani Melgoza M .D. [address] [address] Referral ID Status Reason Start Date Expiration Date Visits Requ ested Visits Authorized [id number] Closed 08/22/2020 08/22/2021 1 1 Encounter Details Date Type Department Care Team Description 08/27/2020 Hospital Encounter Department of Jani Melgoza Breast Ductal Radiation Oncology [place]m In Situ Right in [address] (Primary Dx) [place], [place] 1821 [facility] [address] [place], [place] [phone] (Work) [phone] Social History Tobacco Use Types Packs/Day Years Used Date Smoking Tobacco: Never Assessed Sex Assigned at Date Recorded Not on file documented as of this encounter Last Filed Vital Signs Vital Sign Reading Time Taken Comments Blood Pressure 154/82 08/27/2020 8:27 AM CAMPAIGN ADVISOR Pulse 85 08/27/2020 8:27 AM CAMPAIGN ADVISOR Temperature 36.1 ??C (97 ??F) 08/27/2020 8:27 AM CAMPAIGN ADVISOR Respiratory Rate - - Oxygen Saturation - - Inhaled Oxygen Concentration - - Weight 117 kg (258 lb 2.5 oz) 08/27/2020 8:27 AM CAMPAIGN ADVISOR Height - - Body Mass Index 41 08/01/2020 12:55 PM CAMPAIGN ADVISOR documented in this encounter Medications at Time [...] position at the CT simulation with the facilities engineering manager of the therapists, Rosangela Rios. The right breast has an everted nipple with multiple well-healed surgical incisions from her recent reduction surgery. There are no palpable masses or overlying skin changes. Her right arm range of motion is still limited. ASSESSMENT / PLAN 1. 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 08/27/2020 10:18 AM CAMPAIGN ADVISOR Radiation Oncology [facility] [address] [place] [address] AIGN ADVISOR documented in this encounter Miscellaneous Notes Addendum Note - Karlie Nwoak - 08/27/2020 8:30 AM CAMPAIGN ADVISOR Encounter addended by: Karlie Nowak on: 08/27/2020 12:02 PM Actions taken: Letter saved AIGN ADVISOR Addendum Note - Jani Melgoza M.D. - 08/27/2020 8:30 AM CAMPAIGN ADVISOR Encounter addended by: Jani Melgoza M.D. on: 08/29/2020 1:18 PM Actions taken: Flowsheet accepted AIGN ADVISOR documented in this encounter Plan of Treatment Upcoming Encounters Date Type Specialty Care Team Description 06/29/2022 Virtual Visit Infectious Diseases Sa pat Villafana, P.A. [address], [place] [address] (Wo rk) Scheduled Referrals Name Type Priority Associated Order Schedule Diagnoses Radiation Oncology Outpatient Referral Routine On ce for 1 office visit Occurrences sta rting (clinic) 08/27/2020 unti l 08/27/2020 documented as of this encounter Visit Diagnoses Diagnosis Cancer Breast Ductal In Situ Right - Nicky monico documented in this encounter
--- OUTSIDE RECORDS SUMMARY | 2022-06-26 09:07 | XMS_ITS | Encounter Summary ---
:1965 Author Organization [facility] Address [address] [place] [address] Care Team Providers Name Role Phone Unavailable Primary Care Provider Unavailable Encounter Details Date Type Department Care Team Description 08/31/2020 Hospital Encounter Department of Sandy Sethi [facility] For Laboratory Medicine P.Carole.SreeC., M.S . Screening For Other in [place], [facility] [facility] Viral Diseases [place], [place] (COVID-19) [address] [place] [address] [place], [place] [phone] (Work) [phone] Social History Tobacco Use Types Packs/Day Years [...] Diseases Sa pat Villafana, P.A. [address] [place], [place] [address] (Wo rk) documented as of this encounter Procedures Procedure Name Priority Date/Time Associated Diagnosis Comme nts SARS CORONAVIRUS-2 Routine 08/31/2020 10:02 AM Encounter For R esults for this RNA, V CIRCUIT RIDER Screening For Other procedur e are in Viral Diseases the results (COVID-19) section. documented in this encounter Results SARS Coronavirus-2 RNA, V Asymptomatic (08/31/2020 10:02 AM CIRCUIT RIDER) [facility] Method Time Signature SARS-CoV-2 Swab, 08/31/2020 MKTO Specimen Nasopharynx 9:36 PM CIRCUIT RIDER Source SARS CoV-2 Undetected Undetected 08/31/2020 MKTO RNA, TMA 9:36 PM CIRCUIT RIDER Comment: SARS-CoV-2 RNA absent. This result does not rule out COVID-19 in the patient, as the sensitivity of the test depends o n the timing of the specimen collection and the quality of the specim en. Result should be correlated with patient's history and clinical presentat ion. ----ADDITIONAL INFORMATION---- This test is performed using the Aptima SARS-CoV-2 assay ([employer] which has received Emergency Use Authori zation (EUA) by the U.S. Food and Drug Administration. Fact sheets for this Emergency Use Autho rization (EUA) assay can be found at the following links: For Healthcare Providers: https://www.fd a.gov/media/125233/download For Patients: https://www.fda.gov/media/ 284741/download Specimen Anatomical Collection Method Collection Time Receive d Time (Source) Location / / Volume Laterality Varies 08/31/2020 10:02 08/31/2020 4:57 (Nasopharynx) AM CIRCUIT RIDER PM CIRCUIT RIDER Sandy Sethi P.A.-C., M.S. LAB MICROBIOLOGY - GENERAL O RDERABLES Performing Organization Address City/State/ZIP Code Phon e Number [employer]- [address] [place] [phone] [facility] [place] [address] System [address] documented in this encounter Visit Diagnoses Diagnosis Encounter For Screening For Other Viral Diseases (COVID-19) documented in this encounter Additional Health Concerns Infection Onset Date Last Indicated Resolved Time COVID19 Pending 08/31/2020 08/31/2020 08/31/2020 9:37 PM CIRCUIT RIDER documented as of this encounter
--- OUTSIDE RECORDS SUMMARY | 2022-06-26 09:07 | XMS_ITS | Encounter Summary ---
:1965 Author Organization [facility] Address [address] [place] [address] Care Team Providers Name Role Phone Unavailable Primary Care Provider Unavailable Encounter Details Date Type Department Care Team Description 09/06/2020 Documentation Department of Radiation Sandy Sethi, Oncology in [place], [place]., M.S. [place] [address] [facility] 1821 [place] [address] [phone] (Wo rk) Social History Tobacco Use Types Packs/Day Years Used Date Smoking Tobacco: Never Assessed Sex Assigned at Date Recorded Not on file documented as of this encounter Miscellaneous Notes Radiation Completion Notes - Sandy Sethi P.A.-C., M.S. - 09/06/2020 11:59 PM CST DIAGNOSIS: 1. Cancer Breast Ductal In Situ Right Attending Physician: Jani Melgoza M.D. ([id number]) Treatment Intent: Curative Concomitant Therapy: Hormonal Therapy [...] Sandy Sethi P.A.-C., M.S., 09/23/2020 4:28 PM WEB UI DEVELOPER [facility] [address] [place] [address] UI DEVELOPER documented in this encounter Plan of Treatment Upcoming Encounters Date Type Specialty Care Team Description 06/29/2022 Virtual Visit Infectious Diseases Sa pat Villafana P.A. [address] [place] [phone] (Wo rk) documented as of this encounter Visit Diagnoses Diagnosis Cancer Breast Ductal In Situ Right - [facility] documented in this encounter
--- OUTSIDE RECORDS SUMMARY | 2022-06-26 09:07 | XMS_ITS | Encounter Summary ---
:1965 Author Organization [facility] Address [address] [place] [address] Care Team Providers Name Role Phone Unavailable Primary Care Provider Unavailable Reason for Referral Radiation Therapy (Routine) - Closed Specialty Diagnoses / Procedures Referred By Contact Refer red To Contact Diagnoses Cancer Breast Ductal In Situ Right Jani Melgoza M.D. [facility] Region Procedures Initial Rad Onc Treatment Planning CT Simulation [address] [place] [address] Referral ID Status Reason Start Date Expiration Date Visits Requ ested Visits Authorized [id number] Closed 08/01/2020 08/01/2021 1 1 TING SUPERVISOR Reason for Visit Radiation Therapy (Routine) - Closed Specialty Diagnoses / Procedures Referred By Contact Refer red To Contact Diagnoses Cancer Breast Ductal In Situ Right [facility]. [facility] Region Procedures Initial Rad Onc Treatment Planning CT Simulation [address] [place] [address] Referral ID Status Reason Start Date Expiration Date Visits Requ ested Visits Authorized [id number] Closed 08/01/2020 08/01/2021 1 1 Encounter Details Date Type Department Care Team Description 08/27/2020 Hospital Encounter Department of Jani Melgoza Breast Ductal Radiation Oncology [place] In Situ Right in [place], [address] [place], [place] [address] [facility] [address] [place], [place] [phone] (Work) [phone] Social History Tobacco Use Types Packs/Day Years [...] planning. CT images were transferred to the [facility] treatment planning system, after a reference isocenter was determined and marked. Segmentation and treatment planning will take place priorto treatment delivery. Patient set up and imaging was appropriate and completed without incident. TING SUPERVISOR documented in this encounter Plan of Treatment Upcoming Encounters Date Type Specialty Care Team Description 06/29/2022 Virtual Visit Infectious Diseases Sa pat Villafana, P.A. [address] [place], [place] [address] (Wo rk) documented as of this encounter Procedures Procedure Name Priority Date/Time Associated Comments Diagnosis INITIAL RAD ONC Routine 08/27/2020 9:00 AM Cancer Breast Resul ts for this TREATMENT PLANNING PAINTING SUPERVISOR Ductal In Situ procedu re are in CT SIMULATION Right the results section. documented in this encounter Results Initial Rad Onc Treatment Planning CT Simulation (08/27/2020 9:00 AM PAINTING SUPERVISOR) Specimen (Source) Anatomical Location Collection Method / Collectio n Time Received Time / Laterality Volume Narrative ARMANDO BURGESS - 08/27/2020 9:00 AM PAINTING SUPERVISOR Kimberlee Serrano, RTT ? 08/27/2020 ??9:55 AM Initial Rad Onc Treatment Planning CT Si mulation Date/Time: 08/27/2020 9:55 AM Performed by: Jani Melgoza M.D. Authorized by: Jani Melgoza M.D. Jani Melgoza M.D. RADIATION ONCOLOGY ORDERABLE S Performing Organization Address City/State/ZIP Code Phon e Number [facility] na documented in this encounter Visit Diagnoses Diagnosis Cancer Breast Ductal In Situ Right documented in this encounter
--- OUTSIDE RECORDS SUMMARY | 2022-06-26 09:07 | XMS_ITS | Encounter Summary ---
:1965 Author Organization [facility] Address [address] [place] [address] Care Team Providers Name Role Phone Unavailable Primary Care Provider Unavailable Reason for Visit Reason Comments review records Encounter Details Date Type Department Care Team Description 05/11/2022 Clinical Communication Section of Providerdanelle records Infectious Diseases Unknown in [place], [place] [address] [place] [address] Social History Tobacco Use Types Packs/Day Years [...] - 05/12/2022 9:20 AM CDT Fran Campa [id number] 1965 Who filled out form: Patient Who requested evaluation: Other provider Reason evaluation was requested: I was hospitalized on March 31 and diagnosed with Osteomyelitis. I was discharged on April 04 and started IV antibiotics (Cefepime and Daptomycin) two times a day at home. I have had blood drawn weekly followed by an appointment with my primary care person, shai Jimenes at the [facility]. The lab reports were showing that my [...] AVAILABLE ANYTIME Dates to avoid scheduling: PHONE: [phone] AGREE? I have read the Medical Emergency directions as noted above., I have read the Infectious Diseases Consultation Model of Care as noted above and agree to the process outlined. documented in this encounter Plan of Treatment Upcoming Encounters Date Type Specialty Care Team Description 06/29/2022 Virtual Visit Infectious Diseases Sa pat Villafana, P.A. [address], [place] [address] (Wo rk) documented as of this encounter Visit Diagnoses Not on filedocumented in this encounter
--- OUTSIDE RECORDS SUMMARY | 2022-06-26 09:07 | XMS_ITS | Encounter Summary ---
:1965 Author Organization [facility] Address [address] [place] [address] Care Team Providers Name Role Phone Unavailable Primary Care Provider Unavailable Reason for Referral Outpatient (Routine) - Authorized Specialty Diagnoses / Procedures Referred By Contact Refer red To Contact Infectious Diseases Diagnoses Osteomyelitis Of Vertebra Thoracic Region (HCC) Ariadna Villafana P.A. [facility] [address] [place] [address] Referral ID Status Reason Start Date Expiration Date Visits V isits Requested Authorized [id number] Authorized 05/01/2022 05/01/2023 1 1 Encounter Details Date Type Department Care Team Description 05/01/2022 Community [facility] Camilla Villafana omyelitis Of AND CLINICS Prachi Rosenthal Vertebra Thoracic [address] [facility] [address] [facility] ([facility]) ([place] [address] W Dx) [phone] [place], [place] [id number] Social History Tobacco Use Types Packs/Day Years Used Date Smoking Tobacco: Never Assessed Sex Assigned at Date Recorded Not on file documented as of this encounter Plan of Treatment Upcoming Encounters Date Type Specialty Care Team Description 06/29/2022 Virtual Visit Infectious Diseases Sa pat Villafana P.A. [address] [place], [place] [address] (Wo rk) Scheduled Referrals Name Type Priority Associated Diagnoses Order S yayo Orthopedics Referral Outpatient Referral Routine Osteomyelitis Of Expected: Vertebra Thoracic 05/01/2022 Region ([facility]) (Approximate), Expires: 08/01/2023 documented as of this encounter Visit Diagnoses Diagnosis Osteomyelitis Of Vertebra Thoracic Regio n ([facility]) - Primary documented in this encounter
--- OUTSIDE RECORDS SUMMARY | 2022-06-26 09:07 | XMS_ITS | Encounter Summary ---
:1965 Author Care Team Providers Name Role Phone Ariadna Villafana Pac Referring Provider [phone] Reason for Visit None recorded. Assessment and [...] recorded. ? ? Lab Urinalysis, Dipstick 04/16/2022 [facility] Referral Patient Navigator Referral 04/16/2022 ? [...] FOR PA IN Vitamin D ? take 22796 U per day Medications Administered None recorded. Vitals Height Weight BMI 5 ft 8 in 236 lbs 35.9 kg/m2 Results Lab Results Date Name Specimen Result Interpretation Description Value Range Status Address ? 04/16/2022 Urinalysis, UR ? Color yellow yellow Final [place] Dipstick [facility]: [address] [place] [address] ? ? UR ? Appearance clear clear Final [place] [facility]: [address] [place] [address] ? ? UR ? Glucose negative negative Final [place] [facility] mg/dL mg/dL [facility]: [address] ? ? UR ? Bilirubin negative negative Final [place] [facility]: [address] ? ? UR ? Ketones negative negative Final [place] [facility] mg/dL mg/dL [facility]: [address] [place] [address] ? ? UR ? Sp. Rubicon 1.020 1.010-1.0 Final [place] [facility] 25 [facility]: [address] ? ? UR ? pH -[facility] 7.0 5.0-8.0 Final [place] [facility]: [address] ? ? UR ? Protein negative negative Final [place] [facility] mg/dL mg/dL [facility]: [address] ? ? UR ? Urobilinogen 0.2 normal Final [place] [facility]: [address] [place] [address], [place] ? ? UR ? Nitrites negative negative Final [place] [facility]: [address] [address], [place] ? ? UR ABNORMAL Blood trace negative Final [place] seed [place] [facility]: [address] [facility] [address], [place] ? ? UR ? Leukocytes negative negative Final [place] [facility]: [address], [place] ? ? UR ? Performed by bandar Vogt ? Final [place] [facility]: [address] [facility] [address], [place] ? ? UR ? Total Urine 50 /mL ? Final [place] Volume (mL) [facility]: [address], [place] Allergies Code Code System Name Reaction Severity [...] formulation 06/20/2021 06/20/2021 06/26/2021 06/27/2021 07/21/2021 novel [id number], all formulation s 10/28/2009 Social History Tobacco Smoking Status Never Smoker Has tobacco cessation counseling been provided? N Are you currently employed? Y Could you be ? N Preferred Language Burundian How much tobacco do you chew? none [...] Encounters 04/16/2022 Overactive Bladder ANGELA Gutierrez: [address] [facility], [address], [place] [address], Ph. History of Present Illness Note: <div>04/16/22:</div><div>Patient [...]
--- OUTSIDE RECORDS SUMMARY | 2022-06-26 09:07 | XMS_ITS | Encounter Summary ---
:1965 Author Organization [facility] Address [address] [place] [address] Care Team Providers Name Role Phone Unavailable Primary Care Provider Unavailable Reason for Referral Radiation Therapy (Routine) - Closed Specialty Diagnoses / Procedures Referred By Contact Refer red To Contact Radiation Oncology Diagnoses Cancer Breast Ductal In Situ Right Jani Melgoza [facility] Nfrt Procedures Prior Auth Rad Tx MI RADTN TX DEL >=1 MEV [facility] [place] [address] [place] [phone] Referral ID Status Reason Start Date Expiration Date Visits Requ ested Visits Authorized [id number] Closed 08/26/2020 08/01/2021 15 15 CIENCES PROFESSOR Radiation Therapy (Routine) - Closed Specialty Diagnoses / Procedures Referred By Contact Refer red To Contact Diagnoses Cancer Breast Ductal In Situ Right Jani Melgoza M.D. [facility] Procedures Initial Rad Onc Treatment Planning CT Simulation [address] [place] [address] Referral ID Status Reason Start Date Expiration Date Visits Requ ested Visits Authorized [id number] Closed 08/01/2020 08/01/2021 1 1 CIENCES PROFESSOR Reason for Visit Appointment Request (Routine) - Closed Specialty Diagnoses / Procedures Referred By Contact Refer red To Contact Radiation Oncology Diagnoses Breast Cancer (Primary) NOS Pato, Katsiaryna, M.D. [address] [place] [address] Referral ID Status Reason Start Date Expiration Date Visits Requ ested Visits Authorized [id number] Closed 07/24/2020 07/24/2021 1 1 Encounter Details Date Type Department Care Team Description 08/01/2020 Hospital Encounter Department of Jani Melgoza Breast Ductal Radiation Oncology [place] In Situ Right in [place], [facility] [address] (Primary Dx) [place], [place] [address] [facility] [address] [place], [place] [phone] [address] (Work) [phone] Social History Tobacco Use Types Packs/Day Years Used Date Smoking Tobacco: Never Assessed Sex Assigned at Date Recorded Not on file documented as of this encounter Last Filed Vital Signs Vital Sign Reading Time Taken Comments Blood Pressure 147/81 08/01/2020 12:55 PM GEOSCIENCES PROFESSOR Pulse 74 08/01/2020 12:55 PM GEOSCIENCES PROFESSOR Temperature 36.2 ??C (97.1 ??F) 08/01/2020 12:55 PM GEOSCIENCES PROFESSOR Respiratory Rate - - Oxygen Saturation - - Inhaled Oxygen Concentration - - Weight 118 kg (259 lb 7.7 oz) 08/01/2020 12:55 PM GEOSCIENCES PROFESSOR Height 169 cm (5' 6.54) 08/01/2020 12:55 PM GEOSCIENCES PROFESSOR Body Mass Index 41.21 08/01/2020 12:55 PM GEOSCIENCES PROFESSOR documented in this encounter Medications at Time [...] 18, 2020 SOCIAL HISTORY She lives in [place], [place]. She is to her , Joey. 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 She has 2 adult children, a son [...] 0 (pTis (DCIS), pN0(sn), cM0, G3, ER+, MI: Not Assessed, HER2: Not Assessed) right ductal [...] by: Jani Melgoza M.D. 08/01/2020 3:02 PM [facility] Radiation Oncology [facility] Therapy Center [address] [place] [address] CIENCES PROFESSOR documented in this encounter Miscellaneous Notes Addendum Note - Karlie Nowak - 08/01/2020 1:00 PM GEOSCIENCES PROFESSOR Encounter addended by: Karlie Nowak on: 08/02/2020 7:38 AM Actions taken: Letter saved CIENCES PROFESSOR documented in this encounter Plan of Treatment Upcoming Encounters Date Type Specialty Care Team Description 06/29/2022 Virtual Visit Infectious Diseases Sa pat Villafana, P.A. [address] [place] [address] (Wo rk) Scheduled Orders Name Type Priority Associated Diagnoses Order S chedule Prior Auth Rad Tx Radiation Oncology Routine Cancer Breast Armin dez Ordered: 08/01/2020 In Situ Right documented as of this encounter Results Initial Rad Onc Treatment Planning CT Simulation (08/27/2020 9:00 AM GEOSCIENCES PROFESSOR) Specimen (Source) Anatomical Location Collection Method / Collectio n Time Received Time / Laterality Volume Narrative ARMANDO BURGESS - 08/27/2020 9:00 AM GEOSCIENCES PROFESSOR Kimberlee Serrano, RTT ? 08/27/2020 ??9:55 AM Initial Rad Onc Treatment Planning CT Si mulation Date/Time: 08/27/2020 9:55 AM Performed by: Jani Melgoza M.D. Authorized by: Jani Melgoza M.D. Jani Melgoza M.D. RADIATION ONCOLOGY ORDERABLE S Performing Organization Address City/State/ZIP Code Phon e Number [facility] na documented in this encounter Visit Diagnoses Diagnosis Cancer Breast Ductal In Situ Right - [facility] Cancer Breast Ductal In Situ Right documented in this encounter
--- OUTSIDE RECORDS SUMMARY | 2022-06-26 09:07 | XMS_ITS | Encounter Summary ---
:1965 Author Organization [facility] Address [address] [place] [address] Care Team Providers Name Role Phone Unavailable Primary Care Provider Unavailable Reason for Referral Outpatient (Routine) - Closed Specialty Diagnoses / Procedures Referred By Contact Refer red To Contact Radiation Oncology Jani Melgoza M .D. [facility] Region [address] [place] [address] Referral ID Status Reason Start Date Expiration Date Visits Requ ested Visits Authorized [id number] Closed 08/22/2020 08/22/2021 1 1 URE FRAMER Encounter Details Date Type Department Care Team Description 08/22/2020 Orders Only Department of Radiation Jani Melgoza , Oncology in [place] [facility] [address] [facility] [address] [place] [phone] [phone] (Fartun lazo) Social History Tobacco Use Types Packs/Day Years Used Date Smoking Tobacco: Never Assessed Sex Assigned at Date Recorded Not on file documented as of this encounter Plan of Treatment Upcoming Encounters Date Type Specialty Care Team Description 06/29/2022 Virtual Visit Infectious Diseases Sa pat Villafana, P.A. [address] [place], [place] [address] (Fartun rk) Scheduled Referrals Name Type Priority Associated Diagnoses Order S chedule Radiation Oncology Outpatient Referral Routine Ex pected: office visit 08/22/2020 (clinic) (Approximate), Expires: 08/22/2021 documented as of this encounter Visit Diagnoses Not on filedocumented in this encounter
--- OUTSIDE RECORDS SUMMARY | 2022-06-26 09:07 | XMS_ITS ---
:1965 Author Care Team Providers Name Role Phone MOIZ CONN PAC Referring Provider [phone] Allergies Code Code System Name Reaction Severity [...] Vitamin D Active ? [place] take 57381 U per day Problems Name Status Onset [...] -[facility]: [address] ? ? UR ? Appearance clear clear Final [place] -[facility]: [address] ? ? UR ? Glucose negative negative Final [place] -[facility] mg/dL mg/dL [facility]: [address] ? ? UR ? Bilirubin negative negative Final [place] [facility]: [address] ? ? UR ? Ketones negative negative Final [place] -[facility] mg/dL mg/dL [facility]: [address] ? ? UR ? Sp. [place] 1.020 1.010-1.0 Final [place] -[facility] 25 [facility]: [address] ? ? UR ? pH -[facility] 7.0 5.0-8.0 Final [place] [facility]: [address] ? ? UR ? Protein negative negative Final [place] -[facility] mg/dL mg/dL [facility]: [address] ? ? UR ? Urobilinogen 0.2 normal Final [place] -[facility]: [address] ? ? UR ? Nitrites negative negative Final [place] -[facility]: [address] [address], [place] ? ? UR ABNORMAL Blood trace negative Final [place] -[facility]: [address] ? ? UR ? Leukocytes negative negative Final [place] -[facility]: [address] [address], [place] ? ? UR ? Performed by bandar Vogt ? Final [place] [facility]: [address] [address], [place] ? ? UR ? Total Urine 50 /mL ? Final [place] Volume (mL) [facility]: [address] [address], [place] 04/16/2022 Urinalysis, ? U-WBC 0 - 2 [hpf] 0 - 2 Fin al [place] Microscopic [hpf] [facility]: [address] [address], [place] ? ? ? U-RBC 0 - 2 [hpf] 0 - 2 Final [place] [hpf] [facility]: [address] [address], [place] ? ? ABNORMAL Bacteria small [hpf] negative Final [place] [hpf] [facility]: [address] [address], [place] ? ? ? Squamous Epi negative negative, Final [place] /lpf small Urology - /lpf [facility]: [address] [address], [place] 03/13/2022 Urinalysis, UR ? Color-status yellow yellow F inal [place] Dipstick [facility]: [address] [address], [place] ? ? UR ? Clarity-stat clear clear Final Min [facility]: [address] [address], [place] ? ? UR ? Glucose-stat negative negative Final [place] us mg/dL mg/dL [facility]: [address] ? ? UR ? Bilirubin-ur negative negative Final [place] ine [facility]: [address] [address], [place] ? ? UR ? Ketones-stat negative negative Final [place] us mg/dL mg/dL [facility]: [address] ? ? UR ? SG-status 1.020 1.00-1.03 Final Min [facility]: [address] [address], [place] ? ? UR ? pH-status 6.5 5.00-8.00 Final Min [facility]: [address] [address], [place] ? ? UR ? Protein-stat negative negative Final [place] us mg/dL mg/dL [facility]: [address] [facility] [address], [place] ? ? UR ? Urobilinogen 0.2 E.U./dL 0.2 Final [place] -status E.U./dL E.U./dL Urology - E.U./dL [facility]: [address] [facility], [place] ? ? UR ? Nitrites-sta negative negative Final [facility]: [address] [address], [place] ? ? UR ABNORMAL Blood-urine trace-intact negative F inal [place] [facility]: [address] [address], [place] ? ? UR ABNORMAL Leuko-status trace negative Final [place] [facility]: [address] [address], [place] ? ? UR ? Specimen voided ? Final [place] [facility] - [facility]: [address] [address], [place] ? ? UR ? Performed by negra Gonzalez ? Final [place] [facility]: [address] [address], [place] ? ? UR ? Total Urine 15 /mL ? Final [place] Volume (mL) [facility]: [address] [address], [place] 12/04/2021 Urinalysis, UR ? Color-status yellow yellow F inal [place] Dipstick [facility]: [address] [address], [place] ? ? UR ? Clarity-stat clear clear Final Min [facility]: [address] [address], [place] ? ? UR ? Glucose-stat negative negative Final [place] us mg/dL mg/dL [facility]: [address] [address], [place] ? ? UR ? Bilirubin-ur negative negative Final [facility]: [address] [address], [place] ? ? UR ? Ketones-stat negative negative Final [facility] mg/dL mg/dL [facility]: [address] [address], [place] ? ? UR ? SG-status 1.015 1.00-1.03 Final Min [facility]: [address] [address], [place] ? ? UR ? pH-status 6.0 5.00-8.00 Final Min [facility]: [address] [address], [place] ? ? UR ? Protein-stat negative negative Final [place] us mg/dL mg/dL [facility]: [address] [address], [place] ? ? UR ? Urobilinogen 0.2 E.U./dL 0.2 Final [place] -status E.U./dL E.U./dL Urology - E.U./dL [facility]: [address] [address], [place] ? ? UR ? Nitrites-sta negative negative Final [facility]: [address] [address], [place] ? ? UR ABNORMAL Blood-urine trace-intact negative F inal [place] [facility]: [address] [address], [place] ? ? UR ABNORMAL Leuko-status small negative Final [place] [facility]: [address] [address], [place] ? ? UR ? Specimen voided ? Final [place] [facility]: [address] [address], [place] ? ? UR ? Performed by negra Gonzalez ? Final [place] [facility]: [address] [address], [place] ? ? UR ? Total Urine 30 /mL ? Final [facility] [place] Volume (mL) [facility]: [address] 10/30/2021 Urinalysis, UR ? Color-status yellow yellow F inal [place] Dipstick [facility]: [address] [address], [place] ? ? UR ? Clarity-stat clear clear Final Min [facility]: [address] [address], [place] ? ? UR ? Glucose-stat negative negative Final [place] us mg/dL mg/dL [facility]: [address] [address], [place] ? ? UR ? Bilirubin-ur negative negative Final [facility]: [address] [address], [place] ? ? UR ? Ketones-stat negative negative Final [place] us mg/dL mg/dL [facility]: [address] [address], [place] ? ? UR ? SG-status 1.020 1.00-1.03 Final Min [facility]: [address] [address], [place] ? ? UR ? pH-status 7.0 5.00-8.00 Final [facility] [address] [address], [place] ? ? UR ? Protein-stat negative negative Final [place] us mg/dL mg/dL [facility]: [address] [address], [place] ? ? UR ? Urobilinogen 0.2 E.U./dL 0.2 Final [place] -status E.U./dL E.U./dL Urology - E.U./dL [facility]: [address] [address], [place] ? ? UR ? Nitrites-sta negative negative Final [facility]: [address] [address], [place] ? ? UR ABNORMAL Blood-urine trace-intact negative F inal [place] [facility]: [address] [address], [place] ? ? UR ? Leuko-status negative negative Final [place] [facility]: [address] [address], [place] ? ? UR ? Specimen voided ? Final [place] Type [facility]: [address] [address], [place] ? ? UR ? Performed by negra Gonzalez ? Final [place] [facility]: [address] ? ? UR ? Total Urine 30 /mL ? Final [place] Volume (mL) [facility]: [address] 09/25/2021 Urinalysis, UR ? Color-status yellow yellow F inal [place] Dipstick [facility]: [address] [address], [place] ? ? UR ? Clarity-stat clear clear [facility] [address] [address], [place] ? ? UR ? Glucose-stat negative negative Final [place] us mg/dL mg/dL [facility]: [address] ? ? UR ? Bilirubin-ur negative negative Final [place] ine [facility]: [address] [address], [place] ? ? UR ? Ketones-stat negative negative Final [place] us mg/dL mg/dL [facility]: [address] ? ? UR ? SG-status 1.025 1.00-1.03 Final Min [facility]: [address] [address], [place] ? ? UR ? pH-status 7.0 5.00-8.00 Final [place] [facility]: [address] [address], [place] ? ? UR ? Protein-stat negative negative Final [facility] mg/dL mg/dL [facility]: [address] [address], [place] ? ? UR ? Urobilinogen 0.2 E.U./dL 0.2 Final [place] -status E.U./dL E.U./dL Urology - E.U./dL [facility]: [address] [address], [place] ? ? UR ? Nitrites-sta negative negative Final [facility]: [address] [address], [place] ? ? UR ABNORMAL Blood-urine trace-intact negative F inal [place] [facility]: [address] [address], [place] ? ? UR ABNORMAL Leuko-status trace negative Final [place] [facility]: [address] ? ? UR ? Specimen catheterized ? Final [place] [facility] - [facility]: [address] ? ? UR ? Performed by negra Gonzalez ? Final [place] [facility]: [address] ? ? UR ? Total Urine 30 /mL ? Final [place] Volume (mL) [facility]: [address] 05/19/2021 Urinalysis, UR ? Color yellow yellow Final [place] -[facility]: [address] ? ? UR ? Appearance clear clear Final [place] -[facility]: [address] ? ? UR ? Glucose negative negative Final [place] -[facility] mg/dL mg/dL [facility]: [address] ? ? UR ? Bilirubin negative negative Final [place] [facility]: [address] ? ? UR ? Ketones negative negative Final [place] [facility] mg/dL mg/dL [facility]: [address] ? ? UR ? Sp. [place] 1.020 1.010-1.0 Final [place] -[facility] 25 [facility]: [address] [address], [place] ? ? UR ? pH -[facility] 6.5 5.0-8.0 Final [place] [facility]: [address] [facility] [address], [place] ? ? UR ? Protein negative negative Final [place] -[facility] mg/dL mg/dL [facility]: [address] [facility] [address], [place] ? ? UR ? Urobilinogen 0.2 normal Final [place] -[facility]: [address] [facility] [address], [place] ? ? UR ? Nitrites negative negative Final [place] -[facility]: [address] [facility] [address], [place] ? ? UR ? Blood negative negative Final [place] -[facility]: [address] [facility] [address], [place] ? ? UR ? Leukocytes negative negative Final [place] [facility]: [address] [facility] [address], [place] ? ? UR ? Performed by negra Russo ? Final [place] [facility]: [address] [facility] [address], [place] ? ? UR ? Total Urine 60 /mL ? Final [place] Volume (mL) [facility]: [address] [facility] [address], [place] Past Encounters 04/16/2022 Overactive Bladder ANGELA Gutierrez: [address] [facility], [facility] [address], [place] [address], Ph. 03/13/2022 Overactive Bladder Lisa Reardon MD: [address], [address] [address], Ph. 12/04/2021 Overactive Bladder Lisa Reardon MD: [address] [facility], [facility] [address] [address], Ph. 10/30/2021 Urinary Incontinence; Urge Incontinence of Urine; Nocturia Lisa Reardon MD: [address] , [address], [place] [address], Ph. 09/25/2021 Urinary Incontinence; Urge Incontinence of Urine; Nocturia Lisa Reardon MD: [address], [place] [address], Ph. 08/12/2021 Urinary Incontinence; Midline Cystocele Miley Johnson, PA: [address] [facility], [address], [place] [address], Ph. 07/01/2021 Urinary Incontinence Miley Johnson PA: [address] [facility], [address], [place] [address], Ph. 05/19/2021 Urinary Incontinence Miley Johnson PA: [address] [place] [address], [address], [place] [address], Ph. Social History Tobacco Smoking Status Never [...] formulation 06/20/2021 06/20/2021 06/26/2021 06/27/2021 07/21/2021 novel [id number], all formulation s 10/28/2009 Plan of Care [...]
--- OUTSIDE RECORDS SUMMARY | 2022-06-26 09:07 | XMS_ITS | Encounter Summary ---
:1965 Author Organization [facility] Address [address] [place] [address] Care Team Providers Name Role Phone Unavailable Primary Care Provider Unavailable Encounter Details Date Type Department Care Team Description 09/06/2020 Hospital Encounter Department of Radiation Lisa Melgoza, Oncology in [facility] [address] [facility] [address] [place] [address] [phone] Social History Tobacco Use Types Packs/Day Years [...] Visit Infectious Diseases Sa pat Villafana, P.ADarrius [address] [place], [place] [address] (Wo rk) documented as of this encounter Visit Diagnoses Not on filedocumented in this encounter
[2022-06-26 12:48] LABS: Albumin* 4.3 g/dL (3.3-5.0); Chloride* 102 mmol/L (96-114); Sodium* 138 mmol/L (135-149)
[2022-06-26 12:49] LABS: Potassium* 4.5 mmol/L (3.6-5.1)
[2022-06-26 12:51] LABS: Creatinine* 0.8 mg/dL (0.5-1.5); Estimated Glomerular Filt Rate 86 ml/min
[2022-06-26 12:52] LABS: Alanine Aminotransferase* 27 U/L (4-35); Alkaline Phosphatase* 99 U/L (40-150); Aspartate Amino Transferase* 28 U/L (12-35); Bilirubin Total* 0.4 mg/dL (0.1-1.5); Blood Urea Nitrogen* 17 mg/dL (7-30); Calcium* 9.4 mg/dL (8.4-10.6); Carbon Dioxide* 27 mmol/L (20-32); Creatine Kinase* 104 U/L (41-117); Glucose* 148 mg/dL (60-115); Total Protein* 6.3 g/dL (6.0-8.3)
[2022-06-26 12:54] LABS: C Reactive Protein* 0.8 mg/dL (0.5-1.0)
== END 2022-06-26 18:09 | disposition home or self-care (01) ==
PROVIDERS: PCP Physician Assistant Medical; Visit Provider Physician Assistant Medical
DX: M46.24 Osteomyelitis of vertebra, thoracic region (principal)
CPT/HCPCS: 80053; 82550; 86140; 87086

== ENCOUNTER 2022-08-06 13:44 | Outpatient (CLI) | payer BC, SELFPAY ==
--- NOTE | 2022-08-06 13:45 | CRLHL7_ITS ---
For Patients: As a result of the Century Cures Act, medical imaging exams and procedure reports are released immediately into your electronic medical record. You may view this report before your referring provider. If you have questions, please contact your health care provider. 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 The patient also had history of ADH and ALH. She also had reduction mammoplasty. INDICATION FOR BREAST MRI: Screening breast MRI in this high-risk woman. COMPARISON STUDIES: MRI 06/06/2021, mammogram 12/31/2021. CONTRAST: 20 mL Dotarem. TECHNIQUE: The patient was positioned prone using a breast coil. Multiple imaging sequences were obtained using 1-1.5 mm thick slices with no gap. The image sequences include T2-weighted STIR in the axial plane, T1-weighted nonfat-saturated gradient echo in the axial plane, pre- and post-contrast T1-weighted FLASH 3D with fat suppression in the axial plane, and T1-weighted FLASH high-resolution 3D with fat suppression in the sagittal plane. Image post-processing was performed on a [employer] workstation. Complex 3D rendering including maximum intensity projections (MIPS) and volumetric renderings were obtained to optimize visualization of the extent of pathology and relationship to the nipple, skin, and chest wall. This aids in determining feasibility of breast conservation surgery. Subtraction, multiplanar reconstruction, mean curve determination, and angiogenesis mapping were also performed. The study was technically adequate. FINDINGS: Amount of Fibroglandular Tissue: Scattered fibroglandular tissue. Breast Background Enhancement: Mild. RIGHT and LEFT Breast: Post-treatment changes of the RIGHT breast. No suspicious mass or mass enhancement in either breast. Lymph Nodes: No morphologically abnormal axillary lymph nodes or internal mammary lymph nodes. IMPRESSIONS AND RECOMMENDATIONS: Post-treatment changes RIGHT breast. No suspicious findings in either breast. No morphologically abnormal axillary lymph nodes or internal mammary lymph nodes. Recommend continued yearly screening mammography. If screening MRIs are felt to be indicated, recommend these be offset at six-month intervals with screening mammogram. BI-RADS: BI-RADS Category 2: Benign Mame Hensley M.D. Diagnostic/Breast Radiologist [email or web address] DENYS/Dictated by: Mame Hensley MD @ 08/07/2022 10:11:00 AM DENYS/Dictated by: Mame Hensley MD @ 08/07/2022 10:11:00 AM (Electronically Signed)
--- OUTSIDE RECORDS SUMMARY | 2022-08-06 13:48 | XMS_ITS | Encounter Summary ---
:1965 Author Organization [facility] Address [address] [place] [address] Care Team Providers Name Role Phone Unavailable Primary Care Provider Unavailable Reason for Referral Outpatient (Routine) - Closed Specialty Diagnoses / Procedures Referred By Contact Refer red To Contact Video Medicine Diagnoses Osteomyelitis Of Vertebra Thoracic Region (HCC) Kevin Ken M.D. [facility] [place] [address] [place] [address] Referral ID Status Reason Start Date Expiration Date Visits Requ ested Visits Authorized [id number] Closed 06/29/2022 06/29/2023 1 1 Reason for Visit Outpatient (Routine) - Closed Specialty Diagnoses / Procedures Referred By Contact Refer red To Contact Infectious Diseases Diagnoses Osteomyelitis Of Vertebra Thoracic Region (HCC) Ariadna Villafana PMarilyn [facility] [place] [address] [place] [address] Referral ID Status Reason Start Date Expiration Date Visits Requ ested Visits Authorized [id number] Closed 05/01/2022 05/01/2023 1 1 Encounter Details Date Type Department Care Team Description 06/29/2022 Virtual Visit Section of Infectious Ariadna Villafana, PMarilyn [address] [place] [address] Cancer Breast Ductal In Situ Right (Prim antonette Dx); Diseases in Kevin Ken M.D. [address] [place] [address] Osteomyelitis Of Vertebra Thoracic Regio n ([facility]) [place], [place] [address] [place] [phone] Social History Tobacco Use Types Packs/Day Years Used Date Smoking Tobacco: Never Assessed Alcohol Habits Answer Date Recorded How often do you have a drink containing alcohol? 2-3 times a week 06/29/2022 How many drinks containing alcohol do you have on a 3 or 4 06/29/2022 typical day when you are drinking? How often do you have six or more drinks on one Monthly 06/29/2022 occasion? Social Isolation Answer Date Recorded In a typical week, how many times do you More than three prateek es a week 06/29/2022 talk on the phone with family, friends, or neighbors? How often do you get together with friends Once a week 06/29/2022 or relatives? How often do you attend christian or Never 2021 alevism services? Do you belong to any clubs or Yes 06/29/2022 organizations such as christian groups, unions, fraternal or athletic groups, or school groups? How often do you attend meetings of the More than 4 times r year 06/29/2022 clubs or organizations you belong to? Are you now , , , 06/29/2022 , never or living with a partner? Physical Activity Answer Date Recorded On average, how many days per week do you engage in moderate to 5 days 06/29/2022 strenuous exercise (like walking fast, running, jogging, dancing, swimming, biking, or other activities that cause a light or heavy sweat)? On average, how many minutes do you engage in exercise at th is 20 min 06/29/2022 level? Stress Answer Date Recorded Do you feel stress - tense, restless, nervous, or To some ex tent 06/29/2022 anxious, or unable to sleep at night because your mind is troubled all the time - these days? Financial Resource Strain Answer Date Recorded How hard is it for you to pay for the very basics like Not h demarco at all 06/29/2022 food, housing, medical care, and heating? Intimate Partner Violence Answer Date Recorded Within the last year, have you been afraid of your partner o r No 06/29/2022 ex-partner? Within the last year, have you been humiliated or emotionall y No 06/29/2022 abused in other ways by your partner or ex-partner? Within the last year, have you been kicked, hit, slapped, or No 06/29/2022 otherwise physically hurt by your partner or ex-partner? Within the last year, have you been raped or forced to have any No 06/29/2022 kind of sexual activity by your partner or ex-partner? Food Insecurity Answer Date Recorded Within the past 12 months, you worried that your food would Never true 06/29/2022 run out before you got money to buy more. Within the past 12 months, the food you bought just didn't N ever true 06/29/2022 last and you didn't have money to get more. Transportation Needs Answer Date Recorded In the past 12 months, has lack of transportation kept you f rom No 06/29/2022 medical appointments or from getting medications? In the past 12 months, has lack of transportation kept you f rom No 06/29/2022 meetings, work, or getting things needed for daily living? Housing Stability Answer Date Recorded In the last 12 months, was there a time when you were not ab le No 06/29/2022 to pay the mortgage or rent on time? In the last 12 months, how many places have you lived? 1 06/29/2022 In the last 12 months, was there a time when you did not hav e a No 06/29/[address] or slept in a half-way (including now)? Education Answer Date Recorded What is the highest level of school Bachelor's degree (e.g., BA, AB, 06/29/2022 you have completed or the highest BS) degree you have received? Sex Assigned at Date Recorded Female 06/29/2022 8:39 AM CDT documented as of this encounter Progress Notes Kevin Ken M.D. - 06/29/2022 10:30 AM CDT Caller is: patient Provider: Patient Care Team: Ariadna Villafana P.A. as Physician Hand Baseball Sewer (Physician Hand Baseball Sewer) Reason for call:No chief complaint on file. This was a scheduled phone call with the patient. The patient is a 56-year-old female who has a pastmedical history significant for stage I breast cancer status post mastectomy, hypertension, and hyperlipidemia. Patient was in her usual state of health until March of 2022 when she developed progressive midback pain. A CT scan of the abdomen and pelvis revealed the presence of T7-T8 destructive process. No biopsy was obtained but patient was treated with an empiric course of cefepime and daptomycin [facility] 6 [facility]. Noted the history of a Pseudomonas urine infection. The pain improved onantimicrobial therapy on May 13 patient was transition to a combination of oral Bactrim and cefadroxil that she finished on June 26. Patient stated that overall her pain is much improved. However over the last 2 weeks she has experienced some mild increase and the pain on the right side of her mid back. This pain is improved the last few days. Pain is described as dull. No associated fevers or chills. Minimal night sweats. No other neurologic symptoms. Weight has been stable. Patient did undergo 2 follow-up MRIs 1 in April of 2022 and the other is in June of 2022. Both of revealed somemild progression of the bony changes and erosion between T7 and T8. Patient CRP that was performed in March was elevated at 14. This most recent CRP performed last week was 0.8. Advice/Action: At this moment we can g continue to observe off any antimicrobial therapy. Patient is to watch her back pain and for any signs or symptoms that may be associated with recurrence of the infectious process. It is possible that the changes seen on the MRI may be just lagging in nature. For that I think we can observe over the next 6 weeks and repeat a CBC, sed rate, and CRP. Next steps 1. Obtain the MRI that was performed in April and June and have those reviewed by our Radiology colleagues in house. I will connect with our [facility] office 2. Scheduled a telemedicine follow-up visit with Ortho ID in 6 weeks from now 3. Patient's will obtain repeat laboratory testing to include a CRP sed rate and CBC in about 6 weeks and prior to the anticipated telemedicine follow-up visit. 4. If they are still ongoing concerns for and untreated or partially treated infectious process, we will need to consider a CT-guided aspirate of the T7-T8 area and [place]. 5. Patient verbalized understanding of this plan and agreement to proceed. All questions were answered to the patient's satisfaction. Anticipated call back:other (instructions in additional information) Will scheduled a follow-up phone visit in 6 weeks from now Best phone number to call back:[phone] (mobile) Patient pharmacy: [id number] - [place], [place] - [address] [place] [address] Additional instructions: Answers submitted by the patient for this visit: General Review of Symptoms (Submitted on 06/29/2022) Fatigue: Yes Night sweats: Yes Visual problems: Yes No ENT issues: Yes No heart issues: Yes Shortness of breath: Yes No GI issues: Yes Back pain/stiffness: Yes No skin issues: Yes No neurologic issues: Yes Change in sexual drive (decreased libido): Yes Loud snoring: Yes Little interest or pleasure in doing things: Yes Feeling down, depressed, or hopeless: Yes Feeling nervous, anxious or on edge: Yes Bruises/bleeds easily: Yes Frequent urination: Yes Urgency: Yes Incontinence (urine leakage): Yes documented in this encounter Plan of Treatment Scheduled Referrals Name Type Priority Associated Diagnoses Order S chedule Video anyplace Outpatient Referral Routine Osteomyelitis Of Ex pected: visit Vertebra Thoracic 08/03/2022 , Region ([facility]) Expires: 09/29/2023 documented as of this encounter Visit Diagnoses Diagnosis Cancer Breast Ductal In Situ Right - Nicky monico Osteomyelitis Of Vertebra Thoracic Regio n ([facility]) documented in this encounter
--- OUTSIDE RECORDS SUMMARY | 2022-08-06 13:48 | XMS_ITS | Encounter Summary ---
:1965 Author Organization [facility] Address [address] [place] [address] Care Team Providers Name Role Phone Unavailable Primary Care Provider Unavailable Reason for Visit Reason Comments review records Encounter Details Date Type Department Care Team Description 05/11/2022 Clinical Communication Section of Providerdanelle records Infectious Diseases Unknown in [place], [place] [address] [place] [address] Social History Tobacco Use Types Packs/Day Years [...] or relatives? How often do you attend quaker or Never 2021 pentecostal services? Do you belong to any clubs or Yes 06/29/2022 organizations such as quaker groups, unions, fraternal or athletic groups, or school groups? How often do you attend meetings of the More than 4 times pe r year 06/29/2022 clubs or organizations you [...] place to sleep or slept in a halfway (including now)? Sex Assigned at Date Recorded Female 06/29/2022 8:39 AM CDT documented as of this encounter Miscellaneous Notes [...] - 05/12/2022 9:20 AM CDT Fran Campa [id number] 1965 Who filled out form: Patient Who requested evaluation: Other provider Reason evaluation was requested: I was hospitalized on March 31 and diagnosed with Osteomyelitis. I was discharged on April 04 and started IV antibiotics (Cefepime and Daptomycin) two times a day at home. I have had blood drawn weekly followed by an appointment with my primary care person, Ariadna Villafana, a PA at the [facility]. The lab reports were showing that my [...] AVAILABLE ANYTIME Dates to avoid scheduling: PHONE: [phone] AGREE? I have read the Medical Emergency directions as noted above., I have read the Infectious Diseases Consultation Model of Care as noted above and agree to the process outlined. documented in this encounter Plan of Treatment Not on filedocumented as of this encounter Visit Diagnoses Not on filedocumented in this encounter
--- OUTSIDE RECORDS SUMMARY | 2022-08-06 13:48 | XMS_ITS | Encounter Summary ---
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 [place] Procedures DX Thoracic Spine 2 Views [address] [place] [address] Referral ID Status Reason Start Date Expiration Date Visits V isits Requested Authorized [id number] Authorized 05/12/2022 05/12/2023 1 1 Encounter Details Date Type Department Care Team Description 05/12/2022 Orders Only Section of Infectious Kevin Ken Infec tion Of Diseases in [place], [place] Intervertebral Disc [place] [address] [facility] Pyogenic Multiple Sites [address] [place], [place] In Spine (HCC) ([place] [address] Dx) [phone] Social History Tobacco Use Types Packs/Day Years [...] or relatives? How often do you attend synagogue or Never 2021 jewish services? Do you belong to any clubs or Yes 06/29/2022 organizations such as synagogue groups, unions, fraternal or athletic groups, or [...] place to sleep or slept in a fci (including now)? Sex Assigned at Date Recorded Female 06/29/2022 8:39 AM CDT documented as of this encounter Plan of Treatment Scheduled Orders Name Type Priority Associated Diagnoses Order S chedule CBC with Lab Routine Infection Of 1 Occurrences Differential, Blood Intervertebral Disc s tarting Pyogenic Multiple 05/12/2022 until Sites In Spine ([facility]) 023 Creatinine with Lab Routine Infection Of 1 Occurrence s Estimated GFR Intervertebral Disc startin g Pyogenic Multiple 05/12/2022 until Sites In Spine ([facility]) 023 Sedimentation Rate Lab Routine Infection Of 1 Occurre nces Intervertebral Disc starting Pyogenic Multiple 05/12/2022 until Sites In Spine ([facility]) 023 CRP (C-Reactive Lab Routine Infection Of 1 Occurrence s Protein) Intervertebral Disc starting Pyogenic Multiple 05/12/2022 until Sites In Spine ([facility]) 023 DX Thoracic Spine 2 Imaging RAD - Routine Infection Of Expecte d: Views (most inpatients Intervertebral Disc 04/21 and all Pyogenic Multiple (Approxima te), outpatients) Sites In Spine ([facility]) Expires : 08/12/2023 DX Lumbar Spine 4+ Imaging RAD - Routine Infection Of 1 Occurr ences Views (most inpatients Intervertebral Disc star ting and all Pyogenic Multiple 05/12/2022 until outpatients) Sites In Spine ([facility]) 023 Scheduled Referrals Name Type Priority Associated Diagnoses Order S chedule Orthopedic Surgery Outpatient Referral Routine Infection Of Ex pected: - Spine non Intervertebral Disc 05/12/20 22 surgical consult Pyogenic Multiple (Appro ximate), (clinic) Sites In Spine ([facility]) Expires : 08/12/2023 documented as of this encounter Visit Diagnoses Diagnosis Infection Of Intervertebral Disc Pyogeni c Multiple Sites In Spine ([facility]) - Primary documented in this encounter
--- OUTSIDE RECORDS SUMMARY | 2022-08-06 13:48 | XMS_ITS | Encounter Summary ---
:1965 Author Organization [facility] Address [address] [place] [address] Care Team Providers Name Role Phone Unavailable Primary Care Provider Unavailable Encounter Details Date Type Department Care Team Description 08/03/2022 Ancillary Procedure Department of Juan Contreras Of Radiology in J, MRaul. Vertebra Thoracic [place], [facility] [address] [facility] ([facility]) [place], [place] [address] [place] [address] [place], [place] [phone] (Work) Social History Tobacco Use Types Packs/Day Years [...] do you attend quaker or Never 2021 orthodoxy services? Do you belong to any clubs [...] place to sleep or slept in a nursing home (including now)? Education Answer Date Recorded What is the highest level of school Bachelor's degree (e.g., BA, AB, 06/29/2022 you have completed or the highest BS) degree you have received? Sex Assigned at Date Recorded Female 06/29/2022 8:39 AM CDT documented as of this encounter Plan of Treatment Not on filedocumented as of this encounter Procedures Procedure Name Priority Date/Time Associated Comments Diagnosis INTERPRETATION OF RAD - Routine 08/03/2022 9:38 Osteomyelitis Of Re sults for OUTSIDE MR SPINE (most inpatients AM [facility] Vertebra Thoracic th is procedure and all Region (HCC) are in the outpatients) results section. documented in this encounter Results Interpretation of Outside MR Spine (08/03/2022 9:38 AM [facility]) Anatomical Region Laterality Modality Neuroradiology RST LOS, Neuroradiology ARZ LOS, N/A Magnetic Resonance Neuroradiology FLA LOS, Spine, Other Specimen (Source) Anatomical Collection Method Collection Time Re ceived Time Location / / Volume Laterality 08/03/2022 1:27 PM [facility] Impressions 08/03/2022 1:50 PM [facility] 1. Discitis/osteomyelitis centered at T7-T8 with extraspinal extension, as described. 2. Enhancing soft tissue extends through the bilateral T7-T8 neuroforamina with circumferential epidural thickening/phlegmon and enhance ment centered at this level. No apparent drainable hypoenhancing epidural collection. Narrative 08/03/2022 1:50 PM [facility] EXAM: ??INTERPRETATION OF OUTSIDE MR SPINE COMPARISON: ??MR thoracic spine 03/31/20 22. Per the clinical history, patient also underwent outside MRI of the thoracic spine April 2022, h owever that study is not available currently. FINDINGS: MR THORACIC SPINE WITH AND WITHOUT INTRA VENOUS CONTRAST 07/05/2022: Compared to 03/31/2022, new or markedly progressed findings of thoracic osteomyelitis/discitis centered at T7-T8. These findings includ e increased destruction/irregularity of the endplates at T7-T8 as well as small amount of fluid i n the disc space and edema as well as enhancement involving the entirety of the T7 and T8 vertebral bodies. Abnormal enhancement extends beyond the body of the into the adjacent paraspinal soft tissues. No definite fat plane between the enhancing left paraspinal soft tissues and adjacent descending thoracic aorta. Enhancing soft tissue ex tends through the bilateral T7-T8 neuroforamina and displaces the normal fat. There is diffu se thickening and enhancement of the dura within the spinal canal at this level resulting in mild sp inal canal narrowing. The dural thickening and enhancement is centered at the level of the interspa ce but extends to approximately the midpoint of T6 superiorly to the superior endplate of T 9 inferiorly. No apparent intrinsic cord signal abnormality or pathologic enhancement involving the thoracic spinal cord itself. Preserved thoracic alignment and curvatu re. Multilevel spondylotic changes with a several small disc osteophyte complexes. No high-grade spin al canal or neuroforaminal narrowing. Small left pleural effusion. Procedure Note Speedy Don M.D. - 08/03/2022Forma tting of this note might be different from the original. EXAM: INTERPRETATION OF OUTSIDE MR SPINE COMPARISON: MR thoracic spine 03/31/2022 . Per the clinical history, patient also underwent outside MRI of the thoracic spine April 2022, h owever that study is not available currently. FINDINGS: MR THORACIC SPINE WITH AND WITHOUT INTRA VENOUS CONTRAST 07/05/2022: Compared to 03/31/2022, new or markedly progressed findings of thoracic osteomyelitis/discitis centered at T7-T8. These findings includ e increased destruction/irregularity of the endplates at T7-T8 as well as small amount of fluid i n the disc space and edema as well as enhancement involving the entirety of the T7 and T8 vertebral bodies. Abnormal enhancement extends beyond the body of the into the adjacent paraspinal soft tissues. No definite fat plane between the enhancing left paraspinal soft tissues and adjacent descending thoracic aorta. Enhancing soft tissue ex tends through the bilateral T7-T8 neuroforamina and displaces the normal fat. There is diffu se thickening and enhancement of the dura within the spinal canal at this level resulting in mild sp inal canal narrowing. The dural thickening and enhancement is centered at the level of the interspa ce but extends to approximately the midpoint of T6 superiorly to the superior endplate of T 9 inferiorly. No apparent intrinsic cord signal abnormality or pathologic enhancement involving the thoracic spinal cord itself. Preserved thoracic alignment and curvatu re. Multilevel spondylotic changes with a several small disc osteophyte complexes. No high-grade spin al canal or neuroforaminal narrowing. Small left pleural effusion. IMPRESSION: 1. Discitis/osteomyelitis centered at T7 -T8 with extraspinal extension, as described. 2. Enhancing soft tissue extends through the bilateral T7-T8 neuroforamina with circumferential epidural thickening/phlegmon and enhance ment centered at this level. No apparent drainable hypoenhancing epidural collection. Juan ESPOSITO MRI PROCEDURES documented in this encounter Visit Diagnoses Diagnosis Osteomyelitis Of Vertebra Thoracic Regio n (HCC) documented in this encounter
--- OUTSIDE RECORDS SUMMARY | 2022-08-06 13:48 | XMS_ITS | Encounter Summary ---
:1965 Author Organization [facility] Address [address] [place] [address] Care Team Providers Name Role Phone Unavailable Primary Care Provider Unavailable Reason for Visit Reason Comments Pre-scheduling Questionnaire Encounter Details Date Type Department Care Team Description 05/04/2022 Clinical Department of Prescheduling, Pre-scheduli ng Communication Spine in Provider Questionnaire [place], [place] [address] [place] [address] Social History Tobacco Use Types Packs/Day Years [...] or relatives? How often do you attend episcopalian or Never 2021 denominational services? Do you belong to any clubs or Yes 06/29/2022 organizations such as episcopalian groups, unions, fraternal or athletic groups, or [...] place to sleep or slept in a jail (including now)? Sex Assigned at Date Recorded Female 06/29/2022 8:39 AM CDT documented as of this encounter Miscellaneous Notes Telephone Encounter - Rafael Delaney - 05/04/2022 12:55 PM CDT [facility] Question Set documented in this encounter Plan of Treatment Not on filedocumented as of this encounter Visit Diagnoses Not on filedocumented in this encounter
--- OUTSIDE RECORDS SUMMARY | 2022-08-06 13:48 | XMS_ITS | Encounter Summary ---
:1965 Author Organization [facility] Address [address] [place] [address] Care Team Providers Name Role Phone Unavailable Primary Care Provider Unavailable Encounter Details Date Type Department Care Team Description 09/06/2020 Hospital Encounter Department of Radiation Lisa Melgoza, Oncology in [facility] [address] [facility] [address] [place] [address] [phone] Social History Tobacco Use Types Packs/Day Years [...] or relatives? How often do you attend mosque or Never 2021 bahai services? Do you belong to any clubs or Yes 06/29/2022 organizations such as mosque groups, unions, fraternal or athletic groups, or [...] place to sleep or slept in a residential (including now)? Sex Assigned at Date Recorded Female 06/29/2022 8:39 AM CDT documented as of this encounter Medications at [...]
--- OUTSIDE RECORDS SUMMARY | 2022-08-06 13:48 | XMS_ITS | Clinical Summary ---
:1965 Author Organization [facility] Address [address] [place] [id number] Care Team Providers Name Role Phone Unavailable Primary Care Provider Unavailable Source Comments Patient records contain information from all sites at [facility]. For routine questions regarding patient records, call [phone] during business hours, M-F 8:00 AM - 5:00 PM Central Time. Record requests for emergency care only can be directed to [phone] at any time.[facility] Allergies Active Allergy Reactions Severity Noted [...] ER+, MT: Not Assessed, HER2: Not Assessed) - Unsigned Encounters Date Type Specialty Care Team Description 08/03/2022 Telemedicine Infectious Kevin Ken Osteomyelitis Of Diseases [place] [facility] (HCC) (P rimary Dx) 08/03/2022 Ancillary Procedure Radiology Juan Contrerasomye britneyis Natividad Gonzalez M.D. 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 How often do you attend moravian or Never 2021 yarsanism services? Do you belong to any clubs or Yes 06/29/2022 organizations such as moravian groups, unions, fraternal or athletic groups, or [...] place to sleep or slept in a longterm (including now)? Education Answer Date Recorded What is the highest level of school Bachelor's degree (e.g., BA, AB, 06/29/2022 you have completed or the highest BS) degree you have received? Sex Assigned at Date Recorded Female 06/29/2022 8:39 AM CDT Last Filed Vital Signs Vital Sign Reading Time Taken Comments Blood Pressure 154/82 08/27/2020 8:27 AM BUSINESS SERVICES DIRECTOR Pulse 85 08/27/2020 8:27 AM BUSINESS SERVICES DIRECTOR Temperature 35.9 ??C (96.7 ??F) 09/04/2020 4:05 PM BUSINESS SERVICES DIRECTOR Respiratory Rate - - Oxygen Saturation - - Inhaled Oxygen Concentration - - Weight 119 kg (262 lb 9.1 oz) 09/04/2020 4:05 PM BUSINESS SERVICES DIRECTOR Height 169 cm (5' 6.54) 08/01/2020 12:55 PM BUSINESS SERVICES DIRECTOR Body Mass Index 41.7 08/01/2020 12:55 PM BUSINESS SERVICES DIRECTOR Plan of Treatment Health Maintenance Due Date [...] Moderna series) 10/22/2020 Influenza Vaccine (#1) 2022 07/21/2021, 06/27/2021, 06/26/2021, Additional history exists Cervical Cancer Screening 05/08/2023 05/08/2020 DTaP,Tdap,and Td Vaccines (2 - Td 12/27/2031 12/26/2021 or Tdap) Procedures Procedure Name Priority Date/Time Associated Comments Diagnosis INTERPRETATION OF RAD - Routine 08/03/2022 9:38 Osteomyelitis Of Re sults for OUTSIDE MR SPINE (most inpatients AM BUSINESS SERVICES DIRECTOR [facility] is procedure and all Region (HCC) are in the outpatients) results section. OUTSIDE MR NEURO Routine 07/05/2022 6:45 Results for PM CDT this procedure are in the results section. OUTSIDE MR NEURO Routine 07/05/2022 6:40 Results for PM CDT this procedure are in the results section. from Last 3 Months Results Interpretation of Outside MR Spine (08/03/2022 9:38 AM BUSINESS SERVICES DIRECTOR) Anatomical Region Laterality Modality Neuroradiology RST LOS, Neuroradiology ARZ LOS, N/A Magnetic Resonance Neuroradiology FLA LOS, Spine, Other Specimen (Source) Anatomical Collection Method Collection Time Re ceived Time Location / / Volume Laterality 08/03/2022 1:27 PM BUSINESS SERVICES DIRECTOR Impressions 08/03/2022 1:50 PM BUSINESS SERVICES DIRECTOR 1. Discitis/osteomyelitis centered at T7-T8 with extraspinal extension, as described. 2. Enhancing soft tissue extends through the bilateral T7-T8 neuroforamina with circumferential epidural thickening/phlegmon and enhance ment centered at this level. No apparent drainable hypoenhancing epidural collection. Narrative 08/03/2022 1:50 PM BUSINESS SERVICES DIRECTOR EXAM: ??INTERPRETATION OF OUTSIDE MR SPINE COMPARISON: [...] No apparent drainable hypoenhancing epidural collection. Juan Contreras M.D. IMG MRI PROCEDURES MR SPINE LUMBAR WWO-Outside MR Neuro (07/05/2022 6:45 PM CDT)Only the most recent of2 resultswithin the time period is included. Specimen (Source) Anatomical Location Collection Method / Collectio n Time Received Time / Laterality Volume Narrative IIMS - 08/03/2022 9:23 AM BUSINESS SERVICES DIRECTOR This order has been created and auto-finalized [...] Dates Phone Address Type / Group BLUE [facility] [id number] 2019-Prese [phone] [address] [address] [address] [facility] [address] [place] [address] Guarantor Name Account Type Relation to Date of Phone Billing Address Patient Fran Campa Personal/Famil Self 1965 [phone] [address] (Home) [place] [address]
--- OUTSIDE RECORDS SUMMARY | 2022-08-06 13:48 | XMS_ITS | Encounter Summary ---
:1965 Author Organization [facility] Address [address] [place] [address] Care Team Providers Name Role Phone Unavailable Primary Care Provider Unavailable Reason for Referral Outpatient (Routine) - Closed Specialty Diagnoses / Procedures Referred By Contact Refer red To Contact Sandy Sethi P.A.-C ., M.S. [facility] [address] [place] [phone] Referral ID Status Reason Start Date Expiration Date Visits Requ ested Visits Authorized [id number] Closed 09/04/2020 09/04/2021 1 1 Scheduling Instructions AARON Delgado patient ER MEAL Reason for Visit Outpatient (Routine) - Closed Specialty Diagnoses / Procedures Referred By Contact Refer red To Contact Sandy Sethi P.A.-C ., M.S. [facility] Region [address] [place] [phone] Referral ID Status Reason Start Date Expiration Date Visits Requ ested Visits Authorized [id number] Closed 09/04/2020 09/04/2021 1 1 Encounter Details Date Type Department Care Team Description 10/07/2020 Hospital Encounter Department of Radiation Lisa Melgoza, Oncology in [place] [facility] [place] [address] [facility] [address] [place] [phone] Social History Tobacco Use Types Packs/Day Years [...] or relatives? How often do you attend scientology or Never 2021 samaritan services? Do you belong to any clubs or Yes 06/29/2022 organizations such as scientology groups, unions, fraternal or athletic groups, or [...]
--- OUTSIDE RECORDS SUMMARY | 2022-08-06 13:48 | XMS_ITS | Clinical Summary ---
:1965 Author Organization [employer] [facility] Address [place] [address] Care Team Providers Name Role Phone Ariadna Villafana PA-C Primary Care Provider [facility] [place] Unavailable Allergies No known active allergies Medications Medication Sig Dispensed Refills Start End Date Status Date citalopram Take 40 mg by 0 Activ e (CELEXA) 40 mg mouth once daily. tablet levothyroxine Take 25 mcg by 0 A ctive (SYNTHROID) 25 mouth before mcg tablet breakfast. buPROPion Take 150 mg by 0 Activ e (WELLBUTRIN XL) mouth every 150 mg morning. Extended-Release tablet multivitamin Take 1 tablet by 0 Active (MVI) tablet mouth once daily. anastrozole Take 1 mg by 0 Activ e (ARIMIDEX) 1 mg mouth once daily. 2 tablet atorvastatin 40 mg at bedtime. 0 Active (LIPITOR) 40 mg tablet losartan (COZAAR) Take 50 mg by 0 Active 50 mg tablet mouth once daily. mirabegron Take 50 mg by 0 Activ e EXTENDED-release mouth once daily. (MYRBETRIQ) 50 mg tablet dextroamphetamine Take 20 mg by 0 Active -amphetamine mouth once daily. (ADDERALL XR) 20 mg Extended-Release capsule acetaminophen Take 2 Tablets 0 A ctive (TYLENOL EXTRA (1,000 mg) by 2 STRGTH) 500 mg mouth every 6 tabletIndications hours if needed : Vertebral for Pain. Max abscess (HC) acetaminophen dose: 4000mg in 24 hrs. polyethylene Take 17 g by 0 Acti ve glycol (MIRALAX; mouth or 2 GLYCOLAX) 17 g nasogastric tube powder for once daily if solutionIndicatio needed for ns: Vertebral Constipation. abscess (HC) sennosides Take 1-2 Tablets 0 Ac tive (SENNA) 8.6 mg (8.6-17.2 mg) by 2 tabletIndications mouth 2 times : Vertebral daily if needed abscess (HC) for Constipation. meropenem Inject 1,000 mg 1800 mL 1 08/20/20 Acti ve (MERREM) 1 gram intravenous every 2 22 injectionIndicati 8 hours. ons: Vertebral abscess (HC) oxyCODONE Take 1-2 Tablets 50 Tablet 0 Act barbara (ROXICODONE) 5 mg (5-10 mg) by 2 immediate release mouth every 4 tabletIndications hours if needed : Vertebral for Pain (For abscess (HC) moderate to severe pain.). oxyCODONE Take 1-2 Tablets 50 Tablet 0 07/11/20 Dis continued (ROXICODONE) 5 mg (5-10 mg) by 2 22 (Reorder immediate release mouth every 4 (E-cancel not tabletIndications hours if needed sent)) : Vertebral for Pain (For abscess (HC) moderate to severe pain.). Active Problems Problem Noted Date Hypothyroidism 05/16/2021 Ductal carcinoma in situ (DCIS) of breast 07/30/2020 KERRIE 07/04/2014 AHI-28 07/13/2014 Depression Hyperlipidemia Obesity KERRIE on CPAP Discitis of thoracic region Vertebral abscess Anemia Encounters Date Type Specialty Care Team Description 07/30/2022 Home Care Visit Yennifer Braden RN SN - HO PA VISIT 07/30/2022 Orders Only Shanta Duran MD 07/29/2022 Home Care Visit Bonifacio Cordero, PT PT - ALEKSANDRA E VISIT 07/27/2022 Telemedicine Shanta Duran MD 07/27/2022 Travel 07/23/2022 Home Care Visit Yennifer Braden RN SN - HO PA VISIT 07/23/2022 Orders Only Shanta Duran MD 07/23/2022 Orders Only Shanta Duran <No scans a ttached> MD Jarek 07/21/2022 Home Care Visit Bonifacio Cordero, PT PT - INI TIAL ASSESSMENT 07/16/2022 Home Care Visit Eula Gutierrez, RN SN - LONG VISIT (>90 MINUTES) 07/16/2022 Orders Only Shanta Duran Lab MD Jarek 07/16/2022 Home Care Visit [place] Ceron CARE COORDINATION G, PT 07/16/2022 Orders Only Shanta Duran Lab MD Jarek 07/15/2022 Orders Only Shanta Duran <No scans a ttached> MD Jarek 07/14/2022 Home Care Visit Yennifer Braden, JAMIE SN IV - START OF CARE 07/06/2022 Orders Only Staff, Other Clinical <No sc ans attached> 07/06/2022 Orders Only Staff, Other Clinical <No sc ans attached> 07/05/2022 - Hospital Encounter AnujGary p ain, unspecified back location, unspecified back pain laterality, unspecified chronicity (Primary Dx); 07/11/2022 MD Deyanira Osteomyelitis, unspecified site, unspeci fied type (HC); Carito Gongora, Discit is, unspecified spinal region; Vertebral abscess (HC) Deion Brian MD [facility] [place] [facility] Hospitalists Of Discharge Summary - Demetrius Brian MD - 07/11/2022 7:46 PM CDT Images from the original not e were not included. HOSPITALIST DISCHARGE SUMMAR Y ? ? [facility] Admission Date: 07/05/2022 Discharge Date: 07/11/2022 Discharge Plan: REMI Russo was discharged to with home health care. Principal Diagnosis T7 Vertebral Abscess Hospital Problem List Principal Problem: Vertebral abscess (HC) Active Problems: Depression Hyperlipidemia Obesity KERRIE on CPAP Discitis of thoracic region Anemia ADDITIONAL COMMENTS REGARDIN G DIAGNOSIS SPECIFICITY Additional Diagnosis [facility] Ms. REMI WAHL is a 56 y .o. female with a history of recent thoracic osteomyelitis, breast cancer, hypertension, hyperlipidemia, KERRIE who presents with back pain. The patient was hospitalized at [facility] 03/31-04/04 for osteomyelitis of T7-8. No biopsy was obtained at that time (per pt due to no beds available at a facility that could do the biopsy). She was noted to have a history of a Proteus and Pseudomonas urine infection. She was treated with IV cefepime and daptomycin for 6 weeks and then oral antibiotics of Bactrim and cefadroxil for another 6 weeks, completed June 26, 2022. The patient's back pain impr salina during the IV antibiotic treatment. After switching to orals, she began to developed increased pain on her right side. She was seen by her primary care provider and repe at MRI showed mild progressi ve changes. The patient had a phone visit with ID on 06/29. Per notes, CRP in March was up to 14, and CRP the week prior to the ID visit was 0.8. The plan was to follow-up in [address]-guid ed aspirate if ongoing concerns. The week prior to admission the pain increased, and the day prior to admission significantly increased. The pain woke her up from sleep the night prior to admission. The pain is in the mid upper back an d wraps around the right dickson e. She has difficulty laying on her left side.. She also notes unrinary incontinence; she has some incontinence at baseline, but has been worse in the week prior to admission . No leg paresthesias, no sa ddle paresthesias. No weakness in the legs, no pain radiating down the legs. Denies fevers, chills but has been having night sweats. ROS: some FARRIS She was seen by ID. Antibiot ics were held until disc aspiration could be done. She had initial aspiration on 07/06. Cx did not grow anything so repeat aspiration was done on 07/09. Cultures remain negative. Cytology is pending. She also had a urine culture that grew pseudomonas. She will be empirically star jose luis on meropenem q8. She will f/u in 1 month with ID. Final cultures and cytology is still pending. HHC was arranged. She contin ued to required oxycodone for pain. She will f/u with her primary next week. Recommendations for Outpatie nt Provider ? ? PCP: Ariadna Villafana PA-C Recommendations for outpati ent provider Specific recommendations to be addressed at the follow up visit: no specific recommendations , routine post-hospital and medical follow-up. Medication regimen changes: see Hospital Course above. Follow-up labs/imaging: none Other specialty follow-up no t included in DC orders: None Special considerations: none . Functional evaluations: Fall Risk: Total Score (If 5 or > is High Risk): 1 (07/11/22899) NuDESC (>/=2 abnormal): 0 ( 07/11/22899) MOCA: // SLUMS: Discharge Medications Your Home Medicines START taking these medicines Instructions acetaminophen 500 mg tablet For diagnoses: Vertebral abs cess (HC) Commonly known as: TYLENOL E XTRA STRGTH Take 2 Tablets (1,000 mg) b y mouth every 6 hours if needed for Pain. Max acetaminophen dose: 4000mg in 24 hrs. meropenem 1 gram injection For diagnoses: Vertebral abs cess (HC) Commonly known as: MERREM Inject 1,000 mg intravenous every 8 hours. oxyCODONE 5 mg immediate rel ease tablet For diagnoses: Vertebral abs cess (HC) Commonly known as: ROXICODON E Take 1-2 Tablets (5-10 mg) by mouth every 4 hours if needed for Pain (For moderate to severe pain.). polyethylene glycol 17 g pow robin for solution For diagnoses: Vertebral abs cess (HC) Commonly known as: MIRALAX; GLYCOLAX Take 17 g by mouth or nasog astric tube once daily if needed for Constipation. sennosides 8.6 mg tablet For diagnoses: Vertebral abs cess (HC) Commonly known as: SENNA Take 1-2 Tablets (8.6-17.2 mg) by mouth 2 times daily if needed for Constipation. CONTINUE taking these medici angelina Instructions anastrozole 1 mg tablet Commonly known as: ARIMIDEX Take 1 mg by mouth once dede ly. atorvastatin 40 mg tablet Commonly known as: LIPITOR 40 mg at bedtime. buPROPion 150 mg Extended-Re lease tablet Commonly known as: WELLBUTRI N XL Take 150 mg by mouth every morning. citalopram 40 mg tablet Commonly known as: CELEXA Take 40 mg by mouth once da mandy. dextroamphetamine-amphetamin e 20 mg Extended-Release capsule Commonly known as: ADDERALL XR Take 20 mg by mouth once da mandy. levothyroxine 25 mcg tablet Commonly known as: SYNTHROID Take 25 mcg by mouth before breakfast. losartan 50 mg tablet Commonly known as: COZAAR Take 50 mg by mouth once da mandy. mirabegron EXTENDED-release 50 mg tablet Commonly known as: MYRBETRIQ Take 50 mg by mouth once da mandy. multivitamin tablet Commonly known as: MVI Take 1 tablet by mouth once daily. Where to get your medicines These medications were sent to [facility] [address] [place] [id number], [facility] [address] Hours: Open 24 Hours meropenem 1 gram injection You have received printed pr escription(s) for these medicines or supplies. Take these to your preferred pharmacy. Bring a paper prescription f or each of these medications oxyCODONE 5 mg immediate rel ease tablet Prescriptions for these medi cines or supplies were NOT printed nor sent to your preferred pharmacy. Check with your doctor if you have questions. Check with your doctor if yo u have questions. acetaminophen 500 mg tablet polyethylene glycol 17 g pow robin for solution sennosides 8.6 mg tablet Pertinent Findings / Procedu res First weight: 111.1 kg (245 lb) (07/05/22 1745) Last weight: 106.5 kg (234 lb 11.2 oz) (07/11/22 0600) Labs Renal Heme GI Cardiopulmonary ID Endo COVID-19: Negative 07/05/20 22 Micro pending Imaging Thoracic spine MRI 2 1. Acute diskitis osteomyeli tis at T7-8 with erosion of the T7 inferior endplate and T8 superior endplate. Small abscess in the prevertebral space along the T7 and T8 vertebral bodies. Prominent prevert ebral phlegmon. Ventral and dorsal epidural phlegmon. 2. Multilevel thoracic spond ylosis. No high-grade spinal canal stenosis or neural foramina narrowing. 3. No abnormal spinal cord s ignal. 4. Left pleural effusion. Lumbar Spine MRI 07/05/2022 1. No evidence of diskitis o r osteomyelitis in the lumbar spine. Degenerative grade 1 anterolisthesis of L3-4 and L4-5. Ankylosis of L5-S1 on the left side. 2. Enhancement of bilateral facet joints at L3-4 and L4-5 without associated bone marrow edema suggestive of synovitis and osteoarthritic changes. Early infection is also a possibility but considered less likely. 3. Enhancement of the L3 luz chelsea epidural space likely due to enhancement of the venous plexus. Incidental enhancement of the central disc herniation at L3-4 level. 4. No significant spinal can al stenosis. Moderate right neural foramina narrowing at L5-S1. Otherwise no significant neural foramen narrowing. CXR Cardiovascular and mediastin um: ??Heart size and vasculature are normal in caliber and appearance. ??Mediastinum is within normal limits. ? Lungs and pleural spaces: ?? Lungs are clear. ??No sign of infiltrate or mass. ??No sign of pleural effusion. ??No pneumothorax. ? Bones and soft tissues: ??No significant findings. ?? Consultants Encounter Notes Consults from Lois Montoya MD (Infectious Diseases) Consults from Adi Colon M D (Surgery - Orthopedics) Diet / Activity / Follow-Up After Discharge Orders and I nstructions AMB CONSULT TO HOME [facility] Certification/F nilda to Face Attestation: I certify that this patient is confined to his/her home and needs intermittent usp care, physical therapy and/or speech therapy or continues to need occupational therapy. A plan of care has been established and will be reviewed periodically by a physician or allowed practitioner. Services will be furnished while the patient is under the care of a physician or allowed practitioner. The víctor ent had a [id number] encou nter with a physician or an allowed non-physician practitioner and the encounter was related to the primary reason for home health. Date of the Face to Face Enc ounter: 07/11/2022 Based on my findings, review of the medical records, and/or collaboration with the other providers, the following services are medically necessary home health services: Long Term This patient is confined to his/her home because: There is a taxing effort to leave the home due to spine abscess Patient requires the assista nce of another individual in order to leave the home. Provider following for home care services: Ariadna Villafana PA-C Electronically signed, Deion Brian MD 07/11/2022 AMB CONSULT TO HOME [facility]: [phone] Pharmacist to manage and ad just medication therapy as appropriate based on labs and/or renal function?: Other (Comments) Comment - Pharmacy to contact MD cath lab radiology technician to treat and e magalie at home as needed? (To include 2 RN home IV teaches within the first 5 days of discharge.): Yes NURSING COMMUNICATION Order obtained for delayed admission to [facility] (greater than 48 hr from discharge) scheduled for Wednesday07-14-22 NURSING COMMUNICATION Q Wednesday CBC, BMP, ALT faxe d to Dr Phong Orozco at [phone]. Dressing changes and CVC car e per routine. POST HOSPITAL VISIT Call now to make a follow u p Appt. with Infectious Diseases physician (Dr Phong Orozco in 2-3 weeks. Clinic address: [address] [place] [address] [address], [place] [address]. - Patient scheduling at phone [phone] PT EVAL AND TREAT Reason for Order: Impaired Strength Comment - Body mechanics; T7-8 discitis/osteomyelitis Impaired Mobility Pain Where is the patient being referred?: Other Primary Care Provider christiana hwang up appointment(s) Ariadna Villafana PA-C When to follow up: 1 to 5 d ays When is patient being disch arged?: Today Up as tolerated Get regular activity and tr y to walk for a total of 30 minutes per day. Start by walking for 5 to 10 minutes at one time and slowly build to walking for 30 minutes one time. Rest is also an important pa rt of healing. Slowly return to your regular level of activity. Save your energy by spreading out activities that make you tired. Rest as needed. What you may eat and drink after your hospital stay: YOUR RECOMMENDED SELECTION FOR MEALS ARE: REGULAR DIET: Eat a wide variety of foods, including fruits and vegetable, dairy, grains and meats. Limit the amount of solid fa t such as butter, margarine and shortening. Get most of your fat sources from fish, nuts and vegetable oils. When should you be concerne d? Your health care provider i s: Ariadna Villafana PA-C Please call your health care provider if: - you feel you are getting w orse or having an increase in problems - fever greater than 101 deg agustin - increasing shortness of br eath - any signs of infection (in creasing redness, swelling, tenderness, warmth, change in appearance, or increased drainage) - blood in your urine or sto ol - coughing or vomiting blood - nausea (upset stomach) and vomiting and/or diarrhea that will not stop - severe pain that is not re lieved by medicine, rest or ice Call 911 if you feel you are having a medical emergency. Why were you at the [facility]? You were in the hospital fo r vertebral spine abscess. Pending Studies Lab results that may not be resulted at time of discharge: (From admission through now) Start Ordered 07/09/22 1545 ANAEROBIC CUL TURE ONE TIME, TODAY Question: Enter specific spe cimen site or source. Answer: T7-T8 07/09/22 1542 07/09/22 1545 BODY FLUID CU LTURE,STAIN (AEROBIC) ONE TIME, TODAY Question: Enter specific spe cimen site or source. Answer: T7-T8 07/09/22 1542 07/09/22 1545 PATH NON VETERINARY TECHNOLOGY INSTRUCTOR CYTOLOGY ONE TIME, TODAY Question Answer Comment Enter specific specimen sour ce. Thoracic Disc T7-T8 Cytology and/or Fungus/Pneum ocystis stain? (Fungal testing is appropriate for bronchs, CSF, Vitreous, and others only if clinically appropriate.) 1. CYTOLOGY ONLY Diagnosis/Reason for visit? discitis Previous Malignancy? NO Release to patient Immediate 07/09/221541 Total time spent on discharg e coordination: 40 minutes. Patient was seen and examined today. Deion Brian MD Hospitalist, [facility] ? ? [phone] 07/05/2022 Travel from Last 3 Months Family History Medical History Relation Name Comments Diabetes Father Hypertension Father Relation Name Status Comments Father Social History Tobacco Use Types Packs/Day Years Used Date Never Smoker Smokeless Tobacco: Never Used Snuff Alcohol Use Standard Drinks/Week Comments Yes 0 (1 standard drink = 0.6 oz pure alcoho l) twice a week, 4-5 drinks each Alcohol Habits Answer Date Recorded How often do you have a drink containing Not asked alcohol? How many drinks containing alcohol do you Not asked have on a typical day when you are drinking? How often do you have six or more drinks Not asked on one occasion? Comment: twice a week, 4-5 drinks each 07/05/2022 Sex Assigned at Date Recorded Not on file COVID-19 Exposure Response Date Recorded In the last 10 days, have you been in contact with No / Unsu re 07/27/2022 7:42 AM GRADUATE ADVISOR someone who was confirmed or suspected to have Coronavirus/COVID-19? Obstetrics History Last Filed Vital Signs Vital Sign Reading Time Taken Comments Blood Pressure 140/80 07/30/2022 12:20 PM GRADUATE ADVISOR Pulse 80 07/30/2022 12:20 PM GRADUATE ADVISOR Temperature 37.2 ??C (99 ??F) 07/30/2022 12:20 PM GRADUATE ADVISOR Respiratory Rate 15 07/29/2022 10:25 AM GRADUATE ADVISOR Oxygen Saturation 95% 07/30/2022 12:20 PM GRADUATE ADVISOR Inhaled Oxygen Concentration - - Weight 106.5 kg (234 lb 11.2 oz) 07/11/2022 6:00 AM CDT Height 172.7 cm (5' 8) 07/05/2022 5:45 PM CDT Body Mass Index 35.69 07/05/2022 5:45 PM CDT Plan of Treatment Upcoming Encounters Date Type Specialty Care Team Description 08/12/2022 Home Care Visit Yennifer Braden, R [address] [place] [address] (Wo rk) 08/17/2022 Telemedicine Shanta Duran MD [address] [facility] [address] [place] [address] (Wo rk) 08/21/2022 Home Care Visit Yennifer Braden, R [address] [place] [address] (Wo rk) 08/28/2022 Home Care Visit Yennifer Braden, R [address] [place] [address] (Wo rk) Health Maintenance Due Date Last Done Comments Tdap 1975 Depression screening for age 12+ 1976 HIV for age 15-65 1979 BMI (ht and wt on same day) for age 1108/10/1982 18+ Hepatitis C screening for age 18-79 1982 Zoster (shingles) series for age 50+ 1983 (1 of 2) Tetanus booster 1984 Colonoscopy through age 75 2009 Lipids for age 45-75 2009 Mammogram for age 45-75 2009 12/08/2006, 12/02/2005 COVID-19 vaccine series (4 - Booster 10/21/2021 08/26/2021, 11/21/2020, for Moderna series) 10/22/2020 Influenza for age 50-64 05/21/2022 Pap test for age 21-65 05/08/2023 05/08/2020, 05/08/2020, 08/06/2015 Procedures Procedure Name Priority Date/Time Associated Comments Diagnosis CBC WITH AUTO Routine 07/30/2022 11:20 Vertebral abscess Resul ts for this DIFFERENTIAL AM GRADUATE ADVISOR (HC) procedure are i n the results section. C-REACTIVE PROTEIN Routine 07/30/2022 11:20 Vertebral abscess Results for this AM GRADUATE ADVISOR (HC) procedure are i n the results section. ALT (SGPT) Routine 07/30/2022 11:20 Vertebral abscess Result s for this AM GRADUATE ADVISOR (HC) procedure are i n the results section. CBC WITH AUTO Routine 07/30/2022 11:20 Vertebral abscess Resul ts for this DIFFERENTIAL AM GRADUATE ADVISOR (HC) procedure are i n the results section. CBC WITH AUTO Routine 07/23/2022 11:00 Vertebral abscess Resul ts for this DIFFERENTIAL AM CDT (HC) procedure are i n the results section. C-REACTIVE PROTEIN Routine 07/23/2022 11:00 Vertebral abscess Results for this AM CDT (HC) procedure are i n the results section. ALT (SGPT) Routine 07/23/2022 11:00 Vertebral abscess Result s for this AM CDT (HC) procedure are i n the results section. BASIC METABOLIC PANEL Routine 07/23/2022 11:00 Vertebral absce ss Results for this AM CDT (HC) procedure are i n the results section. CBC WITH AUTO Routine 07/23/2022 11:00 Vertebral abscess Resul ts for this DIFFERENTIAL AM CDT (HC) procedure are i n the results section. CBC WITH AUTO Routine 07/16/2022 10:15 Discitis of Results fo r this DIFFERENTIAL AM CDT thoracic region procedure ar e in the results section. COMP METABOLIC PANEL Routine 07/16/2022 10:15 Discitis of Res ults for this AM CDT thoracic region procedure ar e in the results section. C-REACTIVE PROTEIN Routine 07/16/2022 10:15 Discitis of Resul ts for this AM CDT thoracic region procedure ar e in the results section. CBC WITH AUTO Routine 07/16/2022 10:15 Discitis of Results fo r this DIFFERENTIAL AM CDT thoracic region procedure ar e in the results section. PICC LINE Routine 07/10/2022 10:39 Results for this PM CDT procedure are i n the results section. INSERT PICC LINE Routine 07/10/2022 10:37 Results for this PM CDT procedure are i n the results section. IR DISK ASPIRATION Routine 07/09/2022 3:48 PM Res ults for this CDT procedure are i n the results section. PATH NON VETERINARY TECHNOLOGY INSTRUCTOR CYTOLOGY Today 07/09/2022 3:45 PM Results for this CDT procedure are i n the results section. BODY FLUID Today 07/09/2022 3:45 PM Results f or this CULTURE,STAIN CDT procedure are in (AEROBIC) the results section. ANAEROBIC CULTURE Today 07/09/2022 3:45 PM Resu lts for this CDT procedure are i n the results section. URINE CULTURE JOE 07/06/2022 8:28 PM Results for this CDT procedure are i n the results section. URINALYSIS MICROSCOPIC Timed 07/06/2022 8:28 PM Results for this CDT procedure are i n the results section. UA W/ SEDIMENT EXAM Today 07/06/2022 8:28 PM Re sults for this REFLEXED PER CRITERIA CDT proced ure are in the results section. BODY FLUID Today 07/06/2022 1:20 PM Results f or this CULTURE,STAIN CDT procedure are in (AEROBIC) the results section. BODY FLUID CELL Today 07/06/2022 1:20 PM Result s for this COUNT/DIF CDT procedure are i n the results section. IR DISK ASPIRATION Routine 07/06/2022 1:17 PM Res ults for this CDT procedure are i n the results section. ECHO COMPLETE W Routine 07/06/2022 11:00 Results for this CONTRAST AM CDT procedure are i n the results section. PROTIME-INR Early AM 07/06/2022 8:18 AM Results f or this CDT procedure are i n the results section. WHITE BLOOD COUNT Early AM 07/06/2022 8:18 AM Resu lts for this CDT procedure are i n the results section. HEMOGLOBIN Early AM 07/06/2022 8:18 AM Results f or this CDT procedure are i n the results section. CREATININE Early AM 07/06/2022 8:18 AM Results f or this CDT procedure are i n the results section. POTASSIUM Early AM 07/06/2022 8:18 AM Results f or this CDT procedure are i n the results section. SODIUM Early AM 07/06/2022 8:18 AM Results f or this CDT procedure are i n the results section. SCAN CORRESP-IMAGING 07/06/2022 12:00 Res ults for this AM CDT procedure are i n the results section. XR CHEST 2 VIEWS PA STAT 07/05/2022 11:09 Resu lts for this AND LATERAL PM CDT procedure are i n the results section. COVID 19 Timed 07/05/2022 9:53 PM Results f or this CDT procedure are i n the results section. COVID 19 COLLECTION Today 07/05/2022 9:53 PM Re sults for this CDT procedure are i n the results section. BLOOD CULTURE STAT 07/05/2022 8:53 PM Results for this CDT procedure are i n the results section. BLOOD CULTURE STAT 07/05/2022 8:47 PM Results for this CDT procedure are i n the results section. MR SPINE LUMBAR WWO STAT 07/05/2022 8:30 PM Re sults for this CDT procedure are i n the results section. MR SPINE THORACIC WWO STAT 07/05/2022 8:29 PM Results for this CDT procedure are i n the results section. HEPATIC FUNCTION PANEL JOE 07/05/2022 6:03 PM Results for this CDT procedure are i n the results section. C-REACTIVE PROTEIN STAT 07/05/2022 6:03 PM Res ults for this CDT procedure are i n the results section. SEDIMENTATION RATE STAT 07/05/2022 6:03 PM Res ults for this CDT procedure are i n the results section. BASIC METABOLIC PANEL STAT 07/05/2022 6:03 PM Results for this CDT procedure are i n the results section. CBC W PLT NO DIFF STAT 07/05/2022 6:03 PM Resu lts for this CDT procedure are i n the results section. from Last 3 Months Results (ABNORMAL) CBC WITH AUTO DIFFERENTIAL (07/30/2022 11:20 AM GRADUATE ADVISOR)Only the most recent of3 resultswithin the time period is included. Analysis Performed At Patho logist Time Signature WHITE BLOOD 4.5 4.5 - 11.0 07/30/2022 [facility] COUNT thou/cu mm 5:53 PM GRADUATE ADVISOR [facility] RED BLOOD COUNT 4.37 4.00 - 07/30/2022 [facility] 5.20 5:53 PM GRADUATE ADVISOR [facility] mil/cu mm CENTER HEMOGLOBIN 12.6 12.0 - 07/30/2022 [facility] 16.0 g/dL 5:53 PM GRADUATE ADVISOR [facility] HEMATOCRIT 39.0 33.0 - 07/30/2022 [facility] 51.0 % 5:53 PM GRADUATE ADVISOR [facility] MCV 89 80 - 100 07/30/2022 [facility] fL 5:53 PM GRADUATE ADVISOR [facility] MCH 28.8 26.0 - 07/30/2022 [facility] 34.0 pg 5:53 PM GRADUATE ADVISOR [facility] MCHC 32.3 32.0 - 07/30/2022 [facility] 36.0 g/dL 5:53 PM GRADUATE ADVISOR [facility] RDW 14.3 11.5 - 07/30/2022 [facility] 15.5 % 5:53 PM GRADUATE ADVISOR [facility] PLATELET COUNT 238 140 - 440 07/30/2022 [facility] thou/cu mm 5:53 PM GRADUATE ADVISOR [facility] MPV 10.7 6.5 - 11.0 07/30/2022 [facility] fL 5:53 PM GRADUATE ADVISOR [facility] NRBC 0.0 % 07/30/2022 [facility] 5:53 PM GRADUATE ADVIS[facility] ABS NRBC 0.0 thou /cu 07/30/2022 [facility] mm 5:53 PM [facility]ADUATE [facility] % NEUT 70.0 % 07/30/2022 [facility] 5:53 PM [facility]ADUATE [facility] % LYMPH 17.2 % 07/30/2022 [facility] 5:53 PM GRADUATE ADVISOR [facility] % MONO 10.6 % 07/30/2022 [facility] 5:53 PM GRADUATE ADVIS[facility] % EOS 1.3 % 07/30/2022 [facility] 5:53 PM GRADUATE ADVIS[facility] % BASO 0.7 % 07/30/2022 [facility] 5:[address] [facility] % IMMATURE GRAN 0.2 % 07/30/2022 [facility] (METAS,MYELOS,ND 5:[address] [facility]) CENTER ABSOLUTE 3.2 1.7 - 7.0 07/30/2022 [facility] NEUTROPHILS thou/cu mm 5:[address] [facility] ABSOLUTE 0.8 (L) 0.9 - 2.9 07/30/2022 [facility] LYMPHOCYTES thou/cu mm 5:[address] [facility] ABSOLUTE 0.5 <0.9 07/30/2022 [facility] MONOCYTES thou/cu mm 5:[address] [facility] ABSOLUTE 0.1 <0.5 07/30/2022 [facility] EOSINOPHILS thou/cu mm 5:[address] [facility] ABSOLUTE 0.0 <0.3 07/30/2022 [facility] BASOPHILS thou/cu mm 5:[address] [facility] ABSOLUTE 0.0 <0.3 07/30/2022 [facility] IMMATURE thou/cu mm 5:53 PM [facility] GRANULOCYTES(MET CENTER ,MYELOS,PROS) Specimen Anatomical Collection Method / Collection Time Recei jez Time (Source) Location / Volume Laterality Blood BLOOD SPECIMEN / Non-Lab 07/30/2022 11:20 5:42 Unknown Venipuncture / AM GRADUATE ADVISOR PM GRADUATE ADVISOR Unknown Narrative [facility] - 5:53 PM GRADUATE ADVISOR This procedure was originally ordered at [facility]. Shanta Orozco MD HEMATOLOGY Performing Organization Address City/State/ZIP Code Phon e Number [phone] [place] [address] CENTER C-REACTIVE PROTEIN (07/30/2022 11:20 AM GRADUATE ADVISOR)Only the most recent of4 results within the time period is included. P athologist Signature C-REACTIVE 0.47 <0.50 07/30/2022 [facility] PROTEIN mg/dL 6:[address] [facility] Specimen Anatomical Collection Method / Collection Time Recei jez Time (Source) Location / Volume Laterality Blood BLOOD SPECIMEN / Non-Lab 07/30/2022 11:20 5:42 Unknown Venipuncture / AM GRADUATE ADVISOR PM GRADUATE ADVISOR Unknown Shanta Orozco MD CHEMISTRY Performing Organization Address City/[facility]/ZIP [facility] Phon e Number [facility] [address] [place] [address] CENTER ALT (SGPT) (07/30/2022 11:20 AM GRADUATE ADVISOR)Only the most recent of2 resultswithin the time period is included. athologist Signature ALT (SGPT) 22 8 - 45 IU/L 07/30/2022 [facility] 6:56 PM GRADUATE ADVISOR [facility] Specimen Anatomical Collection Method / Collection Time Recei jez Time (Source) Location / Volume Laterality Blood BLOOD SPECIMEN / Non-Lab 07/30/2022 11:20 022 5:42 Unknown Venipuncture / AM GRADUATE ADVISOR PM GRADUATE ADVISOR Unknown Shanta Orozco MD CHEMISTRY Performing Organization Address [facility] Phon e Number [address] [address] CENTER (ABNORMAL) BASIC METABOLIC PANEL (07/23/2022 11:00 AM CDT)Only the most recent of2 resultswithin the time period is included. athologist Signature SODIUM 141 135 - 145 07/23/2022 [facility] mmol/L 3:49 PM CDT [facility] POTASSIUM 4.2 3.5 - 5.0 07/23/2022 [facility] mmol/L 3:[address] [facility] CHLORIDE 105 98 - 110 07/23/2022 [facility] mmol/L 3:49 PM CDT [facility] CO2,TOTAL 24 21 - 31 07/23/2022 [facility] mmol/L 3:49 PM CDT [facility] ANION GAP 12 5 - 18 07/23/2022 [facility] 3:49 PM CDT [facility] GLUCOSE 92 65 - 100 07/23/2022 [facility] mg/dL 3:49 PM CDT [facility] CALCIUM 9.3 8.5 - 10.5 07/23/2022 [facility] mg/dL 3:49 PM CDT [facility] BUN 17 8 - 25 07/23/2022 [facility] mg/dL 3:[address] [facility] CREATININE 0.74 0.57 - 07/23/2022 [facility] 1.11 mg/dL 3:49 PM T [facility] BUN/CREAT RATIO 23 (H) 10 - 20 07/23/2022 [facility] 3:49 PM [facility] eGFR >90 >90 07/23/2022 [facility] mL/min/1.7 3:49 PM [facility] 3m2 CENTER Comment: As of 2021, eGFR is calcu lated by the CKD-EPI creatinine equation without race adjustment. eGFR can be inf luenced by muscle mass, exercise, and diet. The reported eGFR is an estimation only and is only applicable if the renal function is stable. Specimen Anatomical Collection Method / Collection Time Recei jez Time (Source) Location / Volume Laterality Blood BLOOD SPECIMEN / Non-Lab 07/23/2022 11:00 022 3:28 Unknown Venipuncture / AM CDT PM CDT Unknown Shanta Orozco MD CHEMISTRY Performing Organization Address City/State/ZIP Code Phon e Number [id number] [place] [address] CENTER (ABNORMAL) COMP METABOLIC PANEL (07/16/2022 10:15 AM CDT) Analysis Performed At Patho logist Time Signature SODIUM 136 135 - 145 07/16/2022 [facility] mmol/L 8:21 PM CDT LABORATORY-ULISES TRAL LABORATORY POTASSIUM 4.3 3.5 - 5.0 07/16/2022 [facility] mmol/L 8:21 PM CDT LABORATORY-ULISES TRAL LABORATORY CHLORIDE 104 98 - 110 07/16/2022 [facility] mmol/L 8:21 PM CDT LABORATORY-ULISES TRAL LABORATORY CO2,TOTAL 24 21 - 31 07/16/2022 [facility] mmol/L 8:21 PM CDT LABORATORY-ULISES TRAL LABORATORY ANION GAP 8 5 - 18 07/16/2022 [facility] 8:21 PM CDT LABORATORY-ULISES TRAL LABORATORY GLUCOSE 89 65 - 100 07/16/2022 [facility] mg/dL 8:21 PM CDT LABORATORY-ULISES TRAL LABORATORY CALCIUM 9.4 8.5 - 10.5 07/16/2022 [facility] mg/dL 8:21 PM CDT LABORATORY-ULISES TRAL LABORATORY BUN 18 8 - 25 07/16/2022 [facility] mg/dL 8:21 PM CDT LABORATORY-ULISES TRAL LABORATORY CREATININE 0.72 0.57 - 07/16/2022 [facility] 1.11 mg/dL 8:21 PM CDT LABORATORY-ULISES TRAL LABORATORY BUN/CREAT RATIO 25 (H) 10 - 20 07/16/2022 [facility] 8:21 PM CDT LABORATORY-ULISES TRAL LABORATORY ALBUMIN 3.8 3.5 - 5.2 07/16/2022 [facility] g/dL 8:21 PM CDT LABORATORY-ULISES TRAL LABORATORY PROTEIN,TOTAL 6.5 6.0 - 8.0 07/16/2022 [facility] g/dL 8:21 PM CDT LABORATORY-ULISES TRAL LABORATORY GLOBULIN 2.7 2.0 - 3.7 07/16/2022 [facility] g/dL 8:21 PM CDT LABORATORY-ULISES TRAL LABORATORY A/G RATIO 1.4 1.0 - 2.0 07/16/2022 [facility] 8:21 PM CDT LABORATORY-ULISES TRAL LABORATORY BILIRUBIN,TOTAL 0.4 0.2 - 1.2 07/16/2022 [facility] mg/dL 8:21 PM CDT LABORATORY-ULISES TRAL LABORATORY ALK PHOSPHATASE 88 50 - 136 07/16/2022 [facility] IU/L 8:21 PM CDT LABORATORY-ULISES TRAL LABORATORY ALT (SGPT) 15 8 - 45 07/16/2022 [facility] IU/L 8:21 PM CDT LABORATORY-ULISES TRAL LABORATORY AST (SGOT) 21 2 - 40 07/16/2022 [facility] IU/L 8:21 PM CDT LABORATORY-ULISES TRAL LABORATORY eGFR >90 >90 07/16/2022 [facility] mL/min/1.7 8:21 PM CDT LABORATORY-ULISES 3m2 TRAL LABORATORY Comment: As of 2021, eGFR is calcu lated by the CKD-EPI creatinine equation without race adjustment. eGFR can be inf luenced by muscle mass, exercise, and diet. The reported eGFR is an estimation only and is only applicable if the renal function is stable. Specimen Anatomical Collection Method / Collection Time Recei jez Time (Source) Location / Volume Laterality Blood BLOOD SPECIMEN / Non-Lab 07/16/2022 10:15 022 7:41 Unknown Venipuncture / AM CDT PM CDT Unknown Shanta Orozco MD CHEMISTRY Performing Organization Address City/State/ZIP Code Phon e Number [facility] [address] [place] [address] LABORATORY-CENTRAL 2000 LABORATORY PICC LINE (07/10/2022 10:39 PM CDT) Narrative Ariadna Reveles RN - 07/10/2022 10:39 P M CDT Ariadna Reveles RN ? 07/10/2022 10:40 PM PICC Tip Location Confirmation Note 07/10/2022 ??10:40 PM PICC tip location is superior vena cava per PICC RN confirmed by ECG. Plan: ?? - PICC tip location has been confirmed b y ECG and is okay to use as a central venous catheter per [facility] policy. ECG tracing has been copied below or has been entered in to patient's chart. Ariadna Reveles RN .................... ??07/10/2022 ?? 10:40 PM Deion Brian MD IV ORD INSERT PICC LINE (07/10/2022 10:37 PM CDT) Narrative Ariadna Reveles RN - 07/10/2022 10:37 P M CDT Ariadna Reveles RN ? 07/10/2022 10:39 PM PICC Line Insertion Note 07/10/2022 ?? 10:37 PM Procedure education reviewed: Placement procedure, Benefits, Risks, Complications and Questions answe red, discussed with: Patient face to face. Patient face to face confirms understand ing of procedure. Forming Press Operator used: No Reason for insertion: ??IV antibiotics Medical/ Surgical/ Allergies History rev iewed: ??Yes. Preprocedure Verification: ??Yes 1) Provider Order verified 2) Patient id entity verified; 3) side/site/procedure confirmed; 4) releva nt information/documentation available, rev iewed and properly matched to the patient; 5) For PICC inse rtions, consent accurate and complete or verified provider has or dered emergent placement; 6) equipment and supplies available Site Marking: ??Yes Site marked if not in continuous attenda nce with the patient Time Out: ??Yes Time out was conducted just prior to sta rting procedure to verify the four required elements: 1) patient n rajesh and date of 2) confirmation that the correct side/site are marked if applicable, including visualization of the site mar 3) name of procedure including laterality if applicable, and 4) essential imaging and results are properly labeled and appropr iately displayed, if applicable. Site assessment pre-insertion: ??Intact. Local anesthetic used at site: ??Yes, 1% Lidocaine. The following Central Line Insertion Shivani cklist was used: Hand Hygiene: Yes Maximal Barrier Precautions including S terile Gown, Hat and Mask: Yes Full Body Drape: Yes Site cleansed with: ??Chlorhexidine glu conate prep. PICC Line 1 Lumen Left;Brachial;Upper Ar m PICC/SVC (Active) 07/10/222232 Left;Brachial;Upper Arm Vessel Diameter (cm): 0.32 Dqjhelqo-hs-Cdbv Ratio (%): ?? Visible Catheter Length (cm): 3 cm Placed/Present Prior to Encounter: ?? (IA) Placed Prior to Admission?: ?? Type: Valved Catheter (IA) Size: ?? Tip Location: PICC/SVC PICC Mid-Arm Circumference (cm): 39 cm Total Length of Catheter (cm): 47 cm Insertion Attempts: 1 (IA) Insertion Attempts: ?? Local Anesthetic: Injectable Placement Verification: ECG;Blood Return ;Ultrasound Removed Catheter Length (cm): ?? Removed/Resolved Prior to Encounter: ?? Visible Catheter Length (cm) 3 cm 2232 Arm Circumference (cm) 39 cm 07/10/22 33 Status Lumen One Cap Changed;Capped/Lock ed;Blood Return 07/10/222232 Line Assessment Antimicrobial patch and dressing clean/dry/intact 07/10/222232 Site Description Dry/Flat 07/10/222232 Line Intervention New dressing applied a nd NO hemostatic agent/gauze 07/10/222232 Dressing change due date 07/17/202206/21 Line Principal Product Manager Name: Bard Line Type: Valved Power PICC Lot Number: [id number] Access Assistance:Modified Seldinger Yany hnique (Micro-Introducer) WITH Dermatotomy (skin minnie) Post-insertion: ? Able to remove guidewire: ??Ligia hly. ? Able to aspirate blood in each jeanne men: Yes ? Able to flush catheter without re sistance in each lumen: ?? Yes Each lumen flushed with: ??20 ml(s) of 0 .9% saline, and ??no Heparin. Cap applied to each lumen: ??Yes Line secured with: Stat-Lock, Tape and B iopatch. ? Hospital dressing policy/procedure follo wed. PICC Line standing orders implemented: ? ?Yes X- ray pending: No, tip confirmed with E CG ? Insertion complications: None Patient tolerated the procedure: ??Yes PICC education reviewed: Given to patien t ? Deion Brian MD IV ORD IR DISK ASPIRATION (07/09/2022 3:48 PM CDT)Only the most recent of2 results within the time period is included. Anatomical Region Laterality Modality Spine, CERVICAL SPINE, THORACIC SPINE, LUMBAR SPINE X-Ray Angiography Specimen (Source) Anatomical Location Collection Method / Collectio n Time Received Time / Laterality Volume Narrative 07/09/2022 4:00 PM CDT Neurointerventional Procedure Report Patient: REMI WAHL (1965), Date: 07/09/2022 Physician(s): [place] Ryan MD Procedure(s): 1. T7-8 disc aspiration utilizing fluoro scopic guidance. 2. Moderate sedation Pre-operative diagnosis (indication): Ba ck pain; discitis/osteomyelitis at recent MRI. Post-operative diagnosis: Same Anesthesia: Under physician supervision, midazolam 4 mg and fentanyl 200 mcg were administered intravenously for moderate sedation. Pulse oximetry, heart rate, and blood pressure were cont inuously monitored by a trained, dedicated nurse. The physician who perfo rmed the procedure provided 20 minutes of intra-service time with the [facility] Consent: Informed consent was obtained f rom the patient following a detailed discussion of the procedure, al ternatives, risks and potential benefits. Time-out: Performed according to the Uni versa Protocol. Description: The patient was placed in t he prone position on the fluoroscopy table. The back was sterilel y prepped and draped. Lidocaine 1% was used for local anesthesia. The T7-8 disc was accessed with a 17 gauge OstyCut system via a left lateral approa ch using fluoroscopic guidance. 1mL of preservative-free normal saline w as used to obtain a washing. The specimen was sent to microbiology. A sterile dressing was applied. Complications: None Findings: As above Specimens: As above Estimated blood loss: 1 mL Medications: As above Fluoroscopy time: 3:20 Impression: Successful T7-8 disc aspirat ion using fluoroscopic guidance Cleveland Ryan M.D. Neurointerventionalist [facility] Pager: Office/Appointments: Answering Service: One[employer] Transfer Center: [email or web address] Deion Brian MD IR BODY FLUID CULTURE,STAIN (AEROBIC) (07/09/2022 3:45 PM CDT)Only the most recent of2 resultswithin the time period is included. [facility] Method Time Signature CULTURE No Growth. 07/14/2022 [facility] 11:04 AM CDT LABORATORY-ULISES TRAL LABORATORY GRAM STAIN No PMNs 07/14/2022 [facility] 11:04 AM CDT LABORATORY-ULISES TRAL LABORATORY GRAM STAIN No organisms 07/14/2022 [facility] seen 11:04 AM CDT LABORATORY-ULISES TRAL LABORATORY Specimen Anatomical Collection Method Collection Time Receive d Time (Source) Location / / Volume Laterality Body Fluid SPECIMEN FROM Non-Blood / 07/09/2022 3:45 PM 07/09/20 22 4:14 ABSCESS / Unknown Unknown CDT PM CDT Cleveland Ryan MD MICROBIOLOGY Performing Organization Address City/State/ZIP Code Phon e Number [facility] [address] [place] [address] LABORATORY-CENTRAL 2000 LABORATORY PATH NON VETERINARY TECHNOLOGY INSTRUCTOR CYTOLOGY (07/09/2022 3:45 PM CDT) Component Value Ref Test Analysis Performed At [facility] Range Method Time Signature Case Report Medical Cytology Report ? Case: [id number] ? 07/13/2022 [facility] Authorizing Provider: ??Kearney lara, Cleveland ? Collected: ? 07/09/2022 1545 ? 12:10 PM HEAL TH ? Srinivas, MD ? CDT LABORATORY-C Ordering Location: ? [facility] ?Received: ?07/09/2022 1614 ? EN TRAL ? Hospital ? LABORATORY Pathologist: ? Amina Sanabria Le, MD ? Specimen: ?Thoracic Disc , T7-T8 fluid ? Final A) THORACIC DISC, T7-T8, FLUOROSCOPIC GUIDED NEEDLE PIRATE: 07/13/2022 [facility] Electronically Diagnosis 1. Blood and scant benign connective tissue 12:10 PM HEALTH signed by 2. Negative negative for sig nificant inflammation and malignancy in this sampling CDT LABORATORY-C Amina Sanabria ENTRAL MD on 06/21 LABORATORY at 12:10 PM Comment A) Please 07/13/2022 [facility] correlate 12:10 PM HEALTH clinically and CDT LABORATORY-C radiographically ENTRAL to determine if LABORATORY lesion was adequately sampled. Clinical Discitis. 07/13/2022 [facility] Information 12:10 PM HEALTH CDT LABORATORY-C ENTRAL LABORATORY Gross 07/13/2022 [facility] Description A) Received identified as t horacic disc T7-T8 fluid consists of 0.4 cc of red opaque fluid from which the following is prepared: 12:10 PM HEALTH ? - 1 Diff-Quik stained slide CDT LABORATORY-C ? - 1 ThinPrep slide for Papanicolaou Stain ?? ENTRAL ? - 1 H&E stained cell block slide LABORATORY A2: Cell block material was placed in formalin at 1058 on 07/10/22 and fixed in formalin at least 6 hours and no more than 72 hours. Microscopic Specimen adequacy: Limited s ampling consisting of blood and connective tissue only. 07/13/2022 [facility] Description 12:10 PM HEALTH All slides were reviewed. Th e microscopic appearance substantiates the diagnosis. CDT LABORATORY-C ENTRAL LABORATORY Additional Cytology is screened at [facility], Central Laboratory - [address], [place] [address] and [facility] - [address] , [place] [address] and 07/13/2022 [facility] Information [facility] - [address] [place] [address] 12:10 PM HEALTH CDT LABORATORY-C Interpreted at [facility] - [address], [place] [address] ENTRAL LABORATORY Specimen Anatomical Collection Method Collection Time Receive d Time (Source) Location / / Volume Laterality Other (Thoracic Non-Blood / 07/09/2022 3:45 PM 2021 4:14 Disc) Unknown CDT PM CDT Cleveland Ryan MD PATHOLOGY/CYTOLOGY Performing Organization Address City/[facility]/ZIP Code Phon e Number [employer] [address] [place] [address] LABORATORY-CENTRAL 2000 LABORATORY ANAEROBIC CULTURE (07/09/2022 3:45 PM CDT) [facility] Method Time Signature CULTURE No anaerobes 07/14/2022 [facility] isolated 10:07 AM CDT LABORATORY-ULISES TRAL LABORATORY Specimen Anatomical Collection Method Collection Time Receive d Time (Source) Location / / Volume Laterality Other SPECIMEN FROM Non-Blood / 07/09/2022 3:45 PM 07/09/20 4:14 ABSCESS / Unknown Unknown CDT PM CDT Cleveland Ryan MD MICROBIOLOGY Performing Organization Address [facility] Phon e Number [employer] [address] [place] [address] LABORATORY-CENTRAL 1999 LABORATORY (ABNORMAL) URINALYSIS MICROSCOPIC (07/06/2022 8:28 PM CDT) [facility] Method Time Signature RBC 11-25 (A) 0-2, None 07/06/2022 [facility] Seen /HPF 9:16 PM CDT LABORATORY-ULISES TRAL LABORATORY WBC >100 (A) 0-2, 3-5, 07/06/2022 [facility] None Seen 9:16 PM CDT LABORATORY-ULISES /HPF TRAL LABORATORY BACTERIA Few None 07/06/2022 [facility] Seen, 9:16 PM CDT LABORATORY-ULISES Rare, Few TRAL Bacteria/ LABORATORY HPF EPITHELIAL Few None 07/06/2022 [facility] [employer] CELLS Seen, Few 9:16 PM CDT LABORATORY-ULISES Epi/HPF TRAL LABORATORY HYALINE CASTS 3-5 0-2, 3-5 07/06/2022 [facility] /LPF 9:16 PM CDT LABORATORY-ULISES TRAL LABORATORY Specimen Anatomical Collection Method Collection Time Receive d Time (Source) Location / / Volume Laterality Urine URINE SPECIMEN / Non-Blood / 07/06/2022 8:28 PM 07/06 8:47 Unknown Unknown CDT PM CDT Hayley Montoya MD URINE Performing Organization Address City/State/ZIP Code Phon e Number [employer] [address] [place] [address] LABORATORY-CENTRAL 1999 LABORATORY (ABNORMAL) Urine culture - clean catch ADD ON (07/06/2022 8:28 PM CDT) [facility] Method Time Signature CULTURE RESULT (A) 07/09/2022 [facility] 6:48 AM CDT LABORATORY-ULISES TRAL LABORATORY CULTURE >100,000 CFU/mL 07/09/2022 [facility] Pseudomonas 6:48 AM CDT LABORATORY-ULISES aeruginosa TRAL LABORATORY Specimen Anatomical Collection Method Collection Time Receive d Time (Source) Location / / Volume Laterality Urine URINE SPECIMEN / Non-Blood / 07/06/2022 8:28 PM 07/06 8:47 Unknown Unknown CDT PM CDT Organism Antibiotic Method Susceptibility Pseudomonas aeruginosa GENTAMICIN 2: S Pseudomonas aeruginosa CEFTAZIDIME 4: S Pseudomonas aeruginosa LEVOFLOXACIN 1: S Pseudomonas aeruginosa CIPROFLOXACIN <=0.25: S Pseudomonas aeruginosa PIPERACILLIN/TAZO 8: S Pseudomonas aeruginosa CEFEPIME 4: S Pseudomonas aeruginosa TOBRAMYCIN <=1: S Pseudomonas aeruginosa MEROPENEM <=0.25: S Ruslan Coello MD MICROBIOLOGY Performing Organization Address City/State/ZIP Code Phon e Number [employer] [address] [place] [address] LABORATORY-CENTRAL 1999 LABORATORY (ABNORMAL) UA W/ SEDIMENT EXAM REFLEXED PER CRITERIA (07/06/2022 8:28 PM CDT) [facility] Method Time Signature COLOR Yellow Yellow Color 07/06/2022 [facility] 9:16 PM CDT LABORATORY-CE NTRAL LABORATORY CLARITY Turbid (A) Clear 07/06/2022 [facility] Clarity 9:16 PM CDT LABORATORY-CE NTRAL LABORATORY SPECIFIC 1.020 1.010, 07/06/2022 [facility] GRAVITY,URINE 1.015, 9:16 PM CDT LABORATORY-CE 1.020, 1.025 NTRAL LABORATORY PH,URINE 7.5 6.0, 7.0, 07/06/2022 [facility] 8.0, 5.5, 9:16 PM CDT LABORATORY-CE 6.5, 7.5, NTRAL 8.5 LABORATORY UROBILINOGEN, Normal Normal EU/dl 07/06/2022 [facility] 9:16 PM CDT LABORATORY-CE NTRAL LABORATORY PROTEIN, 30 (A) Negative 07/06/2022 [facility] mg/dL 9:16 PM CDT LABORATORY-CE NTRAL LABORATORY GLUCOSE, Negative Negative 07/06/2022 [facility] mg/dL 9:16 PM CDT LABORATORY-CE [facility] KETONES,URINE Negative Negative 07/06/2022 [facility] mg/dL 9:16 PM CDT LABORATORY-CE [facility] BILIRUBIN,URI Negative Negative 07/06/2022 [facility] NE 9:16 PM CDT LABORATORY-CE [facility] OCCULT Small (A) Negative 07/06/2022 [facility] BLOOD,URINE 9:16 PM CDT LABORATORY-CE N[facility]AL LAB[facility]ATORY NITRITE Negative Negative 07/06/2022 [facility] 9:16 PM CDT LABORATORY-CE [facility]AL LAB[facility]ATORY LEUKOCYTE Large (A) Negative 07/06/2022 [facility] ESTERASE 9:16 PM CDT LABORATORY-CE N[facility]AL LAB[facility]ATORY Specimen Anatomical Collection Method Collection Time Receive d Time (Source) Location / / Volume Laterality Urine URINE SPECIMEN / Non-Blood / 07/06/2022 8:28 PM 07/06 8:47 Unknown Unknown CDT PM CDT Hayley Montoya MD URINE Performing Organization Address City/State/ZIP Code Phon e Number [facility] [address] [place] [address] LABORATORY-CENTRAL 2000 LABORATORY BODY FLUID CELL COUNT/DIF (07/06/2022 1:20 PM CDT) [facility] Method Time Signature BODY FLUID Synovial 07/06/2022 [facility] SOURCE Fluid 7:08 PM CDT LABORATORY-ULISES TRAL LABORATORY Comment: Disc Aspiration BODY FLUID COLOR Grossly Bloody 07/06/2022 7:08 [facility] PM CDT LABORATORY-CENTRAL LABORATORY BODY FLUID Turbid 07/06/2022 7:08 [facility] CLARITY PM CDT LABORATORY-CENTRAL LABORATORY TOTAL NUCLEATED 110 /cu mm 07/06/2022 7:08 [facility] BF PM CDT LABORATORY-CENTRAL LABORATORY RED BLOOD COUNT, 95,000 /cu mm 07/06/2022 7:08 [facility] BODY FLUID PM CDT LABORATORY-CENTRAL LABORATORY % NEUTROPHILS, 94 % 07/06/2022 7:08 [facility] BODY FLUID PM CDT LABORATORY-CENTRAL LABORATORY % LYMPHOCYTES, 1 % 07/06/2022 7:08 [facility] S[facility]TH BODY FLUID PM CDT LABORATORY-CENTRAL LABORATORY % MONO/MACRO, 5 % 07/06/2022 7:08 [facility] ZAPATA LTH BODY FLUID PM CDT LABORATORY-CENTRAL LABORATORY Specimen Anatomical Collection Method Collection Time Receive d Time (Source) Location / / Volume Laterality Body Fluid BODY FLUID Non-Blood / 07/06/2022 1:20 PM 1:42 SPECIMEN / Unknown Unknown CDT PM CDT Narrative [facility] LABORATORY-CENTRAL LABORAT ORY - 07/06/2022 7:08 PM CDT TO ORDER BODY FLUID CULTURES, USE; [id number] BODY FLUID CULTURE, STAIN Kalen Zurita MD BODY FLUID Performing Organization Address City/State/ZIP Code Phon e Number [facility] [address] [place] [address] LABORATORY-CENTRAL 2000 LABORATORY ECHO COMPLETE W CONTRAST (07/06/2022 11:00 AM CDT) P athologist Signature AORTIC VALVE 5 mmHg MEAN PG EJECTION 73 % FRACTION PEAK TR 1.8 m/s VELOCITY LVEDD 3.7 cm Anatomical Region Laterality Modality HEART Ultrasound Specimen (Source) Anatomical Collection Method Collection Time Re ceived Time Location / / Volume Laterality 07/06/2022 8:12 AM CDT Narrative 07/06/2022 11:22 AM CDT ECHOCARDIOGRAM REMI WAHL ?Acces francesca#: ?? [id number] : ?1965 56 years Study Date : ?? 07/06/2022 8:12:38 AM Gender: F ? BP: ? 166/96 mmHg Height: 172.00 cm ? BSA: ?2.22 m? ?? Weight: 111.00 kg ? Tech: ? ARW ?Referring MD: CARITO GONGORA Site: ? [facility] Reading Location: [facility] IP Procedure: 2D w/ Contrast, Color Doppler and Spectral Doppler. Indication for study: DYSPNEA Cardiac Rhythm: Normal sinus.Study quali ty: Good. Final Impressions: 1. Normal left ventricular size, mildly increased wall thickness, hyperdynamic global systolic function, calculated EF of 73 %. 2. Echo contrast was administrered to e nhance visualization of all left ventricular segments. 3. Right ventricular cavity size is nor mal, global systolic RV function is normal. 4. Normal left atrium size. 5. The aortic valve is sclerotic, no st enosis and mild regurgitation. 6. The mitral valve is normal, trace mi tral regurgitation. 7. Tricuspid valve is normal. 8. No pericardial effusion. Chamber Sizes and Function Normal left ventricular size, mildly inc reased wall thickness, hyperdynamic global systolic function, calculated EF of 73 %. Left atrial size is normal. Right ventricular cavity size is normal, global s ystolic RV function is normal. The right atrium is not well visualized. The pulmonary artery is not well visualized. The sinus of Valsalva is normal sized. The ascending aorta is not well visualized. Valves, RV Pressures and Diastolic Funct ion The aortic valve is sclerotic, no stenos is and mild regurgitation. The mitral valve is normal in structure, trace mitral regurgitation. Normal diastolic function. The tricuspid valve is normal in struct ure. Tricuspid regurgitation is trace re gurgitation. The tricuspid regurgitant velocity is 1.8 m/s, the estimated right ventricular systolic pressure is 13 mmHg plus right atrial pressure. The pulmonic valve is normal. Trace pulmonary regurgitation. Masses, Effusion, Shunts There is no pericardial effusion. The in ferior vena cava is normal sized, respiratory size variation greater than 50%. No left to right shunting was detected by limited color flow Doppler interrogation of the interatrial septum. MEASUREMENTS AND CALCULATIONS 2-D Measurements and LV Function: LVID (d) 3.7 cm Planimetered EF 73 % LVID (s) 2.6 cm LV FS% (2D) ? 30 % IVS (d) ??1.3 cm LVOT diameter ?? 2.3 cm LVPW (d) 1.4 cm HR ?6 8 bpm Ao Sinus 3.1 cm LA Vol index ?24 ml/ m2 LA ? 4.5 cm Diastology: Mitral ? Tissue Doppler E Peak 0.9 m/s e', Septum ? 0.05 m/s A Peak 0.6 m/s e', Lateral ?0.11 m/s E/A ?1.6 ? E/e' Average ?? 10.45 Aortic Valve: Vmax ? 1.5 m/s ??TORRIE (V) ?? 2.38 cm? ?? VTI ?0.35 m ?? TORRIE (I) ?? 2.33 cm? ?? LVOT V max 0.9 m/s ??Max PG ?9 mmHg LVOT VTI ?? 0.20 m ?? Mean PG ?? 5 mmHg SV ? 82 ml ?Dim Index 0.58 SV index ?? 37 ml/m? ?? CO ?5.6 l/min ?CI ?2.5 l/min/m? ?? Tricuspid Valve and estimated PA pressur es: TR Vmax 1.8 m/s TAPSE 2.7 cm TR maxG 13 mmHg Pulmonic Valve: PV Vmax ??1.0 m/s PV meanG 2 mmHg PV VTI ?? 0.25 m Contrast documentation: 2 ml diluted Def inity, lot #[id number], was administered peripherally to enhance visualization of all left ventricular segments. . This study was interpreted by an [facility] redited facility. ??Final ?? Procedure Note Alaina Krueger, [facility] - 07/06/2022Formatt ing of this note might be different from the original. ECHOCARDIOGRAM REMI WAHL : 1965 56 years Study Date: 8:12:38 AM Gender: F BP: 166/96 mmHg Height: 172.00 cm BSA: 2.22 m? ?? Weight: 111.00 kg Tech: ZORAW Referring MD: CARITO GONGORA Site: [facility] Reading Location: [facility] IP Procedure: 2D w/ Contrast, Color Doppler and Spectral Doppler. Indication for study: DYSPNEA Cardiac Rhythm: Normal sinus.Study quali ty: Good. Final Impressions: 1. Normal left ventricular size, mildly increased wall thickness, hyperdynamic global systolic function, calculated EF of 73 %. 2. Echo contrast was administrered to e nhance visualization of all left ventricular segments. 3. Right ventricular cavity size is nor mal, global systolic RV function is normal. 4. Normal left atrium size. 5. The aortic valve is sclerotic, no st enosis and mild regurgitation. 6. The mitral valve is normal, trace mi tral regurgitation. 7. Tricuspid valve is normal. 8. No pericardial effusion. Chamber Sizes and Function Normal left ventricular size, mildly inc reased wall thickness, hyperdynamic global systolic function, calculated EF of 73 %. Left atrial size is normal. Right ventricular cavity size is normal, global systolic RV function is normal. The right atrium is not well visualized. The pulmonary artery is not well visualized. The sinus of Valsalva is normal sized. The ascending aorta is not well visualized. Valves, RV Pressures and Diastolic Funct ion The aortic valve is sclerotic, no stenos is and mild regurgitation. The mitral valve is normal in structure, trace mitral regurgitation. Normal diastolic function. The tricuspid valve is normal in structure. Tricuspid regurgitation is trace regurgitation. Th e tricuspid regurgitant velocity is 1.8 m/s, the estimated right ventricular systolic pressure is 13 mmHg plus right atrial pressure. The pulmonic valve is normal. Trace pulmonary regurgitation. Masses, Effusion, Shunts There is no pericardial effusion. The in ferior vena cava is normal sized, respiratory size variation greater than 50%. No left to right shunting was detected by limited color flow Doppler interrogation of the interatrial septum. MEASUREMENTS AND CALCULATIONS 2-D Measurements and LV Function: LVID (d) 3.7 cm Planimetered EF 73 % LVID (s) 2.6 cm LV FS% (2D) 30 % IVS (d) 1.3 cm LVOT diameter 2.3 cm LVPW (d) 1.4 cm HR 68 bpm Ao Sinus 3.1 cm LA Vol index 24 ml/m2 LA 4.5 cm Diastology: Mitral Tissue Doppler E Peak 0.9 m/s e', Septum 0.05 m/s A Peak 0.6 m/s e', Lateral 0.11 m/s E/A 1.6 E/e' Average 10.45 Aortic Valve: Vmax 1.5 m/s TORRIE (V) 2.38 cm? ?? VTI 0.35 m TORRIE (I) 2.33 cm? ?? LVOT V max 0.9 m/s Max PG 9 mmHg LVOT VTI 0.20 m Mean PG 5 mmHg SV 82 ml Dim Index 0.58 SV index 37 ml/m? ?? CO 5.6 l/min CI 2.5 l/min/m? ?? Tricuspid Valve and estimated PA pressur es: TR Vmax 1.8 m/s TAPSE 2.7 cm TR maxG 13 mmHg Pulmonic Valve: PV Vmax 1.0 m/s PV meanG 2 mmHg PV VTI 0.25 m Contrast documentation: 2 ml diluted Def inity, lot #[id number], was administered peripherally to enhance visualization of all left ventricular segments. . This study was interpreted by an [facility] redited facility. Final Carito Gongora MD ECHO ORD White Blood Count (07/06/2022 8:18 AM CDT) P athologist Signature WHITE BLOOD 7.2 4.5 - 11.0 07/06/2022 [facility] COUNT thou/cu mm 8:50 AM CDT LABORATORY-CENT RAL LABORATORY NRBC 0.0 % 07/06/2022 [facility] 8:50 AM CDT LABORATORY-CENT [facility] LABORATORY ABS NRBC 0.0 thou /cu 07/06/2022 [facility] mm 8:50 AM CDT LABORATORY-CENT RAL LABORATORY Specimen Anatomical Collection Method Collection Time Receive d Time (Source) Location / / Volume Laterality Blood BLOOD SPECIMEN / Butterfly / 07/06/2022 8:18 AM 07/06 8:31 Unknown Unknown CDT AM CDT Carito Gongora MD HEMATOLOGY Performing Organization Address City/[facility]/ZIP Code Phon e Number [employer] [address] [facility] [place] [address] LABORATORY-CENTRAL 2000 LABORATORY Hemoglobin (07/06/2022 8:18 AM CDT) athologist Signature HEMOGLOBIN 12.0 12.0 - 16.0 07/06/2022 [facility] g/dL 8:50 AM CDT LABORATORY-CENT RAL LABORATORY MCV 90 80 - 100 fL 07/06/2022 [facility] 8:50 AM CDT LABORATORY-CENT RAL LABORATORY Specimen Anatomical Collection Method Collection Time Receive d Time (Source) Location / / Volume Laterality Blood BLOOD SPECIMEN / Butterfly / 07/06/2022 8:18 AM 07/06 8:31 Unknown Unknown CDT AM CDT Carito Gongora MD HEMATOLOGY Performing Organization Address City/[facility]/ZIP Code Phon e Number [facility] [address] [facility] [place] [address] LABORATORY-CENTRAL 2000 LABORATORY Sodium (07/06/2022 8:18 AM CDT) athologist Signature SODIUM 139 135 - 145 07/06/2022 [facility] mmol/L 9:10 AM CDT LABORATORY-CENTR AL LABORATORY Specimen Anatomical Collection Method Collection Time Receive d Time (Source) Location / / Volume Laterality Blood BLOOD SPECIMEN / Butterfly / 07/06/2022 8:18 AM 07/06 8:31 Unknown Unknown CDT AM CDT Carito Gongora MD CHEMISTRY Performing Organization Address City/State/ZIP [facility] Phon e Number [employer] [address] [facility] [place] [address] LABORATORY-CENTRAL 2000 LABORATORY Potassium (07/06/2022 8:18 AM CDT) athologist Signature POTASSIUM 4.1 3.5 - 5.0 07/06/2022 [facility] mmol/L 9:10 AM CDT LABORATORY-CENTR AL LABORATORY Specimen Anatomical Collection Method Collection Time Receive d Time (Source) Location / / Volume Laterality Blood BLOOD SPECIMEN / Butterfly / 07/06/2022 8:18 AM 07/06 8:31 Unknown Unknown CDT AM CDT Carito Gongora MD CHEMISTRY Performing Organization Address [facility] e Number [employer] [address] [place] [id number] LABORATORY-CENTRAL 2000 LABORATORY Creatinine (07/06/2022 8:18 AM CDT) athologist Signature CREATININE 0.69 0.57 - 1.11 07/06/2022 [facility] mg/dL 9:13 AM CDT LABORATORY-CENT RAL LABORATORY eGFR >90 >90 07/06/2022 [facility] mL/min/1.73 9:13 AM CDT LABORATORY-CENT m2 RAL LABORATORY Comment: As of 2021, eGFR is calcu lated by the CKD-EPI creatinine equation without race adjustment. eGFR can be inf luenced by muscle mass, exercise, and diet. The reported eGFR is an estimation only and is only applicable if the renal function is stable. Specimen Anatomical Collection Method Collection Time Receive d Time (Source) Location / / Volume Laterality Blood BLOOD SPECIMEN / Butterfly / 07/06/2022 8:18 AM 07/06 8:31 Unknown Unknown CDT AM CDT Carito Gongora MD CHEMISTRY Performing Organization Address [facility] Phon e Number [employer] [address] [place] [phone] LABORATORY-CENTRAL 2000 LABORATORY Protime - INR - If not done in ED (07/06/2022 8:18 AM CDT) athologist Signature INR 1.0 <1.3 07/06/2022 [facility] 8:44 AM CDT LABORATORY-CENTR AL LABORATORY PROTIME 12.9 12.0 - 13.8 07/06/2022 [facility] sec 8:44 AM CDT LABORATORY-CENTR AL LABORATORY Specimen Anatomical Collection Method Collection Time Receive d Time (Source) Location / / Volume Laterality Blood BLOOD SPECIMEN / Butterfly / 07/06/2022 8:18 AM 07/06 8:31 Unknown Unknown CDT AM CDT Narrative [facility] LABORATORY-CENTRAL LABORAT ORY - 07/06/2022 8:44 AM CDT ?Therapeutic Range 2.0-3.0 for most anticoagulated patients 2.5-3.5 or 4.0 for high risk patients The INR is only used for patients on sta ble oral anticoagulant therapy. It makes no significant contribution to the diagnosis or treatment of patients whose Protime is prolonged f or other reasons. INR results are increased when heparin l evels exceed 1.0 U/mL, which corresponds to an aPTT >125 seconds if the patient is on UFH. Carito Gongora MD HEMATOLOGY Performing Organization Address City/State/ZIP Code Phon e Number [facility] [address] [place] [address] LABORATORY-CENTRAL 1999 LABORATORY SCAN CORRESP-IMAGING (07/06/2022 12:00 AM CDT) Narrative 07/06/2022 12:00 AM CDT This result has an attachment that is no t available. Ordered by an unspecified provider. Other Clinical Staff OTHER XR CHEST 2 VIEWS PA AND LATERAL (07/05/2022 11:09 PM CDT) Anatomical Region Laterality Modality CHEST, THORAX, Lung, HEART Digital Radio graphy Specimen (Source) Anatomical Collection Method Collection Time Re ceived Time Location / / Volume Laterality 07/05/2022 11:35 PM CDT Impressions 07/05/2022 11:35 PM CDT No sign of acute disease. Dictated by Daniela Case MD @ Jul 05 11:35PM (Electronically Signed) ?? Narrative 07/05/2022 11:35 PM CDT For Patients: ??As a result of the Cures Act, medical imaging exams and procedure report s are released immediately into your [facility] medical record. ??You may view this report before your referring provider. ??If you have questions, please contact your health care provider. INDICATION: Shortness of breath TECHNIQUE: Chest 2 views. COMPARISON: None FINDINGS: Cardiovascular and mediastinum: ??Heart size and vasculature are normal in caliber and appearance. ??Mediastinum is within normal limits. ?? Lungs and pleural spaces: ??Lungs are cl ear. ??No sign of infiltrate or mass. ??No sign of pleural effusion. ??No pneumothorax. ?? Bones and soft tissues: ??No significant findings. ?? Procedure Note Daniela Case MD - 07/05/2022Format ting of this note might be different from the original. For Patients: As a result of the ntury Cures Act, medical imaging exams and procedure reports are released immediately into your electronic medical record. You may view this report before your referring provider. If you have questions, please contact yo health care provider. INDICATION: Shortness of breath TECHNIQUE: Chest 2 views. COMPARISON: None FINDINGS: Cardiovascular and mediastinum: Heart si ze and vasculature are normal in caliber and appearance. Mediastinum is within normal limits. Lungs and pleural spaces: Lungs are kojo r. No sign of infiltrate or mass. No sign of pleural effusion. No pneumothorax. Bones and soft tissues: No significant f indings. IMPRESSION: No sign of acute disease. Dictated by Daniela Case MD @ Jul 05 11:35PM (Electronically Signed) Carito Gongora MD GENERAL IMAGING COVID 19 (07/05/2022 9:53 PM CDT) Analysis Performed At Patho logist Time Signature COVID 19 Negative Negative 07/06/2022 [facility] 1:32 PM CDT LABORATORY-ULISES MOLECULAR TRAL LABORATORY Comment: All PCR tests are subject to fa lse negative result due to variability in viral load and collection technique. A n egative result does not rule out a SARS-CoV-2 infection. Clinical correlation required . Specimen Anatomical Location / Collection Method Collection Waldo e Received Time (Source) Laterality / Volume Other SPECIMEN FROM Non-Blood / 07/05/2022 9:53 07/06/2022 7:37 NASOPHARYNGEAL Unknown PM CDT AM CDT STRUCTURE / Unknown Narrative [facility] LABORATORY-CENTRAL LABORAT ORY - 07/06/2022 1:32 PM CDT This test has been authorized by FDA und er an Emergency Use Authorization (EUA). This test is only authorized for the duration of time the declaration that circumstances exist justifying the authorization of th e emergency use of in vitro diagnostic tests for detection of SARS-CoV-2 virus and/or diagnosis of COVID-19 infection under section 564(b)(1) of the Act, 21 U.S.C. 360bbb-3(b)(1), unless the authorization is terminated or revoked sooner. Gary Leslie MD MICROBIOLOGY Performing Organization Address City/[facility]/ZIP Code Phon e Number [facility] [address] [facility] [place] [address] LABORATORY-CENTRAL 2000 LABORATORY COVID 19 COLLECTION (07/05/2022 9:53 PM CDT) [facility] gist Method Time Signature TESTING [facility] 07/06/2022 [facility] LABORATORY Laboratory 7:38 AM CDT LABORATORY-CE NTRAL LABORATORY Comment: Specimen submitted to [facility] for testing. Specimen Anatomical Location / Collection Method Collection Waldo e Received Time (Source) Laterality / Volume Other SPECIMEN FROM Non-Blood / 07/05/2022 9:53 07/05/2022 9:55 NASOPHARYNGEAL Unknown PM CDT PM CDT STRUCTURE / Unknown Gary Leslie MD SEND OUTS Performing Organization Address City/[facility]/ZIP Code Phon e Number [facility] [address] [facility] [place] [address] LABORATORY-CENTRAL 1999 LABORATORY BLOOD CULTURE (07/05/2022 8:53 PM CDT)Only the most recent of2 resultswithin the time period is included. athologist Signature CULTURE No Growth. 07/10/2022 [facility] 10:33 PM CDT LABORATORY-CENT [facility] LABORATORY Specimen Anatomical Collection Method / Collection Time Recei jez Time (Source) Location / Volume Laterality Blood BLOOD SPECIMEN / Venipuncture / 07/05/2022 8:53 2021 9:01 Unknown Unknown PM CDT PM CDT Gary Leslie MD MICROBIOLOGY Performing Organization Address City/[facility] Phon e Number [facility] [address] [facility] [place] [address] LABORATORY-CENTRAL 2000 LABORATORY MR Lumbar Spine W/WO if Previous Surgery (07/05/2022 8:30 PM CDT) Anatomical Region Laterality Modality Spine, LUMBAR SPINE Magnetic Resonance Specimen (Source) Anatomical Collection Method Collection Time Re ceived Time Location / / Volume Laterality 07/05/2022 9:02 PM CDT Narrative 07/05/2022 9:02 PM CDT For Patients: ??As a result of the Cures Act, medical imaging exams and procedure report s are released immediately into your [facility] medical record. ??You may view this report before your referring provider. ??If you have questions, please contact your health care provider. Indication: osteomyelitis/discitis Technique: Noncontrast sagittal and axial T1, T2, a nd sagittal STIR sequences are provided. Postcontrast sagittal and axial T1 weighted images were obtained after administration of 10 ml Gadavist IV contrast. Comparison: No prior studies available for compariso n at this institution. Findings: Lumbar lordosis is preserved. Grade 1 an terolisthesis at L3-4. Vertebral body heights are maintained. No fractures. No aggressive osseous lesion. T2 hyperintense cystic structures versus artifact in the right hepatic lobe. Conus medullaris is normal in signal and located at L2. Bilateral renal cysts. T12-L1: Minimal disc bulge. Mild facet a rthrosis. No significant spinal canal stenosis or neural foramen narrowing. L1-2: Mild disc bulge. Bilateral facet a rthrosis. No significant spinal canal stenosis or neural foramen narrowing. L2-3: No significant spinal canal stenos is or neural foramen narrowing. L3-4: Grade 1 anterolisthesis, disc mahnaz ccation, uncovering of the disc with small enhancing central disc protrusion, and advanced bilateral facet arthrosis. Mild right subarticular recess narrowing. Mi ld right neural foramen narrowing. No le ft neural foramen narrowing. Enhancement of the bilateral facet joints. Enhancement in the dorsal epidural space likely due to engorgement of the venous plexus. L4-5: Grade 1 anterolisthesis with uncov ering of the disc and disc desiccation. Advanced facet arthrosis. No significant spinal canal stenosis or neural foramen narrowing. Enhancement of the bilateral facet joints without significant edema. L5-S1: Moderate interspace narrowing. Di sc bulge and osteophytic spurring and advanced facet arthrosis. Ankylosis of the left endplates. No spinal canal stenosis. Moderate right and no left neural from narrowing. Impression : 1. No evidence of diskitis or osteomyeli tis in the lumbar spine. Degenerative grade 1 anterolisthesis of L3-4 and L4-5. Ankylosis of L5-S1 on the left side. 2. Enhancement of bilateral facet joints at L3-4 and L4-5 without associated bone marrow edema suggestive of synovitis and osteoarthritic changes. Early infection is also a possibility but considered less likely. 3. Enhancement of the L3 dorsal epidural space likely due to enhancement of the venous plexus. Incidental enhancement of the central disc herniation at L3-4 level. 4. No significant spinal canal stenosis. Moderate right neural foramina narrowing at L5-S1. Otherwise no significant neural foramen narrowing. Dictated by Bret Al MD @ 07/05/2022 9:02:53 PM (Electronically Signed) Procedure Note Bret Al MD - 07/05/2022Fo rmatting of this note might be different from the original. For Patients: As a result of the ntury Cures Act, medical imaging exams and procedure reports are released immediately into your electronic medical record. You may view this report before your referring provider. If you have questions, please contact [facility] care provider. Indication: osteomyelitis/discitis Technique: Noncontrast sagittal and axial T1, T2, a nd sagittal STIR sequences are provided. Postcontrast sagittal and axial T1 weighted images were obtained after administration of 10 ml Gadavist IV contrast. Comparison: No prior studies available for compariso n at this institution. Findings: Lumbar lordosis is preserved. Grade 1 an terolisthesis at L3-4. Vertebral body heights are maintained. No fractures. No aggressive osseous lesion. T2 hyperintense cystic structures versus artifact in the right hepatic lobe. Conus medullaris is normal in sign al and located at L2. Bilateral renal cysts. T12-L1: Minimal disc bulge. Mild facet a rthrosis. No significant spinal canal stenosis or neural foramen narrowing. L1-2: Mild disc bulge. Bilateral facet a rthrosis. No significant spinal canal stenosis or neural foramen narrowing. L2-3: No significant spinal canal stenos is or neural foramen narrowing. L3-4: Grade 1 anterolisthesis, disc mahnaz ccation, uncovering of the disc with small enhancing central disc protrusion, and advanced bilateral facet arthrosis. Mild right subarticular recess narrowing. Mild right neural foramen narrowing. No left neural forame n narrowing. Enhancement of the bilateral facet joints. Enhancement in the dorsal epidural space likely due to engorgement of the venous plexus. L4-5: Grade 1 anterolisthesis with uncov ering of the disc and disc desiccation. Advanced facet arthrosis. No significant spinal canal stenosis or neural foramen narrowing. Enhancement of the bilateral facet joints without significant edema. L5-S1: Moderate interspace narrowing. Di sc bulge and osteophytic spurring and advanced facet arthrosis. Ankylosis of the left endplates. No spinal canal stenosis. Moderate right and no left neural from narrowing. Impression : 1. No evidence of diskitis or osteomyeli tis in the lumbar spine. Degenerative grade 1 anterolisthesis of L3-4 and L4-5. Ankylosis of L5-S1 on the left side. 2. Enhancement of bilateral facet joints at L3-4 and L4-5 without associated bone marrow edema suggestive of synovitis and osteoarthritic changes. Early infection is also a possibility but considered less likely. 3. Enhancement of the L3 dorsal epidural space likely due to enhancement of the venous plexus. Incidental enhancement of the central disc herniation at L3-4 level. 4. No significant spinal canal stenosis. Moderate right neural foramina narrowing at L5-S1. Otherwise no significant neural foramen narrowing. Dictated by Bret Al MD @ 07/05/2022 9:02:53 PM (Electronically Signed) Gary Leslie MD MR MR SPINE THORACIC WWO (07/05/2022 8:29 PM CDT) Anatomical Region Laterality Modality Spine, THORACIC SPINE Magnetic Resonance Specimen (Source) Anatomical Collection Method Collection Time Re ceived Time Location / / Volume Laterality 07/05/2022 8:54 PM CDT Narrative 07/05/2022 8:54 PM CDT For Patients: ??As a result of the Cures Act, medical imaging exams and procedure report s are released immediately into your [facility]. ??You may view this report before your referring provider. ??If you have questions, please contact your health care provider. Indication: osteomyelitis/discitis Technique: Noncontrast sagittal T1, T2, STIR and ax ial GRE sequences are provided. Sagittal and axial T1 postcontrast images obtained after administration of 10 cc Gadavist IV contrast. Comparison: No prior studies available for compariso n at this institution. Findings: Normal thoracic spine alignment. No frac tures. Multilevel spondylotic changes. There is abnormal T2/stir hyperintense signal in the T7 disc with abnormal T2/stir hyperintense signal and abnormal T1 hypo intense signal in the T7 and T8 vertebra l bodies with erosions in the endplates consistent with discitis osteomyelitis. Ventral epidural enhancement is noted extending from the T6-7 to T8-9 level, and d orsal epidural enhancement at T5-6 throu gh T8-9 level likely due to phlegmon. No epidural abscess identified. Large enhancing soft tissue component anterior paraspinal space with abscess measuring 2.7 c m craniocaudal x 0.8 cm AP abutting the anterior cortex of T7-T8. T2 hyperintense cystic structures versus artifact in the right hepatic lobe. Small cyst in the left kidney. No abnormal spinal cord signal T1-2: Grade 1 anterolisthesis. No signif icant spinal canal stenosis or neural foramen narrowing. T2-3: Minimal disc bulge. Right facet ar throsis. No spinal canal stenosis. Mild right neural foramen narrowing T3-4: Mild facet arthrosis. No significa nt spinal canal stenosis or neural foramen narrowing. T4-5: Mild disc bulge. Bilateral facet a rthrosis. Mild right neural foramen narrowing. No central canal stenosis or left neural foramen narrowing. T5-6: Minimal disc bulge and facet arthr osis. Mild right neural foramen narrowing. No left neural foramen narrowing or spinal canal stenosis. T6-7: Mild disc bulge. Bilateral facet a rthrosis. Mild neural foramina narrowing bilaterally. T7-8: Disc bulge secondary to discitis a nd central protrusion indents the ventral thecal sac. Mild spinal canal narrowing. Mild neural foramina narrowing bilaterally. Moderate right facet arthrosis. T8-9: Small right central protrusion. Bi lateral facet arthrosis. Moderate neural foramina narrowing bilaterally T9-10: No significant spinal canal steno sis or neural foramen narrowing. Bilateral facet arthrosis. T10-11: Small left central protrusion an d disc bulge. Mild spinal canal narrowing. Bilateral facet arthrosis. Mild neural foramen narrowing bilaterally. T11-12: No significant spinal canal sten osis or neural foramen narrowing. T12-L1: No significant spinal canal sten osis or neural foramen narrowing. Impression: 1. Acute diskitis osteomyelitis at T7-8 with erosion of the T7 inferior endplate and T8 superior endplate. Small abscess in the prevertebral space along the T7 and T8 vertebral bodies. Prominent prevert ebral phlegmon. Ventral and dorsal epidu ral phlegmon. 2. Multilevel thoracic spondylosis. No h igh-grade spinal canal stenosis or neural foramina narrowing. 3. No abnormal spinal cord signal. 4. Left pleural effusion. Dictated by Bret Al MD @ 07/05/2022 8:54:10 PM (Electronically Signed) Procedure Note Bret Al MD - 07/05/2022Fo rmatting of this note might be different from the original. For Patients: As a result of the ntury Cures Act, medical imaging exams and procedure reports are released immediately into your electronic medical record. You may view this report before your referring provider. If you have questions, please contact yo health care provider. Indication: osteomyelitis/discitis Technique: Noncontrast sagittal T1, T2, STIR and ax ial GRE sequences are provided. Sagittal and axial T1 postcontrast images obtained after administration of 10 cc Gadavist IV contrast. Comparison: No prior studies available for compariso n at this institution. Findings: Normal thoracic spine alignment. No frac tures. Multilevel spondylotic changes. There is abnormal T2/stir hyperintense signal in the T7 disc with abnormal T2/stir hyperintense signal and abnormal T1 hypointense signal in the T7 and T8 vertebral bodies with eros ions in the endplates consistent with discitis osteomyelitis. Ventral epidural enhancement is noted extending from the T6-7 to T8-9 level, and dorsal epidural enhancement at T5-6 through T8-9 level likely due to ph legmon. No epidural abscess identified. Large enhancing soft tissue component anterior paraspinal space with abscess measuring 2.7 cm craniocaudal x 0.8 cm AP abutting the anterior cortex of T7-T8. T2 hyperintens e cystic structures versus artifact in the right hepatic lobe. Small cyst in the left kidney. No abnormal spinal cord signal T1-2: Grade 1 anterolisthesis. No signif icant spinal canal stenosis or neural foramen narrowing. T2-3: Minimal disc bulge. Right facet ar throsis. No spinal canal stenosis. Mild right neural foramen narrowing T3-4: Mild facet arthrosis. No significa nt spinal canal stenosis or neural foramen narrowing. T4-5: Mild disc bulge. Bilateral facet a rthrosis. Mild right neural foramen narrowing. No central canal stenosis or left neural foramen narrowing. T5-6: Minimal disc bulge and facet arthr osis. Mild right neural foramen narrowing. No left neural foramen narrowing or spinal canal stenosis. T6-7: Mild disc bulge. Bilateral facet a rthrosis. Mild neural foramina narrowing bilaterally. T7-8: Disc bulge secondary to discitis a nd central protrusion indents the ventral thecal sac. Mild spinal canal narrowing. Mild neural foramina narrowing bilaterally. Moderate right facet arthrosis. T8-9: Small right central protrusion. Bi lateral facet arthrosis. Moderate neural foramina narrowing bilaterally T9-10: No significant spinal canal steno sis or neural foramen narrowing. Bilateral facet arthrosis. T10-11: Small left central protrusion an d disc bulge. Mild spinal canal narrowing. Bilateral facet arthrosis. Mild neural foramen narrowing bilaterally. T11-12: No significant spinal canal sten osis or neural foramen narrowing. T12-L1: No significant spinal canal sten osis or neural foramen narrowing. Impression: 1. Acute diskitis osteomyelitis at T7-8 with erosion of the T7 inferior endplate and T8 superior endplate. Small abscess in the prevertebral space along the T7 and T8 vertebral bodies. Prominent prevertebral phlegmon. Ventral and dorsal epidural phlegmon. 2. Multilevel thoracic spondylosis. No h igh-grade spinal canal stenosis or neural foramina narrowing. 3. No abnormal spinal cord signal. 4. Left pleural effusion. Dictated by Bret Al MD @ 07/05/2022 8:54:10 PM (Electronically Signed) Gary Leslie MD MR SEDIMENTATION RATE (07/05/2022 6:03 PM CDT) [facility] Method Time Signature SEDIMENTATION RATE 26 <30 mm/hr 07/05/2022 CHARITO SADLERA LTH 6:50 PM CDT LABORATORY-ULISES TRAL LABORATORY Specimen Anatomical Collection Method / Collection Time Recei jez Time (Source) Location / Volume Laterality Blood BLOOD SPECIMEN / Venipuncture / 07/05/2022 6:03 2021 6:17 Unknown Unknown PM CDT PM CDT Gary Leslie MD HEMATOLOGY Performing Organization Address City/State/ZIP Code Phon e Number [employer] [address] [place] [address] LABORATORY-CENTRAL 1999 LABORATORY (ABNORMAL) CBC W PLT NO DIFF (07/05/2022 6:03 PM CDT) [facility] [employer] Method Time Signature WHITE BLOOD 5.7 4.5 - 11.0 07/05/2022 [employer] COUNT thou/cu mm 6:40 PM CDT LABORATORY-ULISES TRAL LABORATORY RED BLOOD COUNT 4.05 4.00 - 07/05/2022 [facility] 5.20 6:40 PM CDT LABORATORY-ULISES mil/cu mm TRAL LABORATORY HEMOGLOBIN 11.9 (L) 12.0 - 07/05/2022 [facility] 16.0 g/dL 6:40 PM CDT LABORATORY-ULISES TRAL LABORATORY HEMATOCRIT 36.5 33.0 - 07/05/2022 [facility] 51.0 % 6:40 PM CDT LABORATORY-ULISES TRAL LABORATORY MCV 90 80 - 100 07/05/2022 [facility] fL 6:40 PM CDT LABORATORY-ULISES TRAL LABORATORY MCH 29.4 26.0 - 07/05/2022 [facility] 34.0 pg 6:40 PM CDT LABORATORY-ULISES TRAL LABORATORY MCHC 32.6 32.0 - 07/05/2022 [facility] 36.0 g/dL 6:40 PM CDT LABORATORY-ULISES TRAL LABORATORY RDW 14.5 11.5 - 07/05/2022 [facility] 15.5 % 6:40 PM CDT LABORATORY-ULISES TRAL LABORATORY PLATELET COUNT 223 140 - 440 07/05/2022 [facility] thou/cu mm 6:40 PM CDT LABORATORY-ULISES TRAL LABORATORY MPV 10.2 6.5 - 11.0 07/05/2022 [facility] fL 6:40 PM CDT LABORATORY-ULISES TRAL LABORATORY NRBC 0.0 % 07/05/2022 [facility] 6:40 PM CDT LABORATORY-ULISES TRAL LABORATORY ABS NRBC 0.0 thou /cu 07/05/2022 [facility] mm 6:40 PM CDT LABORATORY-ULISES TRAL LABORATORY Specimen Anatomical Collection Method / Collection Time Recei jez Time (Source) Location / Volume Laterality Blood BLOOD SPECIMEN / Venipuncture / 07/05/2022 6:03 2021 6:17 Unknown Unknown PM CDT PM CDT Gary Leslie MD HEMATOLOGY Performing Organization Address City/State/ZIP Code Phon e Number [facility] [address] [place] [address] LABORATORY-CENTRAL 2000 LABORATORY (ABNORMAL) HEPATIC FUNCTION PANEL (07/05/2022 6:03 PM CDT) [facility] Method Time Signature ALBUMIN 3.7 3.5 - 5.2 07/06/2022 [facility] g/dL 2:48 AM CDT LABORATORY-ULISES TRAL LABORATORY PROTEIN,TOTAL 6.2 6.0 - 8.0 07/06/2022 [facility] g/dL 2:48 AM CDT LABORATORY-ULISES TRAL LABORATORY GLOBULIN 2.5 2.0 - 3.7 07/06/2022 [facility] g/dL 2:48 AM CDT LABORATORY-ULISES TRAL LABORATORY A/G RATIO 1.5 1.0 - 2.0 07/06/2022 [facility] 2:48 AM CDT LABORATORY-ULISES TRAL LABORATORY BILIRUBIN,TOTAL 0.3 0.2 - 1.2 07/06/2022 [facility] mg/dL 2:48 AM CDT LABORATORY-ULISES TRAL LABORATORY BILIRUBIN,DIRECT 0.2 0.1 - 0.5 07/06/2022 [facility] mg/dL 2:48 AM CDT LABORATORY-ULISES TRAL LABORATORY BILIRUBIN,INDIRE 0.1 (L) 0.2 - 0.8 07/06/[address] [facility] [address] mg/dL 2:48 AM CDT LABORATORY-ULISES TRAL LABORATORY ALK PHOSPHATASE 87 50 - 136 07/06/2022 [facility] IU/L 2:48 AM CDT LABORATORY-ULISES TRAL LABORATORY ALT (SGPT) 16 8 - 45 07/06/2022 [facility] IU/L 2:48 AM CDT LABORATORY-ULISES TRAL LABORATORY AST (SGOT) 17 2 - 40 07/06/2022 [facility] IU/L 2:48 AM CDT LABORATORY-ULISES TRAL LABORATORY Specimen Anatomical Collection Method / Collection Time Recei jez Time (Source) Location / Volume Laterality Blood BLOOD SPECIMEN / Venipuncture / 07/05/2022 6:03 2021 6:17 Unknown Unknown PM CDT PM CDT Carito Gongora MD CHEMISTRY Performing Organization Address City/State/ZIP Code Phon e Number [facility] [address] [place] [address] LABORATORY-CENTRAL 2000 LABORATORY from Last 3 Months Insurance Payer Benefit Plan / Subscriber ID Effective Dates Phone Addre ss Type Group [id number] 2022-Present [address] [place] [address] REMI [facility] Personal/Famil Self 1965 [phone] (Home) [place] [address] Advance Directives Latest Code Status on File Code Status Date Activated Date Inactivated Comments Full Code 07/05/2022 11:53 PM 07/11/2022 7:39 PM Code Status Discussion: Reviewed Preferences Full Code 07/18/2020 6:01 AM 07/18/2020 10:14 PM Code Status Discussion: Not Discussed Care Teams General Warehouse Worker Relationship Specialty Start Date End Date Ariadna Villafana PA-C PCP - General Emergency Medicine 05/28/20 [address] [place] [address] [facility] [place] 07/12/22 [address] [place] [address]
--- OUTSIDE RECORDS SUMMARY | 2022-08-06 13:48 | XMS_ITS | Encounter Summary ---
:1965 Author Organization [facility] Address [address] [place] [address] Care Team Providers Name Role Phone Unavailable Primary Care Provider Unavailable Encounter Details Date Type Department Care Team Description 05/06/2021 Orders Only RST PCP HLTH Ariadna Fair M.D. [address] [place], [place] [phone] (Wo rk) Social History [...] or relatives? How often do you attend caodaism or Never 2021 mormonism services? Do you belong to any clubs or Yes 06/29/2022 organizations such as caodaism groups, unions, fraternal or athletic groups, or [...] place to sleep or slept in a [place] [facility] [place] (including now)? Sex Assigned at Date Recorded Female 06/29/2022 8:39 AM CDT documented as of this encounter Plan of Treatment Not on filedocumented as of this encounter Visit Diagnoses Not on filedocumented in this encounter
--- OUTSIDE RECORDS SUMMARY | 2022-08-06 13:48 | XMS_ITS | Encounter Summary ---
:1965 Author Organization [facility] Address [address] [place] [address] Care Team Providers Name Role Phone Unavailable Primary Care Provider Unavailable Encounter Details Date Type Department Care Team Description 09/06/2020 Documentation Department of Radiation Sandy Sethi, Oncology in [place], [place]at[place], M.S. [place] [address] [facility] [address] [place] [phone] (Wo rk) Social History Tobacco Use Types [...] or relatives? How often do you attend amish or Never 2021 bahai services? Do you belong to any clubs or Yes 06/29/2022 organizations such as amish groups, unions, fraternal or athletic groups, or [...] place to sleep or slept in a [facility] (including now)? Sex Assigned at Date Recorded Female 06/29/2022 8:39 AM CDT documented as of this encounter Miscellaneous Notes Radiation Completion Notes - Sandy Sethi P.A.-C., M.S. - 09/06/2020 11:59 PM CST DIAGNOSIS: 1. Cancer Breast Ductal In Situ Right Attending Physician: Jani Melgoza M.D. ([id number]) Treatment Intent: Curative Concomitant Therapy: Hormonal Therapy [...] Sandy Sethi P.A.-C., M.S., 09/23/2020 4:28 PM CV RN [facility] [address] [place] [address] RN documented in this encounter Plan of Treatment Not on filedocumented as of this encounter Visit Diagnoses Diagnosis Cancer Breast Ductal In Situ Right - Nicky marc documented in this encounter
--- OUTSIDE RECORDS SUMMARY | 2022-08-06 13:48 | XMS_ITS ---
:1965 Author Organization [facility] Address [address] [place] [address] Care Team Providers Name Role Phone Unavailable Primary Care Provider Unavailable Active Problems Problem Noted Date Cancer Breast Ductal In Situ Right 07/30/2020 Cancer Staging: Pathologic stage from 05/29/2020: Stage 0 (pTis (DCIS), pN0(sn), cM0, G3, ER+, [place]: Not Assessed, HER2: Not Assessed) - Unsigned Current Oncology Plans No current plan information found. Past Plans No past plan information found. Radiation Treatments Plan Last Treated Elapsed Days Fractions Prescribed Prescribed Total On Treated Fraction Dose Dose F1_RT Breast 09/06/2020 4 5 of 5 520 cGy 2,600 cGy Reference Point Last Treated On Elapsed Days Session Dose Total Dos e [id number] 09/06/2020 4 520 cGy 2,600 cGy
--- OUTSIDE RECORDS SUMMARY | 2022-08-06 13:48 | XMS_ITS | Encounter Summary ---
:1965 Author Organization [facility] Address [address] [place] [address] Care Team Providers Name Role Phone Unavailable Primary Care Provider Unavailable Encounter Details Date Type Department Care Team Description 05/08/2022 Community [facility] Camilla Villafana omyelitis Of AND CLINICS Prachi Rosenthal Vertebra Thoracic [address] [facility] [address] [facility] ([facility]) ([place] [address] W Dx) [phone] [place], [place] [id number] Social History Tobacco Use Types Packs/Day Years [...] or relatives? How often do you attend yazidism or Never 2021 restoration services? Do you belong to any clubs or Yes 06/29/2022 organizations such as yazidism groups, unions, fraternal or athletic groups, or [...] place to sleep or slept in a senior care (including now)? Sex Assigned at Date Recorded Female 06/29/2022 8:39 AM CDT documented as of this encounter Plan of Treatment Not on filedocumented as of this encounter Visit Diagnoses Diagnosis Osteomyelitis Of Vertebra Thoracic Regio n (HCC) - Primary documented in this encounter
--- OUTSIDE RECORDS SUMMARY | 2022-08-06 13:49 | XMS_ITS | Encounter Summary ---
:1965 Author Organization [facility] Address [address] [place] [address] Care Team Providers Name Role Phone Unavailable Primary Care Provider Unavailable Reason for Referral Radiation Therapy (Routine) - Closed Specialty Diagnoses / Procedures Referred By Contact Refer red To Contact Radiation Oncology Diagnoses Cancer Breast Ductal In Situ Right Jani Melgoza [facility] Davey Nfrt Procedures Prior Auth Rad Tx TX RADTN TX DEL >=1 MEV LEANDER Bergman [address] [facility] [address] [place] [phone] Referral ID Status Reason Start Date Expiration Date Visits Requ ested Visits Authorized [id number] Closed 08/26/2020 08/01/2021 15 15 RY TECHNICIAN Radiation Therapy (Routine) - Closed Specialty Diagnoses / Procedures Referred By Contact Refer red To Contact Diagnoses Cancer Breast Ductal In Situ Right Jani Melgoza M.D. [facility] Procedures Initial Rad Onc Treatment Planning CT Simulation [address] [place] [address] Referral ID Status Reason Start Date Expiration Date Visits Requ ested Visits Authorized [id number] Closed 08/01/2020 08/01/2021 1 1 RY TECHNICIAN Reason for Visit Appointment Request (Routine) - Closed Specialty Diagnoses / Procedures Referred By Contact Refer red To Contact Radiation Oncology Diagnoses Breast Cancer (Primary) NOS Anders Whyte M.D. [address] [place] [address] Referral ID Status Reason Start Date Expiration Date Visits Requ ested Visits Authorized [id number] Closed 07/24/2020 07/24/2021 1 1 Encounter Details Date Type Department Care Team Description 08/01/2020 Hospital Encounter Department of Jani Melgoza Breast Ductal Radiation Oncology [place] In Situ Right in [facility], [facility] [address] (Primary Dx) [place], [place] [address] [facility] [address] [place], [place] [phone] [address] (Work) [phone] Social History Tobacco Use Types Packs/Day Years [...] or relatives? How often do you attend restorationism or Never 2021 taoist services? Do you belong to any clubs or Yes 06/29/2022 organizations such as restorationism groups, unions, fraternal or athletic groups, or [...] slept in a nursing home (including now)? Sex Assigned at Date Recorded Female 06/29/2022 8:39 AM CDT documented as of this encounter Last Filed Vital Signs Vital Sign Reading Time Taken Comments Blood Pressure 147/81 08/01/2020 12:55 PM BAKERY TECHNICIAN Pulse 74 08/01/2020 12:55 PM BAKERY TECHNICIAN Temperature 36.2 ??C (97.1 ??F) 08/01/2020 12:55 PM BAKERY TECHNICIAN Respiratory Rate - - Oxygen Saturation - - Inhaled Oxygen Concentration - - Weight 118 kg (259 lb 7.7 oz) 08/01/2020 12:55 PM BAKERY TECHNICIAN Height 169 cm (5' 6.54) 08/01/2020 12:55 PM BAKERY TECHNICIAN Body Mass Index 41.21 08/01/2020 12:55 PM BAKERY TECHNICIAN documented in this encounter Medications at [...] 18, 2020 SOCIAL HISTORY She lives in [place], [place]. She is to her , Joey. 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 She has 2 adult children, a son [...] 0 (pTis (DCIS), pN0(sn), cM0, G3, ER+, [place]: Not Assessed, HER2: Not Assessed) right ductal [...] by: Jani Melgoza M.D. 08/01/2020 3:02 PM BAKERY TECHNICIAN Radiation Oncology [facility] [address] [place] [address] RY TECHNICIAN documented in this encounter Miscellaneous Notes Addendum Note - Karlie Nowak - 08/01/2020 1:00 PM BAKERY TECHNICIAN Encounter addended by: Karlie Nowak on: 08/02/2020 7:38 AM Actions taken: Letter saved RY TECHNICIAN documented in this encounter Plan of Treatment Scheduled Orders Name Type Priority Associated Diagnoses Order S chedule Prior Auth Rad Tx Radiation Oncology Routine Cancer Breast Armin dez Ordered: 08/01/2020 In Situ Right documented as of this encounter Results Initial Rad Onc Treatment Planning CT Simulation (08/27/2020 9:00 AM BAKERY TECHNICIAN) Specimen (Source) Anatomical Location Collection Method / Collectio n Time Received Time / Laterality Volume Narrative ARMANDO BURGESS - 08/27/2020 9:00 AM BAKERY TECHNICIAN Kimberlee Serrano, RTT ? 08/27/2020 ??9:55 AM Initial Rad Onc Treatment Planning CT Si mulation Date/Time: 08/27/2020 9:55 AM Performed by: Jani Melgoza M.D. Authorized by: Jani Melgoza M.D. Jani Melgoza M.D. RADIATION ONCOLOGY ORDERABLE S Performing Organization Address City/State/ZIP Code Phon e Number [place] na documented in this encounter Visit Diagnoses Diagnosis Cancer Breast Ductal In Situ Right - [facility] Cancer Breast Ductal In Situ Right documented in this encounter
--- OUTSIDE RECORDS SUMMARY | 2022-08-06 13:49 | XMS_ITS | Encounter Summary ---
:1965 Author Organization [facility] Address [address] [place] [address] Care Team Providers Name Role Phone Unavailable Primary Care Provider Unavailable Reason for Referral Outpatient (Routine) - Closed Specialty Diagnoses / Procedures Referred By Contact Refer red To Contact Radiation Oncology Jani Melgoza M .D. [facility] [address] [place] [phone] Referral ID Status Reason Start Date Expiration Date Visits Requ ested Visits Authorized [id number] Closed 08/22/2020 08/22/2021 1 1 ONAL SALES Reason for Visit Outpatient (Routine) - Closed Specialty Diagnoses / Procedures Referred By Contact Refer red To Contact Radiation Oncology Jani Melgoza M .D. [facility] [address] [place] [phone] Referral ID Status Reason Start Date Expiration Date Visits Requ ested Visits Authorized [id number] Closed 08/22/2020 08/22/2021 1 1 Encounter Details Date Type Department Care Team Description 08/27/2020 Hospital Encounter Department of Jani Melgoza Breast Ductal Radiation Oncology [place] In Situ Right in [address] (Primary Dx) [place], [place] [address] [facility] [address] [place], [place] [phone] (Work) [phone] Social History Tobacco Use Types Packs/Day Years [...] do you attend restorationism or Never 2021 mosque services? Do you belong to any clubs [...] place to sleep or slept in a intermediate (including now)? Sex Assigned at Date Recorded Female 06/29/2022 8:39 AM CDT documented as of this encounter Last Filed Vital Signs Vital Sign Reading Time Taken Comments Blood Pressure 154/82 08/27/2020 8:27 AM NATIONAL SALES Pulse 85 08/27/2020 8:27 AM NATIONAL SALES Temperature 36.1 ??C (97 ??F) 08/27/2020 8:27 AM NATIONAL SALES Respiratory Rate - - Oxygen Saturation - - Inhaled Oxygen Concentration - - Weight 117 kg (258 lb 2.5 oz) 08/27/2020 8:27 AM NATIONAL SALES Height - - Body Mass Index 41 08/01/2020 12:55 PM NATIONAL SALES documented in this encounter Medications at Time [...] May 08, 2020: The patient presented to Ariadan Villafana P.A.-C. with a chief complaint of [...] position at the CT simulation with the escrow secretary of the therapists, Rosangela Rios. The right breast has an everted nipple with multiple well-healed surgical incisions from her recent reduction surgery. There are no palpable masses or overlying skin changes. Her right arm range of motion is still limited. ASSESSMENT / PLAN 1. Stage 0 (pTis (DCIS), pN0(sn), cM0, G3, ER+, MS: Not Assessed, HER2: Not Assessed) right ductal [...] by: Jani Melgoza M.D. 08/27/2020 10:18 AM NATIONAL SALES Radiation Oncology [facility] [address] [place] [address] ONAL SALES documented in this encounter Miscellaneous Notes Addendum Note - aKrlie Nowak - 08/27/2020 8:30 AM NATIONAL SALES Encounter addended by: Karlie Nowak on: 08/27/2020 12:02 PM Actions taken: Letter saved ONAL SALES Addendum Note - Jani Melgoza M.D. - 08/27/2020 8:30 AM NATIONAL SALES Encounter addended by: Jani Melgoza M.D. on: 08/29/2020 1:18 PM Actions taken: Flowsheet accepted ONAL SALES documented in this encounter Plan of Treatment Scheduled Referrals Name Type Priority Associated Order Schedule Diagnoses Radiation Oncology Outpatient Referral Routine On ce for 1 office visit Occurrences sta rting (clinic) 08/27/2020 unti l 08/27/2020 documented as of this encounter Visit Diagnoses Diagnosis Cancer Breast Ductal In Situ Right - [facility] documented in this encounter
--- OUTSIDE RECORDS SUMMARY | 2022-08-06 13:49 | XMS_ITS | Encounter Summary ---
:1965 Author Organization [facility] Address [address] [place] [address] Care Team Providers Name Role Phone Unavailable Primary Care Provider Unavailable Reason for Referral Outpatient (Routine) - Closed Specialty Diagnoses / Procedures Referred By Contact Refer red To Contact Radiation Oncology Jani Melgoza M .D. [facility] Region [address] [place] [phone] Referral ID Status Reason Start Date Expiration Date Visits Requ ested Visits Authorized [id number] Closed 08/22/2020 08/22/2021 1 1 CH SALES AND SERVICE REPRESENTATIVE Encounter Details Date Type Department Care Team Description 08/22/2020 Orders Only Department of Radiation [facility]i Melgo[facility] , [facility] [place] [address] [facility] [address] [place] [phone] (Wo rk) Social History Tobacco Use Types [...] or relatives? How often do you attend faith or Never 2021 restoration services? Do you belong to any clubs or Yes 06/29/2022 organizations such as faith groups, unions, fraternal or athletic groups, or [...] place to sleep or slept in a mcfp (including now)? Sex Assigned at Date Recorded Female 06/29/2022 8:39 AM CDT documented as of this encounter Plan of Treatment Scheduled Referrals Name Type Priority Associated Diagnoses [facility] Outpatient Referral Routine Ex pected: office visit 08/22/2020 (clinic) (Approximate), Expires: 08/22/2021 documented as of this encounter Visit Diagnoses Not on filedocumented in this encounter
--- OUTSIDE RECORDS SUMMARY | 2022-08-06 13:49 | XMS_ITS | Encounter Summary ---
:1965 Author Organization [facility] Address [address] [place] [address] Care Team Providers Name Role Phone Unavailable Primary Care Provider Unavailable Reason for Visit Radiation Therapy (Routine) - Closed Specialty Diagnoses / Procedures Referred By Contact Refer red To Contact Radiation Oncology Diagnoses Cancer Breast Ductal In Situ Right Jani Melgoza McHs Rao Nfrt Procedures Prior Auth Rad Tx WI RADTN TX DEL >=1 MEV [facility] [address] [place] [address] [address] [place] [phone] Referral ID Status Reason Start Date Expiration Date Visits Requ ested Visits Authorized [id number] Closed 08/26/2020 08/01/2021 15 15 Encounter Details Date Type Department Care Team Description 09/02/2020 Hospital Encounter Department of Radiation [facility] [place] [address] [address] [facility] [address] [place] [phone] Social History Tobacco Use Types Packs/Day Years [...] or relatives? How often do you attend restorationist or Never 2021 oriental orthodox services? Do you belong to any clubs or Yes 06/29/2022 organizations such as restorationist groups, unions, [employer]TCZ [employer] or athletic groups, or school groups? How [...] place to sleep or slept in a custodial (including now)? Sex Assigned at Date Recorded [...]
--- OUTSIDE RECORDS SUMMARY | 2022-08-06 13:49 | XMS_ITS | Encounter Summary ---
:1965 Author Organization [facility] Address [address] [place] [address] Care Team Providers Name Role Phone Unavailable Primary Care Provider Unavailable Reason for Referral Outpatient (Routine) - Closed Specialty Diagnoses / Procedures Referred By Contact Refer red To Contact Sandy Sethi P.A.-C ., M.S. 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 [facility] Procedures Management Visit [address] [place] [phone] Referral ID Status Reason Start Date Expiration Date Visits V isits Requested Authorized [id number] Canceled 08/01/2020 08/01/2021 1 1 RIMENTAL ELECTRONICS DEVELOPER Reason for Visit Radiation Therapy (Routine) - Canceled Specialty Diagnoses / Procedures Referred By Contact Refer red To Contact Diagnoses Cancer Breast Ductal In Situ Right Jani Melgoza M.D. [facility] Procedures Management Visit [address] [place] [phone] Referral ID Status Reason Start Date Expiration Date Visits V wilmer Requested Authorized [id number] Canceled 08/01/2020 08/01/2021 1 1 Encounter Details Date Type Department Care Team Description 09/04/2020 Hospital Encounter Department of Jani Melgoza Breast Ductal Radiation Oncology [place] In Situ Right in [place], [address] [place], [place] [address]21 [facility] [address] [place], [place] [phone] (Work) [phone] Social History Tobacco Use Types Packs/Day Years [...] do you attend synagogue or Never 2021 sikhism services? Do you belong to any clubs [...] minutes do you engage in exercise at is 20 min 06/29/2022 level? Stress Answer [...] place to sleep or slept in a snf (including now)? Sex Assigned at Date Recorded Female 06/29/2022 8:39 AM CDT documented as of this encounter Last Filed Vital Signs Vital Sign Reading Time Taken Comments Blood Pressure - - Pulse - - Temperature 35.9 ??C (96.7 ??F) 09/04/2020 4:05 PM EXPERIMENTAL ELECTRONICS DEVELOPER Respiratory Rate - - Oxygen Saturation - - Inhaled Oxygen Concentration - - Weight 119 kg (262 lb 9.1 oz) 09/04/2020 4:05 PM EXPERIMENTAL ELECTRONICS DEVELOPER Height - - Body Mass Index 41.7 08/01/2020 12:55 PM EXPERIMENTAL ELECTRONICS DEVELOPER documented in this encounter Medications at Time [...] Situ Right SUPERVISED BY: Jani Melgoza M.D. ([id number]) HISTORY OF PRESENT ILLNESS Mrs. 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 Treatment Course: 1x RT Breast Plan ID Fractions Dose / Fraction (cGy) Dose Treated (cGy) Dose Planned (cGy) First Treatment Last Treatment Elapsed Days F1_RT Breast [phone] 09/02/2020 09/04/2020 2 Course [...] 0 (pTis (DCIS), pN0(sn), cM0, G3, ER+, [place]: Not Assessed, HER2: Not Assessed) right ductal [...] She was educated on the use of [id number] hydrocortisone cream or Benadryl cream if needed [...] Sandy Sethi P.A.-C., M.S. 09/04/2020 4:22 PM EXPERIMENTAL ELECTRONICS DEVELOPER RIMENTAL ELECTRONICS DEVELOPER Associated attestation - Jani Melgoza M.D. - 09/04/2020 5:49 PM EXPERIMENTAL ELECTRONICS DEVELOPER I saw and evaluated the patient and [...] by: Jani Melgoza M.D. 09/04/20 5:49 PM EXPERIMENTAL ELECTRONICS DEVELOPER [facility] [place] documented in this encounter Miscellaneous Notes Addendum Note - Karlie Nowak - 09/04/2020 4:15 PM EXPERIMENTAL ELECTRONICS DEVELOPER Encounter addended by: Karlie Nowak on: 09/05/2020 8:35 AM Actions taken: Letter saved RIMENTAL ELECTRONICS DEVELOPER documented in this encounter Plan of Treatment Scheduled Orders Name Type Priority Associated Diagnoses Order S chedule Management Visit Radiation Oncology Routine Cancer Breast Duct al Once for 1 In Situ Right Occurrences [address] arting 09/04/2020 unti l 09/04/2020 Scheduled Referrals Name Type Priority Associated Diagnoses Order S chejoyce NonF2F phone Outpatient Referral Routine Expected : visit 10/05/2020 (Approximate), Expires: 2022 documented as of this encounter Visit Diagnoses Diagnosis Cancer Breast Ductal In Situ Right documented in this encounter
--- OUTSIDE RECORDS SUMMARY | 2022-08-06 13:49 | XMS_ITS | Encounter Summary ---
:1965 Author Organization [facility] Address [address] [place] [address] Care Team Providers Name Role Phone Unavailable Primary Care Provider Unavailable Reason for Visit Radiation Therapy (Routine) - Closed Specialty Diagnoses / Procedures Referred By Contact Refer red To Contact Radiation Oncology Diagnoses Cancer Breast Ductal In Situ Right Jani Melgoza McHs Rao Nfrt Procedures Prior Auth Rad Tx IN RADTN TX DEL >=1 MEV [facility] [address] [place] [address] [address] [place] [phone] Referral ID Status Reason Start Date Expiration Date Visits Requ ested Visits Authorized [id number] Closed 08/26/2020 08/01/2021 15 15 Encounter Details Date Type Department Care Team Description 09/04/2020 Hospital Encounter Department of Radiation [facility] [place] 200 [facility] [address] [place] [phone] Social History Tobacco Use Types Packs/Day Years [...] do you attend quaker or Never 2021 confucianism services? Do you belong to any clubs or Yes 06/29/2022 organizations such as quaker groups, unions, fraVindi or athletic groups, or school groups? How [...]
--- OUTSIDE RECORDS SUMMARY | 2022-08-06 13:49 | XMS_ITS | Encounter Summary ---
:1965 Author Organization [facility] Address [address] [place] [address] Care Team Providers Name Role Phone Unavailable Primary Care Provider Unavailable Encounter Details Date Type Department Care Team Description 08/31/2020 Hospital Encounter Department of Sandy Sethi [facility] PDamon., M.S . Screening For Other in [place] [address] [address] [facility] Viral Diseases [place], [place] (COVID-19) [address] [facility] [address] [place], [place] [phone] (Work) [phone] Social History Tobacco Use Types Packs/Day Years [...] or relatives? How often do you attend pentecostalism or Never 2021 congregational services? Do you belong to any clubs or Yes 06/29/2022 organizations such as pentecostalism groups, unions, fraternal or athletic groups, or [...] For R esults for this RNA, V SWITCH OPERATOR Screening For Other procedur e are in Viral Diseases the results (COVID-19) section. documented in this encounter Results SARS Coronavirus-2 RNA, V Asymptomatic (08/31/2020 10:02 AM SWITCH OPERATOR) [facility] Method Time Signature SARS-CoV-2 Swab, 08/31/2020 MKTO Specimen Nasopharynx 9:36 PM SWITCH OPERATOR Source SARS CoV-2 Undetected Undetected 08/31/2020 MKTO RNA, TMA 9:36 PM SWITCH OPERATOR Comment: SARS-CoV-2 RNA absent. This result does not rule out COVID-19 in the patient, as the sensitivity of the test depends o n the timing of the specimen collection and the quality of the specim en. Result should be correlated with patient's history and clinical presentat ion. ----ADDITIONAL INFORMATION---- This test is performed using the Aptima SARS-CoV-2 assay ([employer] which has received Emergency Use Authori zation (EUA) by the U.S. Food and Drug Administration. Fact sheets for this Emergency Use Autho rization (EUA) assay can be found at the following links: For Healthcare Providers: https://www.fd a.gov/media/024544/download For Patients: https://www.fda.gov/media/ 199563/download Specimen Anatomical Collection Method Collection Time Receive d Time (Source) Location / / Volume Laterality Varies 08/31/2020 10:02 08/31/2020 4:57 (Nasopharynx) AM SWITCH OPERATOR PM SWITCH OPERATOR Sandy Sethi P.A.-C. M.S. LAB MICROBIOLOGY - GENERAL O [place]TEBLES Performing Organization Address City/State/[facility] Phon e Number [facility]- [address] [place] [address] [place] [address] [address] documented in this encounter Visit Diagnoses Diagnosis Encounter For Screening For Other Viral Diseases (COVID-19) documented in this encounter Additional Health Concerns Infection Onset Date Last Indicated Resolved Time COVID19 Pending 08/31/2020 08/31/2020 08/31/2020 9:37 PM SWITCH OPERATOR documented as of this encounter
--- OUTSIDE RECORDS SUMMARY | 2022-08-06 13:49 | XMS_ITS | Encounter Summary ---
:1965 Author Organization [facility] Address [address] [place] [address] Care Team Providers Name Role Phone Unavailable Primary Care Provider Unavailable Reason for Visit Radiation Therapy (Routine) - Closed Specialty Diagnoses / Procedures Referred By Contact Refer red To Contact Radiation Oncology Diagnoses Cancer Breast Ductal In Situ Right Jani Melgoza McHs Rao Nfrt Procedures Prior Auth Rad Tx [place] RADTN TX DEL >=1 MEV [facility] [address] [place] [address] [address] [place] [phone] Referral ID Status Reason Start Date Expiration Date Visits Requ ested Visits Authorized [id number] Closed 08/26/2020 08/01/2021 15 15 Encounter Details Date Type Department Care Team Description 09/03/2020 Hospital Encounter Department of Radiation Lisa Melgoza, [facility]cology in [place] [facility] [place] [address] [facility] [address] [place] [phone] Social History Tobacco Use Types Packs/Day Years [...] do you attend restorationism or Never 2021 catholic services? Do you belong to any clubs or Yes 06/29/2022 organizations such as restorationism groups, unions, fraConsult A Doctor or athletic groups, or school groups? How [...]
--- OUTSIDE RECORDS SUMMARY | 2022-08-06 13:49 | XMS_ITS | Encounter Summary ---
:1965 Author Organization [facility] Address [address] [place] [address] Care Team Providers Name Role Phone Unavailable Primary Care Provider Unavailable Reason for Visit Radiation Therapy (Routine) - Closed Specialty Diagnoses / Procedures Referred By Contact Refer red To Contact Radiation Oncology Diagnoses Cancer Breast Ductal In Situ Right Jani Melgoza McHs Rao Nfrt Procedures Prior Auth Rad Tx [place] RADTN TX DEL >=[address] [facility] [address] [place] [address] [address] [place] [phone] Referral ID Status Reason Start Date Expiration Date Visits Requ ested Visits Authorized [id number] Closed 08/26/2020 08/01/2021 15 15 Encounter Details Date Type Department Care Team Description 09/05/2020 Hospital Encounter Department of Radiation Lisa Melgoza, [facility] [place] 200 [facility] 1 [place] [phone] Social History Tobacco Use Types Packs/Day Years [...] do you attend yazidism or Never 2021 taoism services? Do you belong to any clubs or Yes 06/29/2022 organizations such as yazidism groups, unions, fraEmerge Studio or athletic groups, or school groups? How [...]
--- OUTSIDE RECORDS SUMMARY | 2022-08-06 13:49 | XMS_ITS | Encounter Summary ---
:1965 Author Organization [facility] Address 200 [place] [address] Care Team Providers Name Role Phone Unavailable Primary Care Provider Unavailable Reason for Referral Radiation Therapy (Routine) - Closed Specialty Diagnoses / Procedures Referred By Contact Refer red To Contact Diagnoses Cancer Breast Ductal In Situ Right Jani Melgoza M.D. [facility] Procedures Initial Rad Onc Treatment Planning CT Simulation [address] [place] [address] Referral ID Status Reason Start Date Expiration Date Visits Requ ested Visits Authorized [id number] Closed 08/01/2020 08/01/2021 1 1 INSULATOR HELPER Reason for Visit Radiation Therapy (Routine) - Closed Specialty Diagnoses / Procedures Referred By Contact Refer red To Contact Diagnoses Cancer Breast Ductal In Situ Right Jani Melgoza M.D. [facility] Region Procedures Initial Rad Onc Treatment Planning CT Simulation [address] [place] [address] Referral ID Status Reason Start Date Expiration Date Visits Requ ested Visits Authorized [id number] Closed 08/01/2020 08/01/2021 1 1 Encounter Details Date Type Department Care Team Description 08/27/2020 Hospital Encounter Department of Jani Melgoza Breast Ductal Radiation Oncology [place] In Situ Right in [place], [address] [place], [place] [address] [facility] [address] [place], [place] [phone] (Work) [phone] Social History Tobacco Use Types Packs/Day Years [...] or relatives? How often do you attend spiritism or Never 2021 holiness services? Do you belong to any clubs or Yes 06/29/2022 organizations such as spiritism groups, unions, fraternal or athletic groups, or [...] place to sleep or slept in a group home (including now)? Sex Assigned at Date [...] as of this encounter Procedure Notes Kimberlee Serrano RTT - 08/27/2020 9:00 AM CSTAssociated Order(s): [...] planning. CT images were transferred to the Eclipse treatment planning system, after a reference isocenter was determined and marked. Segmentation and treatment planning will take place priorto treatment delivery. Patient set up and imaging was appropriate and completed without incident. INSULATOR HELPER documented in this encounter Plan of Treatment Not on filedocumented as of this encounter Procedures Procedure Name Priority Date/Time Associated Comments Diagnosis INITIAL RAD ONC Routine 08/27/2020 9:00 AM Cancer Breast Resul ts for this TREATMENT PLANNING PIPE INSULATOR HELPER Ductal In Situ procedu re are in CT SIMULATION Right the results section. documented in this encounter Results Initial Rad Onc Treatment Planning CT Simulation (08/27/2020 9:00 AM PIPE INSULATOR HELPER) Specimen (Source) Anatomical Location Collection Method / Collectio n Time Received Time / Laterality Volume Narrative ROBERTS KATHRYNCarole - 08/27/2020 9:00 AM PIPE INSULATOR HELPER Kimberlee Serrano RTT ? 08/27/2020 ??9:55 AM Initial Rad [...]
--- OUTSIDE RECORDS SUMMARY | 2022-08-06 13:50 | XMS_ITS ---
:1965 Author Care Team Providers Name Role Phone MOIZ CONN PAC Referring Provider [phone] Allergies Code Code System Name Reaction Severity [...] Vitamin D Active ? [place] available take 19732 U per day Problems Name Status Onset [...] -[facility]: [address] ? ? UR ? Appearance clear clear Final [place] -[facility]: [address] ? ? UR ? Glucose negative negative Final [place] -[facility] mg/dL mg/dL [facility]: [address] ? ? UR ? Bilirubin negative negative Final [place] [facility]: [address] ? ? UR ? Ketones negative negative Final [place] -[facility] mg/dL mg/dL [facility]: [address] ? ? UR ? Sp. [place] 1.020 1.010-1.0 Final [place] -[facility] 25 [facility]: [address] ? ? UR ? pH -[facility] 7.0 5.0-8.0 Final [place] [facility]: [address] ? ? UR ? Protein negative negative Final [place] -[facility] mg/dL mg/dL [facility]: [address] ? ? UR ? Urobilinogen 0.2 normal Final [place] -[facility]: [address] ? ? UR ? Nitrites negative negative Final [place] -[facility]: [address] [address], [place] ? ? UR ABNORMAL Blood trace negative Final [place] lathe [place] -[facility]: [address] ? ? UR ? Leukocytes negative negative Final [place] -[facility]: [address] [address], [place] ? ? UR ? Performed by bandar Vogt ? Final [place] [facility]: [address] [address], [place] ? ? UR ? Total Urine 50 /mL ? Final [place] Volume (mL) [facility]: [address] [address], [place] 04/16/2022 Urinalysis, ? U-WBC 0 - 2 [hpf] 0 - 2 Fin al [place] Microscopic [hpf] [facility]: [address] [address], [place] ? ? ? U-RBC 0 - 2 [hpf] 0 - 2 Final [place] [hpf] [facility]: [address] [address], [place] ? ? ABNORMAL Bacteria small [hpf] negative Final [place] [hpf] [facility]: [address] [address], [place] ? ? ? Squamous Epi negative negative, Final [place] /lpf small Urology - /lpf [facility]: [address] [address], [place] 03/13/2022 Urinalysis, UR ? Color-status yellow yellow F inal [place] Dipstick [facility]: [address] [address], [place] ? ? UR ? Clarity-stat clear clear Final Min [facility]: [address] [address], [place] ? ? UR ? Glucose-stat negative negative Final [place] mg/dL mg/dL [facility]: [address] ? ? UR ? Bilirubin-ur negative negative Final [place] ine [facility]: [address] [address], [place] ? ? UR ? Ketones-stat negative negative Final [place] us mg/dL mg/dL [facility]: [address] ? ? UR ? SG-status 1.020 1.00-1.03 Final Min [facility]: [address] [address], [place] ? ? UR ? pH-status 6.5 5.00-8.00 Final Min [facility]: [address] [address], [place] ? ? UR ? Protein-stat negative negative Final [place] mg/dL mg/dL [facility]: [address] [facility] [address], [place] ? ? UR ? Urobilinogen 0.2 E.U./dL 0.2 Final [place] -status E.U./dL E.U./dL [facility]rology - E.U./dL [facility]: [address] [facility] [address], [place] ? ? UR ? Nitrites-sta negative negative Final [facility]: [address] [address], [place] ? ? UR ABNORMAL Blood-urine trace-intact negative F inal [place] [facility]: [address] [address], [place] ? ? UR ABNORMAL Leuko-status trace negative Final [place] [facility]: [address] [address], [place] ? ? UR ? Specimen voided ? Final [place] [facility]: [address] [address], [place] ? ? UR ? Performed by negra Gonzalez ? Final [place] [facility]: [address] [address], [place] ? ? UR ? Total Urine 15 /mL ? Final [place] Volume (mL) [facility]: [address] [address], [place] 12/04/2021 Urinalysis, UR ? Color-status yellow yellow F inal [place] Dipstick [facility]: [address] [address], [place] ? ? UR ? Clarity-stat clear clear Final Min [facility]: [address] [address], [place] ? ? UR ? Glucose-stat negative negative Final [place] us mg/dL mg/dL [facility]: [address] [address], [place] ? ? UR ? Bilirubin-ur negative negative Final [facility]: [address] [address], [place] ? ? UR ? Ketones-stat negative negative Final [facility] mg/dL mg/dL [facility]: [address] [address], [place] ? ? UR ? SG-status 1.015 1.00-1.03 Final [facility]: [address] [address], [place] ? ? UR ? pH-status 6.0 5.00-8.00 Final [facility]: [address] [address], [place] ? ? UR ? Protein-stat negative negative Final [place] us mg/dL mg/dL [facility]: [address] [address], [place] ? ? UR ? Urobilinogen 0.2 E.U./dL 0.2 Final [place] -status E.U./dL E.U./dL [facility]rology - E.U./dL [facility]: [address] [address], [place] ? ? UR ? Nitrites-sta negative negative Final [facility]: [address] [address], [place] ? ? UR ABNORMAL Blood-urine trace-intact negative F inal [place] [facility]: [address] [address], [place] ? ? UR ABNORMAL Leuko-status small negative Final [place] [facility]: [address] [address], [place] ? ? UR ? Specimen voided ? Final [place] [facility]: [address] [address], [place] ? ? UR ? Performed by negra Gonzalez ? Final [place] [facility]: [address] [address], [place] ? ? UR ? Total Urine 30 /mL ? [facility] [address] 10/30/2021 Urinalysis, UR ? Color-status yellow yellow F inal [place] Dipstick [facility]: [address] [address], [place] ? ? UR ? Clarity-stat clear clear Final Min [facility]: [address] [address], [place] ? ? UR ? Glucose-stat negative negative Final [place] us mg/dL mg/dL [facility]: [address] [address], [place] ? ? UR ? Bilirubin-ur negative negative Final [facility]: [address] [address], [place] ? ? UR ? Ketones-stat negative negative Final [place] us mg/dL mg/dL [facility]: [address] [address], [place] ? ? UR ? SG-status 1.020 1.00-1.03 Final [facility]: [address] [address], [place] ? ? UR ? pH-status 7.0 5.00-8.00 Final [facility]: [address] [address], [place] ? ? UR ? Protein-stat negative negative Final [place] us mg/dL mg/dL [facility]: [address] [address], [place] ? ? UR ? Urobilinogen 0.2 E.U./dL 0.2 Final [place] -status E.U./dL E.U./dL [facility] - E.U./dL [facility]: [address] [address], [place] ? ? UR ? Nitrites-sta negative negative Final [facility]: [address] [address], [place] ? ? UR ABNORMAL Blood-urine trace-intact negative F inal [place] [facility]: [address] [address], [place] ? ? UR ? Leuko-status negative negative Final [place] [facility]: [address] [address], [place] ? ? UR ? Specimen voided ? Final [place] [facility]: [address] [address], [place] ? ? UR ? Performed by negra Gonzalez ? Final [place] [facility]: [address] ? ? UR ? Total Urine 30 /mL ? Final [place] Volume (mL) [facility]: [address] 09/25/2021 Urinalysis, UR ? Color-status yellow yellow F inal [place] Dipstick [facility]: [address] [address], [place] ? ? UR ? Clarity-stat clear clear [facility]: [address] [address], [place] ? ? UR ? Glucose-stat negative negative Final [place] us mg/dL mg/dL [facility]: [address] ? ? UR ? Bilirubin-ur negative negative Final [place] ine [facility]: [address] [address], [place] ? ? UR ? Ketones-stat negative negative Final [place] us mg/dL mg/dL [facility]: [address] ? ? UR ? SG-status 1.025 1.00-1.03 Final [facility]: [address] [address], [place] ? ? UR ? pH-status 7.0 5.00-8.00 Final [place] [facility]: [address] [address], [place] ? ? UR ? Protein-stat negative negative Final [facility] mg/dL mg/dL [facility]: [address] [address], [place] ? ? UR ? Urobilinogen 0.2 E.U./dL 0.2 Final [place] -status E.U./dL E.U./dL [facility]rology - E.U./dL [facility]: [address] [address], [place] ? ? UR ? Nitrites-sta negative negative Final [facility]: [address] [address], [place] ? ? UR ABNORMAL Blood-urine trace-intact negative F inal [place] [facility]: [address] [address], [place] ? ? UR ABNORMAL Leuko-status trace negative Final [place] [facility]: [address] ? ? UR ? Specimen catheterized ? Final [place] [facility]: [address] ? ? UR ? Performed by negra Gonzalez ? Final [place] [facility]: [address] ? ? UR ? Total Urine 30 /mL ? Final [place] Volume (mL) [facility]: [address] 05/19/2021 Urinalysis, UR ? Color yellow yellow Final [place] -[facility]: [address] ? ? UR ? Appearance clear clear Final [place] -[facility]: [address] ? ? UR ? Glucose negative negative Final [place] -[facility] mg/dL mg/dL [facility]: [address] ? ? UR ? Bilirubin negative negative Final [place] [facility]: [address] ? ? UR ? Ketones negative negative Final [place] -[facility] mg/dL mg/dL [facility]: [address] ? ? UR ? Sp. [place] 1.020 1.010-1.0 Final [place] -[facility] 25 [facility]: [address] [address], [place] ? ? UR ? pH -[facility] 6.5 5.0-8.0 Final [place] [facility]: [address] [facility] [address], [place] ? ? UR ? Protein negative negative Final [place] [facility] mg/dL mg/dL [facility]: [address] [facility] [address], [place] ? ? UR ? Urobilinogen 0.2 normal Final [place] -[facility]: [address] [facility] [address], [place] ? ? UR ? Nitrites negative negative Final [place] [facility]: [address] [facility] [address], [place] ? ? UR ? Blood negative negative Final [place]he [place] -[facility]: [address] [facility] [address], [place] ? ? UR ? Leukocytes negative negative Final [place] [facility]: [address] [facility] [address], [place] ? ? UR ? Performed by negra Russo ? Final [place] [facility]: [address] [facility] [address], [place] ? ? UR ? Total Urine 60 /mL ? Final [place] Volume (mL) [facility]: [address] [facility] [address], [place] Past Encounters 04/16/2022 Overactive Bladder ANGELA Gutierrez: [address] [facility], [facility] [address], [place] [address], Ph. 03/13/2022 Overactive Bladder Lisa Reardon MD: [address], [address], [place] [address], Ph. 12/04/2021 Overactive Bladder Lisa Reardon MD: [address] [facility], [facility] [address], [place] [address], Ph. 10/30/2021 Urinary Incontinence; Urge Incontinence of Urine; Nocturia Lisa Reardon MD: [address], [place] [address], Ph. 09/25/2021 Urinary Incontinence; Urge Incontinence of Urine; Nocturia Lisa Reardon MD: [address], [address], [place] [address], Ph. 08/12/2021 Urinary Incontinence; Midline Cystocele Miley Johnson, PA: [address] [facility], [address], [place] [address], Ph. 07/01/2021 Urinary Incontinence Miley Johnson PA: [address] [facility], [address], [place] [address], Ph. 05/19/2021 Urinary Incontinence Miley Johnson PA: [address] [place] [address], [address], [place] [address], Ph. Social History Tobacco Smoking Status Never [...] formulation 06/20/2021 06/20/2021 06/26/2021 06/27/2021 07/21/2021 novel [id number], all formulation s 10/28/2009 Plan of Care [...]
== END 2022-08-06 13:45 | disposition home or self-care (01) ==
LOC: MRI 13:45
PROVIDERS: PCP Physician Assistant Medical; Visit Provider Nurse Practitioner Family
DX: Z85.3 Personal history of malignant neoplasm of breast (principal); Z79.811 Long term (current) use of aromatase inhibitors
CPT/HCPCS: 77049; A9575

== ENCOUNTER 2022-09-03 15:25 | Outpatient (CLI) | payer BC, SELFPAY ==
--- NOTE | 2022-09-03 15:00 | CRLHL7_ITS ---
For Patients: As a result of the Century Cures Act, medical imaging exams and procedure reports are released immediately into your electronic medical record. You may view this report before your referring provider. If you have questions, please contact your health care provider. DXA BONE MINERAL DENSITY STUDY, 09/03/2022 Reason for exam: High-risk for skeletal event, osteoporosis. Current height (in): 68. Weight (lb): 235. Menopause age: 49. Ethnicity: White 1. Have you had a previous hip or vertebral fracture? No. 2. Have you had any fractures during your adult life which did not result from significant trauma (e.g., auto accident)? No. 3. Did either of your parents have a hip fracture? No. 4. Do you smoke? No. 5. Have you ever taken Glucocorticoids? No. 6. Do you have rheumatoid arthritis? No. 7. Do you have secondary osteoporosis? No. 8. Do you drink 3 or more alcoholic drinks per day? No. 9. Are you being treated for osteoporosis? No. 10. Have you ever taken any of the following medications: Actonel, Evista, Fosamax, Miacalcin, Reclast, Boniva, Forteo, HRT (i.e., estrogen/hormone therapy), Protelos, Prolia, Vitamin D, Calcium, other ??? please specify. ANSWER: No. 11. Do you have any of the following medical conditions: Anorexia or bulimia, asthma or emphysema, end stage renal disease, hyperparathyroidism, any seizure disorders, cancer, inflammatory bowel diseases, hysterectomy, other ??? please specify. ANSWER: Yes, cancer. 12. What was your maximum height (inches)? 68. 13. Do you perform weight bearing exercise regularly? No. 14. Do you regularly consume dairy products? Yes. 15. Do you drink caffeinated beverages? Yes. If female: 16. At what age did your period start? 13. 17. Are you premenopausal? No. 18. How many full-term pregnancies have you had? 2. 19. Have you ever missed your period for more than 6 months in a row (not including or menopause)? No. TECHNIQUE: Bone mineral density study was performed using the [employer]. FINDINGS: The results of the study expressed as bone mineral density (BMD) are as follows: Lumbar spine L1 to L2: BMD: 1.340 g/cm2. T-score: 3.3. Z-score: 4.5 Neck Left: BMD: 0.996 g/cm2. T-score: 1.3. Z-score: 2.5 Right: BMD: 1.059 g/cm2. T-score: 1.9. Z-score: 3.1 Total Left: BMD: 1.234 g/cm2. T-score: 2.4. Z-score: 3.2 Right: BMD: 1.261 g/cm2. T-score: 2.6. Z-score: 3.5 IMPRESSION: Normal bone density. *Comparison exams done prior to 02/2020 were performed on different unit, Array[employer]. COMPARISON: Compared with scan of 08/08/2020, the bone mineral density has decreased by 3.6 percent at the spine and decreased by 1.9 percent at the hip. Bret Ko M.D. Diagnostic Radiologist [email or web address] RENZO/[email or web address] heath/Dictated by: Bret Ko MD @ 09/03/2022 4:01:00 PM (Electronically Signed)
== END 2022-09-03 15:26 | disposition home or self-care (01) ==
LOC: RAD 15:25
PROVIDERS: PCP Physician Assistant Medical; Visit Provider Physician Assistant Medical
DX: M81.0 Age-related osteoporosis without current pathological fracture (principal); Z79.811 Long term (current) use of aromatase inhibitors; Z85.3 Personal history of malignant neoplasm of breast
CPT/HCPCS: 77080

== ENCOUNTER 2022-12-09 11:49 | Outpatient (CLI) | payer BC, SELFPAY | END 2022-12-09 11:50 | disposition home or self-care (01) | LOC: NFLDREF 12-11 12:46 | PROVIDERS: PCP Physician Assistant Medical; Referring Provider Physician Assistant Medical; Visit Provider Physician Assistant Medical | DX: I10 Essential (primary) hypertension (principal); M54.50 Low back pain, unspecified; M46.24 Osteomyelitis of vertebra, thoracic region | CPT/HCPCS: 87086 ==

== ENCOUNTER 2022-12-17 12:36 | Outpatient (RCR) | payer BC, SELFPAY ==
--- NOTE | 2023-06-01 12:06 | ONC.NURNOTE ---
Patient is due for her followup, message left by SR. MEDIA MANAGER on 05/17 and freelance writer on 06/01/2023.
== END 2023-06-15 23:59 | disposition home or self-care (01) ==
LOC: CCIC 12:36
PROVIDERS: PCP Physician Assistant Medical; Visit Provider Physician Assistant
DX: C50.911 Malignant neoplasm of unspecified site of right female breast (principal); Z17.0 Estrogen receptor positive status [ER+]; Z79.811 Long term (current) use of aromatase inhibitors
CPT/HCPCS: 99212; 99214

== ENCOUNTER 2023-01-06 09:56 | Outpatient (CLI) | payer BC, SELFPAY | END 2023-01-06 09:57 | disposition home or self-care (01) | LOC: NFLDREF 01-08 15:21 | PROVIDERS: PCP Physician Assistant Medical; Referring Provider Physician Assistant Medical; Visit Provider Physician Assistant Medical | DX: Z00.00 Encounter for general adult medical examination without abnormal findings (principal); E78.5 Hyperlipidemia, unspecified; I10 Essential (primary) hypertension; E03.9 Hypothyroidism, unspecified; R79.89 Other specified abnormal findings of blood chemistry | CPT/HCPCS: 80053; 80061; 84443 ==

== ENCOUNTER 2023-01-19 10:20 | Outpatient (CLI) | payer BC, SELFPAY ==
--- NOTE | 2023-01-19 10:15 | CRLHL7_ITS ---
For Patients: As a result of the Century Cures Act, medical imaging exams and procedure reports are released immediately into your electronic medical record. You may view this report before your referring provider. If you have questions, please contact your health care provider. BILATERAL SCREENING MAMMOGRAM WITH COMPUTER-AIDED DETECTION AND TOMOSYNTHESIS TECHNIQUE: CC and MLO views were obtained. These mammographic images have been obtained using full-field digital technique. These mammographic images were interpreted with the benefit of computer-aided detection. Breast tomosynthesis was used in this interpretation. COMPARISON FILM: 12/31/21, 11/26/20, 07/09/20. FINDINGS: The breasts are heterogeneously dense, which may obscure small masses. IMPRESSION: There is no radiographic evidence for malignancy. ASSESSMENT: BI-RADS Category 2: Benign RECOMMENDATION: Routine screening mammogram in 1 year. A lay language report of this examination will be provided to the patient. BRET VALDIVIA M.D. Diagnostic Radiologist [email or web address] Transcribed: 3:[address]/Dictated by: Bret Valdivia MD @ 01/19/2023 12:28:00 PM (Electronically Signed)
== END 2023-01-19 10:21 | disposition home or self-care (01) ==
LOC: MAMMO 10:22
PROVIDERS: PCP Physician Assistant Medical; Visit Provider Physician Assistant Medical
DX: Z12.31 Encounter for screening mammogram for malignant neoplasm of breast (principal); R92.2 Inconclusive mammogram
CPT/HCPCS: 77063; 77067

== ENCOUNTER 2023-10-04 14:32 | Outpatient (CLI) | payer BC, SELFPAY ==
--- NOTE | 2023-10-04 14:30 | CRLHL7_ITS ---
For Patients: As a result of the Century Cures Act, medical imaging exams and procedure reports are released immediately into your electronic medical record. You may view this report before your referring provider. If you have questions, please contact your health care provider. BILATERAL BREAST MRI WITHOUT AND WITH GADOLINIUM CLINICAL HISTORY: 58-year-old female with elevated risk of breast cancer due to personal history of treated RIGHT breast cancer (lumpectomy). INDICATION FOR BREAST MRI: Screening breast MRI in this high-risk woman. COMPARISON STUDIES: Mammogram 01/19/2023, breast MRI 08/06/2022. CONTRAST: 20 cc of dotarem. TECHNIQUE: The patient was positioned prone using a breast coil. Multiple imaging sequences were obtained using 1-1.5 mm thick slices with no gap. The image sequences include T2-weighted STIR in the axial plane, T1-weighted nonfat-saturated gradient echo in the axial plane, pre- and post-contrast T1-weighted FLASH 3D with fat suppression in the axial plane, and T1-weighted FLASH high resolution 3D with fat suppression in the sagittal plane. Image post-processing was performed on a Recorded Future workstation. Complex 3D rendering including maximum intensity projections (MIPS) and volumetric renderings were obtained to optimize visualization of the extent of pathology and relationship to the nipple, skin, and chest wall. This aids in determining feasibility of breast conservation surgery. Subtraction, multiplanar reconstruction, mean curve determination, and angiogenesis mapping were also performed. The study was technically adequate. FINDINGS: Amount of Fibroglandular tissue: Scattered fibroglandular tissue. Breast Background Enhancement: Minimal. RIGHT Breast: Post treatment changes of lumpectomy and radiation. No suspicious areas of enhancement. LEFT Breast: No suspicious areas of enhancement. Lymph Nodes: No adenopathy. IMPRESSIONS AND RECOMMENDATIONS: Benign, there is no MRI evidence of malignancy. Continue annual screening mammography and as clinically indicated screening breast MRI. BI-RADS Category 2: Benign Dictated by Jessica Gallagher MD @ 10/07/2023 1:41:19 PM/ranjit DENYS/Dictated by: Jessica Gallagher MD @ 10/07/2023 1:41:00 PM (Electronically Signed)
--- OUTSIDE RECORDS SUMMARY | 2023-10-04 14:44 | XMS_ITS | Clinical Summary ---
Author Name Unknown Organization [facility] Address [place], [place] [address] Care Team Providers Care Draw Off Worker Name Role Phone Ariadna Villafana PA-C Primary Care Provider + [phone] Allergies No known active allergies Medications Medication Sig Dispensed Refills Start Date End Date Status citalopram (CELEXA) 40 mg tablet Take 40 mg by mouth once daily. 0 Active levothyroxine (SYNTHROID) 25 mcg tablet Take 25 mcg by mouth before breakfast. 0 Active buPROPion (WELLBUTRIN XL) 150 mg Extended-Release tablet Take 150 mg by mouth every morning. 0 Active multivitamin (MVI) tablet Take 1 tablet by mouth once daily. 0 Active anastrozole (ARIMIDEX) 1 mg tablet Take 1 mg by mouth once daily. 0 06/29/2022 Active atorvastatin (LIPITOR) 40 mg tablet 40 mg at bedtime. 0 Active losartan (COZAAR) 50 mg tablet Take 50 mg by mouth once daily. 0 Active mirabegron EXTENDED-release (MYRBETRIQ) 50 mg tablet Take 50 mg by mouth once daily. 0 Active dextroamphetamine- amphetamine (ADDERALL XR) 20 mg Extended-Release capsule Take 20 mg by mouth once daily. 0 Active acetaminophen (TYLENOL EXTRA STRGTH) 500 mg tabletIndications: Vertebral abscess (HC) Take 2 Tablets (1,000 mg) by mouth every 6 hours if needed for Pain. Max acetaminophen dose: 4000mg in 24 hrs. 0 07/11/2022 Active polyethylene glycol (MIRALAX; GLYCOLAX) 17 g powder for solutionIndication s:Vertebral abscess (HC) Take 17 g by mouth or nasogastric tube once daily if needed for Constipation. 0 07/11/2022 Active sennosides (SENNA) 8.6 mg tabletIndications: Vertebral abscess (HC) Take 1-2 Tablets (8.6-17.2 mg) by mouth 2 times daily if needed for Constipation. 0 07/11/2022 Active oxyCODONE (ROXICODONE) 5 mg immediate release tabletIndications: Vertebral abscess (HC) Take 1-2 Tablets (5-10 mg) by mouth every 4 hours if needed for Pain (For moderate to severe pain.). 50 Tablet 0 07/11/2022 Active Active Problems Problem Noted Date Diagnosed Date Hypothyroidism 05/16/2021 Ductal carcinoma in situ (DCIS) of breast 2019 KERRIE 07/04/2014 AHI-28 07/13/2014 Depression Hyperlipidemia Obesity KERRIE on CPAP Discitis of thoracic region Vertebral abscess Anemia Family History Medical History Relation Name Comments Diabetes Father Hypertension Father Relation Name Status Comments Father Social History Tobacco Use Types Packs/Day Years Used Date Smoking Tobacco: Never Smokeless Tobacco: Never Snuff Alcohol Use Standard Drinks/Week Comments Yes 0 (1 standard drink = 0.6 oz pur e alcohol) twice a week, 4-5 drinks each Social Connections Answer Date Recorded Frequency of Communication with Friends and Fami ly Not on file 07/27/2022 Sex and Gender Information Value Date Recorded Sex Assigned at Not on file Gender Identity Not on file Sexual Orientation Not on file Obstetrics History Last Filed Vital Signs Vital Sign Reading Time Taken Comments Blood Pressure 174/89 08/26/2022 2:25 PM INFECTION CONTROL PRACTITIONER Pulse 72 08/26/2022 2:25 PM INFECTION CONTROL PRACTITIONER Temperature 36.8 ??C (98.3 ??F) 08/26/2022 2:25 PM CS T Respiratory Rate 16 08/26/2022 2:25 PM INFECTION CONTROL PRACTITIONER Oxygen Saturation 97% 08/06/2022 11: 10 AM INFECTION CONTROL PRACTITIONER Inhaled Oxygen Concentration - - Weight 106.5 kg (234 lb 11.2 oz) 07/11/2022 6:00 AM CDT Height 172.7 cm (5' 8) 07/05/2022 5:45 PM CDT Body Mass Index 35.69 07/05/2022 5:45 PM CDT Plan of Treatment Health Maintenance Due Date Last Done Comments Tdap 1975 Depression screening for age 12+ 1976 HIV for age 15-65 1979 BMI (ht and wt on same day) for age 18+ 1982 Hepatitis C screening for ag e 18-79 1982 Zoster (shingles) series for age 50+ (1 of 2) 1983 Tetanus booster 1984 Colonoscopy through age 75 2009 Lipids for age 45-75 2009 Mammogram for age 45-75 2009 12/09/19 07, 12/02/2005 Pap test for age 21-65 05/08/2023 0, 05/08/2020, 08/06/2015 COVID-19 vaccine series ( season) 2023 08/26/2021, 11/21/2020, 10/22/2020 Influenza for age 50-64 05/21/2023 Pneumococcal series for age 6-64 Aged Out No longer eligible b ased on patient's age to complete this topic Advance Directives Latest Code Status on File Code Status Date Activated Date Inactivated Comments Full Code 07/05/2022 11:53 PM 07/11/2022 7:39 PM Question Answer Comments Code Status Discussion: Reviewed Preferences Code Status History Code Status Date Activated Date Inactivated Comments Full Code 07/18/2020 6:01 AM 07/18/2020 10:14 PM Question Answer Comments Code Status Discussion: Not Discussed Care Teams Draw Off Worker Relationship Specialty Start Date End Date Ariadna Villafana PA-C [address] [place] [address] PCP - General Emergency Medicine 05/28/20
--- OUTSIDE RECORDS SUMMARY | 2023-10-04 14:44 | XMS_ITS ---
Author Name Unknown Organization [facility] Address [address] [place] [address] Care Team Providers Care Polisher And Buffer Name Role Phone Unavailable Unavailable Unavailable Surgery Details Not on file Complications Check Surgery Details section. Procedure Estimated Blood Loss Check Surgery Details section. Procedure Findings Check Surgery Details section. Procedure Specimens Taken Check Surgery Details section.
--- OUTSIDE RECORDS SUMMARY | 2023-10-04 14:44 | XMS_ITS ---
Author Name Unknown Organization [facility] Address [address] [place] [address] Care Team Providers Care Software Configuration Analyst Name Role Phone Unavailable Primary Care Provider Unavailabl e Active Problems Problem Noted Date Diagnosed Date Cancer Breast Ductal In Situ Right 07/30/2020 Cancer Staging:Pathologic stage from 05/29/2020:Stage 0(pTis (DCIS), pN0(sn), cM0, G3, ER+, [place]: Not Assessed, HER2: Not Assessed) - Unsigned Current Oncology Plans No current plan information found. Past Plans No past plan information found. Radiation Treatments * Plan Last Treated On Elapsed Days Fractions Treated Prescribed Fraction Dose Prescribed Total Dose F1_RT Breast 09/06/2020 4 5 of 5 520 cGy 2,600 cGy Reference Point Last Treated On Elapsed Days Session Dose Total Dose [id number] 09/06/2020 4 520 cGy 2,600 cGy
--- OUTSIDE RECORDS SUMMARY | 2023-10-04 14:44 | XMS_ITS | Encounter Summary ---
Author Name Unknown Organization [facility] Address [address] [place] [address] Care Team Providers Care Radio Talk Show Host Name Role Phone Unavailable Primary Care Provider Unavailabl e Reason for Visit * Reason Comments Med Refill Anastrozole Encounter Details Date Type Department Care Team ([facility] st Contact Info) Description 01/02/2023 Refill Department of Oncology in [place], [place] [address] [place] [id number] Zakiya Leger APRN, C.N.P., M.S.N. [address] [place] [phone] Med Refill (Anastrozole) Social History Tobacco Use Types Packs/Day Years Used Date Smoking Tobacco: Never Assessed Humiliation, Afraid, Rape, and Kick questionnair e Answer Date Recorded Within the last year, have y ou been afraid of your partner or ex-partner? No 06/29/2022 Within the last year, have y ou been humiliated or emotionally abused in other ways by your partner or ex-partner? No Within the last year, have y ou been kicked, hit, slapped, or otherwise physically hurt by your partner or ex-partner? No 06/29/2022 Within the last year, have y ou been raped or forced to have any kind of sexual activity by your partner or ex-partner? No 06/29/2022 Social Connection and Isolat ion Panel [NHANES] Answer Date Recorded In a typical week, how many times do you talk on the phone with family, friends, or neighbors? More than three times a week 06/29/2022 How often do you get togethe r with friends or relatives? Once a week 06/29/2022 How often do you attend chur ch or hindu services? Never 06/29/2022 Do you belong to any clubs o r organizations such as moravian groups, unions, fraternal or athletic groups, or school groups? Yes 06/29/2022 How often do you attend meet ings of the clubs or organizations you belong to? More than 4 times per year 06/29/2022 Are you , , di vorced, , never , or living with a partner? 06/29/2022 AUDIT-C Answer Date Recorded Q1: How often do you have a drink containing alc ohol? 2-3 times a week 06/29/2022 Q2: How many drinks containi ng alcohol do you have on a typical day when you are drinking? 3 or 4 06/29/2022 Q3: How often do you have si x or more drinks on one occasion? Monthly 06/29/2022 Overall Financial Resource Strain (CARDIA) Answe r Date Recorded How hard is it for you to pa y for the very basics like food, housing, medical care, and heating? Not hard at all 06/29/2022 [facility] of Occupat ional Health - Occupational Stress Questionnaire Answer Date Recorded Do you feel stress - tense, restless, nervous, or anxious, or unable to sleep at night because your mind is troubled all the time - these days? To some extent 06/29/2022 Exercise Vital Sign Answer Date Recorde d On average, how many days pe r week do you engage in moderate to strenuous exercise (like a brisk walk)? 5 days 06/29/2022 On average, how many minutes do you engage in exercise at this level? 20 min 06/29/2022 Hunger Vital Sign Answer Date Recorded Within the past 12 months, y ou worried that your food would run out before you got the money to buy more. Never true 06/29/20 22 Within the past 12 months, t he food you bought just didn't last and you didn't have money to get more. Never true 06/29/2022 PRAPARE - Transportation Answer Date Re corded In the past 12 months, has l ack of transportation kept you from medical appointments or from getting medications? No 06/20 In the past 12 months, has l ack of transportation kept you from meetings, work, or from getting things needed for daily living? No 06/29/2022 Housing Stability Vital Sign Answer Chuy e Recorded In the last 12 months, was t here a time when you were not able to pay the mortgage or rent on time? No 06/29/2022 In the last 12 months, how many places have you lived? 1 06/29/2022 In the last 12 months, was t here a time when you did not have a steady place to sleep or slept in a halfway (including now)? No 06/29/2022 Nutrition Answer Date Recorded Nutrition: EVOO Fat Source No 06/29 On average, how many serving s of fruits and vegetables do you eat per day (serving size is equal to 1 cup or approximately the size of a tennis ball)? 2-3 06/29/2022 Dental Answer Date Recorded Dental: Regular Dentist Yes 06/29/20 Employment Answer Date Recorded Employment status Working with temporary [employer] 06/29/2022 Education Answer Date Recorded What is the highest level of school you have completed or the highest degree you have received? 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
--- OUTSIDE RECORDS SUMMARY | 2023-10-04 14:44 | XMS_ITS | Referral Summary ---
Author Name Unknown Organization [facility] Address [address] [place] [address] Care Team Providers Care Warp Hand Name Role Phone Unavailable Primary Care Provider Unavailabl e Source Comments Patient records contain information from all sites at [facility]. For routine questions regarding patient records, call [phone] during business hours, M-F 8:00 AM - 5:00 PM Central Time. Record requests for emergency care only can be directed to [phone] at any time.[facility] Allergies Active Allergy Reactions Criticality Noted Date Comments Pollen Extracts Itching Low 08/01/2020 Medications Medication Sig Dispensed Refills Start Date End Date Status buPROPion XL (WELLBUTRIN XL) 150 mg 24 hr tablet Take 150 mg by mouth. 0 Active citalopram (CeleXA) 40 mg tablet Take 40 mg by mouth. 0 Active amphetamine-dextroamp hetamine (ADDERALL XR) 30 mg 24 hr capsule Take 30 mg by mouth. 0 Active levothyroxine (SYNTHROID, LEVOTHROID) 25 mcg tablet Take 25 mcg by mouth. 0 Active multivitamin tablet Take 1 tablet by mouth. 0 Active simvastatin (ZOCOR) 40 mg tablet Take 40 mg by mouth. 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 Never 06/29/2022 Do you belong to any clubs o r organizations such as hindu groups, unions, fraternal or athletic groups, or [...] and heating? Not hard at all 06/29/2022 [facility] of Occupat ional Health - Occupational Stress [...] money to buy more. Never true 06/29/20 Within the past 12 months, t he [...] place to sleep or slept in a care home (including now)? No 06/29/2022 Nutrition Answer Date [...] Date Recorded Employment status Working with temporary [employer] t[employer] 06/29/2022 Education Answer Date Recorded What is the highest level of school you have completed or the highest degree you have received? Bachelor's degree (e.g., BA, AB, BS) 06/29/2022 Sex and Gender Information Value Date Recorded Sex Assigned at Female 06/29/2022 8:39 AM CDT Gender Identity Female 09/05/2020 11:07 AM COMPUTATOR Sexual Orientation Straight 09/05/2020 11 :07 AM COMPUTATOR Last Filed Vital Signs Vital Sign Reading Time Taken Comments Blood Pressure 154/82 08/27/2020 8:27 AM COMPUTATOR Pulse 85 08/27/2020 8:27 AM COMPUTATOR Temperature 35.9 ??C (96.7 ??F) 09/04/2020 4:05 PM CS T Respiratory Rate - - Oxygen Saturation - - Inhaled Oxygen Concentration - - Weight 119 kg (262 lb 9.1 oz) 09/04/2020 4:05 PM COMPUTATOR Height 169 cm (5' 6.54) 08/01/2020 12:55 PM COMPUTATOR Body Mass Index 41.7 08/01/2020 12:55 PM COMPUTATOR Plan of Treatment Not on file
--- OUTSIDE RECORDS SUMMARY | 2023-10-04 14:44 | XMS_ITS | Clinical Summary ---
Author Name Unknown Organization [facility] Address [address] [place] [id number] Care Team Providers Care Lithographers Printer Name Role Phone Unavailable Primary Care Provider Unavailabl e Source Comments Patient records contain information from all sites at [facility]. For routine questions regarding patient records, call [phone] during business hours, M-F 8:00 AM - 5:00 PM Central Time. Record requests for emergency care only can be directed to [phone] at any time.[facility] Allergies Active Allergy Reactions Criticality Noted Date [...] 05/29/2020:Stage 0(pTis (DCIS), pN0(sn), cM0, G3, ER+, [place]: Not Assessed, HER2: Not Assessed) - Unsigned [...] How often do you attend chur or hinduism services? Never 06/29/2022 Do you belong to any clubs o r organizations such as oriental orthodox groups, unions, fraternal or athletic groups, or [...] and heating? Not hard at all 06/29/2022 [facility] [place] of Occupat ional Health - Occupational Stress [...] place to sleep or slept in a usp (including now)? No 06/29/2022 Nutrition Answer Date [...] CDT Gender Identity Female 09/05/2020 11:07 AM PROFESSOR OF FORESTRY Sexual Orientation Straight 09/05/2020 11 :07 AM PROFESSOR OF FORESTRY Last Filed Vital Signs Vital Sign Reading Time Taken Comments Blood Pressure 154/82 08/27/2020 8:27 AM PROFESSOR OF FORESTRY Pulse 85 08/27/2020 8:27 AM PROFESSOR OF FORESTRY Temperature 35.9 ??C (96.7 ??F) 09/04/2020 4:05 PM CS T Respiratory Rate - - Oxygen Saturation - - Inhaled Oxygen Concentration - - Weight 119 kg (262 lb 9.1 oz) 09/04/2020 4:05 PM PROFESSOR OF FORESTRY Height 169 cm (5' 6.54) 08/01/2020 12:55 PM PROFESSOR OF FORESTRY Body Mass Index 41.7 08/01/2020 12:55 PM PROFESSOR OF FORESTRY Plan of Treatment Health Maintenance Due Date Last Done Comments CT Colonography 1964 Cologuard 1964 Colonoscopy 1964 Colorectal Cancer Screening 1964 FIT 1964 HIV Screening 1964 Hepatitis B Vaccines (1 of 3 - 3-dose series) 1964 Hepatitis C Screening 1964 Lipid (Cholesterol) Screening 1964 Thyroid Stimulating Hormone (TSH) test for thyroid function 1964 Pneumococcal vaccine (0-64 years) (1 of 2 - PCV) 1970 Zoster Vaccines (1 of 2) 1983 Mammogram 07/09/2021 07/09/2020, 06/21, 05/28/2020, Additional history exists Depression Screening (Annual PHQ-2) 09/20/2022 Cervical Cancer Screening 05/08/2023 05/08/2020 Fasting Glucose for Diabetes Screening 08/21/2025 08/21/2022, 08/14/2022, 08/06/2022, Additional history exists DTaP,Tdap,and Td Vaccines (2 - Td or Tdap) 12/27/2031 12/26/2021 COVID-19 Vaccine Completed 06/30/2023, 03/2021, 11/21/2020, Additional history exists Influenza Vaccine Completed 06/30/2023, , 06/27/2021, Additional history exists HPV Vaccines Aged Out No longer eligi ble based on patient's age to complete this topic
== END 2023-10-04 14:33 | disposition home or self-care (01) ==
LOC: MRI 14:34
PROVIDERS: PCP Physician Assistant Medical; Visit Provider Internal Medicine Hematology & Oncology
DX: Z12.39 Encounter for other screening for malignant neoplasm of breast (principal); N60.99 Unspecified benign mammary dysplasia of unspecified breast; Z85.3 Personal history of malignant neoplasm of breast
CPT/HCPCS: 77049; A9575

== ENCOUNTER 2023-10-14 08:24 | Outpatient (RCR) | payer BC, SELFPAY ==
--- NOTE | 2023-11-15 11:53 | ONC.NURNOTE ---
Left a message for patient with shoulder x-ray results. Informed her that Reyan Nguyen had reviewed her shoulder x-ray. No malignancy related concerns. Patient should follow up with PCP to discuss ongoing management of the findings: arthritis, osteophytes, joint space loss, etc. Patient encouraged to return our call with questions.
--- NOTE | 2023-11-18 15:21 | ONC.NURNOTE ---
Addendum entered by Clarice Leigh RN 11/19/23 15:23: Pt called back. Reviewed this note and xray report with pt. She is planning to f/u with PCP. Original Note: Left message for pt to call back to get results of shoulder xray ordered by Reyna Nguyen PA-C. Result reviewed and per Reyna Nguyen PA-C- pain is not related to cancer and pt should follow up with her primary care provider.
== END 2024-04-11 23:59 | disposition home or self-care (01) ==
LOC: CCIC 08:24
PROVIDERS: PCP Physician Assistant Medical; Visit Provider Physician Assistant
DX: D05.11 Intraductal carcinoma in situ of right breast (principal); Z17.0 Estrogen receptor positive status [ER+]; Z79.811 Long term (current) use of aromatase inhibitors; M25.511 Pain in right shoulder
CPT/HCPCS: 99214; G0463

== ENCOUNTER 2024-01-12 13:43 | Outpatient (CLI) | payer BC, SELFPAY ==
--- OUTSIDE RECORDS SUMMARY | 2024-01-12 13:45 | XMS_ITS ---
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 Past Plans No past plan information found. Radiation Treatments * Plan Last Treated On Elapsed Days Fractions Treated Prescribed Fraction Dose Prescribed Total Dose F1_RT Breast 09/06/2020 4 5 of 5 520 cGy 2,600 cGy Reference Point Last Treated On Elapsed Days Session Dose Total Dose [id number] 09/06/2020 4 520 cGy 2,600 cGy
--- OUTSIDE RECORDS SUMMARY | 2024-01-12 13:45 | XMS_ITS | Referral Summary ---
Author Name Unknown Organization [facility] Address [address] [place] [address] Care Team Providers Care Foil Operator Name Role Phone Unavailable Primary Care Provider Unavailabl e Source Comments Patient records contain information from all sites at [facility]. For routine questions regarding patient records, call [phone] during business hours, M-F 8:00 AM - 5:00 PM Central Time. Record requests for emergency care only can be directed to [phone] at any time.[facility] Allergies Active Allergy Reactions Criticality Noted Date Comments Pollen Extracts Itching Low 08/01/2020 Medications Medication Sig Dispensed Refills Start Date End Date Status buPROPion XL (WELLBUTRIN XL) 150 mg 24 hr tablet Take 150 mg by mouth. Active citalopram (CeleXA) 40 mg tablet Take 40 mg by mouth. Active amphetamine-dextroamp hetamine (ADDERALL XR) 30 mg 24 hr capsule Take 30 mg by mouth. Active levothyroxine (SYNTHROID, LEVOTHROID) 25 mcg tablet Take 25 mcg by mouth. Active multivitamin tablet Take 1 tablet by mouth. Active simvastatin (ZOCOR) 40 mg tablet Take 40 mg by mouth. 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 Never 06/29/2022 Do you belong to any clubs o r organizations such as jainism groups, unions, fraternal or athletic groups, or [...] and heating? Not hard at all 06/29/2022 [facility] [place] of Occupat ional Health - Occupational Stress [...] or slept in a half-way (including now)? No 06/29/2022 Nutrition Answer Date [...] CDT Gender Identity Female 09/05/2020 11:07 AM SKIP TENDER Sexual Orientation Straight 09/05/2020 11 :07 AM SKIP TENDER Last Filed Vital Signs Vital Sign Reading Time Taken Comments Blood Pressure 154/82 08/27/2020 8:27 AM SKIP TENDER Pulse 85 08/27/2020 8:27 AM SKIP TENDER Temperature 35.9 ??C (96.7 ??F) 09/04/2020 4:05 PM CS T Respiratory Rate - - Oxygen Saturation - - Inhaled Oxygen Concentration - - Weight 119 kg (262 lb 9.1 oz) 09/04/2020 4:05 PM SKIP TENDER Height 169 cm (5' 6.54) 08/01/2020 12:55 PM SKIP TENDER Body Mass Index 41.7 08/01/2020 12:55 PM SKIP TENDER Plan of Treatment Not on file Procedures Procedure Name Priority Date/Time Associated Diagnosis Comments OUTSIDE DX SKELETAL Routine 11/10/2023 1 :20 PM SKIP TENDER EXTI BASIC METABOLIC PANEL, S/P Routine 08/21/2022 2:46 PM SKIP TENDER OUTSIDE MG MAMMOGRAM Routine 07/09/2020 12:30 PM CDT from Last 3 Months or Most Recently Relevant to Health Maintenance Results * XR shoulder RT min 2V-Outside Skeletal Xray (11/10/2023 1:20 PM SKIP TENDER) 11/10/2023 1:18 PM SKIP TENDER Narrative [facility] - 11/10/2023 2:37 PM SKIP TENDER This order has been created and auto-finalized to support the import of outside images. If available, original interpretation can be found on the Media Tab in Chart Review, in Document Viewer, or as an image in [email or web address]. If a re-interpretation or overread is required please follow defined workflow. ?? Provider Not In System IMG DIAGNOSTIC IM AGING PROCEDURES [facility] NA * BREAST SURGICAL SPECIMEN-Outside Mammogram (07/09/2020 12:30 PM CDT) Narrative [facility] - 07/25/2020 9:00 AM SKIP TENDER This order has been created and auto-finalized to support the import of outside images. If available, original interpretation can be found on the Media Tab in Chart Review, in Document Viewer, or as an image in QREADS. If a re-interpretation or overread is required please follow defined workflow. ?? Provider Not In System IMG BI PROCEDURES [facility] NA from Last 3 Months or Most Recently Relevant to Health Maintenance
--- OUTSIDE RECORDS SUMMARY | 2024-01-12 13:45 | XMS_ITS ---
Author Name Unknown Organization [facility] Address [address] [place] [address] Care Team Providers Care Client Technical Specialist Name Role Phone Unavailable Unavailable Unavailable Surgery Details Not on file Complications Check Surgery Details section. Procedure Estimated Blood Loss Check Surgery Details section. Procedure Findings Check Surgery Details section. Procedure Specimens Taken Check Surgery Details section.
--- OUTSIDE RECORDS SUMMARY | 2024-01-12 13:45 | XMS_ITS | Clinical Summary ---
Author Name Unknown Organization [facility] Address [address] [place] [address] Care Team Providers Care Experimental Display Builder Name Role Phone Unavailable Primary Care Provider Unavailabl e Source Comments Patient records contain information from all sites at [facility]. For routine questions regarding patient records, call [phone] during business hours, M-F 8:00 AM - 5:00 PM Central Time. Record requests for emergency care only can be directed to [phone] at any time.[facility] Allergies Active Allergy Reactions Criticality Noted Date [...] 05/29/2020:Stage 0(pTis (DCIS), pN0(sn), cM0, G3, ER+, IA: Not Assessed, HER2: Not Assessed) - Unsigned [...] week 06/29/2022 How often do you attend [facility] or druze services? Never 06/29/2022 Do you belong to any clubs o r organizations such as confucianism groups, unions, fraternal or athletic groups, or [...] and heating? Not hard at all 06/29/2022 [facility] of Occupat ional Health - Occupational Stress [...] place to sleep or slept in a assisted (including now)? No 06/29/2022 Nutrition Answer Date [...] CDT Gender Identity Female 09/05/2020 11:07 AM SOCIAL MEDIA MARKETER Sexual Orientation Straight 09/05/2020 11 :07 AM SOCIAL MEDIA MARKETER Last Filed Vital Signs Vital Sign Reading Time Taken Comments Blood Pressure 154/82 08/27/2020 8:27 AM SOCIAL MEDIA MARKETER Pulse 85 08/27/2020 8:27 AM SOCIAL MEDIA MARKETER Temperature 35.9 ??C (96.7 ??F) 09/04/2020 4:05 PM CS T Respiratory Rate - - Oxygen Saturation - - Inhaled Oxygen Concentration - - Weight 119 kg (262 lb 9.1 oz) 09/04/2020 4:05 PM SOCIAL MEDIA MARKETER Height 169 cm (5' 6.54) 08/01/2020 12:55 PM SOCIAL MEDIA MARKETER Body Mass Index 41.7 08/01/2020 12:55 PM SOCIAL MEDIA MARKETER Plan of Treatment Health Maintenance Due Date Last Done Comments CT Colonography 1964 Cologuard 1964 Colonoscopy 1964 Colorectal Cancer Screening 1964 FIT 1964 HIV Screening 1964 Hepatitis C Screening 1964 Lipid (Cholesterol) Screening 1964 Thyroid Stimulating Hormone (TSH) test for thyroid function 1964 Hepatitis B Vaccines (1 of 3 - 19+ 3-dose series) 1983 Zoster Vaccines (1 of 2) 1983 Mammogram 07/09/2021 07/09/2020, 06/21, 05/28/2020, Additional history exists Cervical Cancer Screening 05/08/2023 05/08/2020 Depression Screening (Annual PHQ-2) 09/20/2023 Fasting Glucose for Diabetes Screening 08/21/2025 08/21/2022, 08/14/2022, 08/06/2022, Additional history exists DTaP,Tdap,and Td Vaccines (2 - Td or Tdap) 12/27/2031 12/26/2021 COVID-19 Vaccine Completed 06/30/2023, 03/2021, 11/21/2020, Additional history exists Influenza Vaccine Completed 06/30/2023, , 06/27/2021, Additional history exists HPV Vaccines Aged Out No longer eligi ble based on patient's age to complete this topic Pneumococcal vaccine (0-64 years) Aged Out No longer eligible based on patient's age to complete this topic Procedures Procedure Name Priority Date/Time Associated Diagnosis Comments OUTSIDE DX SKELETAL Routine 11/10/2023 1 :20 PM SOCIAL MEDIA MARKETER EXTI BASIC METABOLIC PANEL, S/P Routine 08/21/2022 2:46 PM SOCIAL MEDIA MARKETER OUTSIDE MG MAMMOGRAM Routine 07/09/2020 12:30 PM CDT from Last 3 Months or Most Recently Relevant to Health Maintenance Results * XR shoulder RT min 2V-Outside Skeletal Xray (11/10/2023 1:20 PM SOCIAL MEDIA MARKETER) 11/10/2023 1:18 PM SOCIAL MEDIA MARKETER Narrative [facility]IMS - 11/10/2023 2:37 PM SOCIAL MEDIA MARKETER This order has been created and auto-finalized to support the import of outside images. If available, original interpretation can be found on the Media Tab in Chart Review, in Document Viewer, or as an image in QREADS. If a re-interpretation or overread is required please follow defined workflow. ?? Provider Not In System IMG DIAGNOSTIC IM AGING PROCEDURES Performing Organization Address City/[facility] Co de Phone Number IIMS NA * BREAST SURGICAL SPECIMEN-Outside Mammogram (07/09/2020 12:30 PM CDT) Narrative IIMS - 07/25/2020 9:00 AM SOCIAL MEDIA MARKETER This order has been created and auto-finalized to support the import of outside images. If available, original interpretation can be found on the Media Tab in Chart Review, in Document Viewer, or as an image in QREADS. If a re-interpretation or overread is required please follow defined workflow. ?? Provider Not In System IMG BI PROCEDURES Performing Organization Address City/[facility] Co de Phone Number [facility]S NA from Last 3 Months or Most Recently Relevant to Health Maintenance [phone] ([place]) [address] [place] [address]
--- OUTSIDE RECORDS SUMMARY | 2024-01-12 13:45 | XMS_ITS | Clinical Summary ---
Author Name Unknown Organization [facility] Address [place], [place] [address] Care Team Providers Care Vessel Traffic Officer Name Role Phone Ariadna Villafana PA-C Primary Care Provider + [phone] Allergies No known active allergies Medications Medication Sig Dispensed Refills Start Date End Date Status citalopram (CELEXA) 40 mg tablet Take 40 mg by mouth once daily. Active levothyroxine (SYNTHROID) 25 mcg tablet Take 25 mcg by mouth before breakfast. Active buPROPion (WELLBUTRIN XL) 150 mg Extended-Release tablet Take 150 mg by mouth every morning. Active multivitamin (MVI) tablet Take 1 tablet by mouth once daily. Active anastrozole (ARIMIDEX) 1 mg tablet Take 1 mg by mouth once daily. 06/29/2022 Active atorvastatin (LIPITOR) 40 mg tablet 40 mg at bedtime. Active losartan (COZAAR) 50 mg tablet Take 50 mg by mouth once daily. Active mirabegron EXTENDED-release (MYRBETRIQ) 50 mg tablet Take 50 mg by mouth once daily. Active dextroamphetamine- amphetamine (ADDERALL XR) 20 mg Extended-Release capsule Take 20 mg by mouth once daily. Active acetaminophen (TYLENOL EXTRA STRGTH) 500 mg [...] (For moderate to severe pain.). 50 Tablet 07/11/2022 Active Active Problems Problem Noted Date [...] Comments Blood Pressure 174/89 08/26/2022 2:25 PM BIAS CUTTER Pulse 72 08/26/2022 2:25 PM BIAS CUTTER Temperature 36.8 ??C (98.3 ??F) 08/26/2022 2:25 PM CS T Respiratory Rate 16 08/26/2022 2:25 PM BIAS CUTTER Oxygen Saturation 97% 08/06/2022 11: 10 AM BIAS CUTTER Inhaled Oxygen Concentration - - Weight 106.5 [...] 05/08/2023 0, 05/08/2020, 08/06/2015 COVID-19 vaccine series (2022- season) 2023 08/26/2021, 11/21/2020, 10/22/2020 Influenza for age 50-64 05/21/2024 Pneumococcal series for age 6-64 Aged Out No longer eligible b ased on patient's age to complete this topic Procedures Procedure Name Priority Date/Time Associated Diagnosis Comments EMPLOYEE DEVELOPMENT SPECIALIST THIN PREP PAP SCREEN IMAGED Routine 05/08/2020 2:30 PM CDT XR MAMMO BILAT SCREEN FFDM (IA) Routine 12/08/2006 12:40 PM CDT Screening Mammogram Other from Last 3 Months or Most Recently Relevant to Health Maintenance Results * EMPLOYEE DEVELOPMENT SPECIALIST THIN PREP PAP SCREEN IMAGED (05/08/2020 2:30 PM CDT) Case Report Gynecologic Cytology Report ? Case: [id number] ? Authorizing Provider: ??Ariadna Villafana PA-C ?Collected: ? 05/08/2020 1430 ? Ordering Location: ? [facility] ?Received: ?05/10/2020 1301 ? First Screen: ?Naty Disla ? Specimen: ?EMPLOYEE DEVELOPMENT SPECIALIST ThinPrep Vial Screening, Cervical/Vaginal ? 05/20/2020 1:19 PM CDT [facility] INTERPRETATION/ RESULT NEGATIVE FOR INTRAEPITHELIAL LESION OR MALIGNANCY (NIL) (none) 05/20/2020 1:19 PM CDT [facility] IMEN ADEQUACY Satisfactory for evaluation Endocervical component present 05/20/2020 1:19 PM CDT [facility] HPV REQUEST HPV and PAP 05/20/2020 1:19 PM CDT [facility] Last Pap Date 08/06/2015 05/20/2020 1:19 PM CDT [facility] Last Pap Result NIL 0 1:19 PM CDT [facility] Menstrual Status Postmenopausal 05/20/2020 1:19 PM CDT [facility] Additional Information 05/20/2020 1:19 PM CDT [facility] Comment: Interpreted at [facility] - [address] [place] [address] Automated Review Successful 05/20/2020 1:19 PM CDT [facility] Comment:Specimen processed s uccessfully by automated coding tech device, ThinPrep Imaging System, [employer] ANCILLARY TESTING EMPLOYEE DEVELOPMENT SPECIALIST HPV Ordered, Please see separate report 05/20/2020 1:19 PM CDT [facility] Note The pap test is a screening technique, not a diagnostic procedure. It is used primarily to screen for squamous cancers and precursor lesions. Published studies have shown that it is subject to both false negative and false positive results. The pap test should not be used as the sole means to diagnose or exclude pre-malignant and malignant lesions. 05/20/2020 1:19 PM CDT [facility]AL LAB[facility]ATORY Other (Cervical/Vagina l) 05/08/2020 2:30 PM CDT 05/10/2020 1:01 PM CDT Ariadna Villafana PA-C [facility] [address] [place] [address], [place] * XR MAMMO BILAT SCREEN FFDM (12/08/2006 12:40 PM CDT) Anatomical Region Laterality Modality BREASTS, Breast Left, Breast Right Bilateral Mammography 12/08/2006 12:4 0 PM CDT Impressions 12/10/2006 7:47 AM CDT ??There is no radiographic evidence for malignancy. ??Recommend annual mammograms. The [facility] will provide a results postcard to the patient at the time of the appointment or through the mail. Narrative 12/10/2006 7:47 AM CDT BILATERAL FULL-FIELD DIGITAL SCREENING MAMMOGRAM INTERPRETED IN CONJUNCTION WITH COMPUTER-AIDED DETECTION ??12/08/06 CLINICAL HISTORY: ??This is an asymptomatic 41-year-old patient. ?? FINDINGS: ??This mammogram was performed with full-field digital technique and in conjunction with computer-aided detection. The study is compared to previous studies from [facility] dated 12/02/05 and shows no significant change. The breast tissue is heterogeneously dense, which could obscure detection of small masses. There are no masses or calcifications that are suspicious for malignancy. Procedure Note Leticia Lu MD - 12/10/2006 BILATERAL FULL-FIELD DIGITAL SCREENING MAMMOGRAM INTERPRETED INCONJUNCTION WITH COMPUTER-AIDED DETECTION 12/08/06 CLINICAL HISTORY: This is an asymptomatic 41-year-old patient. FINDINGS: This mammogram was performed with full-field digital techniqueand in conjunction with computer-aided detection. The [facility] and shows no significant change. The breast tissue is heterogeneously dense, which could obscure detectionof small masses. There are no masses or calcifications that are suspicious formalignancy. IMPRESSION: There is no radiographic evidence for malignancy. Recommendannual mammograms. The [facility] [place] will provide a results postcard to the patient atthe time of the appointment or through the mail. Mari Don NP MAMMO from Last 3 Months or Most Recently Relevant to Health Maintenance Advance Directives * Full Code (Latest Code Status on File) Date Activated Date Inactivated Comments 07/05/2022 11:53 PM 07/11/2022 7:39 PM Question Answer Comments Code Status Discussion: Reviewed Preferences * Full Code Date Activated Date Inactivated Comments 07/18/2020 6:01 AM 07/18/2020 10:14 PM Question Answer Comments Code Status Discussion: Not Discussed Care Teams Vessel Traffic Officer Relationship Specialty Start Date End Date Ariadna Villafana PA-C [address] [place] [address] PCP - General Emergency Medicine 05/28/20
[2024-01-12 23:19] LABS: Chlamydia DNA Amplified* NOT DETECTED (No Detected); GC DNA Amplified* NOT DETECTED (No Detected)
== END 2024-01-12 13:44 | disposition home or self-care (01) ==
LOC: LKVREF 13:43
PROVIDERS: PCP Physician Assistant Medical; Visit Provider Physician Assistant Medical
DX: Z11.3 Encounter for screening for infections with a predominantly sexual mode of transmission (principal)
CPT/HCPCS: 87491; 87591

== ENCOUNTER 2024-01-20 09:10 | Outpatient (CLI) | payer BC, SELFPAY ==
--- OUTSIDE RECORDS SUMMARY | 2024-01-21 05:32 | XMS_ITS | Clinical Summary ---
Author Name Unknown Organization [facility] Address [place], [place] [address] Care Team Providers Care Career Resource Technician Name Role Phone Ariadna Villafana PA-C Primary Care Provider + [phone] Allergies No known active allergies Medications Medication [...] region Vertebral abscess Anemia Encounters Date Type Department Care Team Description 01/12/2024 Lab Requisition [facility] [phone] Ariadna Villafana PA-C from Last 3 Months Family History Medical [...] Comments Blood Pressure 174/89 08/26/2022 2:25 PM WEB OPERATIONS LEAD Pulse 72 08/26/2022 2:25 PM WEB OPERATIONS LEAD Temperature 36.8 ??C (98.3 ??F) 08/26/2022 2:25 PM CS T Respiratory Rate 16 08/26/2022 2:25 PM WEB OPERATIONS LEAD Oxygen Saturation 97% 08/06/2022 11: 10 AM WEB OPERATIONS LEAD Inhaled Oxygen Concentration - - Weight 106.5 [...] age 18+ 1982 Hepatitis C screening for age 18-79 1982 Zoster (shingles) series for age 50+ (1 of 2) 1983 Tetanus booster 1984 Colonoscopy through age 75 2009 Lipids for age 45-75 2009 Mammogram for age 45-75 2009 12/08/2006, 12/02 COVID-19 vaccine series (2022- season) 2023 08/26/2021, 11/21/2020, 10/22/2020 Influenza for age 50-64 05/21/2024 Pap test for age 21-65 01/11/2027 , 05/08/2020, 05/08/2020, Additional history exists Pneumococcal series for age 6-64 Aged Out No longer eligible based on patient's age to complete this topic Procedures Procedure Name Priority Date/Time Associated Diagnosis Comments LAB TRACKING EVENT Routine 01/12/2024 1: 45 PM CDT HPV THIN PREP Routine 01/12/2024 1:45 PM CDT XR MAMMO BILAT SCREEN FFDM (IA) Routine 12/08/2006 12:40 PM CDT Screening Mammogram Other from Last 3 Months or Most Recently Relevant to Health Maintenance Results * LAB TRACKING EVENT (01/12/2024 1:45 PM CDT) Other (Other) Client Collect / Unknown 01/12/2024 1:45 PM CDT 01/12/2024 3:59 PM CDT Ariadna Villafana PA-C LAB BILL ONLY [facility] [address] [place] [address], * HPV HIGH RISK (01/12/2024 1:45 PM CDT) TYPE 16 Negative Negative 01/15/2024 7:19 AM CDT [facility] TYPE 18 Negative Negative 01/15/2024 7:19 AM CDT [facility] OTHER HIGH RISK TYPES Negative Negative 01/15/2024 7:19 AM CDT [facility] Other (Cervical) 01/12/2024 1:45 PM CDT 01/13/2024 12:20 PM CDT Narrative [facility] - 01/15/2024 7:19 AM CDT HPV types 16, 18, 31, 33, 35, 39, 45, 51, 52, 56, 58, 59, 66 and 68 DNA were undetectable or below the pre-set threshold. Methodology: Ayanna Niko 4800 HPV Test Ariadna Villafana PA-C MICROBIOLOGY Performing Organization Address City/State/[facility] Co de Phone Number [facility] [address] [place] [address], * XR MAMMO BILAT SCREEN FFDM (12/08/2006 12:40 PM CDT) Anatomical Region Laterality Modality BREASTS, Breast Left, Breast Right Bilateral Mammography 12/08/2006 12:4 0 PM CDT Impressions 12/10/2006 7:47 AM CDT ??There is no radiographic evidence for malignancy. ??Recommend annual mammograms. The [facility] will provide a results postcard to the [...] study is compared to previous studies from [facility] dated 12/02/05 and shows no significant change. The breast tissue is heterogeneously dense, which could obscure detection of small masses. There are no masses or calcifications that are suspicious for malignancy. Procedure Note Day, Leticia L, MD - 12/10/2006 BILATERAL FULL-FIELD DIGITAL SCREENING MAMMOGRAM INTERPRETED INCONJUNCTION WITH COMPUTER-AIDED DETECTION 12/08/06 CLINICAL HISTORY: This is an asymptomatic 41-year-old patient. FINDINGS: This mammogram was performed with full-field digital techniqueand in conjunction with computer-aided detection. The study is compared to previous studies from [facility] dated 12/02/05 and shows no significant change. The breast tissue is heterogeneously dense, which could obscure detectionof small masses. There are no masses or calcifications that are suspicious formalignancy. IMPRESSION: There is no radiographic evidence for malignancy. Recommendannual mammograms. The [facility] will provide a results postcard to the [...] Code Status Discussion: Not Discussed Care Teams Career Resource Technician Relationship Specialty Start Date End Date Ariadna Villafana PA-C [address] [place] [address] PCP - General Emergency Medicine 05/28/20
--- OUTSIDE RECORDS SUMMARY | 2024-01-21 05:32 | XMS_ITS | Clinical Summary ---
Author Name Unknown Organization [facility] Address [address] [place] [address] Care Team Providers Care Parcel Carrier Name Role Phone Unavailable Primary Care Provider Unavailabl e Source Comments Patient records contain information from all sites at [facility]. For routine questions regarding patient records, call [phone] during business hours, M-F 8:00 AM - 5:00 PM Central Time. Record requests for emergency care only can be directed to [phone] at any time.[facility] Allergies Active Allergy Reactions Criticality [...] 05/29/2020:Stage 0(pTis (DCIS), pN0(sn), cM0, G3, ER+, NM: Not Assessed, HER2: Not Assessed) - Unsigned [...] week 06/29/2022 How often do you attend [facility] or faith services? Never 06/29/2022 Do you belong to any clubs o r organizations such as zoroastrian groups, unions, fraternal or athletic groups, or [...] and heating? Not hard at all 06/29/2022 [facility] of Occupat ional Health - Occupational Stress [...] or slept in a intermediate (including now)? No 06/29/2022 Nutrition Answer Date [...] CDT Gender Identity Female 09/05/2020 11:07 AM DIRECTOR EMERGENCY SERVICES Sexual Orientation Straight 09/05/2020 11 :07 AM DIRECTOR EMERGENCY SERVICES Last Filed Vital Signs Vital Sign Reading Time Taken Comments Blood Pressure 154/82 08/27/2020 8:27 AM DIRECTOR EMERGENCY SERVICES Pulse 85 08/27/2020 8:27 AM DIRECTOR EMERGENCY SERVICES Temperature 35.9 ??C (96.7 ??F) 09/04/2020 4:05 PM CS T Respiratory Rate - - Oxygen Saturation - - Inhaled Oxygen Concentration - - Weight 119 kg (262 lb 9.1 oz) 09/04/2020 4:05 PM DIRECTOR EMERGENCY SERVICES Height 169 cm (5' 6.54) 08/01/2020 12:55 PM DIRECTOR EMERGENCY SERVICES Body Mass Index 41.7 08/01/2020 12:55 PM DIRECTOR EMERGENCY SERVICES Plan of Treatment Health Maintenance Due Date [...] DX SKELETAL Routine 11/10/2023 1 :20 PM DIRECTOR EMERGENCY SERVICES EXTI BASIC METABOLIC PANEL, S/P Routine 08/21/2022 2:46 PM DIRECTOR EMERGENCY SERVICES OUTSIDE MG MAMMOGRAM Routine 07/09/2020 12:30 PM CDT from Last 3 Months or Most Recently Relevant to Health Maintenance Results * XR shoulder RT min 2V-Outside Skeletal Xray (11/10/2023 1:20 PM DIRECTOR EMERGENCY SERVICES) 11/10/2023 1:18 PM DIRECTOR EMERGENCY SERVICES Narrative [facility] - 11/10/2023 2:37 PM DIRECTOR EMERGENCY SERVICES This order has been created and auto-finalized to support the import of outside images. If available, original interpretation can be found on the Media Tab in Chart Review, in Document Viewer, or as an image in QREADS. If a re-interpretation or overread is required please follow defined workflow. ?? Provider Not In System IMG DIAGNOSTIC IM AGING PROCEDURES Performing Organization Address City/[facility] Co de Phone Number [facility] NA * BREAST SURGICAL SPECIMEN-Outside Mammogram (07/09/2020 12:30 PM CDT) Narrative [facility] - 07/25/2020 9:00 AM DIRECTOR EMERGENCY SERVICES This order has been created and auto-finalized to support the import of outside images. If available, original interpretation can be found on the Media Tab in Chart Review, in Document Viewer, or as an image in QREADS. If a re-interpretation or overread is required please follow defined workflow. ?? Provider Not In System IMG BI PROCEDURES Performing Organization Address City/[facility] Co de Phone Number [facility] NA from Last 3 Months or Most Recently Relevant to Health Maintenance
--- OUTSIDE RECORDS SUMMARY | 2024-01-21 05:33 | XMS_ITS | Referral Summary ---
Author Name Unknown Organization [facility] Address [address] [place] [address] Care Team Providers Care Cashier Name Role Phone Unavailable Primary Care Provider Unavailabl e Source Comments Patient records contain information from all sites at [facility]. For routine questions regarding patient records, call [phone] during business hours, M-F 8:00 AM - 5:00 PM Central Time. Record requests for emergency care only can be directed to [phone] at any time.[facility] Allergies Active Allergy Reactions Criticality Noted Date [...] 05/29/2020:Stage 0(pTis (DCIS), pN0(sn), cM0, G3, ER+, ND: Not [...] often do you attend [facility] or restorationism services? Never 06/29/2022 Do you belong to any clubs o r organizations such as rastafari groups, unions, fraternal or athletic groups, or [...] and heating? Not hard at all 06/29/2022 [facility] of Occupat ional Health - Occupational Stress [...] or slept in a residential (including now)? No 06/29/2022 Nutrition Answer Date [...] CDT Gender Identity Female 09/05/2020 11:07 AM DUMP MOTOR OPERATOR Sexual Orientation Straight 09/05/2020 11 :07 AM DUMP MOTOR OPERATOR Last Filed Vital Signs Vital Sign Reading Time Taken Comments Blood Pressure 154/82 08/27/2020 8:27 AM DUMP MOTOR OPERATOR Pulse 85 08/27/2020 8:27 AM DUMP MOTOR OPERATOR Temperature 35.9 ??C (96.7 ??F) 09/04/2020 4:05 PM CS T Respiratory Rate - - Oxygen Saturation - - Inhaled Oxygen Concentration - - Weight 119 kg (262 lb 9.1 oz) 09/04/2020 4:05 PM DUMP MOTOR OPERATOR Height 169 cm (5' 6.54) 08/01/2020 12:55 PM DUMP MOTOR OPERATOR Body Mass Index 41.7 08/01/2020 12:55 PM DUMP MOTOR OPERATOR Plan of Treatment Not on file Procedures Procedure Name Priority Date/Time Associated Diagnosis Comments OUTSIDE DX SKELETAL Routine 11/10/2023 1 :20 PM DUMP MOTOR OPERATOR EXTI BASIC METABOLIC PANEL, S/P Routine 08/21/2022 2:46 PM DUMP MOTOR OPERATOR OUTSIDE MG MAMMOGRAM Routine 07/09/2020 12:30 PM CDT from Last 3 Months or Most Recently Relevant to Health Maintenance Results * XR shoulder RT min 2V-Outside Skeletal Xray (11/10/2023 1:20 PM DUMP MOTOR OPERATOR) 11/10/2023 1:18 PM DUMP MOTOR OPERATOR Narrative [facility] - 11/10/2023 2:37 PM DUMP MOTOR OPERATOR This order has been created and auto-finalized to support the import of outside images. If available, original interpretation can be found on the Media Tab in Chart Review, in Document Viewer, or as an image in [employer]. If a re-interpretation or overread is required please follow defined workflow. ?? Provider Not In System IMG DIAGNOSTIC IM AGING PROCEDURES [facility] NA * BREAST SURGICAL SPECIMEN-Outside Mammogram (07/09/2020 12:30 PM CDT) Narrative [facility] - 07/25/2020 9:00 AM DUMP MOTOR OPERATOR This order has been created and auto-finalized [...]
--- OUTSIDE RECORDS SUMMARY | 2024-01-21 05:33 | XMS_ITS ---
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 Past Plans No past plan information found. Radiation Treatments * Plan Last Treated On Elapsed Days Fractions Treated Prescribed Fraction Dose Prescribed Total Dose F1_RT Breast 09/06/2020 4 5 of 5 520 cGy 2,600 cGy Reference Point Last Treated On Elapsed Days Session Dose Total Dose [id number] 09/06/2020 4 520 cGy 2,600 cGy
--- OUTSIDE RECORDS SUMMARY | 2024-01-21 05:33 | XMS_ITS ---
Author Name Unknown Organization [facility] Address [address] [place] [address] Care Team Providers Care Powder Guard Name Role Phone Unavailable Unavailable Unavailable Surgery Details Not on file Complications Check Surgery Details section. Procedure Estimated Blood Loss Check Surgery Details section. Procedure Findings Check Surgery Details section. Procedure Specimens Taken Check Surgery Details section.
== END 2024-01-20 09:11 | disposition home or self-care (01) ==
LOC: NFLDREF 01-21 05:31
PROVIDERS: PCP Physician Assistant Medical; Referring Provider Physician Assistant Medical; Visit Provider Physician Assistant Medical
DX: E03.9 Hypothyroidism, unspecified (principal); E78.5 Hyperlipidemia, unspecified; I10 Essential (primary) hypertension; Z11.59 Encounter for screening for other viral diseases
CPT/HCPCS: 80053; 80061; 84443; 86803

== ENCOUNTER 2024-03-13 13:38 | Outpatient (CLI) | payer BC, SELFPAY ==
--- NOTE | 2024-03-13 13:40 | CRLHL7_ITS ---
For Patients: As a result of the Century Cures Act, medical imaging exams and procedure reports are released immediately into your electronic medical record. You may view this report before your referring provider. If you have questions, please contact your health care provider. BILATERAL SCREENING MAMMOGRAM WITH COMPUTER-AIDED DETECTION AND TOMOSYNTHESIS TECHNIQUE: CC and MLO views were obtained. These mammographic images have been obtained using full-field digital technique. These mammographic images were interpreted with the benefit of computer-aided detection. Breast Tomosynthesis was used in this interpretation. COMPARISON FILM: 01/19/23, 12/31/21, 07/09/20. FINDINGS: The breasts are heterogeneously dense, which may obscure small masses. IMPRESSION: There is no radiographic evidence for malignancy. ASSESSMENT: BI-RADS Category 2: Benign RECOMMENDATION: Routine screening mammogram in 1 year. A lay language report of this examination will be provided to the patient. Bret Ko M.D. Diagnostic Radiologist [email or web address] SP/Dictated by: Bret Ko MD @ 03/20/2024 12:42:00 PM (Electronically Signed)
--- OUTSIDE RECORDS SUMMARY | 2024-03-13 13:46 | XMS_ITS | Clinical Summary ---
Author Organization [facility] Address [address] [place] [address] Care Team Providers Care Combat Control Manager Name Role Phone Unavailable Primary Care Provider Unavailabl e Source Comments Patient records contain information from all sites at [facility]. For routine questions regarding patient records, call [phone] during business hours, M-F 8:00 AM - 5:00 PM Central Time. Record requests for emergency care only can be directed to [phone] at any time.[facility] Allergies Active Allergy Reactions Criticality Noted [...] 05/29/2020:Stage 0(pTis (DCIS), pN0(sn), cM0, G3, ER+, [place]: Not Assessed, HER2: Not Assessed) - Unsigned [...] week 06/29/2022 How often do you attend [facility] or taoism services? Never 06/29/2022 Do you belong to any clubs o r organizations such as taoism groups, unions, fraternal or athletic groups, or [...] and heating? Not hard at all 06/29/2022 [facility] [place] of Occupat ional Health - Occupational Stress [...] place to sleep or slept in a penitentiary (including now)? No 06/29/2022 Nutrition Answer Date [...] CDT Gender Identity Female 09/05/2020 11:07 AM INFORMATION SECURITY ASSOCIATE Sexual Orientation Straight 09/05/2020 11 :07 AM INFORMATION SECURITY ASSOCIATE Last Filed Vital Signs Vital Sign Reading Time Taken Comments Blood Pressure 154/82 08/27/2020 8:27 AM INFORMATION SECURITY ASSOCIATE Pulse 85 08/27/2020 8:27 AM INFORMATION SECURITY ASSOCIATE Temperature 35.9 ??C (96.7 ??F) 09/04/2020 4:05 PM CS T Respiratory Rate - - Oxygen Saturation - - Inhaled Oxygen Concentration - - Weight 119 kg (262 lb 9.1 oz) 09/04/2020 4:05 PM INFORMATION SECURITY ASSOCIATE Height 169 cm (5' 6.54) 08/01/2020 12:55 PM INFORMATION SECURITY ASSOCIATE Body Mass Index 41.7 08/01/2020 12:55 PM INFORMATION SECURITY ASSOCIATE Plan of Treatment Health Maintenance Due Date [...] Procedure Name Priority Date/Time Associated Diagnosis Comments EXTI BASIC METABOLIC PANEL, S/P Routine 08/21/2022 2:46 PM INFORMATION SECURITY ASSOCIATE OUTSIDE MG MAMMOGRAM Routine 07/09/2020 12:30 PM CDT from Last 3 Months or Most Recently Relevant to Health Maintenance Results * BREAST SURGICAL SPECIMEN-Outside Mammogram (07/09/2020 12:30 PM CDT) Narrative [facility] - 07/25/2020 9:00 AM INFORMATION SECURITY ASSOCIATE This order has been created and auto-finalized [...]
--- OUTSIDE RECORDS SUMMARY | 2024-03-13 13:46 | XMS_ITS | Referral Summary ---
Author Organization [facility] Address [address] [place] [address] Care Team Providers Care Psychiatrist Name Role Phone Unavailable Primary Care Provider Unavailabl e Source Comments Patient records contain information from all sites at [facility]. For routine questions regarding patient records, call [phone] during business hours, M-F 8:00 AM - 5:00 PM Central Time. Record requests for emergency care only can be directed to [phone] at any time.[facility] Allergies Active Allergy Reactions Criticality Noted [...] 05/29/2020:Stage 0(pTis (DCIS), pN0(sn), cM0, G3, ER+, [place]: Not Assessed, HER2: Not Assessed) - Unsigned [...] week 06/29/2022 How often do you attend [facility] or confucianism services? Never 06/29/2022 Do you belong to any clubs o r organizations such as catholic groups, unions, fraternal or athletic groups, or [...] and heating? Not hard at all 06/29/2022 [facility] [place] of Occupat ional Health - Occupational Stress [...] CDT Gender Identity Female 09/05/2020 11:07 AM RESPIRATORY MANAGER Sexual Orientation Straight 09/05/2020 11 :07 AM RESPIRATORY MANAGER Last Filed Vital Signs Vital Sign Reading Time Taken Comments Blood Pressure 154/82 08/27/2020 8:27 AM RESPIRATORY MANAGER Pulse 85 08/27/2020 8:27 AM RESPIRATORY MANAGER Temperature 35.9 ??C (96.7 ??F) 09/04/2020 4:05 PM CS T Respiratory Rate - - Oxygen Saturation - - Inhaled Oxygen Concentration - - Weight 119 kg (262 lb 9.1 oz) 09/04/2020 4:05 PM RESPIRATORY MANAGER Height 169 cm (5' 6.54) 08/01/2020 12:55 PM RESPIRATORY MANAGER Body Mass Index 41.7 08/01/2020 12:55 PM RESPIRATORY MANAGER Plan of Treatment Not on file Procedures Procedure Name Priority Date/Time Associated Diagnosis Comments EXTI BASIC METABOLIC PANEL, S/P Routine 08/21/2022 2:46 PM RESPIRATORY MANAGER OUTSIDE MG MAMMOGRAM Routine 07/09/2020 12:30 PM CDT from Last 3 Months or Most Recently Relevant to Health Maintenance Results * BREAST SURGICAL SPECIMEN-Outside Mammogram (07/09/2020 12:30 PM CDT) Narrative [facility] - 07/25/2020 9:00 AM RESPIRATORY MANAGER This order has been created and auto-finalized [...] or Most Recently Relevant to Health Maintenance [phone] ([place]) [address] [place] [address]
--- OUTSIDE RECORDS SUMMARY | 2024-03-13 13:46 | XMS_ITS ---
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 Past Plans No past plan information found. Radiation Treatments * Plan Last Treated On Elapsed Days Fractions Treated Prescribed Fraction Dose Prescribed Total Dose F1_RT Breast 09/06/2020 4 5 of 5 520 cGy 2,600 cGy Reference Point Last Treated On Elapsed Days Session Dose Total Dose [id number] 09/06/2020 4 520 cGy 2,600 cGy
--- OUTSIDE RECORDS SUMMARY | 2024-03-13 13:46 | XMS_ITS | Clinical Summary ---
Author Organization [facility] Address [place], [place] [address] Care Team Providers Care Staffing Associate Name Role Phone Ariadna Villafana PA-C Primary Care Provider + [phone] Allergies No known active allergies Medications Medication [...] Department Care Team Description 01/12/2024 Lab Requisition [facility] [phone] Ariadna Villafana PA-C from Last 3 Months [...] Comments Blood Pressure 174/89 08/26/2022 2:25 PM DIRECTOR PROCESS IMPROVEMENT Pulse 72 08/26/2022 2:25 PM DIRECTOR PROCESS IMPROVEMENT Temperature 36.8 ??C (98.3 ??F) 08/26/2022 2:25 PM CS T Respiratory Rate 16 08/26/2022 2:25 PM DIRECTOR PROCESS IMPROVEMENT Oxygen Saturation 97% 08/06/2022 11: 10 AM DIRECTOR PROCESS IMPROVEMENT Inhaled Oxygen Concentration - - Weight 106.5 [...] Pap test for age 21-65 01/11/2027 , 01/12/2024, 05/08/2020, Additional history exists Pneumococcal series for age 6-64 Aged Out No longer eligible based on patient's age to complete this topic Procedures Procedure Name Priority Date/Time Associated Diagnosis Comments LAB TRACKING EVENT Routine 01/12/2024 1: 45 PM CDT ELEVATED MOTORMAN THIN PREP PAP SCREEN IMAGED Routine 01/12/2024 1:45 PM CDT HPV THIN PREP Routine 01/12/2024 [...] CDT Ariadna Villafana PA-C LAB BILL ONLY [facility] [address] [place] [address], * ELEVATED MOTORMAN THIN PREP PAP SCREEN IMAGED (01/12/2024 1:45 PM CDT) Case Report Gynecologic Cytology Report ? Case: [id number] ? Authorizing Provider: ??Ariadna Villafana PA-C ?Collected: ? 01/12/2024 1345 ? Ordering Location: ? [facility] ?Received: ?01/13/2024 1220 ? First Screen: ?Kassandra Camacho ? Pathologist: ? Kiet Josue MD ? Specimen: ?ELEVATED MOTORMAN ThinPrep Vial Screening, Cervical ? 01/26/2024 1:50 PM CDT [facility] INTERPRETATION/ RESULT NEGATIVE FOR INTRAEPITHELIAL LESION OR MALIGNANCY (NIL) (none) 01/26/2024 1:50 PM CDT [facility] R NON-NEOPLASTIC FINDING(S) Atrophy 01/26/2024 1:50 PM CDT [facility] SPECIMEN ADEQUACY Satisfactory for evaluation Endocervical component present 01/26/2024 1:50 PM CDT [facility] HPV REQUEST HPV and PAP 01/26/2024 1:50 PM CDT [facility] Date of LMP 01/26/2024 1:50 PM CDT [facility] Comment:menopause Last Pap Date 05/06/2020 01/26/2024 1:50 PM CDT [facility] Last Pap Result NIL 1:50 PM CDT [facility] [place] Bx Done Today No 01/26/2024 1:50 PM CDT [facility] Additional Information 01/26/2024 1:50 PM CDT [facility] Comment: Interpreted at [facility] - [address] [address] Automated Review Successful 01/26/2024 1:50 PM CDT [facility] Comment:Specimen processed s uccessfully by automated flotation operator device, ThinPrep Imaging System, [employer] ANCILLARY TESTING ELEVATED MOTORMAN HPV Ordered, Please see separate report 01/26/2024 1:50 PM CDT [facility] Note The pap test is a screening technique, not a diagnostic procedure. It is used primarily to screen for squamous cancers and precursor lesions. Published studies have shown that it is subject to both false negative and false positive results. The pap test should not be used as the sole means to diagnose or exclude pre-malignant and malignant lesions. 01/26/2024 1:50 PM CDT [facility] Other (Cervical) 01/12/2024 1:45 PM CDT 01/13/2024 12:20 PM CDT Ariadna Villafana PA-C PATHOLOGY/CYTOLOGY [facility] [address] [address], [place] * HPV HIGH RISK (01/12/2024 1:45 PM CDT) TYPE 16 Negative Negative 01/15/2024 7:19 AM CDT [facility] TYPE 18 Negative Negative 01/15/2024 7:19 AM CDT [facility] OTHER HIGH RISK TYPES Negative Negative 01/15/2024 7:19 AM CDT [facility] Other (Cervical) 01/12/2024 1:45 PM CDT 01/13/2024 12:20 PM CDT Narrative [facility] - 01/15/2024 7:19 AM CDT HPV types 16, 18, 31, 33, 35, 39, 45, 51, 52, 56, 58, 59, 66 and 68 DNA were undetectable or below the pre-set threshold. Methodology: Ayanna Niko 4800 HPV Test Ariadna Villafana PA-C MICROBIOLOGY [facility] [address] [place] [address], [place] * XR MAMMO BILAT SCREEN FFDM (12/08/2006 12:40 PM CDT) Anatomical Region Laterality Modality BREASTS, Breast Left, Breast Right Bilateral Mammography 12/08/2006 12:4 0 PM CDT Impressions 12/10/2006 7:47 AM CDT ??There is no radiographic evidence for malignancy. ??Recommend annual mammograms. [facility] will provide a results postcard to [...] study is compared to previous studies from [facility] dated 12/02/05 and shows no significant change. The breast tissue is heterogeneously dense, which could obscure detection of small masses. There are no masses or calcifications that are suspicious for malignancy. Procedure Note DayLeticia MD - 12/10/2006 BILATERAL FULL-FIELD DIGITAL SCREENING MAMMOGRAM INTERPRETED INCONJUNCTION WITH COMPUTER-AIDED DETECTION 12/08/06 CLINICAL HISTORY: This is an asymptomatic 41-year-old patient. FINDINGS: This mammogram was performed with full-field digital techniqueand in conjunction with computer-aided detection. The study is compared to previous studies from [facility] dated 12/02/05 and shows no significant change. The breast tissue is heterogeneously dense, which could obscure detectionof small masses. There are no masses or calcifications that are suspicious formalignancy. IMPRESSION: There is no radiographic evidence for malignancy. Recommendannual mammograms. [facility] will provide a results postcard to [...] Code Status Discussion: Not Discussed Care Teams Staffing Associate Relationship Specialty Start Date End Date Ariadna Villafana PA-C [address], [place] [address] PCP - General Emergency Medicine 05/28/20
--- OUTSIDE RECORDS SUMMARY | 2024-03-13 13:46 | XMS_ITS ---
Author Organization [facility] Address [address] [place] [address] Care Team Providers Care Litigation Legal Assistant Name Role Phone Unavailable Unavailable Unavailable Surgery Details Not on file Complications Check Surgery Details section. Procedure Estimated Blood Loss Check Surgery Details section. Procedure Findings Check Surgery Details section. Procedure Specimens Taken Check Surgery Details section.
== END 2024-03-13 13:39 | disposition home or self-care (01) ==
LOC: MAMMO 13:39
PROVIDERS: PCP Physician Assistant Medical; Visit Provider Physician Assistant
DX: Z12.31 Encounter for screening mammogram for malignant neoplasm of breast (principal); R92.2 Inconclusive mammogram
CPT/HCPCS: 77063; 77067

== ENCOUNTER 2024-08-31 17:04 | Outpatient (CLI) | payer BC, SELFPAY | END 2024-08-31 17:05 | disposition home or self-care (01) | LOC: NFLDREF 09-01 08:39 | PROVIDERS: PCP Physician Assistant Medical; Referring Provider Physician Assistant Medical; Visit Provider Physician Assistant | DX: N39.0 Urinary tract infection, site not specified (principal); B96.20 Unspecified Escherichia coli [E. coli] as the cause of diseases classified elsewhere | CPT/HCPCS: 87086; 87186 ==

== ENCOUNTER 2024-09-11 12:46 | Outpatient (CLI) | payer BC, SELFPAY | END 2024-09-11 12:47 | disposition home or self-care (01) | LOC: CT 12:48 | PROVIDERS: PCP Physician Assistant Medical; Visit Provider Orthopaedic Surgery Sports Medicine | DX: M75.101 Unspecified rotator cuff tear or rupture of right shoulder, not specified as traumatic (principal); M19.011 Primary osteoarthritis, right shoulder; Z01.818 Encounter for other preprocedural examination | CPT/HCPCS: 73200 ==

== ENCOUNTER 2024-09-11 12:49 | Outpatient (CLI) | payer BC, SELFPAY ==
--- NOTE | 2024-09-11 13:00 | CRLHL7_ITS ---
For Patients: As a result of the Century Cures Act, medical imaging exams and procedure reports are released immediately into your electronic medical record. You may view this report before your referring provider. If you have questions, please contact your health care provider. BILATERAL BREAST MRI CAD WITHOUT AND WITH GADOLINIUM, 09/14/2024 CLINICAL HISTORY: Patient with history of RIGHT breast cancer. INDICATION FOR BREAST MRI: Screening in high-risk woman with history of RIGHT breast cancer. COMPARISON STUDIES: MRI 10/05/2023. CONTRAST: 20 cc Dotarem. TECHNIQUE: The patient was positioned prone using a breast coil. Multiple imaging sequences were obtained using 1-1.5 mm thick slices with no gap. The image sequences include T2-weighted STIR in the axial plane, T1-weighted nonfat-saturated gradient echo in the axial plane, pre- and post-contrast T1-weighted FLASH 3D with fat suppression in the axial plane, and T1-weighted FLASH high-resolution 3D with fat suppression in the sagittal plane. Image post-processing was performed on a [employer] workstation. Complex 3D rendering including maximum intensity projections (MIPS) and volumetric renderings were obtained to optimize visualization of the extent of pathology and relationship to the nipple, skin, and chest wall. This aids in determining feasibility of breast conservation surgery. Subtraction, multiplanar reconstruction, mean curve determination, and angiogenesis mapping were also performed. The study was technically adequate. FINDINGS: Amount of Fibroglandular Tissue: Scattered fibroglandular tissue. Breast Background Enhancement: Minimal. RIGHT and LEFT Breast: No suspicious enhancement in either breast. Post surgical changes RIGHT breast. Lymph Nodes: No morphologically abnormal lymph nodes. IMPRESSIONS AND RECOMMENDATIONS: No MRI findings for malignancy in either breast. No morphologically abnormal axillary lymph nodes. Recommend continuing with yearly screening mammography. If screening MRIs are felt to be indicated, recommend that these be offset at six-month intervals with screening mammogram. BI-RADS: BI-RADS Category 2: Benign Mame Hensley M.D. Diagnostic/Breast Radiologist [email or web address] ANGE/luanne / bM/Dictated by: Mame Hensley MD @ 09/14/2024 10:16:00 AM (Electronically Signed)
== END 2024-09-11 12:50 | disposition home or self-care (01) ==
LOC: MRI 12:50
PROVIDERS: PCP Physician Assistant Medical; Visit Provider Internal Medicine Hematology & Oncology
DX: Z12.39 Encounter for other screening for malignant neoplasm of breast (principal); Z85.3 Personal history of malignant neoplasm of breast
CPT/HCPCS: 77049; A9575

== ENCOUNTER 2024-10-04 07:20 | Day surgery (SDC) | payer BC, SELFPAY ==
[2024-10-04] VITALS (24 sets, daily range): BP systolic 109–147; BP diastolic 62–89; PULSE 46–74; RESP 16–18; TEMP 36.3–36.9; O2SAT 90–98; BMI 40.2
--- OUTSIDE RECORDS SUMMARY | 2024-10-04 07:22 | XMS_ITS | Data Portability ---
Author Organization [facility], [facility] Address [address] [place] [address] Care Team Providers Care Armed Security Officer Name Role Phone MOIZ CONN Referring Provider Assessment No assessment recorded. Plan of Treatment Reminders Order Date Submit Date Provider Last Modified By Organization Details Last Modified Time Details Appointments None recorded. Lab urinalysis, dipstick 2022 023 [facility], [address] [place] [address], [place], [address], 3 14:12:43 culture, urine 2022 023 [facility], [address], [address], [place], [address], 3 16:42:07 urinalysis, dipstick 2022 023 [facility], [address], [address], [place], [address], 3 12:23:35 urinalysis, dipstick 2023 024 [facility], [address], [address], [place], [address], 4 12:49:45 urinalysis, dipstick 2023 024 [facility], [address], [address], [place], [address], 4 12:31:41 urinalysis, microscopic 2023 024 [email or web address] [facility], [address], [address], [place], [address], 4 12:14:41 urinalysis, dipstick 2024 025 [facility], [address], [place], [address], 5 16:16:29 Referral authorizati on request 2024 025 [email or web address] 2 Not available 5 10:27:08 Procedures cystourethr oscopy, with injections for chemodenerv ation of the bladder (PROC) - 100 units -10cc NS; atb sent to do 6 months from her last injection 2024 025 [email or web address] 2 Not available 5 10:00:25 Surgeries None recorded. Imaging None recorded. Medication Orders Botox 100 unit injection 2024 025 [email or web address] 1 Not available 5 17:15:06 Macrobid 100 mg capsule 2024 025 [id number], [id number], [place], [address], 5 17:01:21 Patient TargetsNo targets recorded. Patient Instructions Encounter Date Encounter Id Patient Instructions Last Modified By Organization Details Last Modified Time 04/13/2023 [id number] SP Botox 100 units for OAB/urge incontinence. 1) Follow-up office appointment when more needed 2) [place] intermittent self cathing regimen if needed; urged to call if any urinary tract infection symptoms, if has difficulty emptying to call as well 3) Call for symptoms of infection or persistent bleeding 4) Complete antibiotic prophylaxis regimen Not available 04/13/2023 13:11:41 11/19/2023 [id number] SP Botox 100 units for OAB/urge incontinence. 1) Follow-up office appointment when more needed to call if issues 2) [place] intermittent self cathing regimen if needed; urged to call if any urinary tract infection symptoms, if has difficulty emptying to call as well 3) Call for symptoms of infection or persistent bleeding 4) Complete antibiotic prophylaxis regimen Not available 11/19/2023 08:33:29 04/10/2024 [id number] SP Botox 100 units for OAB/urge incontinence. 1) Follow-up office appointment when more needed 2) [place] intermittent self cathing regimen if needed; urged to call if any urinary tract infection symptoms, if has difficulty emptying to call as well 3) Call for symptoms of infection or persistent bleeding 4) Complete antibiotic prophylaxis regimen Not available 04/10/2024 12:51:38 09/28/2024 [id number] SP Botox 100 units for OAB/urge incontinence. 1) Follow-up office appointment when needs aggreed with 6 months out as she has done well and would prefer it to be scheduled 2) [place] intermittent self cathing regimen if needed; urged to call if any urinary tract infection symptoms, if has difficulty emptying to call as well 3) Call for symptoms of infection or persistent bleeding 4) Complete antibiotic prophylaxis regimen Not available 09/28/2024 17:01:10 Reason for Referral Authorization Request for Ov eractive urinary bladder Referring Physician: Lisa Reardon, Urology, Encounter Date: 09/28/2024 Results Created Date Observation Date Name Description Value Unit Range Abnormal Flag Note LastModifiedBy Organization Detail LastModifiedTime 04/02/2004/02/2023 UA WITHO UT MICRO PLYMO UTH color-status YELLOW yellow Not Available [facility] [address], [place], [address], 04/02/2023 14:12:43 04/02/2004/02/2023 UA WITHO UT MICRO PLYMO UTH clarity-stat us CLEAR clear Not Available [facility] [address], [place], [address], 04/02/2023 14:12:43 04/02/20 23 04/02/2023 UA WITHO UT MICRO PLYMO UTH glucose-stat us NEGATI VE mg/dL negati ve Not Available [facility] [address] [facility] [address], [place], [address], 04/02/2023 14:12:43 04/02/20 23 04/02/2023 UA WITHO UT MICRO PLYMO UTH bilirubin-ur ine NEGATI VE negati ve Not Available [facility] [address] [facility] [address], [place], [address], 04/02/2023 14:12:43 04/02/20 23 04/02/2023 UA WITHO UT MICRO PLYMO UTH ketones-stat us NEGATI VE mg/dL negati ve Not Available [facility] [address] [facility] [address], [place], [address], 04/02/2023 14:12:43 04/02/20 23 04/02/2023 UA WITHO UT MICRO PLYMO UTH SG-status 1.015 1.00-1 .03 Not Available [facility] [address] [facility] [address], [place], [address], 04/02/2023 14:12:43 04/02/20 23 04/02/2023 UA WITHO UT MICRO PLYMO UTH pH-status 7.0 5.00-8 .00 Not Available [facility] [address] [facility] [address], [place], [address], 04/02/2023 14:12:43 04/02/20 23 04/02/2023 UA WITHO UT MICRO PLYMO UTH protein-stat us NEGATI VE mg/dL negati ve Not Available [facility] [address] [facility] [address], [place], [address], 04/02/2023 14:12:43 04/02/20 23 04/02/2023 UA WITHO UT MICRO PLYMO UTH urobilinogen -status 1.0 E.U./D L E.U./ dL 0.2 E.U./d L abnormal Not Available [facility] [address] [facility] [address], [place], [address], 04/02/2023 14:12:43 04/02/20 23 04/02/2023 UA WITHO UT MICRO PLYMO UTH nitrites-sta tus NEGATI VE negati ve Not Available [facility] [address] [place] [address] [address], [place], [address], 04/02/2023 14:12:43 04/02/20 23 04/02/2023 UA WITHO UT MICRO PLYMO UTH blood-urine NEGATI VE negati ve Not Available [facility] [address] [place] [address] [address], [place], [address], 04/02/2023 14:12:43 04/02/20 23 04/02/2023 UA WITHO UT MICRO PLYMO UTH leuko-status NEGATI VE negati ve Not Available [facility] [address] [place] [address] [address], [place], [address], 04/02/2023 14:12:43 04/02/20 23 04/02/2023 UA WITHO UT MICRO PLYMO UTH specimen type VOIDED Not Available [facility] [place] [facility] [address] [place] [address] [address], [place], [address], 04/02/2023 14:12:43 04/02/20 23 04/02/2023 UA WITHO UT MICRO PLYMO UTH performed by MANDA Pimentel Not Available [facility] [address] [place] [address] [address], [place], [address], 04/02/2023 14:12:43 04/02/20 23 04/02/2023 UA WITHO UT MICRO PLYMO UTH total urine volume (mL) 30 /mL ----- ----- ----- ----- ----- ----- ----- ----- ----- ----- ----- ----- ----- ----- ---- *Georgiana bejarano note the follo wing minim um quant ities for addit ional urine testi ng: - Atypi cals: 3 mL - Cytol ogy: 20 mL - GC/CH : 2 mL - FISH: 30 mL - Atypi cals w/ GC/CH : 5 mL - Cytol ogy PLUS FISH: 50 mL - Urine Cultu re: 3 mL ----- ----- ----- ----- ----- ----- ----- ----- ----- ----- ----- ----- ----- ----- ---- This lab resul t is being provi ded to you and your provi robin at the same time in compl iance with the Centu ry Cures Act. Your provi robin may not have had time to revie w and make recom menda tions based on the resul t. Plenicole e allow up to one week for provi robin revie w. Not Available [facility] [address] [facility] [address], [place], [address], 04/02/2023 14:12:43 04/02/20 23 04/02/2023 URINE CULTU RE final report MICROB IOLOGY RESULT S SOURC E Midst ream- Clean Catch KNOWN ALLER AUREA ELIAS TREAT MENT See chart MEDIA PLATE D AT: Media plate d on 2022 @ 5:08 PM RESUL T No Growt h This lab resul t is being provi ded to you and your provi robin at the same time in compl iance with the Centu ry Cures Act. Your provi robin may not have had time to revie w and make recom menda tions based on the resul t. Plenicole e allow up to one week for provi robin revie w. Not Available [facility] [address] [facility] [address], [place], [address], 04/04/2023 16:42:07 04/13/20 23 04/13/2023 UA WITHO UT MICRO FRIDL EY color-status YELLOW yellow Not Available [facility] [address] [place] [address] [address], [place], [address], 04/13/2023 12:23:35 04/13/20 23 04/13/2023 UA WITHO UT MICRO FRIDL EY clarity-stat us CLEAR clear Not Available [facility] [address] [place] [address] [address], [place], [address], 04/13/2023 12:23:35 04/13/20 23 04/13/2023 UA WITHO UT MICRO FRIDL EY glucose-stat us NEGATI VE mg/dL negati ve Not Available [facility] [address] [place] [address] [address], [place], [address], 04/13/2023 12:23:35 04/13/20 23 04/13/2023 UA WITHO UT MICRO FRIDL EY bilirubin-ur ine NEGATI VE negati ve Not Available [facility] [address] [place] [address] [address], [place], [address], 04/13/2023 12:23:35 04/13/20 23 04/13/2023 UA WITHO UT MICRO FRIDL EY ketones-stat us NEGATI VE mg/dL negati ve Not Available [facility] [address] [place] [address] [address], [place], [address], 04/13/2023 12:23:35 04/13/20 23 04/13/2023 UA WITHO UT MICRO FRIDL EY SG-status 1.020 1.00-1 .03 Not Available [facility] [address] [place] [address] [address], [place], [address], 04/13/2023 12:23:35 04/13/20 23 04/13/2023 UA WITHO UT MICRO FRIDL EY pH-status 7.0 5.00-8 .00 Not Available [facility] [address] [facility] [address], [place], [address], 04/13/2023 12:23:35 04/13/20 23 04/13/2023 UA WITHO UT MICRO FRIDL EY protein-stat us NEGATI VE mg/dL negati ve Not Available [facility] [address] [facility] [address], [place], [address], 04/13/2023 12:23:35 04/13/20 23 04/13/2023 UA WITHO UT MICRO FRIDL EY urobilinogen -status 0.2 E.U./D L E.U./ dL 0.2 E.U./d L Not Available [facility] [address] [place] [address] [address], [place], [address], 04/13/2023 12:23:35 04/13/20 23 04/13/2023 UA WITHO UT MICRO FRIDL EY nitrites-sta tus NEGATI VE negati ve Not Available [facility] [address] [place] [address] [address], [place], [address], 04/13/2023 12:23:35 04/13/20 23 04/13/2023 UA WITHO UT MICRO FRIDL EY blood-urine TRACE- INTACT negati ve abnormal Not Available [facility] [address] [place] [address] [address], [place], [address], 04/13/2023 12:23:35 04/13/20 23 04/13/2023 UA WITHO UT MICRO FRIDL EY leuko-status NEGATI VE negati ve Not Available [facility] [address] [place] [address] [address], [place], [address], 04/13/2023 12:23:35 04/13/20 23 04/13/2023 UA WITHO UT MICRO FRIDL EY specimen type VOIDED Not Available [facility] [address] [place] [address] [address], [place], [address], 04/13/2023 12:23:35 04/13/20 23 04/13/2023 UA WITHO UT MICRO FRIDL EY performed by JAVIER Gonzalez Not Available [facility] [address] [facility] [address], [place], [address], 04/13/2023 12:23:35 04/13/20 23 04/13/2023 UA WITHO UT MICRO FRIDL EY total urine volume (mL) 15 /mL ----- ----- ----- ----- ----- ----- ----- ----- ----- ----- ----- ----- ----- ----- ---- *Georgiana bejarano note the follo wing minim um quant ities for addit ional urine testi ng: - Atypi cals: 3 mL - Cytol ogy: 20 mL - GC/CH : 2 mL - FISH: 30 mL - Atypi cals w/ GC/CH : 5 mL - Cytol ogy PLUS FISH: 50 mL - Urine Cultu re: 3 mL ----- ----- ----- ----- ----- ----- ----- ----- ----- ----- ----- ----- ----- ----- ---- This lab resul t is being provi ded to you and your provi robin at the same time in compl iance with the 21st Centu ry Cures Act. Your provi robin may not have had time to revie w and make recom menda tions based on the resul t. Omega smith allow up to one week for provi robin revie w. Not Available [facility] [address] [facility] [address], [place], [address], 04/13/2023 12:23:35 11/19/19 24 11/19/2023 UA WITHO UT MICRO PLYMO UTH color-status YELLOW yellow Not Available [facility] [address] [facility] [address], [place], [address], 11/19/2023 12:49:45 11/19/19 24 11/19/2023 UA WITHO UT MICRO PLYMO UTH clarity-stat us CLEAR clear Not Available [facility] [address] [facility] [address], [place], [address], 11/19/2023 12:49:45 11/19/19 24 11/19/2023 UA WITHO UT MICRO PLYMO UTH glucose-stat us NEGATI VE mg/dL negati ve Not Available [facility] [address] [place] [address] [address], [place], [address], 11/19/2023 12:49:45 11/19/19 24 11/19/2023 UA WITHO UT MICRO PLYMO UTH bilirubin-ur ine NEGATI VE negati ve Not Available [facility] [address] [place] [address] [address], [place], [address], 11/19/2023 12:49:45 11/19/19 24 11/19/2023 UA WITHO UT MICRO PLYMO UTH ketones-stat us NEGATI VE mg/dL negati ve Not Available [facility] [address] [facility] [address], [place], [address], 11/19/2023 12:49:45 11/19/19 24 11/19/2023 UA WITHO UT MICRO PLYMO UTH SG-status 1.020 1.00-1 .03 Not Available [facility] [address] [facility] [address], [place], [address], 11/19/2023 12:49:45 11/19/19 24 11/19/2023 UA WITHO UT MICRO PLYMO UTH pH-status 7.5 5.00-8 .00 Not Available [facility] [address] [facility] [address], [place], [address], 11/19/2023 12:49:45 11/19/19 24 11/19/2023 UA WITHO UT MICRO PLYMO UTH protein-stat us NEGATI VE mg/dL negati ve Not Available [facility] [address] [facility] [address], [place], [address], 11/19/2023 12:49:45 11/19/19 24 11/19/2023 UA WITHO UT MICRO PLYMO UTH urobilinogen -status 1.0 E.U./D L E.U./ dL 0.2 E.U./d L abnormal Not Available [facility] [address] [place] [address] [address], [place], [address], 11/19/2023 12:49:45 11/19/19 24 11/19/2023 UA WITHO UT MICRO PLYMO UTH nitrites-sta tus NEGATI VE negati ve Not Available [facility] [address] [place] [address] [address], [place], [address], 11/19/2023 12:49:45 11/19/19 24 11/19/2023 UA WITHO UT MICRO PLYMO UTH blood-urine NEGATI VE negati ve Not Available [facility] [address] [facility] [address], [place], [address], 11/19/2023 12:49:45 11/19/19 24 11/19/2023 UA WITHO UT MICRO PLYMO UTH leuko-status NEGATI VE negati ve Not Available [facility] [address] [place] [address] [address], [place], [address], 11/19/2023 12:49:45 11/19/19 24 11/19/2023 UA WITHO UT MICRO PLYMO UTH specimen type VOIDED Not Available [facility] [address] [facility] [address], [place], [address], 11/19/2023 12:49:45 11/19/19 24 11/19/2023 UA WITHO UT MICRO PLYMO UTH performed by JAVIER Gonzalez Not Available [facility] [address] [place] [address] [address], [place], [address], 11/19/2023 12:49:45 11/19/19 24 11/19/2023 UA WITHO UT MICRO PLYMO ALH total urine volume (mL) 15 /mL ----- ----- ----- ----- ----- ----- ----- ----- ----- ----- ----- ----- ----- ----- ---- *Georgiana bejarano note the follo wing minim um quant ities for addit ional urine testi ng: - Atypi cals: 3 mL - Cytol ogy: 20 mL - GC/CH : 2 mL - FISH: 30 mL - Atypi cals w/ GC/CH : 5 mL - Cytol ogy PLUS FISH: 50 mL - Urine Cultu re: 3 mL ----- ----- ----- ----- ----- ----- ----- ----- ----- ----- ----- ----- ----- ----- ---- This lab resul t is being provi ded to you and your provi robin at the same time in compl iance with the Centu ry Cures Act. Your provi robin may not have had time to revie w and make recom menda tions based on the resul t. Omega smith allow up to one week for provi robin revie w. Not Available [facility] [address] [facility] [address], [place], [address], 11/19/2023 12:49:45 04/10/20 24 04/10/2024 UA WITHO UT MICRO - CS URISC AN blood - uriscan NEGATI VE negati ve Not Available [facility] [address] [facility] [address], [place], [address], 04/10/2024 12:31:41 04/10/20 24 04/10/2024 UA WITHO UT MICRO - CS URISC AN bilirubin - uriscan NEGATI VE mg/dL negati ve Not Available [facility] [address] [place] [address] [address], [place], [address], 04/10/2024 12:31:41 04/10/20 24 04/10/2024 UA WITHO UT MICRO - CS URISC AN urobilinogen - uriscan NORMAL mg/dL normal Not Available [facility] [address] [place] [address] [address], [place], [address], 04/10/2024 12:31:41 04/10/20 24 04/10/2024 UA WITHO UT MICRO - CS URISC AN ketones - uriscan NEGATI VE mg/dL negati ve Not Available [facility] [address] [place] [address] [address], [place], [address], 04/10/2024 12:31:41 04/10/20 24 04/10/2024 UA WITHO UT MICRO - CS URISC AN protein - uriscan NEGATI VE mg/dL negati ve Not Available [facility] [address] [place] [address] [address], [place], [address], 04/10/2024 12:31:41 04/10/20 24 04/10/2024 UA WITHO UT MICRO - CS URISC AN nitrites - uriscan NEGATI VE negati ve Not Available [facility] [address] [place] [address] [address], [place], [address], 04/10/2024 12:31:41 04/10/20 24 04/10/2024 UA WITHO UT MICRO - CS URISC AN glucose - uriscan NEGATI VE mg/dL negati ve Not Available [facility] [address] [place] [address] [address], [place], [address], 04/10/2024 12:31:41 04/10/20 24 04/10/2024 UA WITHO UT MICRO - CS URISC AN pH - uriscan 7.00 5.00-9 .00 Not Available [facility] [address] [place] [address], [place], [address], 04/10/2024 12:31:41 04/10/20 24 04/10/2024 UA WITHO UT MICRO - CS URISC AN sp. gravity - uriscan 1.02 1.01-1 .03 Not Available [facility] [address] [place] [address], [place], [address], 04/10/2024 12:31:41 04/10/20 24 04/10/2024 UA WITHO UT MICRO - CS URISC AN leukocytes - uriscan NEGATI VE negati ve Not Available [facility] [address] [place] [address], [place], [address], 04/10/2024 12:31:41 04/10/20 24 04/10/2024 UA WITHO UT MICRO - CS URISC AN color - uriscan YELLOW lt. yellow ;yello w Not Available [facility] [address] [place] [address], [place], [address], 04/10/2024 12:31:41 04/10/20 24 04/10/2024 UA WITHO UT MICRO - CS URISC AN clarity - uriscan CLEAR clear Not Available [facility] [place] [facility] [address] [place] [address], [place], [address], 04/10/2024 12:31:41 04/10/20 24 04/10/2024 UA WITHO UT MICRO - CS URISC AN total urine volume (mL) 70 /mL ----- ----- ----- ----- ----- ----- ----- ----- ----- ----- ----- ----- ----- ----- ---- *Plea se note the follo wing minim um quant ities for addit ional urine testi ng: - Atypi cals: 3 mL - Cytol ogy: 20 mL - GC/CH : 2 mL - FISH: 30 mL - Atypi cals w/ GC/CH : 5 mL - Cytol ogy PLUS FISH: 50 mL - Urine Cultu re: 3 mL ----- ----- ----- ----- ----- ----- ----- ----- ----- ----- ----- ----- ----- ----- ---- This lab resul t is being provi ded to you and your provi robin at the same time in [facility] with the Centu ry Cures Act. Your provi robin may not have had time to revie w and make recom menda tions based on the resul t. Omega smith allow up to one week for provi robin revie w. Not Available [facility] [address] [place] [address], [place], [address], 04/10/2024 12:31:41 09/28/19 25 09/28/2024 UA WITHO UT MICRO FRIDL EY color-status YELLOW yellow Not Available [facility] [address] [place] [address], [place], [address], 09/28/2024 16:16:29 09/28/19 25 09/28/2024 UA WITHO UT MICRO FRIDL EY clarity-stat us CLEAR clear Not Available [facility] [address] [place] [address], [place], [address], 09/28/2024 16:16:29 09/28/19 25 09/28/2024 UA WITHO UT MICRO FRIDL EY glucose-stat us NEGATI VE mg/dL negati ve Not Available [facility] [address] [place] [address] [address], [place], [address], 09/28/2024 16:16:29 09/28/19 25 09/28/2024 UA WITHO UT MICRO FRIDL EY bilirubin-ur ine NEGATI VE negati ve Not Available [facility] [address], [place], [address], 09/28/2024 16:16:29 09/28/1909/28/2024 UA WITHO UT MICRO FRIDL EY ketones-stat us TRACE mg/dL negati ve abnormal Not Available [facility] [address] [facility] [address], [place], [address], 09/28/2024 16:16:29 09/28/1909/28/2024 UA WITHO UT MICRO FRIDL EY SG-status 1.020 1.00-1 .03 Not Available [facility] [address] [facility] [address], [place], [address], 09/28/2024 16:16:29 09/28/19 25 09/28/2024 UA WITHO UT MICRO FRIDL EY pH-status 7.0 5.00-8 .00 Not Available [facility] [address] [place] [address] [address], [place], [address], 09/28/2024 16:16:29 09/28/1909/28/2024 UA WITHO UT MICRO FRIDL EY protein-stat us NEGATI VE mg/dL negati ve Not Available [facility] [address] [place] [address] [address], [place], [address], 09/28/2024 16:16:29 09/28/1909/28/2024 UA WITHO UT MICRO FRIDL EY urobilinogen -status 1.0 E.U./D L E.U./ dL 0.2 E.U./d L abnormal Not Available [facility] [address] [place] [address] [address], [place], [address], 09/28/2024 16:16:29 09/28/19 25 09/28/2024 UA WITHO UT MICRO FRIDL EY nitrites-sta tus NEGATI VE negati ve Not Available [facility] [address] [place] [address] [address], [place], [address], 09/28/2024 16:16:29 09/28/19 25 09/28/2024 UA WITHO UT MICRO FRIDL EY blood-urine NEGATI VE negati ve Not Available [facility] [address] [facility] [address], [place], [address], 09/28/2024 16:16:29 09/28/19 25 09/28/2024 UA WITHO UT MICRO FRIDL EY leuko-status SMALL negati ve abnormal Not Available [facility] [address] [place] [address] [address], [place], [address], 09/28/2024 16:16:29 09/28/19 25 09/28/2024 UA WITHO UT MICRO FRIDL EY specimen type VOIDED Not Available [facility] [place] [facility] [address] [facility] [address], [place], [address], 09/28/2024 16:16:29 09/28/19 25 09/28/2024 UA WITHO UT MICRO FRIDL EY performed by JAVIER Gonzalez Not Available [facility] [address] [place] [address] [address], [place], [address], 09/28/2024 16:16:29 09/28/19 25 09/28/2024 UA WITHO UT MICRO FRIDL EY total urine volume (mL) 15 /mL ----- ----- ----- ----- ----- ----- ----- ----- ----- ----- ----- ----- ----- ----- ---- *Plea se note the follo wing minim um quant ities for addit ional urine testi ng: - Atypi cals: 3 mL - Cytol ogy: 20 mL - GC/CH : 2 mL - FISH: 30 mL - Atypi cals w/ GC/CH : 5 mL - Cytol ogy PLUS FISH: 50 mL - Urine Cultu re: 3 mL ----- ----- ----- ----- ----- ----- ----- ----- ----- ----- ----- ----- ----- ----- ---- This lab resul t is being provi ded to you and your provi robin at the same time in [facility] iance with the Centu ry Cures Act. Your provi robin may not have had time to revie w and make recom menda tions based on the resul t. Omega smith allow up to one week for provi robin revie w. Not Available [facility] [address], [place], [address], 09/28/2024 16:16:29 Result Notes None recorded. 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 Procedures Surgical History Date Name Laterality Status Provider Name and Address Organization Details Recorded Time 5 Cystoscopy with Botox Injections completed Javier Anguiano [facility] 09/28/2024 16:36:41 4 Cystoscopy with Botox Injections completed Lala Cook [facility] 04/10/2024 12:22:54 4 Cystoscopy with Botox Injections completed Javier Don [facility] 11/19/2023 11:43:25 3 Cystoscopy with Botox Injections completed Lisa Reardon MD [address] [place] [address],[address], [place], [address], [facility] 04/13/2023 13:04:01 3 Urine Culture completed Manda Bermeo [facility] 04/02/2023 10:31:28 3 Urinalysis completed Manda Bermeo [facility] 04/02/2023 10:31:26 2 Bladder Scan completed Luna Salcedo [facility] 04/16/2022 14:12:30 2 Cystoscopy with Botox Injections [facility] 03/13/2022 12:55:13 2 Bladder Scan completed Javier Don [facility] 12/04/2021 10:05:02 2 Cystoscopy with Botox Injections completed Lisa Reardon MD [address] [place] [address],[address], [place], [address], [facility] 10/30/2021 13:19:28 2 In and Out Catheterization - female completed Lisa Reardon MD [address] [place] [address],[address], [place], [address], [facility] 09/25/2021 11:41:01 1 Bladder Scan completed Loree Morgan [facility] 08/12/2021 15:40:20 1 Bladder Scan completed Lala Cook [facility] 07/01/2021 14:34:56 1 Past Data Reviewed completed ANGELA WALLS [address] [place] [address],[address], [place], [address], [facility] 05/18/2021 20:21:34 1 In and Out Catheterization - female completed ANGELA WALLS [address] [place] [address],[address], [place], [address], [facility] 05/19/2021 14:31:56 Imaging Results None recorded. Procedure Notes None recorded. Medical Equipment None Reported. Allergies No known drug allergies Medications Name Sig Start Date Stop Date Status Note LastModified by Organization Details LastModified Time losartan 50 mg tablet take 1 tablet by mouth daily 09/27 completed HN: Patient reports no longer taking Not Available Not Available Not Available amoxicill in 500 mg capsule TAKE 2 CAPSULES BY MOUTH RIGHT AWAY, THEN TAKE 1 CAPSULE 3 TIMES DAILY UNTIL GONE* active Not Available Not Available No t Available atorvasta tin 40 mg tablet Take 1 tablet by mouth nightly at bedtime* active Not Available Not Available No t Available anastrozo le 1 mg tablet TAKE ONE TABLET BY MOUTH AT BEDTIME* active Not Available Not Available No t Available citalopra m 40 mg tablet TAKE 1 TABLET BY MOUTH DAILY* active Not Available Not Available No t Available triamcino lone acetonide 0.5 % topical cream apply topicall y To the left arm 2 times daily 08/12 completed HN: Patient reports no longer taking HN: Patient reports no longer taking Not Available Not Available Not Available oxybutyni n chloride ER 10 mg tablet,ex tended release 24 hr TAKE 1 TABLET BY MOUTH DAILY 08/12 completed HN: Patient reports no longer taking Not Available Not Available Not Available hydrocodo ne 5 mg-acetam inophen 325 mg tablet take 1-2 tablets by mouth every 6 hours as needed 05/19 completed Not Available Not Available Not Available senna 8.6 mg tablet take 4 tablets by mouth twice daily as needed for constipa tion 03/19 completed HN: Patient reports no longer taking Not Available Not Available Not Available ciproflox acin 250 mg tablet TAKE ONE TABLET BY MOUTH TWICE DAILY 03/19 completed HN: Patient reports no longer taking Not Available Not Available Not Available amlodipin e 5 mg tablet TAKE 1 TABLET BY MOUTH DAILY for blood pressure * active Not Available Not Available No t Available ciproflox acin 500 mg tablet Take 1 Tablet (500 mg) by mouth two times daily for 10 days. 03/19 completed Not Available Not Available Not Available sulfameth oxazole 800 mg-trimet hoprim 160 mg tablet Take 1 tablet twice a day by oral route as directed for 3 days. active Not Available Not Available No t Available tramadol 50 mg tablet TAKE 1 TABLET BY MOUTH 3 TIMES A DAY NEEDED FOR PAIN 03/19 completed HN: Patient reports no longer taking Not Available Not Available Not Available simvastat in 40 mg tablet TAKE ONE TABLET BY MOUTH AT BEDTIME 12/04 completed HN: Patient reports no longer taking Not Available Not Available Not Available levothyro xine 25 mcg tablet TAKE 1 TABLET BY MOUTH DAILY* active Not Available Not Available No t Available Macrobid 100 mg capsule Take 1 capsule twice a day by oral route as directed for 3 days. 2024 active Not Available Not Available Not Avai lable oxycodone -acetamin ophen 5 mg-325 mg tablet 05/19 completed Not Available Not Available Not Available dextroamp hetamine- amphetami ne ER 20 mg 24hr capsule,e xtend release TAKE 1 CAPSULE BY MOUTH DAILY* active Not Available Not Available No t Available benzonata te 100 mg capsule take 1 capsule (100 mg) orally three times a day As Needed for cough* active Not Available Not Available No t Available cephalexi n 500 mg capsule TAKE 1 CAPSULE BY MOUTH THREE TIMES DAILY FOR 7 DAYS 04/16 completed HN: Patient reports no longer taking Not Available Not Available Not Available naproxen sodium 220 mg tablet TAKE 1 TABLET BY MOUTH TWICE DAILY as needed for pain 03/19 completed HN: Patient reports no longer taking Not Available Not Available Not Available cefadroxi l 1 gram tablet TAKE ONE TABLET BY MOUTH TWICE DAILY FOR 6 WEEKS. 03/19 completed Not Available Not Available Not Available ibuprofen 200 mg tablet Take 2 tablets every 6 hours by oral route as needed. 12/04 completed HN: Patient reports taking HN: Patient reports no longer taking HN: Patient reports no longer taking HN: Patient reports no longer taking Not Available Not Available Not Available codeine 10 mg-guaife nesin 100 mg/5 mL oral liquid TAKE 5-10MLS BY MOUTH AT BEDTIME, CAN REPEAT IN 6 HOURS IF NEEDED. DO NOT DRIVE FOR UP TO 6 HOURS AFTER TAKING THIS MEDICATI ON 04/16 completed HN: Patient reports no longer taking Not Available Not Available Not Available albuterol sulfate HFA 90 mcg/actua tion aerosol inhaler INHALE 2 PUFFS EVERY 4 HOURS NEEDED WHILE AWAKE FOR THE NEXT 3 DAYS, THEN NEEDED (DO NOT EXCEED 12 PUFFS IN 24 HOURS) 04/16 completed HN: Patient reports no longer taking Not Available Not Available Not Available dextroamp hetamine- amphetami ne ER 30 mg 24hr capsule,e xtend release TAKE ONE CAPSULE BY MOUTH DAILY 12/04 completed HN: Patient reports no longer taking Not Available Not Available Not Available losartan 100 mg tablet TAKE 1 TABLET BY MOUTH DAILY for high blood pressure * active Not Available Not Available No t Available amoxicill in 875 mg-potass ium clavulana te 125 mg tablet TAKE ONE TABLET BY MOUTH TWICE DAILY FOR 10 DAYS 04/16 completed HN: Patient reports no longer taking Not Available Not Available Not Available oxycodone 5 mg tablet TAKE ONE TABLET BY MOUTH EVERY FOUR TO SIX HOURS NEEDED FOR PAIN* active Not Available Not Available No t Available Botox 100 unit injection Take 100 units by injectio n route. 2024 active Not Available Not Available Not Avai lable bupropion HCl XL 300 mg 24 hr tablet, extended release TAKE ONE TABLET BY MOUTH IN THE MORNING* active Not Available Not Available No t Available bupropion HCl XL 150 mg 24 hr tablet, extended release TAKE TWO TABLETS BY MOUTH DAILY for depresse d mood. active Not Available Not Available No t Available daptomyci n 500 mg intraveno us solution 500mg 1/day 03/19 completed HN: Patient reports no longer taking Not Available Not Available Not Available losartan 100 mg-hydroc hlorothia zide 12.5 mg tablet TAKE 1 TABLET BY MOUTH DAILY* active Not Available Not Available No t Available levothyro xine take 25 mcg per day 05/19 completed Not Available Not Available Not Available anastrozo le take 1 mg per day 05/19 completed Not Available Not Available Not Available cefepime 2000mg 2/day 03/19 completed HN: Patient reports no longer taking Not Available Not Available Not Available amlodipin e 5mg 1/day 09/27 completed HN: Patient reports no longer taking Not Available Not Available Not Available Vitamin D take 28747 U per day active Not Available Not Available No t Available multivita min 1 per day active HN: Patient reports taking HN: Patient reports taking HN: Patient reports taking HN: Patient reports taking Not Available Not Available Not Available Myrbetriq 50 mg tablet,ex tended release TAKE 1 TABLET BY MOUTH DAILY* active Not Available Not Available No t Available bupropion HCl 150 mg tablet,12 hr sustained -release( smoking deterrent ) Take 1 tablet every day by oral route. 08/12 completed HN: Patient reports taking HN: Patient reports no longer taking Not Available Not Available Not Available Vitals Date Recorded Body height Body mass index (BMI) Body weight Provider Name and Address Organization Details Last Updated DateTime 04/02/2023 172.72 cm 35.9 kg/m2 697794.8 g Manda Bermeo [facility] 04/02/2023 14:07:09 Date Recorded Body height Body weight Provider Name and Address Organization Details Last Updated DateTime 09/28/2024 172.72 cm 154296.8 g Javier Anguiano [facility] 09/28/2024 16:35:27 Social History Question Answer Notes LastModified by Organizat ion Details LastModified Time Tobacco Smoking Status Never Smoker Not Available Health Note 11/15/2023 18:56:24 What Is Your Level Of Alcohol Consumption? Moderate [email or web address] Information not available 11/15/2023 What Is Your Level Of Caffeine Consumption? Occasional [email or web address] Information not available 11/15/2023 How Much Tobacco Do You Chew? None [email or web address] Information not available 11/15/2023 Are You Currently Employed? Yes Information not available 05/19/2021 Do You Or Have You Ever Used E-cigarettes Or Vape? Never Used Electronic Cigarettes [email or web address] Information not available 11/15/2023 Ethnicity Not /Latin o Information not available 05/19/2021 Preferred Language Micronesian Information not available 04/16/2022 Number Of Pregnancies 2 [email or web address] Information not available 03/18/2023 Number Of Vaginal Deliveries 2 [email or web address] Information not available 03/18/2023 Number Of Caesarean Sections 0 [email or web address] Information not available 03/18/2023 Recreational Drug Use No Information not available 05/19/2021 Could You Be ? No Information not available 04/16/2022 What Was The Date Of Your Most Recent Tobacco Screening? 09/28/2024 Information not available 09/28/2024 Have You Ever Been Counseled For Unhealthy Alcohol Use? Yes Information not available 09/28/2024 What Is Your Relationship Status? [email or web address] Information not available 03/18/2023 Are You Sexually Active? No [email or web address] Information not available 11/15/2023 Do You Or Have You Ever Used Smokeless Tobacco? Never Used Smokeless Tobacco [email or web address] Information not available 11/15/2023 Do You Use Any Illicit Or Recreational Drugs? Yes [email or web address] Information not available 11/15/2023 Has Tobacco Cessation Counseling Been Provided? Yes Information not available 09/28/2024 On What Date Was Tobacco Cessation Counseling Provided? 09/28/2024 Information not available 09/28/2024 Do You Or Have You Ever Used Any Other Forms Of Tobacco Or Nicotine? No Information not available 05/19/2021 How Many Days In The Past Year Have You Consumed 4 Or More Drinks? 80 [email or web address] Information no t available 11/15/2023 Sex: Female Functional Status None recorded. Mental Status None recorded. Family History Nothing Reported. Medical History Condition Response Sexually Transmitted Infection N Diabetes N Other N Bleeding Disorder N High Blood Pressure Y Kidney Stones N High Cholesterol Y GERD/Acid Reflux N Heart Disease N Cancer Y Lung Disease N Depression Y Gynecological History Statement/Question Response If Post Menopausal, Age at Menopause 47 Leaking urine with intercourse N Sexually Active? Y Pain with intercourse N Obstetrics History GPAL:G 0 P 0 0 0 0 Immunizations Vaccine Type Date Status Note Provider Nam e and Address Organization Details Recorded Time influenza, unspecified formulation 3 completed Javier talley, [facility] 09/28/2024 16:35:36 SARS-COV-2 (COVID-19) vaccine, UNSPECIFIED 3 completed Javier Shamikanson null, [facility] 09/28/2024 16:35:36 influenza, unspecified formulation 1 completed Gracy Rodriguez null, [facility] 05/06/2023 14:55:36 SARS-COV-2 (COVID-19) vaccine, UNSPECIFIED 1 completed Gracy Rodriguez null, [facility] 05/06/2023 14:55:35 COVID-19, mRNA, LNP-S, PF, 100 mcg/0.5mL dose or 50 mcg/0.25mL dose 1 completed Javier Don null, [facility] 09/25/2021 11:24:22 COVID-19, mRNA, LNP-S, PF, 50 mcg/0.5 mL 3 completed Javier Anguiano null, [facility] 09/28/2024 16:35:36 Influenza, split virus, quadrivalent, PF 3 completed Javier Anguiano null, [facility] 09/28/2024 16:35:36 influenza, unspecified formulation 1 completed Gracy Rodriguez null, [facility] 05/06/2023 14:55:36 SARS-COV-2 (COVID-19) vaccine, UNSPECIFIED 1 completed Gracy Rodriguez null, [facility] 05/06/2023 14:55:35 influenza, unspecified formulation 1 completed Gracy Rodriguez null, [facility] 05/06/2023 14:55:36 SARS-COV-2 (COVID-19) vaccine, UNSPECIFIED 1 completed Gracy Rodriguez null, [facility] 05/06/2023 14:55:35 influenza, unspecified formulation 2 completed Gracy Rodriguez null, [facility] 05/06/2023 14:55:36 SARS-COV-2 (COVID-19) vaccine, UNSPECIFIED 1 completed Gracy Rodriguez null, [facility] 05/06/2023 14:55:35 influenza, unspecified formulation 1 completed Gracy Rodriguez null, [facility] 05/06/2023 14:55:36 SARS-COV-2 (COVID-19) vaccine, UNSPECIFIED 1 completed Gracy Rodriguez null, [facility] 05/06/2023 14:55:35 Tdap 2 completed Gracy Rodriguez null, [facility] 05/06/2023 14:55:15 SARS-COV-2 (COVID-19) vaccine, UNSPECIFIED 1 completed Gracy Rodriguez null, [facility] 05/06/2023 14:55:35 influenza, unspecified formulation 1 completed Gracy Rodriguez null, [facility] 05/06/2023 14:55:36 Influenza, split virus, quadrivalent, preservative 1 [facility] 15:34:24 Novel [id number], all formulations 0 completed Loree Morgan null, [facility] 08/12/2021 15:34:24 Influenza, live, quadrivalent, intranasal 3 completed Loree Morgan null, [facility] 08/12/2021 15:34:24 Influenza, split virus, quadrivalent, preservative 5 completed Loree Morgan null, [facility] 08/12/2021 15:34:24 Influenza, recombinant, quadrivalent, PF 0 completed Loree Morgan null, [facility] 08/12/2021 15:34:24 Influenza, split virus, quadrivalent, preservative 7 completed Loree Morgan null, [facility] 08/12/2021 15:34:24 COVID-19, mRNA, LNP-S, PF, 100 mcg/0.5mL dose or 50 mcg/0.25mL dose 1 completed Loree talley [facility] 08/12/2021 15:34:24 Influenza, split virus, quadrivalent, PF 4 completed Loree talley [facility] 08/12/2021 15:34:24 Influenza, split virus, quadrivalent, preservative 8 completed Loree talley [facility] 08/12/2021 15:34:24 Influenza, split virus, quadrivalent, preservative 9 [facility] 15:34:24 Influenza, split virus, trivalent, preservative 2 completed Loree talley [facility] 08/12/2021 15:34:24 COVID-19, mRNA, LNP-S, PF, 100 mcg/0.5mL dose or 50 mcg/0.25mL dose 1 [facility] 15:34:24 Past Encounters Encounter ID Performer Location Encounter Start Date Encounter Closed Date Diagnosis/Indication Diagnosis SNOMED-CT Code Diagnosis ICD10 Code Diagnosis Note [id number] ANGELA WALLS[facility] [address] [place] [id number] 05/19/2021 14:00:51 05/19/2021 17:03:43 Urinary incontinence 670294845 R32 chronic, worse [id number] ANGELA WALLSWoedi dbury [address] [place] [address] 07/01/2021 14:29:41 07/01/2021 15:14:58 Urinary incontinence 112545363 R32 chronic, worse [id number] ANGELA WALLSWoedi dbury [address] [place] [phone] 08/12/2021 15:29:07 08/12/2021 17:18:23 Urinary incontinence 509027924 R32 chronic, worse Midline cystocele 788100 003 N81.11 chronic, stable [id number] Lisa Reardon, MD [facility] [address] [place] [address] 09/25/2021 11:09:29 09/25/2021 14:00:54 Urinary incontinence 694081861 R32 chronic, worse 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 chronic worse Nocturia 631202818 R35.1 chronic stable [id number] Lisa Reardon MD [facility] [address] [place] [address] 10/30/2021 12:21:09 10/30/2021 15:29:23 Urinary incontinence 294034834 R32 chronic, worse Urge incon tinence of urine 52818345 N39.41 chronic worse Nocturia 627850562 R35.1 chronic stable [id number] MD [facility] [address] [place] [address] 12/04/2021 09:54:56 12/04/2021 12:33:22 Overactive urinary bladder 643527200 N32.81 chronic improved [id number] Lisa Reardon MD [facility] [address] [place] [address] 03/13/2022 12:18:15 03/13/2022 13:22:28 Overactive urinary bladder 205416092 N32.81 chronic improved [id number] ANGELA Butts [facility] [address] [facility] [place] [address] 04/16/2022 14:03:15 04/16/2022 14:35:33 Overactive urinary bladder 006397379 N32.81 est [id number] Lisa Reardon MD [facility] [address] [place] [address] 03/19/2023 16:47:51 04/05/2023 08:58:12 Overactive urinary bladder 133437748 N32.81 chronic worse Urge incon tinence of urine 94285652 N39.41 chronic worse [id number] Manda Vochrystal [facility] [address] [place] [address] 04/02/2023 13:59:22 04/05/2023 09:48:20 Urge incontinence of urine 02361109 N39.41 [id number] MD [facility] [address] [facility] [place] [address] 04/13/2023 12:04:20 04/13/2023 13:59:22 Overactive urinary bladder 324520807 N32.81 chronic worse [id number] Lisa Reardon MD [facility] [address] [place] [address] 11/19/2023 11:26:42 11/19/2023 12:15:35 Overactive urinary bladder 406048898 N32.81 Urge incon tinence of urine 28978424 N39.41 [id number] Lisa Reardon MD [facility] [address] [facility] [place] [address] 04/10/2024 11:52:01 04/11/2024 08:48:27 Overactive urinary bladder 580511202 N32.81 [id number] MD [facility] [address] [facility] [place] [address] 09/28/2024 16:02:43 10/02/2024 13:54:23 Overactive urinary bladder 761891631 N32.81 Health Concerns Section Related Observation LastModified by Organization Detai ls LastModified Time None Recorded Concern Status LastModified by Organization Details LastModified Time None Recorded Advance Directives Directive None Recorded Payers Encounter Date Sequence Insurance Name Policy Number Policy Finney Covered Member ID Finney Member ID Guarantor Name 04/02/2023 1 [place] [id number] Fran Campa [id number] Fran Campa 04/13/2023 1 [place] [id number] Farn Campa [id number] Fran Campa 11/19/2023 1 [place] [id number] Fran Campa [id number] Fran Campa 04/10/2024 1 [place] [id number] Fran Campa [id number] Fran Campa 09/28/2024 1 [place] [id number] Fran Campa [id number] Fran Campa OBGyn Episode No OBEpisode recorded.
--- OUTSIDE RECORDS SUMMARY | 2024-10-04 07:23 | XMS_ITS | Clinical Summary ---
Author Organization [facility] Address [place], [place] [address] Care Team Providers Care Medicine Tech Name Role Phone Ariadna Villafana PA-C Primary Care Provider [phone] Allergies No known active allergies Medications citalopram (CELEXA) 40 mg tablet Take 40 mg by mouth once daily. Active levothyroxine (SYNTHROID) 25 mcg tablet Take 25 mcg by mouth before breakfast. Active buPROPion (WELLBUTRIN XL) 150 mg Extended-Relea se tablet Take 150 mg by mouth every morning. Active multivitamin (MVI) tablet Take 1 tablet by mouth once daily. Active anastrozole (ARIMIDEX) 1 mg tablet Take 1 mg by mouth once daily. 2 Active atorvastatin (LIPITOR) 40 mg tablet 40 mg at bedtime. Ac tive losartan (COZAAR) 50 mg tablet Take 50 mg by mouth once daily. Active mirabegron EXTENDED-relea se (MYRBETRIQ) 50 mg tablet Take 50 mg by mouth once daily. Active dextroamphetam ine-amphetamin e (ADDERALL XR) 20 mg Extended-Relea se capsule Take 20 mg by mouth once daily. Active acetaminophen (TYLENOL EXTRA STRGTH) 500 mg tabletIndicati ons:Vertebral abscess (HC) Take 2 Tablets (1,000 mg) by mouth every 6 hours if needed for Pain. Max acetaminophen dose: 4000mg in 24 hrs. 0 2 Active polyethylene glycol (MIRALAX; GLYCOLAX) 17 g powder for solutionIndica tions:Vertebra l abscess (HC) Take 17 g by mouth or nasogastric tube once daily if needed for Constipation. 0 2 Active sennosides (SENNA) 8.6 mg tabletIndicati ons:Vertebral abscess (HC) Take 1-2 Tablets (8.6-17.2 mg) by mouth 2 times daily if needed for Constipation. 0 2 Active oxyCODONE (ROXICODONE) 5 mg immediate release tabletIndicati ons:Vertebral abscess (HC) Take 1-2 Tablets (5-10 mg) by mouth every 4 hours if needed for Pain (For moderate to severe pain.). 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 Gender Identity Not on file Sexual Orientation Not on file Obstetrics History Last Filed Vital Signs Vital Sign Reading Time Taken Comments Blood Pressure 174/89 08/26/2022 2:25 PM INTERNAL SALESPERSON Pulse 72 08/26/2022 2:25 PM INTERNAL SALESPERSON Temperature 36.8 C (98.3 F) 08/26/2022 2:25 PM INTERNAL SALESPERSON Respiratory Rate 16 08/26/2022 2:25 PM INTERNAL SALESPERSON Oxygen Saturation 97% 08/06/2022 11: 10 AM INTERNAL SALESPERSON Inhaled Oxygen Concentration - - Weight 106.5 [...] Mammogram for age 45-75 2009 12/08/2006, 12/02 Pneumococcal series for age 50+ (1 of 1 - PCV) 2014 COVID-19 vaccine series (4 - season) 2024 08/26/2021, 11/21/2020, 10/22/2020 Influenza for age 50-64 05/21/2024 RSV vaccine for adults or (1 - Risk 60-74 years 1-dose series) 2024 Pap test for age 21-65 01/11/2027 4, 01/12/2024, 05/08/2020, Additional history exists Pneumococcal series for age 6-49 Aged Out No longer eligible based on patient's age to complete this topic Procedures Procedure Name Priority Date/Time Associated Diagnosis Comments HPV HIGH RISK Routine 01/12/2024 1:45 PM CDT XR MAMMO BILAT SCREEN FFDM (IA) Routine 12/08/2006 12:40 PM CDT Screening Mammogram Other from Last 3 Months or Most Recently Relevant to Health Maintenance Results * HPV HIGH RISK (01/12/2024 1:45 PM CDT) TYPE 16 Negative Negative 01/15/2024 7:19 AM CDT [facility] TYPE 18 Negative Negative 01/15/2024 7:19 AM CDT [facility] OTHER HIGH RISK TYPES Negative Negative 01/15/2024 7:19 AM CDT [facility] [employer] [facility] Other (Cervical) 01/12/2024 1:45 PM CDT 01/13/2024 12:20 PM CDT Narrative [facility] - 01/15/2024 7:19 AM CDT HPV types 16, 18, 31, 33, 35, 39, 45, 51, 52, 56, 58, 59, 66 and 68 DNA were undetectable or below the pre-set threshold. Methodology: Ayanna Niko 4800 HPV Test Ariadna Villafana PA-C MICROBIOLOGY Final Result [facility] [address] [place] [address], [place] * XR MAMMO BILAT SCREEN FFDM (12/08/2006 12:40 PM CDT) Anatomical Region Laterality Modality BREASTS, Breast Left, Breast Right Bilateral Mammography 12/08/2006 12:4 0 PM CDT Impressions 12/10/2006 7:47 AM CDT There is no radiographic evidence for malignancy. Recommend annual mammograms. The [facility] will provide a results postcard to the patient at the time of the appointment or through the mail. Narrative 12/10/2006 7:47 AM CDT BILATERAL FULL-FIELD DIGITAL SCREENING MAMMOGRAM INTERPRETED IN CONJUNCTION WITH COMPUTER-AIDED DETECTION 12/08/06 CLINICAL HISTORY: This is an asymptomatic 41-year-old patient. FINDINGS: This mammogram was performed with full-field digital technique and in conjunction with computer-aided detection. The study is compared to previous studies from [facility] dated 12/02/05 and shows no [...] study is compared to previous studies from [facility] dated 12/02/05 and shows no significant change. The breast tissue is heterogeneously dense, which could obscure detectionof small masses. There are no masses or calcifications that are suspicious formalignancy. IMPRESSION: There is no radiographic evidence for malignancy. Recommendannual mammograms. The [facility] will provide a results postcard to the patient atthe time of the appointment or through the mail. Mari Don FLORAL ARRANGER MAMMO Final Resu lt from Last 3 Months or Most Recently Relevant to Health Maintenance Insurance ([place]) [place] [id number] [facility] [place] [id number] [facility] Advance Directives * Full Code (Latest Code Status on File) Date Activated Date Inactivated Comments 07/05/2022 11:53 PM 07/11/2022 7:39 PM Question Answer Comments Code Status Discussion: Reviewed Preferences * Full Code Date Activated Date Inactivated Comments 07/18/2020 6:01 AM 07/18/2020 10:14 PM Question Answer Comments Code Status Discussion: Not Discussed Care Teams Medicine Tech Relationship Specialty Start Date End Date Ariadna Villafana PA-C [address], [place] [address] PCP - General Emergency Medicine 05/28/20
--- OUTSIDE RECORDS SUMMARY | 2024-10-04 07:23 | XMS_ITS | Continuity of Care Document ---
Author Name NwHIN User [email or web address] llowed Address Unknown Organization Unknown Address Unknown Procedures FILTER APPLIED:Only known Procedures with Onset Date within the last 5 years Procedure Date Procedure Provider Additional Inform ation Status ASSAY THYROID STIM HORMONE (86037) Completed LIPID PANEL (01338) Comp leted COMPREHEN METABOLIC PANEL (00980) Completed HEPATITIS C AB TEST (34248) Completed CHLMYD TRACH DNA AMP PROBE (93316) Completed N.GONORRHOEAE DNA AMP PROB (52788) Completed OFFICE O/P EST SF 10 MIN (18707) Completed OFFICE O/P EST MOD 30 MIN (37002) Completed MRI BREAST C-+ W/CAD BI (67640) Completed OFFICE O/P EST SF 10 MIN (08681) Completed OFFICE O/P EST MOD 30 MIN (00946) Completed Encounters FILTER APPLIED:Only known Encounters with Admission Date within the last 5 years Encounter Location Admission Discharge Billing Code [facility] Austen Nguyen Outpatient Elly Hercules Outpatient Gabby Nguyen Outpatient Ariadna Villafana Outpatient Ariadna Villafana
--- OUTSIDE RECORDS SUMMARY | 2024-10-04 07:23 | XMS_ITS | Continuity of Care Document ---
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 Plan of Treatment Reminders Order Date Submit Date Provider Last Modified By Organization Details Last Modified Time Details Appointments None recorded. Lab urinalysis, dipstick 2024 025 [facility], [address], [address], [place], [address], 5 16:16:29 Referral authorizati on request 2024 025 [email or web address] 2 Not available 5 10:27:08 Procedures cystourethr oscopy, with injections for chemodenerv ation of the bladder (PROC) - 100 units -10cc NS; atb sent to do 6 months from her last injection 2024 025 [email or web address] 2 Not available 5 10:00:25 Surgeries None recorded. Imaging None recorded. Medication Orders Botox 100 unit injection 2024 025 [email or web address] 1 Not available 5 17:15:06 Macrobid 100 mg capsule 2024 025 [id number], [id number], [place], [address], 5 17:01:21 Patient TargetsNo targets recorded. Patient Instructions Encounter Date Encounter Id Patient Instructions Last Modified By Organization Details Last Modified Time 09/28/2024 [id number] SP Botox 100 units for OAB/urge incontinence. 1) Follow-up office appointment when needs aggreed with 6 months out as she has done well and would prefer it to be scheduled 2) [place] intermittent self cathing regimen if needed; urged to call if any urinary tract infection symptoms, if has difficulty emptying to call as well 3) Call for symptoms of infection or persistent bleeding 4) Complete antibiotic prophylaxis regimen [email or web address] Not available 09/28/2024 17:01:10 Reason for Referral Authorization Request for Ov eractive urinary bladder Referring Physician: Lisa Reardon, Urology, Encounter Date: 09/28/2024 Problems Name Problem SNOMED Code Status Onset Date Resolution Date Notes Provider Name and Address Organization Details Recorded Time Obstructive sleep apnea syndrome 52113869 Active 2020 Elizabeth talley [facility] 16:40:43 Depressive disorder 76487362 Active 2020 Elizabeth talley [facility] 16:40:52 Hypothyroidism 64641866 Active 2020 Elizabeth talley [facility] 16:43:00 Hyperlipidemia 62274287 Active 2020 Elizabeth talley [facility] 16:43:14 Attention deficit hyperactivity disorder, 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 Procedures Surgical History Date Name Laterality Status Provider Name and Address Organization Details Recorded Time 5 Cystoscopy with Botox Injections completed Dinora Anguiano [facility] 09/28/2024 16:36:41 4 Cystoscopy with Botox Injections completed Lala Cook [facility] 04/10/2024 12:22:54 4 Cystoscopy with Botox Injections completed Dinora Don [facility] 11/19/2023 11:43:25 3 Cystoscopy with Botox Injections completed Lisa Reardon MD [address] [place] [address],[address], [place], [address], [facility] 04/13/2023 13:04:01 3 Urine Culture completed Larisa Mayfieldsree [facility] 04/02/2023 10:31:28 3 Urinalysis completed Larisa Bermeo [facility] 04/02/2023 10:31:26 2 Bladder Scan completed Luna Salcedo [facility] 04/16/2022 14:12:30 2 Cystoscopy with Botox Injections completed Dinora Don [facility] 03/13/2022 12:55:13 2 Bladder Scan completed Dinora Don [facility] 12/04/2021 10:05:02 2 Cystoscopy with Botox Injections completed Lisa Reardon MD [address] [place] [address],[address], [place], [address], [facility] 10/30/2021 13:19:28 2 In and Out Catheterization - female completed Lisa Reardon MD [address] [place] [address],[address], [place], [address], [facility] 09/25/2021 11:41:01 1 Bladder Scan completed Loree Morgan [facility] 08/12/2021 15:40:20 1 Bladder Scan completed Lala Cook [facility] 07/01/2021 14:34:56 1 Past Data Reviewed completed ANGELA WALLS [address] [place] [address],[address], [place], [address], [facility] 05/18/2021 20:21:34 1 In and Out Catheterization - female completed ANGELA WALLS [address] [place] [address],[address], [place], [address], [facility] 05/19/2021 14:31:56 Imaging Results None recorded. Procedure [...] Not Available Not Available Vitamin D take 87741 U per day active Not Available Not [...] Available Vitals Date Recorded Body height Body weight Provider Name and Address Organization Details Last Updated DateTime 09/28/2024 172.72 cm 885655.8 g Dinora Anguiano [place] [facility] 09/28/2024 16:35:27 Social History Question Answer [...] o Information not available 05/19/2021 Preferred Language Polish Information not available 04/16/2022 Number Of Pregnancies [...] History Nothing Reported. Medical History Condition Response Other N High Blood Pressure Y Kidney Stones N Depression Y Lung Disease N GERD/Acid Reflux N Diabetes N Sexually Transmitted Infection N Bleeding Disorder N Cancer Y High Cholesterol Y Heart Disease N Gynecological History Statement/Question Response If Post Menopausal, Age at Menopause 47 Leaking urine with intercourse N Sexually Active? Y Pain with intercourse N Obstetrics History GPAL:G 0 P 0 0 0 0 Immunizations Vaccine Type Date Status Note Provider Nam e and Address Organization Details Recorded Time influenza, unspecified formulation 3 completed Dinora talley [facility] 09/28/2024 16:35:36 SARS-COV-2 (COVID-19) vaccine, UNSPECIFIED 3 completed Dniora talley [facility] 09/28/2024 16:35:36 influenza, unspecified formulation 1 completed Gracy talley, [facility] 05/06/2023 14:55:36 SARS-COV-2 (COVID-19) vaccine, UNSPECIFIED 1 completed Gracy Rodriguez null, [facility] 05/06/2023 14:55:35 COVID-19, mRNA, LNP-S, PF, 100 mcg/0.5mL dose or 50 mcg/0.25mL dose 1 completed Dinora Alicja Don null, [facility] 09/25/2021 11:24:22 COVID-19, mRNA, LNP-S, PF, 50 mcg/0.5 mL 3 completed Dinora LJohnson null, [facility] 09/28/2024 16:35:36 Influenza, split virus, quadrivalent, PF 3 completed Dinora LJohnson null, [facility] 09/28/2024 16:35:36 influenza, unspecified formulation 1 completed Gracy Rodriguez null, [facility] 05/06/2023 14:55:36 SARS-COV-2 (COVID-19) vaccine, UNSPECIFIED 1 completed Gracy Rodriguez null, [facility] 05/06/2023 14:55:35 influenza, unspecified formulation 1 completed Gracy Rodriguez null, [facility] 05/06/2023 14:55:36 SARS-COV-2 (COVID-19) vaccine, UNSPECIFIED 1 completed Gracy Rodriguez null, [facility] 05/06/2023 14:55:35 influenza, unspecified formulation 2 completed Gracy Rodriguez null, [facility] 05/06/2023 14:55:36 SARS-COV-2 (COVID-19) vaccine, UNSPECIFIED 1 completed Gracy Rodriguez null, [facility] 05/06/2023 14:55:35 influenza, unspecified formulation 1 completed Gracy Rodriguez null, [facility] 05/06/2023 14:55:36 SARS-COV-2 (COVID-19) vaccine, UNSPECIFIED 1 completed Gracy Rodriguez null, [facility] 05/06/2023 14:55:35 Tdap 2 completed Gracy Rodriguez null, [facility] 05/06/2023 14:55:15 SARS-COV-2 (COVID-19) vaccine, UNSPECIFIED 1 completed Gracy Rodriguez null, [facility] 05/06/2023 14:55:35 influenza, unspecified formulation 1 completed Gracy Michael null, [facility] 05/06/2023 14:55:36 Influenza, split virus, quadrivalent, preservative 1 completed Loree talley, [facility] 08/12/2021 15:34:24 Novel [id number], all formulations [facility] 15:34:24 Influenza, live, quadrivalent, intranasal 3 completed Loree talley, [facility] 08/12/2021 15:34:24 Influenza, split virus, quadrivalent, preservative 5 completed Loree talley, [facility] 08/12/2021 15:34:24 Influenza, recombinant, quadrivalent, PF 0 completed Loree talley, [facility] 08/12/2021 15:34:24 Influenza, split virus, quadrivalent, preservative 7 completed Loree talley, [facility] 08/12/2021 15:34:24 COVID-19, mRNA, LNP-S, PF, 100 mcg/0.5mL dose or 50 mcg/0.25mL dose 1 completed Loree talley, [facility] 08/12/2021 15:34:24 Influenza, split virus, quadrivalent, PF 4 completed Loree talley, [facility] 08/12/2021 15:34:24 Influenza, split virus, quadrivalent, preservative 8 completed Loree talley, [facility] 08/12/2021 15:34:24 Influenza, split virus, quadrivalent, preservative 9 completed Loree talley [facility] 08/12/2021 15:34:24 Influenza, split virus, trivalent, preservative 2 completed Loree talley [facility] 08/12/2021 15:34:24 COVID-19, mRNA, LNP-S, PF, 100 mcg/0.5mL dose or 50 mcg/0.25mL dose 1 completed Loree talley [facility] 08/12/2021 15:34:24 Past Encounters Encounter ID Performer Location Encounter Start Date Encounter Closed Date Diagnosis/Indication Diagnosis SNOMED-CT Code Diagnosis ICD10 Code Diagnosis Note [id number] Lisa Reardon MD [address] [place] [address] 09/28/2024 16:02:43 10/02/2024 13:54:23 Overactive urinary bladder 943590987 N32.81 Health Concerns Section Related Observation LastModified by Organization Detai ls LastModified Time None Recorded Concern Status LastModified by Organization Details LastModified Time None Recorded Payers Encounter Date Sequence Insurance Name Policy Number Policy Finney Covered Member ID Finney Member ID Guarantor Name 09/28/2024 1 [place] [id number] Fran Campa [id number] Fran Campa OBGyn Episode No OBEpisode recorded.
[2024-10-04] MEDS: ACETAMINOPHEN 500 MG TABLET 1000 MG PO ×3 (07:42→20:09)
[2024-10-04] MEDS: OXYCODONE (CR) 10 MG TAB.ER.12H PO (07:42)
[2024-10-04] MEDS: SODIUM CHLORIDE 0.9 % (FLUSH) 10 ML SYRINGE IVF (07:42)
[2024-10-04] MEDS: LACTATED RINGERS 1000 ML 1,000 ML 100 ML IV (07:42)
[2024-10-04] MEDS: fentaNYL 100 MCG/2 ML inj IVP (08:16)
[2024-10-04] MEDS: MIDAZOLAM HCL 1 MG/ML inj IVP (08:16)
--- NOTE | 2024-10-04 08:25 | SUR.PREOP ---
TIME?OUT:?0816 PT/RN/MDA?VERIFICATION?OF?SURGICAL?SITE,?PROCEDURE,?AND?CONSENT OBTAINED?PRIOR?TO?INVASIVE?PROCEDURE.
[2024-10-04] MEDS: CEFAZOLIN 2 GM in 0.9 % SODIUM CHLORIDE Mini-bag 100 ML IVPB ×3 (08:42→22:38)
[2024-10-04] MEDS: TRANEXAMIC ACID 100 MG/ML INJ 1000 MG IV (08:45)
--- NOTE | 2024-10-04 08:53 | W.PM.H&PU ---
History & Physical Update History & Physical Update H&P Reviewed and patient assessed: No changes noted
--- NOTE | 2024-10-04 08:54 | CRLHL7_ITS ---
For Patients: As a result of the Cures Act, medical imaging exams and procedure reports are released immediately into your electronic medical record. You may view this report before your referring provider. If you have questions, please contact your health care provider. Indication: Postop Technique: Two views right shoulder Findings/Impression: Hardware from a right shoulder arthroplasty is in satisfactory position. Bone alignment is normal. No sign of acute fracture. Postop changes are within normal limits. Dictated by Bret Ko MD @ 10/04/2024 12:35:43 PM (Electronically Signed)
--- NOTE | 2024-10-04 10:51 | P.ORPRC_ITS ---
Procedure Note Date of procedure: 10/04/24 Procedure: PREOPERATIVE DIAGNOSIS: 1. Right shoulder osteoarthrosis, primary, severe with poor rotator cuff quality 2. Right long head of the biceps tendinopathy and tenosynovitis POSTOPERATIVE DIAGNOSIS: 1. Right shoulder osteoarthrosis, primary, severe with fair to poor cuff tissue quality 2. Right long head of the biceps tendinopathy and tenosynovitis PROCEDURE: 1. Right reverse shoulder arthroplasty. 2. Right long head of biceps open tenodesis SURGEON: Hung Jimenes MD. SURVEILLANCE INSPECTOR: Yang Oden PA-C - Of note, a skilled assistant terminal manager was critical for this case to aid in patient positioning, tissue retraction, limb manipulati on/positioning, retraction for glenoid exposure, which was challenging, awareness and protection of critical structures, and closure. ANESTHESIA: General plus supraclavicular block EBL: 300 ml IMPLANTS: DJ0 surgical Altivate humeral stem size 10 small shell, short with P2 porous coating vitamin E semi-constrained poly small socket insert RSP glenoid base plate P2 porous coating with 4 perimeter locking screws 32 neutral glenosphere with retaining screw COMPLICATIONS: None evident INDICATIONS: The patient is a pleasant 59-year-old female who has experienced severe right shoulder pain and difficulty with use. Workup included imaging which revealed severe osteoarthrosis along with concern for rotator cuff quality. Physical exam was consistent with associated pain. Given the defor mity, the dysfunction, and the pain, and failure of nonoperative management, recommendation was made for surgery. DESCRIPTION OF PROCEDURE: Following a thorough discussion of risks, benefits, and alternatives, consent was obtained and the left shoulder was marked. The patient was brought to the operating room and placed supine on the operating table. Induction of anesthesia was undertaken. 2 g IV Ancef and 1 g tranexamic acid was administered within 1 hr of incision preoperatively. Appropriate time- out was performed identifying proper patient, site, and procedure. The operative extremity was prepped and draped in the appropriate sterile fashion using ChloraPrep after the patient was positioned in the lazy beach chair position with head in neutral alignment and all bony prominences well padded. A longitudinal incision was made for deltopectoral approach. Deltoid was retracted laterally. Cephalic vein was identified and retracted laterally as well. Vein was spared/protected throughout the case. The clavipectoral fascia was identified and divided longitudinally staying lateral to the conjoined tendon / coracoid. The conjoined tendon was protected with a blunt Hohmann. The long head of the biceps tendon was identified and the bicipital sheath released. The upper 1/4 of the pectoralis major was also released from its insertion. The long head of the biceps was tenodesed to the pectoralis major tendon. The remaining proximal tendon tissue was excised. The rotator cuff was inspected and found to have good integrity with the subscapularis but fair integrity with a supraspinatus], and a decision for a reverse shoulder arthroplasty was confirmed. The long head of biceps, of note, was surrounded by significant tenosynovitis and had some partial-thickness tearing through the intra-articular portion. A subscapularis cuff of tissue was left via tenotomy for later repair with the remaining subscapularis released in a subperiosteal fashion with the Bovie. This was tagged for later repair. The 3 sisters were cauterized. The upper subscapularis was released from the capsule with a curved scissors towards the glenoid. The inferior subscapularis was divided from the capsular tissue on its caudal surface with particular caution for the axillary nerve. This was palpated anterior to the subscapularis both prior to and near the finish of the case. Inferior humeral head osteophytes were excised with caution taken throughout the case with regards to the axillary nerve. The humerus was dislocated, and humeral head cut completed. Then a protector plate was applied. We turned our attention to the glenoid. The humerus was retracted posteriorly. The subscap was protected anteriorly and the labrum/long head biceps origin was excised circumferentially. The capsule was released along the anterior and inferior portions of the glenoid cautiously with a Crandall elevator being careful not to penetrate deep. The glenoid had appropriate exposure, and was prepared with the cannulated system with a target of approximately 5-10? of inferior tilt and neutral anteversion (patient had 13 ? of retroversion initially). Utilizing the match Point 3D printed guide, the guide pin was placed. The 3D printed jig removed and after placing the guide pin, the tap was placed followed by the glenoid reaming. The real base plate was opened, and inserted, and excellent compression/purchase was achieved with the central screw. Peripheral screws were then drilled, measured, and placed. The glenosphere was then placed consistent with the preoperative plan utilizing the above noted glenosphere. After securing the glenosphere with the locking, torque limited screw, attention was turned back to the humerus. A canal finder was placed followed by various reamers by hand. The real humeral stem was then opened and inserted with excellent metaphyseal fit and stability. Trial poly was placed and the shoulder reduced. Excellent reduction and stability achieved with appropriate tension on the conjoined tendon. At this stage, trial implants were removed, and the real implants inserted and the shoulder reduced. A 3 minute Betadine soak was performed followed by a thorough irrigation with normal saline. Subscapularis was repaired with #1 PDS to the cuff of tissue on the lesser tuberosity. Excellent reapproximation of tissue achieved. Hemostasis was found to be appropriate. The deltopectoral interval was reapproximated with 0 Vicryl, subcutaneous and subcuticular closure was then performed with number 2-0 Vicryl and 4-0 Monocryl, respectively. A skilled assistant terminal manager was critical for this case to aid in patient positioning, tissue retraction, limb manipulation/positioning, retraction for glenoid exposure, which was challenging, awareness and protection of critical structures, and closure. PLAN: 1. Sling at all times for the operative upper extremity. 2. AROM of elbow, forearm, wrist, and digits as tolerated. 3. PT/OT consults for education and assistance. 4. Social consult for discharge planning. 5. 23 hr perioperative antibiotics. 6. Early ambulation, and SCDs for DVT prophylaxis. 7. Admit to the hospital for the above 8. Analgesics p.r.n.
--- NOTE | 2024-10-04 11:13 | P.NB_ITS ---
Nerve Block Nerve Block Time Seen by Provider: 08:18 Date Seen: 10/04/24 Type of block requested by surgeon for post-operative analgesia: supraclavicular Side: right Time out performed: Yes Verification of patient name: Yes Verification of date of : Yes Site marking: site marked Name of person performing procedure: Onur Continuous monitoring Was continuous monitoring of O2 sat, B/P, internet sales consultant, recorded every 15 minutes?: Yes Procedure Checklist: sterile prep, needles and gloves Ultrasound guided. Images saved: Yes Medications given in 5ml increments after negative aspiration: Ropivicaine %: 0.5 mL: 20 Needle gauge: 22 Precedex (mcg): 25 Patient tolerated procedure well: Yes Block Charges Block Charge (with Pro Fee): Brachial Plexus Use of Ultrasound Machine for Block: Yes- US Guidance/pain block
--- NOTE | 2024-10-04 11:14 | P.ANES_ITS ---
Anesthesia Charges Start Date/Time Anesthesia Start Date: 10/04/24 Anesthesia Start Time: 08:38 Stop Date/Time Anesthesia Stop Date: 10/04/24 Anesthesia Stop Time: 11:19 Coding CPT Codes CPT Codes: ANESTH SHOULDER REPLACEMENT - 12917 ([id number]) P3 - PATIENT W/SEVERE SYS DISEASE, QK - SCALP SPECIALIST 2-4 CNCRNT ANES PROC, QX - FAST FOOD CASHIER SVC W/ MD MED DIRECTION
--- NOTE | 2024-10-04 11:14 | W.ANESCHARGE ---
Anesthesia Charges Start Date/Time Anesthesia Start Date: 10/04/24 Anesthesia Start Time: 08:38 Stop Date/Time Anesthesia Stop Date: 10/04/24 Anesthesia Stop Time: 11:19 Coding CPT Codes CPT Codes: ANESTH SHOULDER REPLACEMENT - 94532 ([id number]) P3 - PATIENT W/SEVERE SYS DISEASE, QK - LEAD PHARMACY TECHNICIAN 2-4 CNCRNT ANES PROC, QX - RIDES SUPERVISOR SVC W/ MD MED DIRECTION
[2024-10-04] MEDS: LACTATED RINGERS 500 ML 500 ML 100 ML IV (11:15)
--- NOTE | 2024-10-04 11:18 | P.ANES_ITS ---
Anesthesia Charges Start Date/Time Anesthesia Start Date: 10/04/24 Anesthesia Start Time: 08:38 Stop Date/Time Anesthesia Stop Date: 10/04/24 Anesthesia Stop Time: 11:19 Coding CPT Codes CPT Codes: ANESTH SHOULDER REPLACEMENT - 08684 ([id number]) P3 - PATIENT W/SEVERE SYS DISEASE, QK - DRAPERY HAND 2-4 CNCRNT ANES PROC, QX - DIRECTOR OF DANCE SVC W/ MD MED DIRECTION
--- NOTE | 2024-10-04 11:18 | W.ANESCHARGE ---
Anesthesia Charges Start Date/Time Anesthesia Start Date: 10/04/24 Anesthesia Start Time: 08:38 Stop Date/Time Anesthesia Stop Date: 10/04/24 Anesthesia Stop Time: 11:19 Coding CPT Codes CPT Codes: ANESTH SHOULDER REPLACEMENT - 53401 ([id number]) P3 - PATIENT W/SEVERE SYS DISEASE, QK - CARPENTER'S ASSISTANT 2-4 CNCRNT ANES PROC, QX - AXLE POLISHER SVC W/ MD MED DIRECTION
--- NOTE | 2024-10-04 14:32 | PC.NURSE ---
end of shift. pt has been very pleasant. no pain so far. right arm is in a sling. active ice to the shoulder. she is up with 1 assist to the BSC. IV is patent. he is eating and drinking. plans to go home tomorrow with /
--- NOTE | 2024-10-04 15:37 | P.IMCN_ITS ---
Date of Consult Patient: [facility] Patient Consult date: 10/04/24 Requesting Physician: Orthopedics Primary Care Provider: Ariadna Villafana PA-C Consult Narrative Reason for consult: Medical management Narrative: Fran Campa is a 59 year old female past medical history significant for KERRIE on CPAP, hypertension, urge incontinence, hypothyroidism, depression, hyperlipid emia, low back pain, ADD, history of breast cancer is POD#0 s/p right reverse shoulder arthroplasty with Dr. Jimenes. There have been no perioperative complications or nursing concerns reported. Bl ood pressures have been adequate. Estimated total blood loss documented as 600 ml. Updated and reviewed the active medical problems, past medical history, past surgical history, social history, allergies and medications in our electronic EMR. Postoperatively, patient reports pain is currently adequately managed. Denies headache or dizziness. Denies chest pain or shortness of breath. No nausea. Tolerating orals. Has urinated x2 thus far. Review of Systems Narrative: REVIEW OF SYSTEMS: Complete review of systems performed and negative unless otherwise stated in HPI or below. PFSH PFS Medical History Primary osteoarthritis, right shoulder ?M19.011 - Primary osteoarthritis, right shoulder (ICD-10) Hammer toes, bilateral ?M20.41 - Other hammer toe(s) (acquired), right foot (ICD-10) ?M20.42 - Other hammer toe(s) (acquired), left foot (ICD-10) Aromatase inhibitor use (~01/2020) ?Z79.811 - shelter (current) use of aromatase inhibitors (ICD-10) Low back pain ?M54.50 - Low back pain, unspecified (ICD-10) Hyperlipidemia ?E78.5 - Hyperlipidemia, unspecified (ICD-10) Constipation ?K59.00 - Constipation, unspecified (ICD-10) Hypertension ?I10 - Essential (primary) hypertension (ICD-10) Attention deficit disorder ?F98.8 - Other specified behavioral and emotional disorders with onset usually occurring in childhood and adolescence (ICD-10) History of breast cancer ?Z85.3 - Personal history of malignant neoplasm of breast (ICD-10) Depression ?F32.A - Depression, unspecified (ICD-10) Urge incontinence ?N39.41 - Urge incontinence (ICD-10) Hypothyroidism ?E03.9 - Hypothyroidism, unspecified (ICD-10) Obesity (BMI 30-39.9) ?E66.9 - Obesity, unspecified (ICD-10) Rotator cuff tear, right ?M75.101 - Unspecified rotator cuff tear or rupture of right shoulder, not specified as traumatic (ICD-10) KERRIE (obstructive sleep apnea) ?G47.33 - Obstructive sleep apnea (adult) (pediatric) (ICD-10) History of osteomyelitis (~2021) ?Z87.39 - Personal history of other diseases of the musculoskeletal system and connective tissue (ICD-10) Elevated serum creatinine (~05/2022) ?R79.89 - Other specified abnormal findings of blood chemistry (ICD-10) Atelectasis of both lungs ?J98.11 - Atelectasis (ICD-10) Pseudomonas urinary tract infection ?N39.0 - Urinary tract infection, site not specified (ICD-10) ?B96.5 - Pseudomonas (aeruginosa) (mallei) (pseudomallei) as the cause of diseases classified elsewhere (ICD-10) Atypical lobular hyperplasia (ALH) of right breast ?N60.91 - Unspecified benign mammary dysplasia of right breast (ICD-10) Ductal carcinoma in situ (DCIS) of breast ?D05.10 - Intraductal carcinoma in situ of unspecified breast (ICD-10) Surgical History S/P PICC central line placement ?Z95.828 - Presence of other vascular implants and grafts (ICD-10) H/O breast biopsy ?Z98.890 - Other specified postprocedural states (ICD-10) H/O bilateral breast reduction surgery (07/18/20) ?Z98.890 - Other specified postprocedural states (ICD-10) S/P breast lumpectomy (07/09/20) ?Z98.890 - Other specified postprocedural states (ICD-10) Family History Father Diabetes H/O heart surgery Brother Bicuspid aortic valve Social History What is your current living situation?: I presently have a place to live In the past 12 months, utilities in danger of being shut off: no In past 12 months, lack of transportation kept you from medical appts, meetings, work, or getting things needed for daily living: no In the past 12 mos, have been you worried that your food would run out before you had money to buy more?: never true In the past 12 mos, the food you bought just didn't last and you didn't have money to buy more?: never true 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 [place] Highest level of school completed/degree received: Bachelor's degree Smoking Status: Never smoker Do you use any of these nicotine containing products: None Second hand tobacco smoke exposure: No How often do you have a drink containing alcohol: 4 or more times a week Alcohol type: beer Alcohol type details: Wednesdays and Saturdays How many standard drinks containing alcohol do you have on a typical day: 1 or 2 How often do you have six or more drinks on one occasion: Never AUDIT-C Alcohol total score: 4 Non-prescribed substance use: denies use Caffeine: Yes Are you now , , , , never or living with a partner: Social isolation score (0-1 are the most socially isolated patients): 1 How often does anyone, including family, friends and others, physically hurt you : never How often does anyone, including family, friends and others, insult or talk down to you: never How often does anyone, including family, friends and others, threaten you with harm: never How often does anyone, including family, friends and others, scream or curse at you: never service: No Meds Home Medications and Allergies Home Medications ?Medication ?Instructions ?Recorded ?Confirmed ?Type mirabegron 50 mg tablet,extended 50 mg PO HS 03/19/22 10/04/24 History release 24 hr (Myrbetriq) multivitamin 1 tab PO DAILY 04/08/22 10/04/24 History amlodipine 5 mg tablet 5 mg PO DAILY 10/04/24 10/04/24 History anastrozole 1 mg tablet 1 mg PO HS 10/04/24 10/04/24 History bupropion HCl 300 mg 24 hr tablet, 300 mg PO QA 10/04/24 10/04/24 History extended release dextroamphetamine-amphetamine ER 20 mg PO DAILY 10/04/24 10/04/24 History 20 mg 24hr capsule,extend release losartan 100 1 tab PO QDAY 10/04/24 10/04/24 History mg-hydrochlorothiazide 12.5 mg tablet Allergies Allergy/AdvReac Type Severity Reaction Status Date / Time No Known Drug Allergies Allergy Verified 10/04/24 07:32 Exam Narrative: Exam Narrative: PHYSICAL EXAM General: Pleasant, conversant, NAD HEENT: Normocephalic, atraumatic, sclera white, EOMI, oral mucosa moist Cardiovascular: RRR, S1S2. No pitting edema Pulmonary: CTA bilaterally without rhonchi, rales, expiratory wheezes. No dyspnea Neurological: Alert, answering questions appropriately, cranial nerves intact, no focal findings Extremities: No gross joint deformity or swelling. Postoperative dressing, immobilizer in place, dry. Neurovascularly intact Skin: Warm, dry. Const: Vital Signs, click to edit/add: Vital Signs - 24 hr 10/04/24 08:00 10/04/24 08:16 10/04/24 08:20 Temperature 97.6 F Pulse Rate 66 60 61 Respiratory Rate 16 16 16 Blood Pressure 143/87 H 147/89 H 134/77 Pulse Oximetry 97 97 96 Oxygen Delivery Me thod Room Air Nasal Cannula Nasal Cannula Oxygen Flow Rate 2 2 10/04/24 08:25 10/04/24 08:30 10/04/24 11:14 Temperature 97.3 F L Pulse Rate 64 64 50 L Respiratory Rate 16 16 16 Blood Pressure 134/77 128/76 109/62 Pulse Oximetry 96 96 91 Oxygen Delivery Me thod Nasal Cannula Nasal Cannula Room Air Oxygen Flow Rate 2 2 0 10/04/24 11:20 10/04/24 11:25 10/04/24 11:30 Temperature Pulse Rate 50 L 52 L 46 L Respiratory Rate 16 16 16 Blood Pressure 112/65 115/63 115/63 Pulse Oximetry 91 92 92 Oxygen Delivery Me thod Room Air Room Air Room Air Oxygen Flow Rate 0 0 0 10/04/24 11:35 10/04/24 11:40 10/04/24 11:45 Temperature Pulse Rate 49 L 59 L 59 L Respiratory Rate 16 16 16 Blood Pressure 109/63 126/71 124/77 Pulse Oximetry 96 95 95 Oxygen Delivery Me thod Room Air Room Air Room Air Oxygen Flow Rate 0 0 0 10/04/24 11:45 10/04/24 12:00 10/04/24 12:15 Temperature 97.3 F L Pulse Rate 59 L 59 L Respiratory Rate 16 16 Blood Pressure 124/77 123/72 Pulse Oximetry 91 91 91 Oxygen Delivery Me thod Room Air Room Air Room Air Oxygen Flow Rate 0 0 10/04/24 12:15 10/04/24 12:30 10/04/24 12:47 Temperature Pulse Rate 64 66 65 Respiratory Rate 16 16 16 Blood Pressure 127/75 110/88 126/75 Pulse Oximetry 92 91 90 Oxygen Delivery Me thod Room Air Room Air Room Air Oxygen Flow Rate 0 0 0 10/04/24 13:00 10/04/24 13:30 10/04/24 14:06 Temperature Pulse Rate 68 72 70 Respiratory Rate 16 18 18 Blood Pressure 119/79 118/70 115/72 Pulse Oximetry 94 92 91 Oxygen Delivery Me thod Room Air Room Air Room Air Oxygen Flow Rate 0 0 0 Assessment and Plan Assessment and plan (1) Primary osteoarthritis, right shoulder: Problem comment: -POD#0 s/p right reverse shoulder arthroplasty. Dr. Jimenes -perioperative management including pain management and anticoagulation per Orthopedic surgery -encourage postoperative pulmonary hygiene -PT OT consults -plan to discharge home with spouse tomorrow Status: Acute (2) Hypertension: Problem comment: Adequate postoperative pressures Continue home losartan and HCTZ, amlodipine Status: Acute (3) Attention deficit disorder: Problem comment: Hold adderall - PCP recommending avoiding stimulant use while on postoperative narcotics Status: Acute (4) History of breast cancer: Problem comment: 05/28/2020- right breast had ductal carcinoma in-situ (DCIS) atypical lobular hyperplasia on stereotactic guided core biopsy As of 06/26/2021- follow with Oncology every 6 months times total of 5 years; alternate mammogram yearly with MRI yearly due to high risk hyperplasia as well Resume anastrozole upon discharge Status: Acute (5) Hyperlipidemia: Problem comment: Continue statin Status: Acute (6) Depression: Problem comment: Continue citalopram and bupropion Status: Acute (7) Urge incontinence: Problem comment: Hold Myrbetriq postoperatively, resume upon discharge Status: Acute (8) KERRIE (obstructive sleep apnea): Problem comment: 07/04/2014 AHI-28, uses CPAP Encourage postoperative pulmonary hygiene, incentive spirometry Status: Acute Total Time Spent Total Time Spent: Total time spent caring for the patient today was 65 minutes. This includes time spent for the visit reviewing the chart, time spent during the visit, time spent after the visit and documentation and planning in coordination of care.
[2024-10-04] MEDS: SENNOSIDES 1 TAB TABLET 2 TAB PO (20:10)
[2024-10-04] MEDS: ATORVASTATIN CALCIUM 40 MG TABLET PO (20:10)
--- NOTE | 2024-10-04 22:19 | PC.NURSE ---
End of Shift: Patient pleasant and cooperative. Afebrile. Dressing to right shoulder C/D/I. CMS intact. Denies pain. Up to chair and bathroom with SBA and gait belt. Tolerating regular diet with no nausea.
[2024-10-04] MEDS: OXYCODONE 5 MG TABLET PO (23:37)
[2024-10-05 03:25] VITALS: BP 123/73; PULSE 67; RESP 16; TEMP 36.6; O2SAT 98
[2024-10-05] MEDS: OXYCODONE 5 MG TABLET PO ×3 (03:26→08:57)
[2024-10-05] MEDS: ACETAMINOPHEN 500 MG TABLET 1000 MG PO ×2 (03:26→08:56)
[2024-10-05] MEDS: HYDROmorphone 0.5 mg/0.5 ml inj IVP (06:52)
[2024-10-05] MEDS: LEVOTHYROXINE 25 MCG TABLET PO (06:53)
[2024-10-05] MEDS: CEFAZOLIN 2 GM in 0.9 % SODIUM CHLORIDE Mini-bag 100 ML IVPB (06:54)
[2024-10-05 07:00] LABS: Hematocrit 37.1 % (33.0-51.0); Hemoglobin* 12.3 gm/dL (12.0-16.0); Mean Corpuscular HGB Conc 33 gm/dL (32-36); Mean Corpuscular Hemoglobin 30 pg (26-34); Mean Corpuscular Volume 91 fL (80-100); Platelet Count* 188 K/uL (140-440); Red Blood Count 4.07 m/uL (4.00-5.20); White Blood Count* 7.23 K/uL (4.50-11.00)
[2024-10-05 07:04] LABS: Potassium* 3.6 mmol/L (3.6-5.1); Sodium* 135 mmol/L (135-149)
[2024-10-05 07:06] LABS: Slide Review Reflex No
--- NOTE | 2024-10-05 07:06 | PC.NURSE ---
End of shift summary: Pt has been A&O, afebrile and VSS overnight. Pain was well controlled beginning of the shift and gradually got worse overnight. This morning she?s rating it at 9/10 c/o shoulder & neck pain. PRN Dilaudid & oxycodone given last @ 0650. PIV in left hand is SL other than last dose of IV abx infusing this morning. She is SBA for ambulation & transfers. Denies any nausea, dizziness or CP. Adequate PO intake and U/O. Utilized home CPAP overnight. Plans to discharge home with today. ?
[2024-10-05 07:07] LABS: Blood Urea Nitrogen* 15 mg/dL (7-30); Creatinine* 0.7 mg/dL (0.5-1.5); Est. Creatinine Clearance* 80.01; Estimated Glomerular Filt Rate 99 ml/min
[2024-10-05 07:28] VITALS: BP 129/72; RESP 16; TEMP 36.4; O2SAT 93
[2024-10-05] MEDS: hydroCHLOROthiazide 12.5 MG CAPSULE PO (08:56)
[2024-10-05] MEDS: SENNOSIDES 1 TAB TABLET 2 TAB PO (08:56)
[2024-10-05] MEDS: LOSARTAN POTASSIUM 50 MG TABLET 100 MG PO (08:57)
[2024-10-05] MEDS: AMLODIPINE 5 MG TABLET PO (08:57)
[2024-10-05] MEDS: buPROPion XL 150 MG TABLET 300 MG PO (08:57)
[2024-10-05] MEDS: CITALOPRAM HYDROBROMIDE 20 MG TABLET 40 MG PO (08:57)
--- NOTE | 2024-10-05 10:38 | PC.NURSE ---
Pt alert and oriented. Pt had complaints ranging 4-7; see EMAR for intervention. Pt up with SBA. Pt's at bedside. Pt's IV removed; catheter intact. Pt discharged home with .
--- NOTE | 2024-10-05 13:16 | PM.ORPN ---
Subjective Subjective Date Seen: 10/05/24 Principal diagnosis: Status postop day 1 right reverse TSA, and long head biceps tenodesis Interval history: Patient reports doing okay. No acute events over night. Pain has been difficult to manage at times. Pain managed with scheduled and PRN medications, ice. DVT prophylaxis: SCDs, walking. Denies fevers, chills, aches, N/V, CP, SOB/CEJA, or lightheadedness. Ortho Exam Narrative Exam Narrative: -Patient appears comfortable in bed, sleeping. No apparent acute distress -Alert and oriented times 3 -Operative shoulder swollen; soft, supple tissues; no obvious erythema. Ecchymosis minimal. Warmth appropriate -Surgical dressing clean, dry, intact; no obvious drainage, no erythematous streaking peripheral to the bandage -Bilateral calves soft and supple; no significant swelling, edema, tenderness, erythema, discoloration, warmth, or palpable cords -2+ radial pulse, intact dermatomes and myotomes distally (5/5 strength) Const Vital Signs, click to edit/add: Vital Signs - 24 hr 10/04/24 13:30 10/04/24 14:06 10/04/24 15:00 Temperature 98.5 F Pulse Rate 72 70 69 Pulse Rate [Pulse Oximeter] Respiratory Rate 18 18 16 Blood Pressure 118/70 115/72 116/74 Blood Pressure [Left Arm] Pulse Oximetry 92 91 98 Oxygen Delivery Method Room Air Room Air Room Air Oxygen Flow Rate 0 0 10/04/24 15:00 10/04/24 16:00 10/04/24 17:25 Temperature 98.2 F 98.2 F Pulse Rate 71 74 Pulse Rate [Pulse Oximeter] Respiratory Rate 16 18 16 Blood Pressure 129/74 116/67 Blood Pressure [Left Arm] Pulse Oximetry 95 95 Oxygen Delivery Method Room Air Room Air Oxygen Flow Rate 10/04/24 19:00 10/04/24 23:35 10/04/24 23:35 Temperature 97.9 F Pulse Rate Pulse Rate [Pulse Oximeter] 73 71 Respiratory Rate 16 16 16 Blood Pressure Blood Pressure [Left Arm] 121/65 Pulse Oximetry 94 95 Oxygen Delivery Method Room Air Room Air Oxygen Flow Rate 10/04/24 23:35 10/05/24 03:25 10/05/24 07:28 Temperature 97.9 F 97.8 F 97.5 F L Pulse Rate Pulse Rate [Pulse Oximeter] 71 67 Respiratory Rate 16 16 16 Blood Pressure Blood Pressure [Left Arm] 128/78 123/73 129/72 Pulse Oximetry 95 98 93 Oxygen Delivery Method Room Air Room Air Room Air Oxygen Flow Rate 10/05/24 07:28 Temperature Pulse Rate Pulse Rate [Pulse Oximeter] Respiratory Rate 16 Blood Pressure Blood Pressure [Left Arm] Pulse Oximetry 93 Oxygen Delivery Method Room Air Oxygen Flow Rate 0 Assessment and Plan Assessment and plan (1) Primary osteoarthritis, right shoulder: Problem details: -POD#1 s/p right reverse shoulder arthroplasty. Dr. Jimenes -perioperative management including pain management and anticoagulation per Orthopedic surgery -encourage postoperative pulmonary hygiene -PT OT consults -plan to discharge home with spouse tomorrow Status: Acute (2) Hypertension: Problem details: Adequate postoperative pressures Continue home losartan and HCTZ, amlodipine Status: Acute (3) Attention deficit disorder: Problem details: Hold adderall - PCP recommending avoiding stimulant use while on postoperative narcotics Status: Acute (4) History of breast cancer: Problem details: 05/28/2020- right breast had ductal carcinoma in-situ (DCIS) atypical lobular hyperplasia on stereotactic guided core biopsy As of 06/26/2021- follow with Oncology every 6 months times total of 5 years; alternate mammogram yearly with MRI yearly due to high risk hyperplasia as well Resume anastrozole upon discharge Status: Acute (5) Hyperlipidemia: Problem details: Continue statin Status: Acute (6) Depression: Problem details: Continue citalopram and bupropion Status: Acute (7) Urge incontinence: Problem details: Hold Myrbetriq postoperatively, resume upon discharge Status: Acute (8) KERRIE (obstructive sleep apnea): Problem details: 07/04/2014 AHI-28, uses CPAP Encourage postoperative pulmonary hygiene, incentive spirometry Status: Acute Plan - Complete 23 hour perioperative antibiotics. - PT/OT consult for education and assistance. - Social work consult for discharge planning - Prescribed analgesics as needed - DVT prophylaxis: Walking, and SCDs - Anticipation is for discharge to home with family/friends today with , 10/05/2024 if the patient remains medically stable, pain is controlled, and they are safe with mobilization. -We discussed Vistaril for discharge; however, there was a flagged interaction with her citalopram that could result in QT prolongation, thus I elected not to prescribe Vistaril for discharge.
== END 2024-10-05 10:39 | disposition home or self-care (01) ==
LOC: OR 07:21 → MEDSURG 07:27
PROVIDERS: PCP Physician Assistant Medical; Visit Provider Orthopaedic Surgery Sports Medicine
PROC: 0RRJ0JZ Replacement of Right Shoulder Joint with Synthetic Substitute, Open Approach (ICD-10-PCS; CPT 23472; principal; 2024-10-04 09:00)
DX: M19.011 Primary osteoarthritis, right shoulder (principal); M75.21 Bicipital tendinitis, right shoulder; M75.101 Unspecified rotator cuff tear or rupture of right shoulder, not specified as traumatic; G89.18 Other acute postprocedural pain; I10 Essential (primary) hypertension; G47.33 Obstructive sleep apnea (adult) (pediatric); Z99.89 Dependence on other enabling machines and devices; N39.41 Urge incontinence; E66.9 Obesity, unspecified; F32.A Depression, unspecified; E78.5 Hyperlipidemia, unspecified; F98.8 Other specified behavioral and emotional disorders with onset usually occurring in childhood and adolescence; Z85.3 Personal history of malignant neoplasm of breast
CPT/HCPCS: 23472; 23430; 01638; 36415; 64415; 73030; 76942; 82565; 84132; 84295; 84520; 85027; 97110; 97165; 97535; A9270; C1713; C1776; J0330; J0690; J1100; J1171; J2250; J2371; J2405; J2704; J2710; J2795; J3010; J7120

== ENCOUNTER 2024-10-26 15:40 | Outpatient (CLI) | payer BC, SELFPAY | END 2024-10-26 15:41 | disposition home or self-care (01) | LOC: NFLDREF 11-01 01:07 | PROVIDERS: PCP Physician Assistant Medical; Referring Provider Physician Assistant Medical; Visit Provider Family Medicine | DX: R39.9 Unspecified symptoms and signs involving the genitourinary system (principal); N39.0 Urinary tract infection, site not specified | CPT/HCPCS: 87086 ==

== ENCOUNTER 2024-11-09 12:09 | Outpatient (CLI) | payer BC, SELFPAY | END 2024-11-09 12:10 | disposition home or self-care (01) | LOC: NFLDREF 11-14 02:11 | PROVIDERS: PCP Physician Assistant Medical; Referring Provider Physician Assistant Medical; Visit Provider Physician Assistant | DX: N39.0 Urinary tract infection, site not specified (principal) | CPT/HCPCS: 87086 ==

== ENCOUNTER 2024-11-09 15:05 | Outpatient (RCR) | payer BC, SELFPAY | END 2025-05-08 23:59 | disposition home or self-care (01) | LOC: CCIC 15:05 | PROVIDERS: PCP Physician Assistant Medical; Visit Provider Physician Assistant | DX: D05.11 Intraductal carcinoma in situ of right breast (principal); Z17.0 Estrogen receptor positive status [ER+]; Z79.811 Long term (current) use of aromatase inhibitors; R39.9 Unspecified symptoms and signs involving the genitourinary system; N39.0 Urinary tract infection, site not specified; M19.011 Primary osteoarthritis, right shoulder; M75.101 Unspecified rotator cuff tear or rupture of right shoulder, not specified as traumatic; Z51.89 Encounter for other specified aftercare | CPT/HCPCS: 87086; 99213; 99214; G0463 ==

== ENCOUNTER 2024-12-27 11:15 | Outpatient (RCR) | payer BC, SELFPAY ==
--- NOTE | 2024-09-28 10:40 | OT.OPOE ---
OT Outpatient Ortho Eval OT Outpatient Ortho Eval* Start: 09/28/24 07:54 Freq: Status: Active Protocol: Document 09/28/24 09:18 LORENE (Rec: 09/28/24 10:37 MARTHATate [id number]) E-signed By Jaelyn Maher, OTR/L, CLT OT OP Ortho Eval Details Complexity Complexity Low Insurance Information Insurance Information [employer] Outpatient History/Precautions Current Condition/Medical Diagnosis Referring Provider Dr. Hung Jimenes Medical Diagnoses Primary osteoarthritis, right shoulder M19.011 Treatment Diagnosis Pain in R shoulder, M25. 511 Stiffness in R shoulder, M25. 611 Date of Onset 10/04/24 Other Conditions Home Medications: amlodipine 5 mg PO QDAY anastrozole 1 mg PO HS atorvastatin 40 mg PO HS benzonatate 100 mg PO TID PRN bupropion HCl XL 300 mg PO QAM citalopram 40 mg PO DAILY dextroamphetamine-amphetamine 20 mg ER 20 mg PO QDAY ibuprofen mg PO .Q6h Prn levothyroxine 25 mcg PO DAILY losartan 100 mg PO DAILY losartan-hydrochlorothiazide 100-12.5 mg 1 tab PO QDAY mirabegron ER (Myrbetriq) 50 mg PO HS multivitamin 1 tab PO QDAY PMH includes but is not limited to: E66.9 - Obesity, unspecified ( ICD-10) Hammer toes, bilateral (Acute) second toes. M20.41 - Other hammer toe(s) ( acquired), right foot (ICD-10) M20.42 - Other hammer toe(s) ( acquired), left foot (ICD-10) Primary osteoarthritis, right shoulder (Acute) M19.011 - Primary osteoarthritis, right shoulder (ICD-10) Urge incontinence (Acute): Followed with urology-has received Botox injections Did pelvic floor physical therapy. 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 on Anastrozole As of 06/26/2021- follow with Oncology every 6 months times total of 5 years; alternate mammogram yearly with MRI yearly due to high risk hyperplasia as well Z85.3 - Personal history of malignant neoplasm of breast ( ICD-10) Attention deficit disorder ( Acute) F98.8 - Other specified behavioral and emotional disorders with onset usually occurring in childhood and adolescence (ICD-10) Paresthesia of left upper extremity (Acute) R20.2 - Paresthesia of skin ( ICD-10) Hypertension (Acute): BP goal of less than 130/80. 3- [id number] losartan to 100 mg daily, add amlodipine 5 mg daily 01/12/2024-add hydrochlorothiazide 12.5 mg daily to losartan. 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 Lives with a spouse in a multi -level home. 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 Chief compliant of chronic right shoulder pain, that is secondary to severe glenohumeral osteoarthritis. Her shoulder pain is located diffusely about the shoulder and is present intermittently. Pain is aggravated by overhead activities and is often worse when she trying to sleep at night. She denies any history of injury. No radiation of pain into her arm , however, she has recently experience some numbness in her hands on occasion. She denies any numbness or tingling at night. She cannot recall any specific factors which contribute to the development of numbness. Previous treatment for her shoulder pain is consisted of intra-articular corticosteroid injections. Her last injection in March 2020 for provided 80% pain relief which lasted for a few months. She continues to take acetaminophen on an as-needed basis for pain control. Pain Assessment Pain Pain Yes Pain Comments 03/29 R shoulder pain Range of Motion and Strength Shoulder Range of Motion and Strength Shoulder Range of Motion and Strength Right shoulder active and passive range of motion: Forward elevation 85 ?, external rotation 10?, abduction 80?, internal rotation to hip pocket. Strength: 5/5 shoulder internal rotation, external rotation, abduction, and forward elevation. Hand/Finger/Thumb Range of Motion and Strength Hand/Finger/Thumb Range of Motion and Examination of her hands Strength reveals no thenar or hypothenar atrophy. Radial, ulnar, median sensation intact to light touch. Carpal tunnel compression test, Phalen's test, and Tinel's over the carpal tunnel were negative bilaterally. 5/5 strength thumb extension, thumb opposition, thumb IP flexion, and intrinsics. Fingers are warm and well perfused with intact radial pulses bilaterally. 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 Chief compliant of chronic right shoulder pain, that is secondary to severe glenohumeral osteoarthritis. Her shoulder pain is located diffusely about the shoulder and is present intermittently. Pain is aggravated by overhead activities and is often worse when she trying to sleep at night. She denies any history of injury. No radiation of pain into her arm , however, she has recently experience some numbness in her hands on occasion. She denies any numbness or tingling at night. She cannot recall any specific factors which contribute to the development of numbness. Previous treatment for her shoulder pain is consisted of intra-articular corticosteroid injections. Her last injection in March 2020 for provided 80% pain relief which lasted for a few months. She continues to take acetaminophen on an as-needed basis for pain control. Patient was pleasant, alert, orientated, asked great questions in session, was an active listener to information presented and showed signs of motivation/willingness to follow the presented protocol/ Post-op Instructions & HEP. In session today, patient was provided with resources and education as well as given handouts on the following topics: home modifications/ suggested set-up, potential DME needs and where to purchase items, fall prevention, home safety. The patient was a pleasure to work with today and reported at the end of session feeling more prepared for upcoming surgery. No barriers/concerns noted. Pre-op therapy note completed Occupational Therapy Treatment Plan - OP Potential Rehabilitation Potential Excellent Set Goals Goals Set with Patient Yes Goals Goals 1. Patient will be able to properly dimitir/doff her shoulder sling Independently. 2. Patient will demonstrate how to accurately perform her post-op HEP with use of handout (Modified Indep). Target Date Today 09/28/23 Treatment Plan Treatment Plan Evaluation,Therapeutic Exercise,Self Care/Home Management,Education Expected Frequency 1 visit Expected Duration 1 session Home Program Home Program Home Program Initiated Home Program Specifics EXERCISES Supported Elbow (AROM) 3 sets x10 repetitions daily Wrist Circles (AROM) 3 sets x10 repetitions daily Seated Straight Fist (AROM) 3 sets x10 repetitions daily Finger Spreading 3 sets x10 repetitions daily If you?ve had a total shoulder replacement, there are some positions your surgeon may recommend you avoid during your recovery to protect your shoulder as it heals. It is important to follow these precautions and any other instructions your health care team gives you to allow your shoulder to heal properly. 1. Make sure to wear your sling as directed by your healthcare provider. Generally , it?s a good idea to always keep your sling on, except during self-care or when performing your home exercises . ? Always wear your sling while walking, standing, sleeping, or when you?re outside or in crowds. Wearing your sling around others alerts those around you to be cautious around your operated arm. It also helps avoid someone accidentally bumping or striking your arm. ? If you?re sitting or lying down at home, you may be allowed to take off your sling . Just be careful to keep your elbow tucked in to your side whenever you?re out of your sling. 2. Do not lift or carry anything with your operated arm that weighs more than one pound. This is about the weight of a coffee cup. Eating , drinking, and using a remote control are okay. 3. Do not bear weight through your operated arm, such as when pushing up from a chair. ? If you use a walker, it?s best to use a cane or hemiwalker while your shoulder recovers. These devices can be used with your non- operative arm. 4. Do not actively use your surgical shoulder. ? Avoid pushing, pulling, or lifting with that arm, such as to open or close a door. ? Avoid reaching overhead, to the side, behind your back, or across your chest. ? Also take care to avoid fast or jerking movements. ? You should not allow your elbow to move backwards, past your ribs. When lying down, support your upper arm with a pillow to keep it from moving backward. ? To get out of bed, roll onto your ?good side.? Then use your non-operative arm to push yourself up into a sitting position. 5. At first, you may find it more comfortable to sleep in a recliner. However, you may also sleep in a bed with a folded towel or sheet propped up behind your shoulder and upper arm for support. 6. Do not let your forearm or hand move out to the side. Gentle use of your elbow, wrist, and hand on your operated arm is okay as long as your arm is at your side and you keep your elbow in front of you. Your precautions may be different depending on your surgeon or rehab facility. Be sure to follow the instructions your health care team gives you. Certification Certification Statement I Certify That: Therapy Services Provided, Therapy Plan Established, Therapy Plan Reviewed Certification Information Clinic ID # [id number] Initial Certification Date 09/28/24 Recertification Due Date 12/27/24 Provider Signature Required Yes Provider Signature Shows Agreement With POC & Medical Necessity Physician NPI Number Write NPI# Here Physician Comment/Change Comment or Changes Physician Signature & Date Requested Please Sign/Date Here
== END 2025-02-26 10:17 | disposition home or self-care (01) ==
PROVIDERS: PCP Physician Assistant Medical; Visit Provider Orthopaedic Surgery Sports Medicine
DX: M19.011 Primary osteoarthritis, right shoulder (principal); M75.101 Unspecified rotator cuff tear or rupture of right shoulder, not specified as traumatic; Z96.611 Presence of right artificial shoulder joint; Z51.89 Encounter for other specified aftercare
CPT/HCPCS: 87086; 97110; 97140; 97161; 97165; 97530; X5282

== ENCOUNTER 2025-05-27 11:38 | Outpatient (CLI) | payer OTHER, SELFPAY | END 2025-05-27 11:39 | disposition home or self-care (01) | LOC: NFLDREF 15:55 | PROVIDERS: PCP Physician Assistant Medical; Referring Provider Physician Assistant Medical; Visit Provider Physician Assistant | DX: R35.0 Frequency of micturition (principal); N39.0 Urinary tract infection, site not specified | CPT/HCPCS: 87086 ==